=== PATIENT | male | born 1950 | race Asian ===

== ENCOUNTER → 2019-07-29 | Outpatient (CLI) | payer MEDICARE, MEDICAID ==
[~2019-07-29] MED LIST: AMITRIP PO; AML5T PO; DOXA1TAB28; GEMF600T7 PO; INSLANTI SC; INSUINJ37 SC; PANT40TA2 PO
[2019-07-29 09:01] LABS: Potassium 3.7 mmol/L (3.5-5.1)
[2019-07-29 09:09] LABS: BUN/Creatinine Ratio 10.7; Calcium 9.2 mg/dL (8.5-10.1)
== END | disposition home or self-care (01) ==
LOC: LAB 07:34
PROVIDERS: ATTEND Internal Medicine Nephrology
DX: E87.5 Hyperkalemia (principal); N18.1 Chronic kidney disease, stage 1
CPT/HCPCS: 36415; 80048

== ENCOUNTER → 2019-09-19 | Outpatient (CLI) | payer MEDICARE, MEDICAID ==
[2019-09-19 08:57] LABS: Basophils # (auto) 0 uL; Basophils % (auto) 0.3 % (0.0-2.0); Eosinophils # (auto) 0.2 uL; Eosinophils % (auto) 2.2 % (0.0-7.0); Hematocrit 39.1 % (41.0-53.0); Hemoglobin 13.8 g/dL (13.5-17.5); Lymphocytes # (auto) 2.6 uL; Lymphocytes % (auto) 31.7 % (10.0-50.0); Mean Corpuscular Hemoglobin 29.2 pg (28.0-32.0); Mean Corpuscular Hgb Conc. 35.4 g/dL (32.0-36.0); Mean Corpuscular Volume 82.5 fL (80.0-100.0); Monocytes # (auto) 0.5 uL; Monocytes % (auto) 6.5 % (0.0-12.0); Neutrophils # (auto) 4.8 uL; Neutrophils % (auto) 59.3 % (37.0-80.0); Platelet Count (auto) 178 10^3/uL (140-450); Red Blood Cells 4.74 10^6/uL (4.5-5.90); Red Cell Distribution Width 13.2 % (11.8-14.3); White Blood Cell 8.1 10^3/uL (4.4-10.8)
[2019-09-19 09:04] LABS: Urine Bacteria NONE SEEN /hpf (None Seen); Urine Blood Negative /uL (Negative); Urine Specific Gravity 1.023 (1.001-1.035); Urine WBC <1 /hpf (0 - 3)
[2019-09-19 09:41] LABS: Protein, Urine 35.9 mg/dL (0.0-11.9)
[2019-09-19 09:45] LABS: Albumin 4.2 g/dL (3.4-5.0); Calcium 9.3 mg/dL (8.5-10.1); Potassium 3.8 mmol/L (3.5-5.1)
[2019-09-19 09:51] LABS: BUN/Creatinine Ratio 11.8; Bilirubin, Total 0.7 mg/dL (0.2-1.0); Total Protein 8.5 g/dL (6.4-8.2)
== END | disposition home or self-care (01) ==
LOC: LAB 08:31
PROVIDERS: ATTEND Internal Medicine Nephrology
DX: I12.9 Hypertensive chronic kidney disease with stage 1 through stage 4 chronic kidney disease, or unspecified chronic kidney disease (principal); E11.22 Type 2 diabetes mellitus with diabetic chronic kidney disease; N18.3 Chronic kidney disease, stage 3 (moderate)
CPT/HCPCS: 36415; 80053; 80061; 81001; 82570; 84156; 84439; 84443; 85025

== ENCOUNTER 2019-11-15 18:26 | Emergency (ER) | payer MEDICARE, MEDICAID ==
[~2019-11-15] VITALS: Ht 167.6 cm; Wt 74.8 kg
[2019-11-15 18:44] VITALS: BP 124/59
[2019-11-15 19:41] LABS: Albumin 3.5 g/dL (3.4-5.0); Anion Gap 12 (5-15); Blood Urea Nitrogen 50 mg/dL (7-18); Calcium 8.6 mg/dL (8.5-10.1); Carbon Dioxide 20 mmol/L (21-32); Chloride 102 mmol/L (98-107); Potassium 4.3 mmol/L (3.5-5.1); Sodium 134 mmol/L (136-145)
[2019-11-15 19:50] LABS: Alanine Aminotransferase 68 U/L (16-61); Alkaline Phosphatase 84 U/L (45-117); Aspartate Aminotransferase 40 U/L (15-37); BUN/Creatinine Ratio 19.8; Bilirubin, Total 0.8 mg/dL (0.2-1.0); GFR African American 33 mL/min; GFR Non-African American 27 mL/min; Total Protein 7.5 g/dL (6.4-8.2)
[2019-11-15 19:55] LABS: Glucose 576 mg/dL (74-106)
[2019-11-15 20:02] LABS: Basophils # (auto) 0 uL; Basophils % (auto) 0.4 % (0.0-2.0); Eosinophils # (auto) 0.1 uL; Eosinophils % (auto) 1.7 % (0.0-7.0); Hematocrit 35.2 % (41.0-53.0); Hemoglobin 11.7 g/dL (13.5-17.5); Lymphocytes # (auto) 1.1 uL; Lymphocytes % (auto) 16.8 % (10.0-50.0); Mean Corpuscular Hemoglobin 29.8 pg (28.0-32.0); Mean Corpuscular Hgb Conc. 33.3 g/dL (32.0-36.0); Mean Corpuscular Volume 89.4 fL (80.0-100.0); Monocytes # (auto) 0.6 uL; Monocytes % (auto) 9.6 % (0.0-12.0); Neutrophils # (auto) 4.7 uL; Neutrophils % (auto) 71.5 % (37.0-80.0); Nucleated Red Blood Cells % 0.1 %; Platelet Count (auto) 177 10^3/uL (140-450); Red Blood Cells 3.93 10^6/uL (4.5-5.90); Red Cell Distribution Width 14.6 % (11.8-14.3); White Blood Cell 6.5 10^3/uL (4.4-10.8)
== END 2019-11-15 23:47 | disposition left against medical advice (07) ==
LOC: ER 18:29
DX: R53.1 Weakness (principal); Z53.21 Procedure and treatment not carried out due to patient leaving prior to being seen by health care provider
CPT/HCPCS: 36415; 71046; 80053; 84484; 85025

== ENCOUNTER → 2020-03-05 | Outpatient (CLI) | payer MEDICARE, MEDICAID ==
[~2020-03-05] MED LIST changes: +ALLO100T PO; -AML5T PO; -DOXA1TAB28; +FERR-20 PO; -GEMF600T7 PO; -INSUINJ37 SC; +SODI650T PO
[2020-03-05 08:02] LABS: Basophils # (auto) 0 10 ^3/uL (0-0.2); Basophils % (auto) 0.2 % (0.0-2.0); Eosinophils # (auto) 0.1 10 ^3/uL (0-0.8); Eosinophils % (auto) 2.4 % (0.0-7.0); Hematocrit 39.1 % (41.0-53.0); Hemoglobin 13.4 g/dL (13.5-17.5); Lymphocytes % (auto) 35.2 % (10.0-50.0); Mean Corpuscular Hgb Conc. 34.2 g/dL (32.0-36.0); Mean Corpuscular Volume 84.9 fL (80.0-100.0); Monocytes # (auto) 0.5 10 ^3/uL (0-1.3); Monocytes % (auto) 8.1 % (0.0-12.0); Neutrophils # (auto) 3.1 10 ^3/uL (1.6-8.6); Neutrophils % (auto) 54.1 % (37.0-80.0); Platelet Count (auto) 201 10^3/uL (140-450); Red Blood Cells 4.61 10^6/uL (4.5-5.90); Red Cell Distribution Width 13.5 % (11.8-14.3); White Blood Cell 5.8 10^3/uL (4.4-10.8)
[2020-03-05 08:06] LABS: Urine Bacteria NONE SEEN /hpf (None Seen); Urine Blood Negative /uL (Negative); Urine Hyaline Cast MANY /lpf (0 - 2); Urine Mucus FEW (None Seen); Urine Specific Gravity 1.017 (1.001-1.035); Urine WBC 1 /hpf (0 - 3)
[2020-03-05 08:22] LABS: Protein, Urine 111.9 mg/dL (0.0-11.9)
[2020-03-05 08:31] LABS: Calcium 9.3 mg/dL (8.5-10.1)
[2020-03-05 08:35] LABS: BUN/Creatinine Ratio 12.3; Magnesium 2.6 mg/dL (1.6-2.6); Phosphorus 3.8 mg/dL (2.5-4.90)
== END | disposition home or self-care (01) ==
LOC: LAB 07:24
PROVIDERS: ATTEND Internal Medicine Nephrology
DX: E11.22 Type 2 diabetes mellitus with diabetic chronic kidney disease (principal); I13.0 Hypertensive heart and chronic kidney disease with heart failure and stage 1 through stage 4 chronic kidney disease, or unspecified chronic kidney disease; N18.5 Chronic kidney disease, stage 5
CPT/HCPCS: 36415; 80048; 81001; 82570; 83735; 84100; 84156; 85025

== ENCOUNTER → 2020-05-28 | Outpatient (CLI) | payer MEDICARE, MEDICAID ==
[2020-05-28 08:19] LABS: BUN/Creatinine Ratio 10.9; Calcium 9.5 mg/dL (8.5-10.1); Potassium 3.9 mmol/L (3.5-5.1)
== END | disposition home or self-care (01) ==
LOC: LAB 07:30
PROVIDERS: ATTEND Internal Medicine Nephrology
DX: E11.22 Type 2 diabetes mellitus with diabetic chronic kidney disease (principal); I12.9 Hypertensive chronic kidney disease with stage 1 through stage 4 chronic kidney disease, or unspecified chronic kidney disease; N18.3 Chronic kidney disease, stage 3 (moderate)
CPT/HCPCS: 36415; 80048; 83036

== ENCOUNTER → 2020-09-16 | Outpatient (CLI) | payer MEDICARE, MEDICAID ==
[2020-09-16 12:53] LABS: Basophils # (auto) 0 10 ^3/uL (0-0.2); Basophils % (auto) 0.2 % (0.0-2.0); Eosinophils # (auto) 0.2 10 ^3/uL (0-0.8); Eosinophils % (auto) 3.3 % (0.0-7.0); Hematocrit 37.8 % (41.0-53.0); Hemoglobin 12.6 g/dL (13.5-17.5); Lymphocytes # (auto) 1.6 10 ^3/uL (0.4-5.4); Lymphocytes % (auto) 23.9 % (10.0-50.0); Mean Corpuscular Hemoglobin 29.3 pg (28.0-32.0); Mean Corpuscular Hgb Conc. 33.5 g/dL (32.0-36.0); Mean Corpuscular Volume 87.6 fL (80.0-100.0); Monocytes # (auto) 0.5 10 ^3/uL (0-1.3); Monocytes % (auto) 7.6 % (0.0-12.0); Neutrophils # (auto) 4.4 10 ^3/uL (1.6-8.6); Platelet Count (auto) 191 10^3/uL (140-450); Red Blood Cells 4.31 10^6/uL (4.5-5.90); Red Cell Distribution Width 13.6 % (11.8-14.3); White Blood Cell 6.7 10^3/uL (4.4-10.8)
[2020-09-16 13:19] LABS: Calcium 8.6 mg/dL (8.5-10.1)
[2020-09-16 13:23] LABS: Bilirubin, Total 0.4 mg/dL (0.2-1.0); Phosphorus 3.8 mg/dL (2.5-4.90); Total Protein 8.1 g/dL (6.4-8.2)
[2020-09-16 13:30] LABS: Protein, Urine 30.2 mg/dL (0.0-11.9)
== END | disposition home or self-care (01) ==
LOC: LAB 12:37
PROVIDERS: ATTEND Internal Medicine Nephrology
DX: N18.31 Chronic kidney disease, stage 3a (principal); D63.1 Anemia in chronic kidney disease; E21.3 Hyperparathyroidism, unspecified; M10.9 Gout, unspecified
CPT/HCPCS: 36415; 80053; 80069; 82306; 82570; 83970; 84156; 84550; 85025

== ENCOUNTER → 2020-09-23 | Outpatient (CLI) | payer MEDICARE, MEDICAID ==
[2020-09-23 13:45] LABS: BUN/Creatinine Ratio 10.6; Calcium 8.6 mg/dL (8.5-10.1); Potassium 4.1 mmol/L (3.5-5.1)
== END | disposition home or self-care (01) ==
LOC: LAB 10:22
PROVIDERS: ATTEND Internal Medicine Nephrology
DX: N18.30 Chronic kidney disease, stage 3 unspecified (principal)
CPT/HCPCS: 36415; 80048

== ENCOUNTER → 2020-10-21 | Outpatient (CLI) | payer MEDICARE, MEDICAID ==
[2020-10-21 08:31] LABS: Basophils # (auto) 0 10 ^3/uL (0-0.2); Basophils % (auto) 0.3 % (0.0-2.0); Eosinophils # (auto) 0.3 10 ^3/uL (0-0.8); Eosinophils % (auto) 3.7 % (0.0-7.0); Hematocrit 38.4 % (41.0-53.0); Hemoglobin 13.4 g/dL (13.5-17.5); Lymphocytes # (auto) 2.1 10 ^3/uL (0.4-5.4); Lymphocytes % (auto) 28.9 % (10.0-50.0); Mean Corpuscular Hemoglobin 30.2 pg (28.0-32.0); Mean Corpuscular Volume 86.2 fL (80.0-100.0); Monocytes # (auto) 0.6 10 ^3/uL (0-1.3); Monocytes % (auto) 8.5 % (0.0-12.0); Neutrophils # (auto) 4.3 10 ^3/uL (1.6-8.6); Neutrophils % (auto) 58.6 % (37.0-80.0); Nucleated Red Blood Cells % 0.1 %; Platelet Count (auto) 174 10^3/uL (140-450); Red Blood Cells 4.45 10^6/uL (4.5-5.90); Red Cell Distribution Width 14.1 % (11.8-14.3); White Blood Cell 7.3 10^3/uL (4.4-10.8)
[2020-10-21 08:32] LABS: Urine Bacteria NONE SEEN /hpf (None Seen); Urine Blood Negative /uL (Negative); Urine Specific Gravity 1.017 (1.001-1.035); Urine WBC <1 /hpf (0 - 3)
[2020-10-21 09:03] LABS: Anion Gap 7 (5-15); Blood Urea Nitrogen 39 mg/dL (7-18); Calcium 9.1 mg/dL (8.5-10.1); Carbon Dioxide 26 mmol/L (21-32); Chloride 108 mmol/L (98-107); Glucose 157 mg/dL (74-106); Magnesium 2.2 mg/dL (1.6-2.6); Potassium 4.4 mmol/L (3.5-5.1); Sodium 141 mmol/L (136-145)
[2020-10-21 09:04] LABS: Protein, Urine 63.5 mg/dL (0.0-11.9)
[2020-10-21 09:08] LABS: Alanine Aminotransferase 52 U/L (16-61); Alkaline Phosphatase 108 U/L (45-117); Aspartate Aminotransferase 25 U/L (15-37); BUN/Creatinine Ratio 19.5; Bilirubin, Total 0.3 mg/dL (0.2-1.0); Cholesterol 257 mg/dL (< 200); GFR African American 43 mL/min; GFR Non-African American 35 mL/min; HDL Cholesterol 24 mg/dL (40-59); Phosphorus 3.5 mg/dL (2.5-4.90); Total Protein 8.2 g/dL (6.4-8.2); Triglycerides 857 mg/dL (< 150)
== END | disposition home or self-care (01) ==
LOC: LAB 08:05
PROVIDERS: ATTEND Internal Medicine Nephrology
DX: E11.22 Type 2 diabetes mellitus with diabetic chronic kidney disease (principal); I12.9 Hypertensive chronic kidney disease with stage 1 through stage 4 chronic kidney disease, or unspecified chronic kidney disease; N18.30 Chronic kidney disease, stage 3 unspecified
CPT/HCPCS: 36415; 80053; 80061; 81001; 82043; 82306; 82570; 83036; 83735; 83970; 84100; 84156; 85025

== ENCOUNTER → 2021-01-28 | Outpatient (CLI) | payer MEDICARE, MEDICAID ==
[~2021-01-28] MED LIST changes: +AMIT25TA11 PO; -AMITRIP PO
[2021-01-28 09:07] LABS: Basophils # (auto) 0 10 ^3/uL (0-0.2); Basophils % (auto) 0.5 % (0.0-2.0); Eosinophils # (auto) 0.5 10 ^3/uL (0-0.8); Eosinophils % (auto) 7.9 % (0.0-7.0); Hematocrit 38.9 % (41.0-53.0); Hemoglobin 13.6 g/dL (13.5-17.5); Lymphocytes # (auto) 1.9 10 ^3/uL (0.4-5.4); Lymphocytes % (auto) 29.9 % (10.0-50.0); Mean Corpuscular Volume 85.8 fL (80.0-100.0); Monocytes # (auto) 0.4 10 ^3/uL (0-1.3); Neutrophils # (auto) 3.4 10 ^3/uL (1.6-8.6); Neutrophils % (auto) 54.7 % (37.0-80.0); Nucleated Red Blood Cells % 0.2 %; Platelet Count (auto) 135 10^3/uL (140-450); Red Blood Cells 4.53 10^6/uL (4.5-5.90); White Blood Cell 6.2 10^3/uL (4.4-10.8)
[2021-01-28 09:10] LABS: Urine Bacteria NONE SEEN /hpf (None Seen); Urine Blood Negative /uL (Negative); Urine Hyaline Cast FEW /lpf (0 - 2); Urine WBC <1 /hpf (0 - 3)
[2021-01-28 09:27] LABS: Albumin 4.3 g/dL (3.4-5.0); Anion Gap 9 (5-15); Blood Urea Nitrogen 36 mg/dL (7-18); Calcium 9.3 mg/dL (8.5-10.1); Carbon Dioxide 21 mmol/L (21-32); Chloride 108 mmol/L (98-107); Glucose 170 mg/dL (74-106); Potassium 4.5 mmol/L (3.5-5.1); Sodium 138 mmol/L (136-145)
[2021-01-28 09:32] LABS: Protein, Urine 79.5 mg/dL (0.0-11.9)
[2021-01-28 09:34] LABS: Alanine Aminotransferase 37 U/L (16-61); Alkaline Phosphatase 80 U/L (45-117); Aspartate Aminotransferase 33 U/L (15-37); Bilirubin, Total 0.5 mg/dL (0.2-1.0); Cholesterol 177 mg/dL (< 200); GFR African American 37 mL/min; GFR Non-African American 31 mL/min; HDL Cholesterol 36 mg/dL (40-59); Phosphorus 3.3 mg/dL (2.5-4.90); Total Protein 8.4 g/dL (6.4-8.2); Triglycerides 421 mg/dL (< 150); Uric Acid 8.2 mg/dL (3.5-7.2)
== END | disposition home or self-care (01) ==
LOC: LAB 08:43
PROVIDERS: ATTEND Internal Medicine Nephrology
DX: I12.9 Hypertensive chronic kidney disease with stage 1 through stage 4 chronic kidney disease, or unspecified chronic kidney disease (principal); N18.30 Chronic kidney disease, stage 3 unspecified; D63.1 Anemia in chronic kidney disease; D64.9 Anemia, unspecified; N39.0 Urinary tract infection, site not specified; E03.9 Hypothyroidism, unspecified; R19.7 Diarrhea, unspecified; R19.5 Other fecal abnormalities; E56.9 Vitamin deficiency, unspecified; M10.9 Gout, unspecified; E21.3 Hyperparathyroidism, unspecified; R80.9 Proteinuria, unspecified; N40.0 Benign prostatic hyperplasia without lower urinary tract symptoms
CPT/HCPCS: 36415; 80053; 80061; 80069; 81001; 82270; 82306; 82570; 83970; 84153; 84156; 84443; 84550; 85025

== ENCOUNTER → 2021-03-25 | Outpatient (CLI) | payer MEDICARE, MEDICAID ==
[2021-03-25 09:38] LABS: Basophils # (auto) 0 10 ^3/uL (0-0.2); Basophils % (auto) 0.4 % (0.0-2.0); Eosinophils # (auto) 0.4 10 ^3/uL (0-0.8); Eosinophils % (auto) 6.3 % (0.0-7.0); Hematocrit 39.8 % (41.0-53.0); Lymphocytes % (auto) 29.8 % (10.0-50.0); Mean Corpuscular Hemoglobin 30.6 pg (28.0-32.0); Mean Corpuscular Hgb Conc. 35.1 g/dL (32.0-36.0); Mean Corpuscular Volume 87.3 fL (80.0-100.0); Monocytes # (auto) 0.4 10 ^3/uL (0-1.3); Monocytes % (auto) 6.2 % (0.0-12.0); Neutrophils # (auto) 3.7 10 ^3/uL (1.6-8.6); Neutrophils % (auto) 57.3 % (37.0-80.0); Platelet Count (auto) 169 10^3/uL (140-450); Red Blood Cells 4.56 10^6/uL (4.5-5.90); Red Cell Distribution Width 13.5 % (11.8-14.3); White Blood Cell 6.5 10^3/uL (4.4-10.8)
[2021-03-25 09:44] LABS: Urine Bacteria NONE SEEN /hpf (None Seen); Urine Blood Negative /uL (Negative); Urine Specific Gravity 1.012 (1.001-1.035); Urine WBC <1 /hpf (0 - 3)
[2021-03-25 11:06] LABS: Albumin 4.5 g/dL (3.4-5.0); BUN/Creatinine Ratio 14.4; Calcium 9.5 mg/dL (8.5-10.1); Phosphorus 3.8 mg/dL (2.5-4.90); Uric Acid 10.4 mg/dL (3.5-7.2)
[2021-03-25 11:08] LABS: Protein, Urine 68.1 mg/dL (0.0-11.9)
== END | disposition home or self-care (01) ==
LOC: LAB 09:06
PROVIDERS: ATTEND Internal Medicine Nephrology
DX: E11.22 Type 2 diabetes mellitus with diabetic chronic kidney disease (principal); N18.30 Chronic kidney disease, stage 3 unspecified; D63.1 Anemia in chronic kidney disease; E21.3 Hyperparathyroidism, unspecified; R80.9 Proteinuria, unspecified; M10.9 Gout, unspecified; N39.0 Urinary tract infection, site not specified; E56.9 Vitamin deficiency, unspecified
CPT/HCPCS: 36415; 80069; 81001; 82306; 82570; 83036; 83970; 84156; 84550; 85025

== ENCOUNTER → 2021-09-21 | Outpatient (CLI) | payer MEDICARE, MEDICAID ==
[2021-09-21 09:55] LABS: Potassium 4.2 mmol/L (3.5-5.1)
[2021-09-21 09:58] LABS: BUN/Creatinine Ratio 16.9
== END | disposition home or self-care (01) ==
LOC: LAB 08:42
PROVIDERS: ATTEND Internal Medicine Nephrology
DX: N18.4 Chronic kidney disease, stage 4 (severe) (principal); E11.22 Type 2 diabetes mellitus with diabetic chronic kidney disease
CPT/HCPCS: 36415; 80048; 83036

== ENCOUNTER → 2021-10-18 | Outpatient (CLI) | payer MEDICARE, MEDICAID ==
[2021-10-18 09:40] LABS: Calcium 9.1 mg/dL (8.5-10.1); Potassium 4.1 mmol/L (3.5-5.1)
[2021-10-18 09:42] LABS: BUN/Creatinine Ratio 13.9
== END | disposition home or self-care (01) ==
LOC: LAB 08:26
PROVIDERS: ATTEND Internal Medicine Nephrology
DX: I12.9 Hypertensive chronic kidney disease with stage 1 through stage 4 chronic kidney disease, or unspecified chronic kidney disease (principal); E11.22 Type 2 diabetes mellitus with diabetic chronic kidney disease; N18.4 Chronic kidney disease, stage 4 (severe)
CPT/HCPCS: 36415; 80048

== ENCOUNTER → 2021-12-21 | Outpatient (CLI) | payer MEDICARE, MEDICAID ==
[2021-12-21 09:15] LABS: Basophils # (auto) 0 10 ^3/uL (0-0.2); Basophils % (auto) 0.3 % (0.0-2.0); Eosinophils # (auto) 0.5 10 ^3/uL (0-0.8); Eosinophils % (auto) 7.1 % (0.0-7.0); Hematocrit 40.2 % (41.0-53.0); Hemoglobin 13.7 g/dL (13.5-17.5); Lymphocytes # (auto) 1.8 10 ^3/uL (0.4-5.4); Lymphocytes % (auto) 25.9 % (10.0-50.0); Mean Corpuscular Hemoglobin 29.5 pg (28.0-32.0); Mean Corpuscular Hgb Conc. 34.1 g/dL (32.0-36.0); Mean Corpuscular Volume 86.5 fL (80.0-100.0); Monocytes # (auto) 0.5 10 ^3/uL (0-1.3); Monocytes % (auto) 6.7 % (0.0-12.0); Neutrophils # (auto) 4.2 10 ^3/uL (1.6-8.6); Nucleated Red Blood Cells % 0.1 %; Red Blood Cells 4.65 10^6/uL (4.5-5.90); Red Cell Distribution Width 13.9 % (11.8-14.3); White Blood Cell 6.9 10^3/uL (4.4-10.8)
[2021-12-21 09:19] LABS: Urine Bacteria NONE SEEN /hpf (None Seen); Urine Blood Negative /uL (Negative); Urine Specific Gravity 1.013 (1.001-1.035); Urine WBC <1 /hpf (0 - 3)
[2021-12-21 09:31] LABS: Albumin 4.3 g/dL (3.4-5.0); BUN/Creatinine Ratio 12.9; Calcium 9.5 mg/dL (8.5-10.1); Potassium 5.1 mmol/L (3.5-5.1); Uric Acid 8.4 mg/dL (3.5-7.2)
== END | disposition home or self-care (01) ==
LOC: LAB 08:07
PROVIDERS: ATTEND Internal Medicine
DX: D63.1 Anemia in chronic kidney disease (principal); N18.30 Chronic kidney disease, stage 3 unspecified; M10.9 Gout, unspecified; D56.9 Thalassemia, unspecified; E21.3 Hyperparathyroidism, unspecified; R80.9 Proteinuria, unspecified
CPT/HCPCS: 36415; 80069; 81001; 82306; 82570; 83970; 84156; 84550; 85025

== ENCOUNTER → 2022-02-16 | Outpatient (CLI) | payer MEDICARE, MEDICAID ==
[2022-02-16 09:43] LABS: Potassium 5.2 mmol/L (3.5-5.1)
[2022-02-16 09:48] LABS: BUN/Creatinine Ratio 15.3; Calcium 9.3 mg/dL (8.5-10.1)
== END | disposition home or self-care (01) ==
LOC: LAB 08:24
PROVIDERS: ATTEND Internal Medicine Nephrology
DX: N18.4 Chronic kidney disease, stage 4 (severe) (principal)
CPT/HCPCS: 36415; 80048

== ENCOUNTER → 2022-03-01 | Outpatient (CLI) | payer MEDICARE, MEDICAID, OTHER | END | disposition home or self-care (01) | LOC: LAB 08:38 | PROVIDERS: ATTEND Urology | DX: R97.20 Elevated prostate specific antigen [PSA] (principal) | CPT/HCPCS: 84153; 84154 ==

== ENCOUNTER 2022-04-25 12:22 | Emergency (ER) | payer MEDICARE, MEDICAID ==
[~2022-04-25] VITALS: Ht 167.6 cm; Wt 70.8 kg
[2022-04-25 12:39] VITALS: BP 139/63
[2022-04-25 13:37] LABS: Basophils # (auto) 0 10 ^3/uL (0-0.2); Basophils % (auto) 0.4 % (0.0-2.0); Eosinophils # (auto) 0.3 10 ^3/uL (0-0.8); Eosinophils % (auto) 4.4 % (0.0-7.0); Hematocrit 36.9 % (41.0-53.0); Hemoglobin 12.1 g/dL (13.5-17.5); Lymphocytes # (auto) 1.2 10 ^3/uL (0.4-5.4); Lymphocytes % (auto) 18.8 % (10.0-50.0); Mean Corpuscular Hemoglobin 29.1 pg (28.0-32.0); Mean Corpuscular Hgb Conc. 32.9 g/dL (32.0-36.0); Mean Corpuscular Volume 88.5 fL (80.0-100.0); Monocytes # (auto) 0.4 10 ^3/uL (0-1.3); Monocytes % (auto) 6.3 % (0.0-12.0); Neutrophils # (auto) 4.4 10 ^3/uL (1.6-8.6); Neutrophils % (auto) 70.1 % (37.0-80.0); Red Blood Cells 4.17 10^6/uL (4.5-5.90); Red Cell Distribution Width 14.3 % (11.8-14.3); White Blood Cell 6.3 10^3/uL (4.4-10.8)
[2022-04-25 13:55] LABS: Albumin 4.5 g/dL (3.4-5.0); BUN/Creatinine Ratio 13.7; Calcium 9.3 mg/dL (8.5-10.1)
[2022-04-25 14:03] LABS: Bilirubin, Total 0.3 mg/dL (0.2-1.0); Total Protein 8.5 g/dL (6.4-8.2)
[2022-04-25 14:26] LABS: Potassium 6.9 mmol/L (3.5-5.1)
[2022-04-25] MEDS ORDERED: CALCIUM GLUC 1,000mg/50ml-NS 50 ML IV ONE (14:30)
[2022-04-25] MEDS ORDERED: DEXTROSE (50%) 50ML SYRG IV ONE (14:30)
[2022-04-25] MEDS ORDERED: InsuLIN REG 1unit/0.01ml Soln (100units/ml) IV ONE (14:30)
[2022-04-25] MEDS ORDERED: SODIUM BICARBONATE 8.4 % INJ 50ML VIAL IV ONE (14:30)
== END 2022-04-25 17:57 | disposition left against medical advice (07) ==
LOC: ER 12:22
DX: E87.5 Hyperkalemia (principal); R53.1 Weakness; I12.9 Hypertensive chronic kidney disease with stage 1 through stage 4 chronic kidney disease, or unspecified chronic kidney disease; E11.22 Type 2 diabetes mellitus with diabetic chronic kidney disease; N18.30 Chronic kidney disease, stage 3 unspecified; E78.5 Hyperlipidemia, unspecified; M10.9 Gout, unspecified; Z87.891 Personal history of nicotine dependence; Z79.4 Long term (current) use of insulin; Z79.899 Other long term (current) drug therapy
CPT/HCPCS: 36415; 80053; 85025; 93005

== ENCOUNTER → 2022-04-25 | Outpatient (CLI) | payer MEDICARE, MEDICAID ==
[2022-04-25 09:54] LABS: Urine WBC None Seen /hpf (0 - 3)
[2022-04-25 09:58] LABS: Urine Bacteria NONE SEEN /hpf (None Seen); Urine Blood Negative /uL (Negative); Urine Specific Gravity 1.014 (1.001-1.035)
[2022-04-25 10:59] LABS: BUN/Creatinine Ratio 14.1; Calcium 9.4 mg/dL (8.5-10.1); Magnesium 2.6 mg/dL (1.6-2.6); Phosphorus 3.8 mg/dL (2.5-4.90)
[2022-04-25 11:16] LABS: Micro Albumin 80.4 mg/L (0-30.0)
[2022-04-25 11:50] LABS: Potassium 6.6 mmol/L (3.5-5.1)
== END | disposition home or self-care (01) ==
LOC: LAB 09:36
PROVIDERS: ATTEND Internal Medicine Nephrology
DX: N18.4 Chronic kidney disease, stage 4 (severe) (principal)
CPT/HCPCS: 36415; 80048; 81001; 82043; 82306; 82570; 83735; 83970; 84100

== ENCOUNTER → 2022-05-04 | Outpatient (CLI) | payer MEDICARE, MEDICAID ==
[2022-05-04 09:02] LABS: Calcium 9.3 mg/dL (8.5-10.1); Potassium 4.3 mmol/L (3.5-5.1)
== END | disposition home or self-care (01) ==
LOC: LAB 08:10
PROVIDERS: ATTEND Internal Medicine Nephrology
DX: E78.5 Hyperlipidemia, unspecified (principal)
CPT/HCPCS: 36415; 80048

== ENCOUNTER → 2022-05-26 | Outpatient (CLI) | payer MEDICARE, MEDICAID ==
[~2022-05-26] MED LIST changes: +AMLO-496 PO; +CEPH-510 PO; +METO-289 PO; +SODI10PA PO
[2022-05-26 09:25] LABS: Urine Bacteria NONE SEEN /hpf (None Seen); Urine Blood Negative /uL (Negative); Urine Hyaline Cast MANY /lpf (0 - 2); Urine Specific Gravity 1.013 (1.001-1.035); Urine WBC <1 /hpf (0 - 3)
[2022-05-26 09:45] LABS: Magnesium 2.8 mg/dL (1.6-2.6); Potassium 5.5 mmol/L (3.5-5.1)
[2022-05-26 09:47] LABS: BUN/Creatinine Ratio 15.3; Phosphorus 4.6 mg/dL (2.5-4.90)
[2022-05-26 09:48] LABS: Protein, Urine 51.1 mg/dL (0.0-11.9)
== END | disposition home or self-care (01) ==
LOC: LAB 08:50
PROVIDERS: ATTEND Internal Medicine Nephrology
DX: E87.5 Hyperkalemia (principal); E11.9 Type 2 diabetes mellitus without complications; Z79.899 Other long term (current) drug therapy
CPT/HCPCS: 36415; 80048; 81001; 82306; 82570; 83036; 83735; 83970; 84100; 84156

== ENCOUNTER → 2022-06-10 | Outpatient (CLI) | payer MEDICARE, MEDICAID ==
[~2022-06-10] MED LIST changes: -AMLO-496 PO; -CEPH-510 PO; -METO-289 PO; -SODI10PA PO
[2022-06-10 08:23] LABS: Basophils # (auto) 0 10 ^3/uL (0-0.2); Basophils % (auto) 0.3 % (0.0-2.0); Eosinophils # (auto) 0.2 10 ^3/uL (0-0.8); Hematocrit 37.7 % (41.0-53.0); Hemoglobin 12.1 g/dL (13.5-17.5); Lymphocytes # (auto) 1.5 10 ^3/uL (0.4-5.4); Lymphocytes % (auto) 15.7 % (10.0-50.0); Mean Corpuscular Hemoglobin 29.7 pg (28.0-32.0); Mean Corpuscular Hgb Conc. 32.1 g/dL (32.0-36.0); Mean Corpuscular Volume 92.4 fL (80.0-100.0); Monocytes # (auto) 0.6 10 ^3/uL (0-1.3); Monocytes % (auto) 5.7 % (0.0-12.0); Neutrophils # (auto) 7.5 10 ^3/uL (1.6-8.6); Neutrophils % (auto) 76.3 % (37.0-80.0); Nucleated Red Blood Cells % 0.1 %; Red Blood Cells 4.08 10^6/uL (4.5-5.90); White Blood Cell 9.8 10^3/uL (4.4-10.8)
[2022-06-10 08:46] LABS: Potassium 4.8 mmol/L (3.5-5.1)
[2022-06-10 08:49] LABS: BUN/Creatinine Ratio 15.9
== END | disposition home or self-care (01) ==
LOC: LAB 08:07
PROVIDERS: ATTEND Internal Medicine Nephrology
DX: N18.4 Chronic kidney disease, stage 4 (severe) (principal)
CPT/HCPCS: 36415; 80048; 85025

== ENCOUNTER → 2022-06-23 | Outpatient (CLI) | payer MEDICARE, MEDICAID ==
[2022-06-23 09:02] LABS: Basophils # (auto) 0 10 ^3/uL (0-0.2); Basophils % (auto) 0.5 % (0.0-2.0); Eosinophils # (auto) 0.2 10 ^3/uL (0-0.8); Eosinophils % (auto) 3.3 % (0.0-7.0); Hematocrit 38.6 % (41.0-53.0); Hemoglobin 12.8 g/dL (13.5-17.5); Lymphocytes % (auto) 34.5 % (10.0-50.0); Mean Corpuscular Hemoglobin 30.3 pg (28.0-32.0); Mean Corpuscular Hgb Conc. 33.2 g/dL (32.0-36.0); Mean Corpuscular Volume 91.4 fL (80.0-100.0); Monocytes # (auto) 0.4 10 ^3/uL (0-1.3); Monocytes % (auto) 7.2 % (0.0-12.0); Neutrophils # (auto) 3.1 10 ^3/uL (1.6-8.6); Neutrophils % (auto) 54.5 % (37.0-80.0); Nucleated Red Blood Cells % 0.1 %; Red Blood Cells 4.22 10^6/uL (4.5-5.90); Red Cell Distribution Width 14.1 % (11.8-14.3); White Blood Cell 5.8 10^3/uL (4.4-10.8)
[2022-06-23 17:11] LABS: Anion Gap 10 (5-15); BUN/Creatinine Ratio 12.3; Blood Urea Nitrogen 35 mg/dL (7-18); Calcium 8.6 mg/dL (8.5-10.1); Carbon Dioxide 14 mmol/L (21-32); Chloride 112 mmol/L (98-107); GFR African American 28 mL/min; GFR Non-African American 23 mL/min; Glucose 270 mg/dL (74-106); Sodium 136 mmol/L (136-145)
== END | disposition home or self-care (01) ==
LOC: LAB 08:44
PROVIDERS: ATTEND Internal Medicine Nephrology
DX: N18.4 Chronic kidney disease, stage 4 (severe) (principal)
CPT/HCPCS: 36415; 80048; 85025

== ENCOUNTER 2022-06-24 11:29 | Inpatient (IN) | payer MEDICARE, MEDICAID ==
[~2022-06-24] VITALS: Ht 167.6 cm; Wt 80.5 kg
[2022-06-24] MEDS ORDERED: ALBUTEROL SULF 2.5 MG/0.5ML(0.5%) NEB SOLN ONE (11:53)
[2022-06-24] MEDS ORDERED: SODIUM BICARBONATE 50ML VIAL 150 ML in D5W 5% 1,000 ML IV ONE (12:00)
[2022-06-24] MEDS ORDERED: InsuLIN REG 1unit/0.01ml Soln (100units/ml) IV ONE ×3 (12:00→14:30)
[2022-06-24] MEDS ORDERED: SODIUM ZIRCONIUM CYCL 10 GM PAK PO ONE (12:00)
[2022-06-24] MEDS ORDERED: CALCIUM GLUC 1,000mg/50ml-NS 50 ML IV ONE (12:00)
[2022-06-24] MEDS ORDERED: SODIUM BICARBONATE 8.4 % INJ 50ML VIAL IV ONE (12:00)
[2022-06-24] MEDS ORDERED: ALBUTEROL SULF 2.5 MG/0.5ML(0.5%) NEB SOLN NEB ONE (12:00)
[2022-06-24 12:21] LABS: Basophils # (auto) 0 10 ^3/uL (0-0.2); Basophils % (auto) 0.4 % (0.0-2.0); Eosinophils # (auto) 0.1 10 ^3/uL (0-0.8); Hematocrit 35.6 % (41.0-53.0); Hemoglobin 11.9 g/dL (13.5-17.5); Lymphocytes # (auto) 1.5 10 ^3/uL (0.4-5.4); Lymphocytes % (auto) 22.5 % (10.0-50.0); Mean Corpuscular Hemoglobin 30.4 pg (28.0-32.0); Mean Corpuscular Hgb Conc. 33.4 g/dL (32.0-36.0); Mean Corpuscular Volume 90.9 fL (80.0-100.0); Monocytes # (auto) 0.4 10 ^3/uL (0-1.3); Monocytes % (auto) 5.9 % (0.0-12.0); Neutrophils # (auto) 4.5 10 ^3/uL (1.6-8.6); Neutrophils % (auto) 69.2 % (37.0-80.0); Red Blood Cells 3.92 10^6/uL (4.5-5.90); Red Cell Distribution Width 14.1 % (11.8-14.3); White Blood Cell 6.5 10^3/uL (4.4-10.8)
[2022-06-24 12:39] LABS: Albumin 4.3 g/dL (3.4-5.0); Calcium 8.9 mg/dL (8.5-10.1); Magnesium 2.3 mg/dL (1.6-2.6)
[2022-06-24 12:43] LABS: Bilirubin, Total 0.3 mg/dL (0.2-1.0); Total Protein 7.8 g/dL (6.4-8.2)
[2022-06-24 12:58] LABS: Potassium 7.4 mmol/L (3.5-5.1)
[2022-06-24 12:59] LABS: INR 0.97 (0.9-1.15)
[2022-06-24 13:37] LABS: Urine WBC None Seen /hpf (0 - 3)
[2022-06-24 13:53] LABS: Urine Bacteria NONE SEEN /hpf (None Seen); Urine Blood Negative /uL (Negative); Urine Specific Gravity 1.013 (1.001-1.035)
[2022-06-24] MEDS ORDERED: DEXTROSE (25%) 10 ML SYRG IV ONE (14:15)
[2022-06-24] MEDS ORDERED: DEXTROSE (50%) 50ML SYRG IV ONE (14:15)
[2022-06-24 17:59] LABS: BUN/Creatinine Ratio 11.9; Calcium 9.1 mg/dL (8.5-10.1)
[2022-06-24 18:06] LABS: Potassium 6.6 mmol/L (3.5-5.1)
[2022-06-24] MEDS ORDERED: SODIUM ZIRCONIUM CYCL 10 GM PAK PO SCH (22:00)
[2022-06-24] MEDS ORDERED: ONDANSETRON HCL 4 MG/2 ML VIAL IV PRN (22:15)
[2022-06-24] MEDS ORDERED: DOCUSATE SOD 100 MG CAP PO PRN (22:15)
[2022-06-24] MEDS ORDERED: HYDROcodone-ACET 5/325MG TAB PO PRN (22:15)
[2022-06-24] MEDS ORDERED: DEXTROSE (50%) 50ML SYRG IV PRN (22:15)
[2022-06-24] MEDS ORDERED: ACETAMINOPHEN 325 MG TAB PO PRN (22:15)
[2022-06-24] MEDS ORDERED: SODIUM CHLORIDE 0.9% 1,000 ML IV SCH (22:15)
[2022-06-24] MEDS ORDERED: hydrALAZINE HCL 20 MG/ML VL IV PRN (22:15)
[2022-06-24] MEDS ORDERED: NITROGLYCERIN 0.4 MG SL TAB SL PRN (22:45)
[2022-06-24] MEDS ORDERED: MORPHINE SULFATE INJ 2 MG/ml SYRG IV PRN (22:45)
[2022-06-25] VITALS (8 sets, daily range): BP systolic 126–168; BP diastolic 64–81
[2022-06-25] MEDS ORDERED: ACCU-CHEK COMFORT CURVE STRIP VI SCH
[2022-06-25] MEDS ORDERED: InsuLIN REG 1unit/0.01ml Soln (100units/ml) SC SCH
[2022-06-25 05:39] LABS: Basophils # (auto) 0 10 ^3/uL (0-0.2); Basophils % (auto) 0.1 % (0.0-2.0); Eosinophils # (auto) 0.1 10 ^3/uL (0-0.8); Eosinophils % (auto) 0.6 % (0.0-7.0); Hematocrit 33.6 % (41.0-53.0); Hemoglobin 11.6 g/dL (13.5-17.5); Lymphocytes # (auto) 0.8 10 ^3/uL (0.4-5.4); Lymphocytes % (auto) 8.5 % (10.0-50.0); Mean Corpuscular Hemoglobin 30.9 pg (28.0-32.0); Mean Corpuscular Hgb Conc. 34.5 g/dL (32.0-36.0); Mean Corpuscular Volume 89.7 fL (80.0-100.0); Monocytes # (auto) 0.5 10 ^3/uL (0-1.3); Monocytes % (auto) 5.3 % (0.0-12.0); Neutrophils # (auto) 8.1 10 ^3/uL (1.6-8.6); Neutrophils % (auto) 85.5 % (37.0-80.0); Red Blood Cells 3.75 10^6/uL (4.5-5.90); Red Cell Distribution Width 14.3 % (11.8-14.3); White Blood Cell 9.5 10^3/uL (4.4-10.8)
[2022-06-25] MEDS ORDERED: NITROGLYCERIN 0.4 MG SL TAB SL PRN (05:45)
[2022-06-25] MEDS ORDERED: DOCUSATE SOD 100 MG CAP PO PRN (05:45)
[2022-06-25] MEDS ORDERED: ONDANSETRON HCL 4 MG/2 ML VIAL IV PRN (05:45)
[2022-06-25] MEDS ORDERED: MORPHINE SULFATE INJ 2 MG/ml SYRG IV PRN (05:45)
[2022-06-25] MEDS ORDERED: DEXTROSE (50%) 50ML SYRG IV PRN (05:45)
[2022-06-25] MEDS ORDERED: SODIUM CHLORIDE 0.9% 1,000 ML IV SCH (05:45)
[2022-06-25] MEDS ORDERED: HYDROcodone-ACET 5/325MG TAB PO PRN (05:45)
[2022-06-25] MEDS ORDERED: hydrALAZINE HCL 20 MG/ML VL IV PRN (05:45)
[2022-06-25] MEDS ORDERED: ACETAMINOPHEN 325 MG TAB PO PRN (05:45)
[2022-06-25] MEDS: InsuLIN REG 1unit/0.01ml Soln (100units/ml) SC SCH ×3 (05:52→17:22)
[2022-06-25 05:53] LABS: Albumin 4.2 g/dL (3.4-5.0); Calcium 9.5 mg/dL (8.5-10.1)
[2022-06-25 05:58] LABS: BUN/Creatinine Ratio 13.5; Bilirubin, Total 0.4 mg/dL (0.2-1.0)
[2022-06-25] MEDS ORDERED: SODIUM ZIRCONIUM CYCL 10 GM PAK PO SCH (06:00)
[2022-06-25] MEDS: ACCU-CHEK COMFORT CURVE STRIP VI SCH ×3 (06:09→18:02)
[2022-06-25] MEDS ORDERED: SODIUM ZIRCONIUM CYCL 10 GM PAK PO ONE (06:30)
[2022-06-25] MEDS ORDERED: HEPARIN SODIUM (PORCINE) 5000 UNITS/ML 1ML VIAL SC SCH (10:00)
[2022-06-25] MEDS ORDERED: FUROSEMIDE 40 MG/4 ML VIAL IV ONE (10:15)
[2022-06-25] MEDS ORDERED: SODIUM BICARBONATE 8.4% INJ 50ML SYRINGE IV ONE (10:15)
[2022-06-25] MEDS ORDERED: SODIUM BICARBONATE 50ML VIAL 150 ML in D5W 5% 1,000 ML IV SCH (10:15)
[2022-06-25] MEDS: HEPARIN SODIUM (PORCINE) 5000 UNITS/ML 1ML VIAL SC SCH ×2 (10:37→21:37)
[2022-06-25] MEDS: SODIUM ZIRCONIUM CYCL 10 GM PAK PO SCH ×3 (11:47→21:37)
[2022-06-25] MEDS ORDERED: SODI10PA PO (13:59)
[2022-06-25] MEDS ORDERED: SODI650T PO (13:59)
[2022-06-25] MEDS ORDERED: METO-289 PO (14:26)
[2022-06-25] MEDS ORDERED: VANCOMYCIN PER PHARMACY 0 MG IV SCH (18:00)
[2022-06-25] MEDS ORDERED: SODIUM CHLORIDE 0.9% 1,000 ML IV ONE (18:00)
[2022-06-25] MEDS ORDERED: amLODIPine BESYLATE 5 MG TAB PO ONE (18:30)
[2022-06-25] MEDS ORDERED: METOPROLOL SUCCINATE XL 50 MG TAB PO ONE (18:30)
[2022-06-25] MEDS ORDERED: cefTRIAXone 1GM/50ML D5W 50 ML IV ONE ×2 (18:45)
[2022-06-25] MEDS ORDERED: DOXYCYCLINE 100 MG TAB/CAP PO ONE (18:45)
[2022-06-25 20:06] LABS: Basophils # (auto) 0 10 ^3/uL (0-0.2); Basophils % (auto) 0.4 % (0.0-2.0); Eosinophils # (auto) 0.1 10 ^3/uL (0-0.8); Eosinophils % (auto) 1.1 % (0.0-7.0); Hematocrit 34.6 % (41.0-53.0); Hemoglobin 11.3 g/dL (13.5-17.5); Lymphocytes # (auto) 1.3 10 ^3/uL (0.4-5.4); Lymphocytes % (auto) 18.7 % (10.0-50.0); Mean Corpuscular Hemoglobin 29.6 pg (28.0-32.0); Mean Corpuscular Hgb Conc. 32.6 g/dL (32.0-36.0); Mean Corpuscular Volume 90.9 fL (80.0-100.0); Monocytes # (auto) 0.5 10 ^3/uL (0-1.3); Monocytes % (auto) 6.8 % (0.0-12.0); Neutrophils # (auto) 5.2 10 ^3/uL (1.6-8.6); Nucleated Red Blood Cells % 0.1 %; Red Blood Cells 3.81 10^6/uL (4.5-5.90); Red Cell Distribution Width 14.2 % (11.8-14.3); White Blood Cell 7.1 10^3/uL (4.4-10.8)
[2022-06-25 20:29] LABS: Albumin 3.8 g/dL (3.4-5.0); Calcium 8.4 mg/dL (8.5-10.1); Potassium 4.4 mmol/L (3.5-5.1)
[2022-06-25 20:32] LABS: BUN/Creatinine Ratio 13.6; Bilirubin, Total 0.3 mg/dL (0.2-1.0); Total Protein 7.6 g/dL (6.4-8.2)
[2022-06-25 20:33] LABS: Lactic Acid w/Reflex 2.6 mmol/L (0.4-2.0)
[2022-06-25] MEDS: DOXYCYCLINE 100 MG TAB/CAP PO SCH (22:00)
[2022-06-26] MEDS: ACCU-CHEK COMFORT CURVE STRIP VI SCH ×2 (00:10→05:56)
[2022-06-26] MEDS: InsuLIN REG 1unit/0.01ml Soln (100units/ml) SC SCH ×2 (00:15→05:55)
[2022-06-26 05:00] VITALS: BP 136/76
[2022-06-26] MEDS: SODIUM ZIRCONIUM CYCL 10 GM PAK PO SCH (05:54)
[2022-06-26 06:25] LABS: Calcium 8.5 mg/dL (8.5-10.1); Potassium 3.7 mmol/L (3.5-5.1)
[2022-06-26 06:27] LABS: BUN/Creatinine Ratio 12.8
[2022-06-26 09:00] VITALS: BP 114/67
[2022-06-26] MEDS ORDERED: cefTRIAXone 1GM/50ML D5W 50 ML IV SCH (09:00)
[2022-06-26] MEDS: DOXYCYCLINE 100 MG TAB/CAP PO SCH (09:31)
[2022-06-26] MEDS: HEPARIN SODIUM (PORCINE) 5000 UNITS/ML 1ML VIAL SC SCH (09:38)
[2022-06-26] MEDS ORDERED: amLODIPine BESYLATE 5 MG TAB PO SCH (10:00)
[2022-06-26] MEDS ORDERED: METOPROLOL SUCCINATE XL 50 MG TAB PO SCH (10:00)
[2022-06-26] MEDS ORDERED: AMLO-496 PO (10:24)
[2022-06-26] MEDS ORDERED: CEPH-510 PO (10:30)
[2022-06-26 13:00] VITALS: BP 117/66
== END 2022-06-26 12:00 | disposition home health service (06) | DRG 469 ==
LOC: ER 11:29 → TELE 22:45 → TELE-WESTW 23:49
PROVIDERS: ADMIT Nurse Practitioner Family; ATTEND Nurse Practitioner Family
DX: N17.9 Acute kidney failure, unspecified (principal); N13.8 Other obstructive and reflux uropathy; E11.22 Type 2 diabetes mellitus with diabetic chronic kidney disease; E87.8 Other disorders of electrolyte and fluid balance, not elsewhere classified; E87.5 Hyperkalemia; N18.4 Chronic kidney disease, stage 4 (severe); E66.01 Morbid (severe) obesity due to excess calories; E78.5 Hyperlipidemia, unspecified; Z20.822 Contact with and (suspected) exposure to COVID-19; I12.9 Hypertensive chronic kidney disease with stage 1 through stage 4 chronic kidney disease, or unspecified chronic kidney disease; N40.1 Benign prostatic hyperplasia with lower urinary tract symptoms; Z87.891 Personal history of nicotine dependence; Z68.28 Body mass index [BMI] 28.0-28.9, adult; Z79.4 Long term (current) use of insulin
CPT/HCPCS: 36415; 71045; 76775; 80048; 80053; 81001; 82962; 83605; 83735; 84132; 84154; 84439; 84443; 84484; 85025; 85610; 85730; 87040; 87086; 93005; 94640; 96365; 96366; 96367; 96372; 96375; 96376; A4565; G0378; J0696; J1815

== ENCOUNTER → 2022-08-10 | Outpatient (CLI) | payer MEDICARE, MEDICAID ==
[~2022-08-10] MED LIST changes: +AMLO-496 PO; +CEPH-510 PO; +METO-289 PO; +NITR-87 PO; -PANT40TA2 PO; +SODI10PA PO
[2022-08-10 12:42] LABS: Basophils # (auto) 0 10 ^3/uL (0-0.2); Basophils % (auto) 0.4 % (0.0-2.0); Eosinophils # (auto) 0 10 ^3/uL (0-0.8); Eosinophils % (auto) 0.1 % (0.0-7.0); Hematocrit 34.6 % (41.0-53.0); Lymphocytes % (auto) 12.3 % (10.0-50.0); Mean Corpuscular Hemoglobin 29.4 pg (28.0-32.0); Mean Corpuscular Hgb Conc. 34.7 g/dL (32.0-36.0); Monocytes # (auto) 0.5 10 ^3/uL (0-1.3); Monocytes % (auto) 6.2 % (0.0-12.0); Neutrophils # (auto) 6.5 10 ^3/uL (1.6-8.6); Red Blood Cells 4.07 10^6/uL (4.5-5.90); Red Cell Distribution Width 13.8 % (11.8-14.3); White Blood Cell 8.1 10^3/uL (4.4-10.8)
[2022-08-10 13:05] LABS: Albumin 3.5 g/dL (3.4-5.0); Calcium 8.9 mg/dL (8.5-10.1); Potassium 4.8 mmol/L (3.5-5.1)
[2022-08-10 13:08] LABS: BUN/Creatinine Ratio 13.1; Bilirubin, Total 0.6 mg/dL (0.2-1.0); Total Protein 8.3 g/dL (6.4-8.2)
== END | disposition home or self-care (01) ==
LOC: LAB 12:08
PROVIDERS: ATTEND Internal Medicine
DX: E11.9 Type 2 diabetes mellitus without complications (principal); I10 Essential (primary) hypertension; N39.0 Urinary tract infection, site not specified; Z79.899 Other long term (current) drug therapy
CPT/HCPCS: 36415; 80053; 85025; 85652; 87086; 87088; 87186

== ENCOUNTER → 2022-08-12 | Outpatient (CLI) | payer OTHER, MEDICAID ==
[~2022-08-12] MED LIST changes: -NITR-87 PO
[2022-08-12 08:10] LABS: Basophils # (auto) 0 10 ^3/uL (0-0.2); Basophils % (auto) 0.2 % (0.0-2.0); Eosinophils # (auto) 0.1 10 ^3/uL (0-0.8); Eosinophils % (auto) 0.7 % (0.0-7.0); Hematocrit 33.3 % (41.0-53.0); Hemoglobin 11.6 g/dL (13.5-17.5); Lymphocytes # (auto) 1.4 10 ^3/uL (0.4-5.4); Lymphocytes % (auto) 14.7 % (10.0-50.0); Mean Corpuscular Hemoglobin 29.2 pg (28.0-32.0); Mean Corpuscular Hgb Conc. 34.9 g/dL (32.0-36.0); Mean Corpuscular Volume 83.6 fL (80.0-100.0); Monocytes # (auto) 0.9 10 ^3/uL (0-1.3); Monocytes % (auto) 9.6 % (0.0-12.0); Neutrophils % (auto) 74.8 % (37.0-80.0); Red Blood Cells 3.98 10^6/uL (4.5-5.90); Red Cell Distribution Width 13.4 % (11.8-14.3); White Blood Cell 9.3 10^3/uL (4.4-10.8)
[2022-08-12 08:20] LABS: Albumin 3.2 g/dL (3.4-5.0); Calcium 8.8 mg/dL (8.5-10.1); Potassium 4.3 mmol/L (3.5-5.1)
[2022-08-12 08:23] LABS: Bilirubin, Total 0.6 mg/dL (0.2-1.0); Total Protein 8.1 g/dL (6.4-8.2)
== END | disposition home or self-care (01) ==
LOC: LAB 07:47
PROVIDERS: ATTEND Internal Medicine
DX: E11.22 Type 2 diabetes mellitus with diabetic chronic kidney disease (principal); N18.4 Chronic kidney disease, stage 4 (severe)
CPT/HCPCS: 36415; 80053; 85025

== ENCOUNTER 2022-08-13 09:22 | Inpatient (IN) | payer MEDICARE, MEDICAID ==
[~2022-08-13] VITALS: Ht 167.6 cm; Wt 76.6 kg
[2022-08-13 10:19] LABS: Basophils # (auto) 0 10 ^3/uL (0-0.2); Basophils % (auto) 0.4 % (0.0-2.0); Eosinophils # (auto) 0.1 10 ^3/uL (0-0.8); Eosinophils % (auto) 0.9 % (0.0-7.0); Hematocrit 32.1 % (41.0-53.0); Lymphocytes % (auto) 11.4 % (10.0-50.0); Mean Corpuscular Hgb Conc. 34.4 g/dL (32.0-36.0); Mean Corpuscular Volume 84.3 fL (80.0-100.0); Monocytes # (auto) 0.8 10 ^3/uL (0-1.3); Monocytes % (auto) 9.1 % (0.0-12.0); Neutrophils # (auto) 7.1 10 ^3/uL (1.6-8.6); Neutrophils % (auto) 78.2 % (37.0-80.0); Red Blood Cells 3.81 10^6/uL (4.5-5.90); Red Cell Distribution Width 13.7 % (11.8-14.3); White Blood Cell 9.1 10^3/uL (4.4-10.8)
[2022-08-13 10:26] LABS: Albumin 3.2 g/dL (3.4-5.0); Calcium 8.3 mg/dL (8.5-10.1); Potassium 4.2 mmol/L (3.5-5.1)
[2022-08-13 10:29] LABS: BUN/Creatinine Ratio 14.5; Bilirubin, Total 0.6 mg/dL (0.2-1.0); Total Protein 7.2 g/dL (6.4-8.2)
[2022-08-13] MEDS ORDERED: LACTATED RINGER'S 1,000 ML IV ONE ×2 (11:30→14:30)
[2022-08-13 13:14] LABS: Urine Bacteria MANY /hpf (None Seen); Urine Blood 3+ /uL (Negative); Urine Hyaline Cast MOD /lpf (0 - 2); Urine Mucus FEW (None Seen); Urine WBC 477 /hpf (0 - 3); Urine WBC Clumps PRESENT /hpf (None Seen)
[2022-08-13] MEDS ORDERED: FLUCONAZOLE 200MG/100ML 100 ML IV ONE (14:00)
[2022-08-13] MEDS ORDERED: CEFTRIAXONE SODIUM 2 GM in D5W 5% 50 ML IV ONE (14:00)
[2022-08-13] MEDS ORDERED: ONDANSETRON HCL 4 MG/2 ML VIAL IV PRN (14:30)
[2022-08-13] MEDS ORDERED: HYDROmorphone HCL 2 MG/ML VL/or syr IV PRN (14:30)
[2022-08-13] MEDS ORDERED: ACETAMINOPHEN 325 MG TAB PO PRN (14:30)
[2022-08-13] MEDS ORDERED: HYDROcodone-ACET 5/325MG TAB PO PRN (14:30)
[2022-08-13] MEDS ORDERED: DOCUSATE SOD 100 MG CAP PO PRN (14:30)
[2022-08-13] MEDS ORDERED: DEXTROSE (50%) 50ML SYRG IV PRN (14:45)
[2022-08-13 15:13] LABS: % Iron Saturation 7.9 % (20-55)
[2022-08-13 15:58] LABS: Creatinine, Urine 49 mg/dL (30.0-125.0); Sodium Urine 32 mmol/L (40-220)
[2022-08-13] MEDS: HEPARIN SODIUM (PORCINE) 5000 UNITS/ML 1ML VIAL SC SCH ×2 (17:01→22:30)
[2022-08-13] MEDS: ACCU-CHEK COMFORT CURVE STRIP VI SCH ×2 (17:45→22:00)
[2022-08-13] MEDS: InsuLIN REG 1unit/0.01ml Soln (100units/ml) SC SCH ×2 (18:46→22:47)
[2022-08-13] MEDS: FERROUS SULFATE 325mg EC TAB PO SCH (19:07)
[2022-08-13] MEDS: SODIUM BICARBONATE 650 MG TAB PO SCH (19:07)
[2022-08-13] MEDS ORDERED: AMITRIPTYLINE HCL 25 MG TAB PO SCH (22:00)
[2022-08-13] MEDS: SODIUM CHLOR 0.9% PF (SALINE LOCK) 10ML VIAL/SYR IV SCH (22:24)
[2022-08-14] MEDS: SODIUM BICARBONATE 650 MG TAB PO SCH ×5 (01:37→23:37)
[2022-08-14 05:00] VITALS: BP 131/64
[2022-08-14] MEDS: HEPARIN SODIUM (PORCINE) 5000 UNITS/ML 1ML VIAL SC SCH ×3 (06:17→23:17)
[2022-08-14] MEDS: SODIUM CHLOR 0.9% PF (SALINE LOCK) 10ML VIAL/SYR IV SCH ×3 (06:18→21:05)
[2022-08-14] MEDS: ACCU-CHEK COMFORT CURVE STRIP VI SCH ×4 (06:43→21:05)
[2022-08-14] MEDS: InsuLIN REG 1unit/0.01ml Soln (100units/ml) SC SCH ×4 (06:46→21:14)
[2022-08-14] MEDS: INSULIN LANTUS (GLARGINE) 1 /0.01ml (100units/ml) SC SCH (06:54)
[2022-08-14] MEDS: FERROUS SULFATE 325mg EC TAB PO SCH ×2 (08:32→18:08)
[2022-08-14 09:00] VITALS: BP 135/62
[2022-08-14] MEDS: ALLOPURINOL 100 MG TAB PO SCH (09:42)
[2022-08-14] MEDS: METOPROLOL SUCCINATE XL 50 MG TAB PO SCH (09:42)
[2022-08-14] MEDS ORDERED: amLODIPine BESYLATE 5 MG TAB PO SCH (10:00)
[2022-08-14] MEDS: cefTRIAXone 1GM/50ML D5W 50 ML IV SCH (10:32)
[2022-08-14] MEDS: SODIUM CHLORIDE 0.9% 1,000 ML IV SCH ×3 (11:49→23:16)
[2022-08-14 17:19] VITALS: BP 149/73
[2022-08-14 22:00] VITALS: BP 141/63
[2022-08-15 05:00] VITALS: BP 142/74
[2022-08-15] MEDS: SODIUM CHLOR 0.9% PF (SALINE LOCK) 10ML VIAL/SYR IV SCH (06:19)
[2022-08-15] MEDS: SODIUM BICARBONATE 650 MG TAB PO SCH ×2 (06:19→12:39)
[2022-08-15] MEDS: HEPARIN SODIUM (PORCINE) 5000 UNITS/ML 1ML VIAL SC SCH (06:33)
[2022-08-15] MEDS: INSULIN LANTUS (GLARGINE) 1 /0.01ml (100units/ml) SC SCH (06:34)
[2022-08-15] MEDS: InsuLIN REG 1unit/0.01ml Soln (100units/ml) SC SCH ×2 (06:34→12:41)
[2022-08-15] MEDS: ACCU-CHEK COMFORT CURVE STRIP VI SCH ×2 (06:34→11:22)
[2022-08-15] MEDS: FERROUS SULFATE 325mg EC TAB PO SCH (08:36)
[2022-08-15 09:02] LABS: BUN/Creatinine Ratio 14.1; Calcium 8.9 mg/dL (8.5-10.1); Potassium 3.8 mmol/L (3.5-5.1)
[2022-08-15 09:18] VITALS: BP 140/68
[2022-08-15] MEDS: ALLOPURINOL 100 MG TAB PO SCH (11:13)
[2022-08-15] MEDS: cefTRIAXone 1GM/50ML D5W 50 ML IV SCH (11:13)
[2022-08-15] MEDS: METOPROLOL SUCCINATE XL 50 MG TAB PO SCH (11:14)
[2022-08-15] MEDS ORDERED: FLUCONAZOLE 200MG/100ML 100 ML IV ONE (12:00)
[2022-08-15] MEDS ORDERED: NITR-87 PO ×2 (12:12)
[2022-08-15 13:00] VITALS: BP 154/60
[2022-08-16] MEDS ORDERED: FLUCONAZOLE 200MG/100ML 100 ML IV SCH (10:00)
== END 2022-08-15 14:18 | disposition home or self-care (01) | DRG 720 ==
LOC: ER 09:22 → OVERFLOW 14:26 → WEST WING 08-14 01:37
PROVIDERS: ADMIT Internal Medicine; ATTEND Family Medicine
DX: A41.9 Sepsis, unspecified organism (principal); N17.0 Acute kidney failure with tubular necrosis; R65.21 Severe sepsis with septic shock; E44.0 Moderate protein-calorie malnutrition; D63.1 Anemia in chronic kidney disease; E86.0 Dehydration; N39.0 Urinary tract infection, site not specified; E11.22 Type 2 diabetes mellitus with diabetic chronic kidney disease; B96.20 Unspecified Escherichia coli [E. coli] as the cause of diseases classified elsewhere; E78.00 Pure hypercholesterolemia, unspecified; N18.4 Chronic kidney disease, stage 4 (severe); Z20.822 Contact with and (suspected) exposure to COVID-19; M10.9 Gout, unspecified; I12.9 Hypertensive chronic kidney disease with stage 1 through stage 4 chronic kidney disease, or unspecified chronic kidney disease; Z68.27 Body mass index [BMI] 27.0-27.9, adult; Z87.891 Personal history of nicotine dependence; Z79.4 Long term (current) use of insulin
CPT/HCPCS: 36415; 71045; 74176; 80048; 80053; 81001; 82570; 82728; 82962; 83540; 83550; 83605; 84300; 84550; 85025; 87040; 87086; 87088; 87186; 87426; 96361; 96365; 96367; G0378; J0696; J1450; J1815; J7060

== ENCOUNTER → 2022-09-16 | Outpatient (CLI) | payer MEDICARE, MEDICAID ==
[~2022-09-16] MED LIST changes: +NITR-87 PO
[2022-09-16 08:14] LABS: Urine Blood 2+ /uL (Negative)
[2022-09-16 08:18] LABS: Urine Specific Gravity 1.019 (1.001-1.035)
[2022-09-16 08:55] LABS: Urine WBC TNTC /hpf (0 - 3); Urine WBC Clumps MODERATE /hpf (None Seen)
[2022-09-16 08:56] LABS: Urine Bacteria MODERATE /hpf (None Seen)
== END | disposition home or self-care (01) ==
LOC: LAB 07:56
PROVIDERS: ATTEND Urology
DX: N39.0 Urinary tract infection, site not specified (principal)
CPT/HCPCS: 81001; 87086

== ENCOUNTER → 2022-09-21 | Outpatient (CLI) | payer MEDICARE, MEDICAID ==
[2022-09-21 10:45] LABS: Basophils # (auto) 0.1 10 ^3/uL (0-0.2); Basophils % (auto) 0.7 % (0.0-2.0); Eosinophils # (auto) 0.3 10 ^3/uL (0-0.8); Eosinophils % (auto) 3.4 % (0.0-7.0); Hematocrit 36.2 % (41.0-53.0); Lymphocytes % (auto) 21.5 % (10.0-50.0); Mean Corpuscular Hemoglobin 27.3 pg (28.0-32.0); Mean Corpuscular Hgb Conc. 33.1 g/dL (32.0-36.0); Mean Corpuscular Volume 82.5 fL (80.0-100.0); Monocytes # (auto) 0.7 10 ^3/uL (0-1.3); Monocytes % (auto) 6.9 % (0.0-12.0); Neutrophils # (auto) 6.4 10 ^3/uL (1.6-8.6); Neutrophils % (auto) 67.5 % (37.0-80.0); Nucleated Red Blood Cells % 0.1 %; Red Blood Cells 4.38 10^6/uL (4.5-5.90); White Blood Cell 9.5 10^3/uL (4.4-10.8)
[2022-09-21 11:14] LABS: Calcium 9.1 mg/dL (8.5-10.1); Potassium 4.6 mmol/L (3.5-5.1)
[2022-09-21 11:17] LABS: BUN/Creatinine Ratio 8.3
== END | disposition home or self-care (01) ==
LOC: LAB 09:50
PROVIDERS: ATTEND Internal Medicine
DX: N40.0 Benign prostatic hyperplasia without lower urinary tract symptoms (principal); N39.0 Urinary tract infection, site not specified; E11.9 Type 2 diabetes mellitus without complications; Z79.899 Other long term (current) drug therapy
CPT/HCPCS: 36415; 80048; 83036; 85025

== ENCOUNTER → 2022-10-05 | Outpatient (CLI) | payer MEDICARE, MEDICAID ==
[2022-10-05 11:37] LABS: Urine Bacteria None Seen /hpf (None Seen); Urine WBC None Seen /hpf (0 - 3)
[2022-10-05 14:04] LABS: Urine Blood 2+ /uL (Negative)
== END | disposition home or self-care (01) ==
LOC: LAB 10:49
PROVIDERS: ATTEND Urology
DX: N39.0 Urinary tract infection, site not specified (principal)
CPT/HCPCS: 81001; 87086; 87088; 87186

== ENCOUNTER → 2022-11-02 | Outpatient (CLI) | payer MEDICARE, MEDICAID ==
[2022-11-02 09:35] LABS: Basophils # (auto) 0 10 ^3/uL (0-0.2); Basophils % (auto) 0.3 % (0.0-2.0); Eosinophils # (auto) 0.2 10 ^3/uL (0-0.8); Eosinophils % (auto) 2.6 % (0.0-7.0); Hematocrit 38.6 % (41.0-53.0); Hemoglobin 12.6 g/dL (13.5-17.5); Lymphocytes # (auto) 2.1 10 ^3/uL (0.4-5.4); Lymphocytes % (auto) 23.2 % (10.0-50.0); Mean Corpuscular Hemoglobin 27.1 pg (28.0-32.0); Mean Corpuscular Hgb Conc. 32.5 g/dL (32.0-36.0); Mean Corpuscular Volume 83.4 fL (80.0-100.0); Monocytes # (auto) 0.5 10 ^3/uL (0-1.3); Monocytes % (auto) 5.7 % (0.0-12.0); Neutrophils # (auto) 6.1 10 ^3/uL (1.6-8.6); Neutrophils % (auto) 68.2 % (37.0-80.0); Nucleated Red Blood Cells % 0.1 %; Red Blood Cells 4.63 10^6/uL (4.5-5.90); Red Cell Distribution Width 15.9 % (11.8-14.3); White Blood Cell 8.9 10^3/uL (4.4-10.8)
[2022-11-02 10:08] LABS: Urine Bacteria MOD /hpf (None Seen); Urine Blood 1+ /uL (Negative); Urine Specific Gravity 1.016 (1.001-1.035); Urine WBC 636 /hpf (0 - 3); Urine WBC Clumps PRESENT /hpf (None Seen)
[2022-11-02 16:56] LABS: Albumin 3.8 g/dL (3.4-5.0); BUN/Creatinine Ratio 12.6; Calcium 9.3 mg/dL (8.5-10.1); Phosphorus 3.1 mg/dL (2.5-4.90); Potassium 4.1 mmol/L (3.5-5.1)
[2022-11-03 18:22] LABS: Protein, Urine 108.3 mg/dL (0.0-11.9)
== END | disposition home or self-care (01) ==
LOC: LAB 09:10
PROVIDERS: ATTEND Internal Medicine Nephrology
DX: E21.3 Hyperparathyroidism, unspecified (principal); E56.9 Vitamin deficiency, unspecified; R80.9 Proteinuria, unspecified
CPT/HCPCS: 36415; 80069; 81001; 82306; 82570; 83970; 84156; 84550; 85025

== ENCOUNTER → 2022-11-03 | Outpatient (CLI) | payer MEDICARE, MEDICAID ==
[2022-11-03 12:06] LABS: Urine Bacteria FEW /hpf (None Seen); Urine Blood 1+ /uL (Negative); Urine Hyaline Cast FEW /lpf (0 - 2); Urine Specific Gravity 1.011 (1.001-1.035); Urine WBC 269 /hpf (0 - 3); Urine WBC Clumps PRESENT /hpf (None Seen)
== END | disposition home or self-care (01) ==
LOC: LAB 11:24
PROVIDERS: ATTEND Urology
DX: N39.9 Disorder of urinary system, unspecified (principal); R97.20 Elevated prostate specific antigen [PSA]; Z79.899 Other long term (current) drug therapy
CPT/HCPCS: 81001; 84153; 84154; 87086; 87088; 87186

== ENCOUNTER 2022-11-06 05:22 | Inpatient (IN) | payer MEDICARE, MEDICAID ==
[~2022-11-06] VITALS: Ht 167.6 cm; Wt 73.8 kg
[2022-11-06] MEDS ORDERED: ACETAMINOPHEN 650 MG RECT SUPP PR ONE (05:45)
[2022-11-06 06:19] LABS: Basophils # (auto) 0 10 ^3/uL (0-0.2); Basophils % (auto) 0.1 % (0.0-2.0); Eosinophils # (auto) 0 10 ^3/uL (0-0.8); Hematocrit 36.4 % (41.0-53.0); Hemoglobin 11.8 g/dL (13.5-17.5); Lymphocytes # (auto) 0.6 10 ^3/uL (0.4-5.4); Lymphocytes % (auto) 7.1 % (10.0-50.0); Mean Corpuscular Hemoglobin 27.6 pg (28.0-32.0); Mean Corpuscular Hgb Conc. 32.4 g/dL (32.0-36.0); Mean Corpuscular Volume 85.4 fL (80.0-100.0); Monocytes # (auto) 0.1 10 ^3/uL (0-1.3); Monocytes % (auto) 0.9 % (0.0-12.0); Neutrophils % (auto) 91.9 % (37.0-80.0); Nucleated Red Blood Cells % 0.1 %; Red Blood Cells 4.27 10^6/uL (4.5-5.90); Red Cell Distribution Width 15.8 % (11.8-14.3); White Blood Cell 8.7 10^3/uL (4.4-10.8)
[2022-11-06 06:54] LABS: Potassium 4.2 mmol/L (3.5-5.1)
[2022-11-06 07:00] LABS: Albumin 3.8 g/dL (3.4-5.0); BUN/Creatinine Ratio 13.3; Bilirubin, Total 0.6 mg/dL (0.2-1.0); Calcium 8.6 mg/dL (8.5-10.1)
[2022-11-06] MEDS ORDERED: CEFEPIME 1GM/ 50ML 50 ML IV ONE (07:30)
[2022-11-06] MEDS ORDERED: LACTATED RINGER'S 1,000 ML IV ONE (07:30)
[2022-11-06] MEDS ORDERED: VANCOMYCIN 1GM/250ML 250 ML IV ONE (07:30)
[2022-11-06] MEDS ORDERED: ASPirin 325 MG TAB PO ONE ×2 (08:00→10:30)
[2022-11-06] MEDS ORDERED: ACETAMINOPHEN 325 MG TAB PO ONE (09:00)
[2022-11-06] MEDS ORDERED: NITROGLYCERIN 0.4 MG SL TAB SL PRN (10:15)
[2022-11-06] MEDS ORDERED: MORPHINE SULFATE INJ 2 MG/ml SYRG IV PRN (10:15)
[2022-11-06] MEDS ORDERED: DEXTROSE (50%) 50ML SYRG IV PRN (10:15)
[2022-11-06] MEDS ORDERED: SODIUM CHLORIDE 0.9% 1,000 ML IV ONE ×2 (10:15)
[2022-11-06] MEDS ORDERED: NITROGLYCERIN 0.4MG/HR TOPICAL PATCH TD ONE (10:30)
[2022-11-06 10:33] LABS: Cholesterol 145 mg/dL (< 200)
[2022-11-06 10:36] LABS: HDL Cholesterol 36 mg/dL (40-59); LDL Cholesterol 98 mg/dL (< 100); Triglycerides 119 mg/dL (< 150)
[2022-11-06] MEDS ORDERED: hydrALAZINE HCL 20 MG/ML VL IV PRN (10:45)
[2022-11-06 11:00] LABS: Urine Bacteria MANY /hpf (None Seen); Urine Blood 2+ /uL (Negative); Urine Mucus FEW (None Seen); Urine Specific Gravity 1.014 (1.001-1.035); Urine WBC 227 /hpf (0 - 3); Urine WBC Clumps PRESENT /hpf (None Seen)
[2022-11-06] MEDS ORDERED: HEPARIN SODIUM (PORCINE) 5000 UNITS/ML 1ML VIAL IV ONE (11:15)
[2022-11-06] MEDS: ACCU-CHEK COMFORT CURVE STRIP VI SCH ×3 (11:34→21:43)
[2022-11-06] MEDS: InsuLIN REG 1unit/0.01ml Soln (100units/ml) SC SCH ×3 (11:35→21:47)
[2022-11-06] MEDS ORDERED: HEPARIN DRIP/D5W 100UNITS/ML 250 ML IV SCH ×2 (11:45→12:00)
[2022-11-06 11:59] LABS: INR 1.13 (0.9-1.15); Partial Thromboplastin Time 31.3 sec (24.6-33.4)
[2022-11-06 12:18] LABS: Basophils # (auto) 0 10 ^3/uL (0-0.2); Eosinophils # (auto) 0 10 ^3/uL (0-0.8); Lymphocytes # (auto) 0.7 10 ^3/uL (0.4-5.4); Monocytes # (auto) 0.8 10 ^3/uL (0-1.3)
[2022-11-06 12:20] LABS: Hematocrit 29.5 % (41.0-53.0); Hemoglobin 9.7 g/dL (13.5-17.5); Lymphocytes % (auto) 5.8 % (10.0-50.0); Mean Corpuscular Hemoglobin 27.6 pg (28.0-32.0); Mean Corpuscular Hgb Conc. 32.8 g/dL (32.0-36.0); Monocytes % (auto) 6.8 % (0.0-12.0); Neutrophils # (auto) 10.8 10 ^3/uL (1.6-8.6); Neutrophils % (auto) 87.4 % (37.0-80.0); Red Blood Cells 3.51 10^6/uL (4.5-5.90); Red Cell Distribution Width 15.9 % (11.8-14.3); White Blood Cell 12.4 10^3/uL (4.4-10.8)
[2022-11-06] MEDS: SODIUM BICARBONATE 50ML VIAL 50 ML in SOD CHL 0.45% 1,000 ML IV SCH (12:57)
[2022-11-06 13:28] LABS: Protein, Urine 395.8 mg/dL (0.0-11.9)
[2022-11-06] MEDS ORDERED: VANCOMYCIN PER PHARMACY 0 MG IV SCH (13:30)
[2022-11-06] MEDS ORDERED: NOREPINEPHRINE 8 MG/250ML KIT 250 ML IV SCH (13:30)
[2022-11-06] MEDS ORDERED: PATIENTS OWN MEDICATION (Ferrous Sulfate 325 MG) PO SCH (18:00)
[2022-11-06] MEDS: FERROUS SULFATE 325mg EC TAB PO SCH (18:19)
[2022-11-06 19:07] LABS: Hematocrit 30.2 % (41.0-53.0); Hemoglobin 10.1 g/dL (13.5-17.5)
[2022-11-06 19:33] LABS: INR 1.1 (0.9-1.15); Partial Thromboplastin Time 33.9 sec (24.6-33.4)
[2022-11-06] MEDS: ATORVASTATIN 20 MG TAB PO SCH (21:46)
[2022-11-06] MEDS: AMITRIPTYLINE HCL 25 MG TAB PO SCH (21:46)
[2022-11-07] MEDS: SODIUM BICARBONATE 50ML VIAL 50 ML in SOD CHL 0.45% 1,000 ML IV SCH ×2 (01:49→09:32)
[2022-11-07 04:52] LABS: Basophils # (auto) 0 10 ^3/uL (0-0.2); Basophils % (auto) 0.1 % (0.0-2.0); Eosinophils # (auto) 0 10 ^3/uL (0-0.8); Hematocrit 28.9 % (41.0-53.0); Hemoglobin 9.5 g/dL (13.5-17.5); Lymphocytes # (auto) 0.5 10 ^3/uL (0.4-5.4); Lymphocytes % (auto) 8.3 % (10.0-50.0); Mean Corpuscular Hgb Conc. 32.9 g/dL (32.0-36.0); Mean Corpuscular Volume 82.1 fL (80.0-100.0); Monocytes # (auto) 0.5 10 ^3/uL (0-1.3); Neutrophils # (auto) 5.5 10 ^3/uL (1.6-8.6); Neutrophils % (auto) 84.6 % (37.0-80.0); Nucleated Red Blood Cells % 0.1 %; Red Blood Cells 3.52 10^6/uL (4.5-5.90); White Blood Cell 6.5 10^3/uL (4.4-10.8)
[2022-11-07 05:02] LABS: Albumin 2.8 g/dL (3.4-5.0); Calcium 7.6 mg/dL (8.5-10.1); Potassium 3.7 mmol/L (3.5-5.1)
[2022-11-07 05:06] LABS: BUN/Creatinine Ratio 13.8; Bilirubin, Total 0.4 mg/dL (0.2-1.0)
[2022-11-07] MEDS: ACCU-CHEK COMFORT CURVE STRIP VI SCH ×4 (06:42→21:34)
[2022-11-07] MEDS: InsuLIN REG 1unit/0.01ml Soln (100units/ml) SC SCH ×4 (06:48→21:41)
[2022-11-07] MEDS: INSULIN LANTUS (GLARGINE) 1 /0.01ml (100units/ml) SC SCH (06:49)
[2022-11-07] MEDS ORDERED: cefTRIAXone 1GM/50ML D5W 50 ML IV SCH (09:00)
[2022-11-07] MEDS: amLODIPine BESYLATE 5 MG TAB PO SCH (09:25)
[2022-11-07] MEDS: ALLOPURINOL 100 MG TAB PO SCH (09:25)
[2022-11-07] MEDS: ASPirin 81 mg TAB PO SCH (09:26)
[2022-11-07] MEDS: FERROUS SULFATE 325mg EC TAB PO SCH ×2 (09:26→17:42)
[2022-11-07] MEDS: METOPROLOL SUCCINATE XL 50 MG TAB PO SCH (09:26)
[2022-11-07] MEDS ORDERED: AZITHROMYCIN 500MG/ 250ML 250 ML IV SCH (10:00)
[2022-11-07] MEDS ORDERED: CEFEPIME 1GM/ 50ML 50 ML IV SCH (10:00)
[2022-11-07] MEDS ORDERED: PATIENTS OWN MEDICATION (Amlodipine Besylate 1 TAB) PO SCH (10:00)
[2022-11-07] MEDS ORDERED: POTASSIUM PHOSPHATE 44 MEQ in D5W 5% 250 ML IV ONE (11:45)
[2022-11-07 11:46] LABS: Hepatitis C Antibody Negative (Negative)
[2022-11-07 16:15] VITALS: BP 139/66
[2022-11-07 19:02] VITALS: BP 139/66
[2022-11-07 20:00] VITALS: BP 136/69
[2022-11-07] MEDS: AMITRIPTYLINE HCL 25 MG TAB PO SCH (21:33)
[2022-11-07] MEDS: ATORVASTATIN 20 MG TAB PO SCH (21:34)
[2022-11-07 22:00] VITALS: BP 136/69
[2022-11-08] VITALS (7 sets, daily range): BP systolic 125–147; BP diastolic 58–78
[2022-11-08 06:28] LABS: Potassium 3.5 mmol/L (3.5-5.1)
[2022-11-08 06:35] LABS: Albumin 2.7 g/dL (3.4-5.0); BUN/Creatinine Ratio 14.2; Bilirubin, Total 0.5 mg/dL (0.2-1.0); Calcium 7.8 mg/dL (8.5-10.1); Phosphorus 2.5 mg/dL (2.5-4.90); Total Protein 6.8 g/dL (6.4-8.2)
[2022-11-08] MEDS: SODIUM CHLORIDE 0.9% 1,000 ML IV SCH ×2 (06:44→18:04)
[2022-11-08] MEDS: INSULIN LANTUS (GLARGINE) 1 /0.01ml (100units/ml) SC SCH (06:46)
[2022-11-08] MEDS: ACCU-CHEK COMFORT CURVE STRIP VI SCH ×4 (06:48→22:06)
[2022-11-08] MEDS: InsuLIN REG 1unit/0.01ml Soln (100units/ml) SC SCH ×4 (06:49→22:10)
[2022-11-08] MEDS: FERROUS SULFATE 325mg EC TAB PO SCH ×2 (08:38→17:45)
[2022-11-08] MEDS: cefTRIAXone 1GM/50ML D5W 50 ML IV SCH (08:38)
[2022-11-08] MEDS: ASPirin 81 mg TAB PO SCH (10:02)
[2022-11-08] MEDS: METOPROLOL SUCCINATE XL 50 MG TAB PO SCH (10:03)
[2022-11-08] MEDS: ALLOPURINOL 100 MG TAB PO SCH (10:03)
[2022-11-08] MEDS: amLODIPine BESYLATE 5 MG TAB PO SCH (10:03)
[2022-11-08] MEDS ORDERED: ACETAMINOPHEN 325 MG TAB PO PRN (12:15)
[2022-11-08] MEDS: AMITRIPTYLINE HCL 25 MG TAB PO SCH (22:06)
[2022-11-08] MEDS: ATORVASTATIN 20 MG TAB PO SCH (22:06)
[2022-11-09 05:00] VITALS: BP 144/57
[2022-11-09] MEDS: ACCU-CHEK COMFORT CURVE STRIP VI SCH ×4 (06:45→21:11)
[2022-11-09] MEDS: INSULIN LANTUS (GLARGINE) 1 /0.01ml (100units/ml) SC SCH (06:48)
[2022-11-09] MEDS: InsuLIN REG 1unit/0.01ml Soln (100units/ml) SC SCH ×4 (06:52→21:18)
[2022-11-09 06:59] LABS: Albumin 2.8 g/dL (3.4-5.0); Calcium 7.7 mg/dL (8.5-10.1); Potassium 3.7 mmol/L (3.5-5.1)
[2022-11-09 07:03] LABS: BUN/Creatinine Ratio 10.9; Bilirubin, Total 0.4 mg/dL (0.2-1.0); Total Protein 6.3 g/dL (6.4-8.2)
[2022-11-09 08:00] VITALS: BP 139/70
[2022-11-09 10:46] LABS: Basophils # (auto) 0 10 ^3/uL (0-0.2); Basophils % (auto) 0.2 % (0.0-2.0); Eosinophils # (auto) 0.2 10 ^3/uL (0-0.8); Eosinophils % (auto) 2.9 % (0.0-7.0); Hematocrit 29.2 % (41.0-53.0); Hemoglobin 9.7 g/dL (13.5-17.5); Lymphocytes # (auto) 1.1 10 ^3/uL (0.4-5.4); Lymphocytes % (auto) 19.9 % (10.0-50.0); Mean Corpuscular Hemoglobin 27.6 pg (28.0-32.0); Mean Corpuscular Hgb Conc. 33.4 g/dL (32.0-36.0); Mean Corpuscular Volume 82.8 fL (80.0-100.0); Monocytes # (auto) 0.8 10 ^3/uL (0-1.3); Monocytes % (auto) 13.5 % (0.0-12.0); Neutrophils # (auto) 3.6 10 ^3/uL (1.6-8.6); Neutrophils % (auto) 63.5 % (37.0-80.0); Nucleated Red Blood Cells % 0.2 %; Red Blood Cells 3.53 10^6/uL (4.5-5.90); Red Cell Distribution Width 14.9 % (11.8-14.3); White Blood Cell 5.6 10^3/uL (4.4-10.8)
[2022-11-09] MEDS: ASPirin 81 mg TAB PO SCH (11:09)
[2022-11-09] MEDS: cefTRIAXone 1GM/50ML D5W 50 ML IV SCH (11:11)
[2022-11-09] MEDS: FERROUS SULFATE 325mg EC TAB PO SCH ×2 (11:14→18:39)
[2022-11-09] MEDS: amLODIPine BESYLATE 5 MG TAB PO SCH (11:16)
[2022-11-09] MEDS: PANTOPRAZOLE 40 MG TAB PO SCH (11:16)
[2022-11-09] MEDS: METOPROLOL SUCCINATE XL 50 MG TAB PO SCH (11:17)
[2022-11-09] MEDS: ALLOPURINOL 100 MG TAB PO SCH (11:17)
[2022-11-09 11:58] VITALS: BP 143/71
[2022-11-09 16:00] VITALS: BP 160/70
[2022-11-09] MEDS: AMITRIPTYLINE HCL 25 MG TAB PO SCH (21:11)
[2022-11-09] MEDS: ATORVASTATIN 20 MG TAB PO SCH (21:11)
[2022-11-09 22:00] VITALS: BP 160/77
[2022-11-10 05:00] VITALS: BP 151/82
[2022-11-10 06:13] LABS: Basophils # (auto) 0 10 ^3/uL (0-0.2); Basophils % (auto) 0.2 % (0.0-2.0); Eosinophils # (auto) 0.2 10 ^3/uL (0-0.8); Hematocrit 30.3 % (41.0-53.0); Hemoglobin 10.1 g/dL (13.5-17.5); Mean Corpuscular Hemoglobin 26.8 pg (28.0-32.0); Mean Corpuscular Hgb Conc. 33.4 g/dL (32.0-36.0); Monocytes # (auto) 0.6 10 ^3/uL (0-1.3); Neutrophils # (auto) 3.8 10 ^3/uL (1.6-8.6)
[2022-11-10 06:15] LABS: Lymphocytes # (auto) 1.3 10 ^3/uL (0.4-5.4); Lymphocytes % (auto) 21.5 % (10.0-50.0); Mean Corpuscular Volume 80.2 fL (80.0-100.0); Monocytes % (auto) 10.3 % (0.0-12.0); Red Blood Cells 3.77 10^6/uL (4.5-5.90); Red Cell Distribution Width 15.3 % (11.8-14.3); White Blood Cell 5.9 10^3/uL (4.4-10.8)
[2022-11-10] MEDS: ACCU-CHEK COMFORT CURVE STRIP VI SCH ×4 (06:16→20:42)
[2022-11-10] MEDS: INSULIN LANTUS (GLARGINE) 1 /0.01ml (100units/ml) SC SCH (06:17)
[2022-11-10] MEDS: InsuLIN REG 1unit/0.01ml Soln (100units/ml) SC SCH ×4 (06:23→20:50)
[2022-11-10 06:35] LABS: Potassium 3.4 mmol/L (3.5-5.1)
[2022-11-10 06:47] LABS: BUN/Creatinine Ratio 9.9; Bilirubin, Total 0.4 mg/dL (0.2-1.0); Total Protein 6.7 g/dL (6.4-8.2)
[2022-11-10 08:45] VITALS: BP 151/76
[2022-11-10] MEDS: FERROUS SULFATE 325mg EC TAB PO SCH ×2 (09:00→19:36)
[2022-11-10] MEDS: cefTRIAXone 1GM/50ML D5W 50 ML IV SCH (09:01)
[2022-11-10] MEDS: ALLOPURINOL 100 MG TAB PO SCH (09:03)
[2022-11-10] MEDS: ASPirin 81 mg TAB PO SCH (09:03)
[2022-11-10] MEDS: PANTOPRAZOLE 40 MG TAB PO SCH (09:03)
[2022-11-10] MEDS: METOPROLOL SUCCINATE XL 50 MG TAB PO SCH (09:04)
[2022-11-10] MEDS: amLODIPine BESYLATE 5 MG TAB PO SCH (09:04)
[2022-11-10] MEDS ORDERED: ERTAPENEM SOD INJ 1 GM in SODIUM CHL 0.9% 50 ML IV ONE (09:30)
[2022-11-10] MEDS: POTASSIUM EFFERVESENT TAB 25 MEQ PO ONE ×2 (10:45→11:00)
[2022-11-10] MEDS ORDERED: POTASSIUM EFFERVESENT TAB 25 MEQ PO ONE (11:00)
[2022-11-10 13:00] VITALS: BP 131/70
[2022-11-10] MEDS ORDERED: NITROGLYCERIN 0.2MG/HR TOPICAL PATCH TD ONE (13:45)
[2022-11-10 14:14] LABS: INR 1.03 (0.9-1.15)
[2022-11-10 17:00] VITALS: BP_SYST 145; BP_SYST 148; BP_DIAS 66; BP_DIAS 85
[2022-11-10] MEDS: AMITRIPTYLINE HCL 25 MG TAB PO SCH (20:41)
[2022-11-10] MEDS: ATORVASTATIN 20 MG TAB PO SCH (20:42)
[2022-11-10 22:00] VITALS: BP 104/63
[2022-11-11 05:00] VITALS: BP 117/62
[2022-11-11] MEDS: ACCU-CHEK COMFORT CURVE STRIP VI SCH ×3 (06:08→17:34)
[2022-11-11] MEDS: INSULIN LANTUS (GLARGINE) 1 /0.01ml (100units/ml) SC SCH (06:09)
[2022-11-11] MEDS: InsuLIN REG 1unit/0.01ml Soln (100units/ml) SC SCH ×3 (06:10→17:34)
[2022-11-11 06:36] LABS: Basophils # (auto) 0 10 ^3/uL (0-0.2); Basophils % (auto) 0.2 % (0.0-2.0); Eosinophils # (auto) 0.2 10 ^3/uL (0-0.8); Eosinophils % (auto) 2.9 % (0.0-7.0); Hemoglobin 10.1 g/dL (13.5-17.5); Lymphocytes # (auto) 1.5 10 ^3/uL (0.4-5.4); Lymphocytes % (auto) 19.1 % (10.0-50.0); Mean Corpuscular Hemoglobin 27.1 pg (28.0-32.0); Mean Corpuscular Hgb Conc. 33.7 g/dL (32.0-36.0); Mean Corpuscular Volume 80.4 fL (80.0-100.0); Monocytes # (auto) 0.6 10 ^3/uL (0-1.3); Monocytes % (auto) 7.3 % (0.0-12.0); Neutrophils # (auto) 5.4 10 ^3/uL (1.6-8.6); Neutrophils % (auto) 70.5 % (37.0-80.0); Red Blood Cells 3.73 10^6/uL (4.5-5.90); White Blood Cell 7.7 10^3/uL (4.4-10.8)
[2022-11-11] MEDS: FERROUS SULFATE 325mg EC TAB PO SCH ×2 (08:25→18:00)
[2022-11-11] MEDS: ASPirin 81 mg TAB PO SCH (08:27)
[2022-11-11] MEDS: ALLOPURINOL 100 MG TAB PO SCH (08:30)
[2022-11-11] MEDS: PANTOPRAZOLE 40 MG TAB PO SCH (08:30)
[2022-11-11] MEDS: amLODIPine BESYLATE 5 MG TAB PO SCH (08:31)
[2022-11-11] MEDS: METOPROLOL SUCCINATE XL 50 MG TAB PO SCH (08:32)
[2022-11-11 09:00] VITALS: BP 133/66
[2022-11-11] MEDS ORDERED: NITROGLYCERIN 0.2MG/HR TOPICAL PATCH TD SCH (10:00)
[2022-11-11] MEDS ORDERED: ERTAPENEM SOD INJ 1 GM in SODIUM CHL 0.9% 50 ML IV SCH (10:00)
[2022-11-11 13:00] VITALS: BP 132/66
[2022-11-11 17:00] VITALS: BP 129/61
== END 2022-11-11 20:19 | disposition home health service (06) | DRG 720 ==
LOC: ER 05:22 → EDBD 05:22 → EDUNIT# 05:22 → TELE 10:15 → TELE-CENTR 11-07 16:05
PROVIDERS: ADMIT Registered Nurse; ATTEND Student in an Organized Health Care Education/Training Program
PROC: 02HV33Z Insertion of Infusion Device into Superior Vena Cava, Percutaneous Approach (ICD-10-PCS; principal; 2022-11-06)
PROC: B548ZZA Ultrasonography of Superior Vena Cava, Guidance (ICD-10-PCS; 2022-11-06)
PROC: 05HB33Z Insertion of Infusion Device into Right Basilic Vein, Percutaneous Approach (ICD-10-PCS; 2022-11-11)
PROC: B54MZZA Ultrasonography of Right Upper Extremity Veins, Guidance (ICD-10-PCS; 2022-11-11)
DX: A41.51 Sepsis due to Escherichia coli [E. coli] (principal); N17.0 Acute kidney failure with tubular necrosis; G93.41 Metabolic encephalopathy; I21.A1 Myocardial infarction type 2; D69.6 Thrombocytopenia, unspecified; D63.1 Anemia in chronic kidney disease; E83.39 Other disorders of phosphorus metabolism; E11.22 Type 2 diabetes mellitus with diabetic chronic kidney disease; N18.4 Chronic kidney disease, stage 4 (severe); Z20.822 Contact with and (suspected) exposure to COVID-19; E11.65 Type 2 diabetes mellitus with hyperglycemia; I12.9 Hypertensive chronic kidney disease with stage 1 through stage 4 chronic kidney disease, or unspecified chronic kidney disease; J98.11 Atelectasis; N40.0 Benign prostatic hyperplasia without lower urinary tract symptoms; R65.20 Severe sepsis without septic shock; N13.8 Other obstructive and reflux uropathy; N28.1 Cyst of kidney, acquired; N32.0 Bladder-neck obstruction; N40.1 Benign prostatic hyperplasia with lower urinary tract symptoms; Z16.12 Extended spectrum beta lactamase (ESBL) resistance; N12 Tubulo-interstitial nephritis, not specified as acute or chronic; Z16.24 Resistance to multiple antibiotics; E78.5 Hyperlipidemia, unspecified; E87.6 Hypokalemia; Z87.891 Personal history of nicotine dependence; Z79.899 Other long term (current) drug therapy; Z79.4 Long term (current) use of insulin
CPT/HCPCS: 36415; 36600; 70450; 71045; 74176; 76775; 78582; 80053; 80061; 80202; 81001; 82010; 82306; 82570; 82805; 82962; 83036; 83605; 83735; 83880; 83970; 84100; 84156; 84300; 84443; 84484; 85014; 85018; 85025; 85379; 85610; 85730; 86803; 87040; 87077; 87086; 87088; 87186; 87340; 87426; 87804; 93005; 93306; 93886; 93970; 96361; 96365; 96366; 96367; 96372; 96376; 99291; G0378; J0696; J1335; J1815; J7060

== ENCOUNTER → 2022-11-24 | Outpatient (CLI) | payer MEDICARE, MEDICAID ==
[2022-11-24 09:34] LABS: Basophils # (auto) 0.1 10 ^3/uL (0-0.2); Basophils % (auto) 0.7 % (0.0-2.0); Eosinophils # (auto) 0.2 10 ^3/uL (0-0.8); Eosinophils % (auto) 2.5 % (0.0-7.0); Hematocrit 34.5 % (41.0-53.0); Hemoglobin 11.3 g/dL (13.5-17.5); Lymphocytes # (auto) 1.7 10 ^3/uL (0.4-5.4); Lymphocytes % (auto) 23.8 % (10.0-50.0); Mean Corpuscular Hemoglobin 27.1 pg (28.0-32.0); Mean Corpuscular Hgb Conc. 32.7 g/dL (32.0-36.0); Mean Corpuscular Volume 82.9 fL (80.0-100.0); Monocytes # (auto) 0.3 10 ^3/uL (0-1.3); Monocytes % (auto) 4.7 % (0.0-12.0); Neutrophils # (auto) 4.7 10 ^3/uL (1.6-8.6); Neutrophils % (auto) 68.3 % (37.0-80.0); Red Blood Cells 4.16 10^6/uL (4.5-5.90); Red Cell Distribution Width 15.6 % (11.8-14.3)
[2022-11-24 09:47] LABS: Urine Bacteria NONE SEEN /hpf (None Seen); Urine Blood 1+ /uL (Negative); Urine Budding Yeast MANY /hpf (None Seen); Urine Specific Gravity 1.015 (1.001-1.035); Urine WBC 1104 /hpf (0 - 3); Urine WBC Clumps PRESENT /hpf (None Seen)
[2022-11-24 10:36] LABS: Albumin 3.6 g/dL (3.4-5.0); Calcium 8.9 mg/dL (8.5-10.1); Potassium 4.1 mmol/L (3.5-5.1)
[2022-11-24 10:40] LABS: BUN/Creatinine Ratio 9.5; Phosphorus 2.6 mg/dL (2.5-4.90); Uric Acid 7.5 mg/dL (3.5-7.2)
[2022-11-24 11:56] LABS: Protein, Urine 73.6 mg/dL (0.0-11.9)
== END | disposition home or self-care (01) ==
LOC: LAB 09:03
PROVIDERS: ATTEND Internal Medicine Nephrology
DX: N18.30 Chronic kidney disease, stage 3 unspecified (principal); E21.3 Hyperparathyroidism, unspecified; D63.1 Anemia in chronic kidney disease; M10.9 Gout, unspecified; E56.9 Vitamin deficiency, unspecified; R80.9 Proteinuria, unspecified
CPT/HCPCS: 36415; 80069; 81001; 82306; 82570; 83970; 84156; 84550; 85025

== ENCOUNTER 2022-12-23 21:36 | Emergency (ER) | payer MEDICARE, MEDICAID ==
[~2022-12-23] VITALS: Ht 167.6 cm; Wt 74.5 kg
[2022-12-23] MEDS ORDERED: ACETAMINOPHEN 500 MG TAB PO ONE (22:45)
[2022-12-23 22:50] VITALS: BP 143/69
[2022-12-23 23:14] LABS: Hematocrit 32.3 % (41.0-53.0); Hemoglobin 10.9 g/dL (13.5-17.5); Mean Corpuscular Hgb Conc. 33.9 g/dL (32.0-36.0); Mean Corpuscular Volume 82.6 fL (80.0-100.0); Red Blood Cells 3.91 10^6/uL (4.5-5.90); Red Cell Distribution Width 16.2 % (11.8-14.3); White Blood Cell 7.3 10^3/uL (4.4-10.8)
[2022-12-23 23:18] LABS: Basophils % (manual) 0 (0.0-2.0); Blast Cells 0; Metamyelocytes % 0; Myelocytes % 0; Promyelocytes % 0; Reactive Lymphocytes 0
[2022-12-23 23:30] LABS: Albumin 3.6 g/dL (3.4-5.0); BUN/Creatinine Ratio 18.8; Calcium 8.9 mg/dL (8.5-10.1); Potassium 3.9 mmol/L (3.5-5.1)
[2022-12-23 23:32] LABS: Bilirubin, Total 0.4 mg/dL (0.2-1.0); Total Protein 7.5 g/dL (6.4-8.2)
[2022-12-23 23:33] LABS: Band Neutrophils % (manual) 4; Eosinophils % (manual) 2 (0-7); Lymphocytes % (manual) 14 (10.0-50.0); Monocytes % (manual) 6 (0-12)
[2022-12-23 23:39] LABS: Urine Bacteria FEW /hpf (None Seen); Urine Blood Negative /uL (Negative); Urine Specific Gravity 1.011 (1.001-1.035); Urine WBC 22 /hpf (0 - 3)
[2022-12-23 23:52] LABS: CRP High Sensitivity 2.37 mg/dL (< 0.3)
[2022-12-24] MEDS ORDERED: FUROSEMIDE 40 MG/4 ML VIAL IV ONE (01:00)
[2022-12-24] MEDS ORDERED: AZITHROMYCIN 500MG/ 250ML 250 ML IV ONE (04:30)
[2022-12-24] MEDS ORDERED: ALBUTEROL SULF 2.5 MG/0.5ML(0.5%) NEB SOLN NEB PRN (04:30)
[2022-12-24] MEDS ORDERED: DEXTROSE (50%) 50ML SYRG IV PRN (04:30)
[2022-12-24] MEDS ORDERED: DOCUSATE SOD 100 MG CAP PO PRN (04:30)
[2022-12-24] MEDS ORDERED: ACETAMINOPHEN 325 MG TAB PO PRN (04:30)
[2022-12-24] MEDS ORDERED: ONDANSETRON HCL 4 MG/2 ML VIAL IV PRN (04:30)
[2022-12-24] MEDS ORDERED: hydrALAZINE HCL 20 MG/ML VL IV PRN (04:30)
[2022-12-24] MEDS ORDERED: HYDROcodone-ACET 5/325MG TAB PO PRN (04:30)
[2022-12-24] MEDS ORDERED: SODIUM CHLOR 0.9% PF (SALINE LOCK) 10ML VIAL/SYR IV SCH (06:00)
[2022-12-24] MEDS ORDERED: InsuLIN REG 1unit/0.01ml Soln (100units/ml) SC SCH ×2 (07:00→22:00)
[2022-12-24] MEDS ORDERED: ACCU-CHEK COMFORT CURVE STRIP VI SCH (07:00)
[2022-12-24] MEDS ORDERED: AZITHROMYCIN 500MG/ 250ML 250 ML IV SCH (10:00)
[2022-12-24] MEDS ORDERED: ASPirin 81 mg TAB PO SCH (10:00)
[2022-12-24] MEDS ORDERED: FUROSEMIDE 40 MG/4 ML VIAL IV SCH (10:00)
[2022-12-24] MEDS ORDERED: FAMOTIDINE (10MG/ML) 2ML VL IV SCH (10:00)
== END 2022-12-24 04:32 | disposition left against medical advice (07) ==
LOC: ER 21:36
DX: N17.9 Acute kidney failure, unspecified (principal); J81.1 Chronic pulmonary edema; J90 Pleural effusion, not elsewhere classified; N39.0 Urinary tract infection, site not specified; D64.9 Anemia, unspecified; R07.89 Other chest pain; I10 Essential (primary) hypertension; E11.9 Type 2 diabetes mellitus without complications; E78.5 Hyperlipidemia, unspecified; M10.9 Gout, unspecified; Z87.891 Personal history of nicotine dependence; Z20.822 Contact with and (suspected) exposure to COVID-19
CPT/HCPCS: 36415; 71045; 80053; 81001; 82962; 83880; 84484; 85007; 85027; 86141; 87426; 87804; 93005

== ENCOUNTER 2022-12-27 11:58 | Inpatient (IN) | payer MEDICARE, MEDICAID ==
[~2022-12-27] VITALS: Ht 170.2 cm; Wt 82.2 kg
[2022-12-27] MEDS: ACCU-CHEK COMFORT CURVE STRIP VI SCH
[2022-12-27 13:24] LABS: Basophils # (auto) 0 10 ^3/uL (0-0.2); Basophils % (auto) 0.3 % (0.0-2.0); Eosinophils # (auto) 0.2 10 ^3/uL (0-0.8); Eosinophils % (auto) 2.3 % (0.0-7.0); Hematocrit 31.4 % (41.0-53.0); Hemoglobin 10.6 g/dL (13.5-17.5); Lymphocytes # (auto) 1.1 10 ^3/uL (0.4-5.4); Lymphocytes % (auto) 15.9 % (10.0-50.0); Mean Corpuscular Hgb Conc. 33.8 g/dL (32.0-36.0); Mean Corpuscular Volume 82.7 fL (80.0-100.0); Monocytes # (auto) 0.5 10 ^3/uL (0-1.3); Monocytes % (auto) 7.1 % (0.0-12.0); Neutrophils % (auto) 74.4 % (37.0-80.0); Nucleated Red Blood Cells % 0.3 %; Red Blood Cells 3.79 10^6/uL (4.5-5.90); Red Cell Distribution Width 15.5 % (11.8-14.3); White Blood Cell 6.7 10^3/uL (4.4-10.8)
[2022-12-27 13:47] LABS: Albumin 3.4 g/dL (3.4-5.0); BUN/Creatinine Ratio 9.7; Magnesium 2.3 mg/dL (1.6-2.6); Potassium 3.5 mmol/L (3.5-5.1)
[2022-12-27 14:00] LABS: Bilirubin, Total 0.5 mg/dL (0.2-1.0); CRP High Sensitivity 4.18 mg/dL (< 0.3); Total Protein 7.3 g/dL (6.4-8.2)
[2022-12-27 18:27] LABS: Urine Bacteria NONE SEEN /hpf (None Seen); Urine Blood Negative /uL (Negative); Urine WBC 5 /hpf (0 - 3)
[2022-12-27] MEDS ORDERED: FUROSEMIDE 20 MG/2 ML VIAL IV ONE (19:00)
[2022-12-27] MEDS ORDERED: AZITHROMYCIN 500MG/ 250ML 250 ML IV ONE (19:00)
[2022-12-27] MEDS ORDERED: cefTRIAXone 1GM/50ML D5W 50 ML IV ONE (19:00)
[2022-12-27] MEDS ORDERED: MORPHINE SULFATE INJ 2 MG/ml SYRG IV PRN (19:00)
[2022-12-27] MEDS ORDERED: NITROGLYCERIN 0.4 MG SL TAB SL PRN (19:00)
[2022-12-27] MEDS ORDERED: ATOR40TA52 PO (19:10)
[2022-12-27] MEDS ORDERED: ASPI1TAB37 PO (19:10)
[2022-12-27] MEDS ORDERED: DEXTROSE (50%) 50ML SYRG IV PRN (19:15)
[2022-12-27] MEDS ORDERED: POTASSIUM CHL 20 Meq TABLET PO ONE (19:15)
[2022-12-27] MEDS ORDERED: SODIUM CHLORIDE 0.9% 1,000 ML IV SCH (19:30)
[2022-12-27] MEDS ORDERED: IPRATROPIUM BROM 0.5 MG/2.5ML INH SOL NEB PRN (19:30)
[2022-12-27] MEDS ORDERED: ALBUTEROL SULF 2.5 MG/0.5ML(0.5%) NEB SOLN NEB PRN (19:30)
[2022-12-27 20:04] VITALS: BP 140/67
[2022-12-27 20:58] LABS: Cholesterol 183 mg/dL (< 200)
[2022-12-27 21:03] LABS: HDL Cholesterol 37 mg/dL (40-59); Triglycerides 137 mg/dL (< 150)
[2022-12-27 21:04] LABS: LDL Cholesterol 131 mg/dL (< 100)
[2022-12-28] MEDS: InsuLIN REG 1unit/0.01ml Soln (100units/ml) SC SCH ×5 (00:40→21:34)
[2022-12-28 05:00] VITALS: BP 157/70
[2022-12-28 06:23] LABS: Basophils # (auto) 0 10 ^3/uL (0-0.2); Basophils % (auto) 0.2 % (0.0-2.0); Eosinophils # (auto) 0.2 10 ^3/uL (0-0.8); Eosinophils % (auto) 2.4 % (0.0-7.0); Hematocrit 28.6 % (41.0-53.0); Hemoglobin 9.9 g/dL (13.5-17.5); Lymphocytes # (auto) 1.1 10 ^3/uL (0.4-5.4); Lymphocytes % (auto) 16.2 % (10.0-50.0); Mean Corpuscular Hemoglobin 28.4 pg (28.0-32.0); Mean Corpuscular Hgb Conc. 34.7 g/dL (32.0-36.0); Mean Corpuscular Volume 81.9 fL (80.0-100.0); Monocytes # (auto) 0.5 10 ^3/uL (0-1.3); Monocytes % (auto) 7.4 % (0.0-12.0); Neutrophils # (auto) 5.1 10 ^3/uL (1.6-8.6); Neutrophils % (auto) 73.8 % (37.0-80.0); Nucleated Red Blood Cells % 0.1 %; Red Blood Cells 3.49 10^6/uL (4.5-5.90); Red Cell Distribution Width 15.2 % (11.8-14.3); White Blood Cell 6.9 10^3/uL (4.4-10.8)
[2022-12-28 06:25] LABS: BUN/Creatinine Ratio 7.7; Calcium 8.2 mg/dL (8.5-10.1); Potassium 3.2 mmol/L (3.5-5.1)
[2022-12-28] MEDS: ACCU-CHEK COMFORT CURVE STRIP VI SCH ×4 (06:27→21:30)
[2022-12-28 06:28] LABS: Bilirubin, Total 0.5 mg/dL (0.2-1.0); Total Protein 7.2 g/dL (6.4-8.2)
[2022-12-28] MEDS: ALBUTEROL SULF 2.5 MG/0.5ML(0.5%) NEB SOLN NEB SCH ×3 (06:37→19:00)
[2022-12-28] MEDS: IPRATROPIUM BROM 0.5 MG/2.5ML INH SOL NEB SCH ×3 (06:37→19:00)
[2022-12-28 08:00] VITALS: BP 152/60
[2022-12-28] MEDS: FERROUS SULFATE 325mg EC TAB PO SCH ×2 (08:13→17:30)
[2022-12-28] MEDS: METOPROLOL SUCCINATE XL 50 MG TAB PO SCH (08:35)
[2022-12-28] MEDS: ASPirin-EC 81 mg tab PO SCH (08:35)
[2022-12-28] MEDS: ENOXAPARIN SOD 40 MG/0.4 ML SYRINGE SC SCH (08:36)
[2022-12-28] MEDS: amLODIPine BESYLATE 5 MG TAB PO SCH (08:36)
[2022-12-28] MEDS: POTASSIUM CHL 20 Meq TABLET PO SCH (08:37)
[2022-12-28] MEDS: FUROSEMIDE 20 MG/2 ML VIAL IV SCH (08:37)
[2022-12-28] MEDS: cefTRIAXone 1GM/50ML D5W 50 ML IV SCH (08:37)
[2022-12-28 09:00] VITALS: BP 165/69
[2022-12-28] MEDS: AZITHROMYCIN 500MG/ 250ML 250 ML IV SCH (10:12)
[2022-12-28] MEDS: SODIUM BICARBONATE 650 MG TAB PO SCH ×3 (11:53→23:40)
[2022-12-28 13:33] VITALS: BP 130/64
[2022-12-28] MEDS: SODIUM CHLORIDE 0.9% 1,000 ML IV SCH (16:23)
[2022-12-28 16:30] VITALS: BP 155/72
[2022-12-28 19:01] LABS: INR 1.01 (0.9-1.15)
[2022-12-28] MEDS: AMITRIPTYLINE HCL 25 MG TAB PO SCH (21:30)
[2022-12-28] MEDS: ATORVASTATIN 20 MG TAB PO SCH (21:30)
[2022-12-28 22:00] VITALS: BP 158/65
[2022-12-29] MEDS: SODIUM CHLORIDE 0.9% 1,000 ML IV SCH ×2 (01:58→15:46)
[2022-12-29 05:00] VITALS: BP 143/74
[2022-12-29] MEDS: SODIUM BICARBONATE 650 MG TAB PO SCH ×4 (05:35→23:38)
[2022-12-29 05:46] LABS: Basophils # (auto) 0 10 ^3/uL (0-0.2); Basophils % (auto) 0.3 % (0.0-2.0); Eosinophils # (auto) 0.1 10 ^3/uL (0-0.8); Eosinophils % (auto) 1.7 % (0.0-7.0); Hematocrit 28.3 % (41.0-53.0); Hemoglobin 9.7 g/dL (13.5-17.5); Lymphocytes # (auto) 1.1 10 ^3/uL (0.4-5.4); Lymphocytes % (auto) 13.5 % (10.0-50.0); Mean Corpuscular Hemoglobin 28.1 pg (28.0-32.0); Mean Corpuscular Hgb Conc. 34.4 g/dL (32.0-36.0); Mean Corpuscular Volume 81.6 fL (80.0-100.0); Monocytes # (auto) 0.6 10 ^3/uL (0-1.3); Neutrophils % (auto) 76.5 % (37.0-80.0); Nucleated Red Blood Cells % 0.1 %; Red Blood Cells 3.47 10^6/uL (4.5-5.90); Red Cell Distribution Width 15.1 % (11.8-14.3); White Blood Cell 7.9 10^3/uL (4.4-10.8)
[2022-12-29 06:00] LABS: Potassium 3.4 mmol/L (3.5-5.1)
[2022-12-29 06:12] LABS: BUN/Creatinine Ratio 9.1; Calcium 8.4 mg/dL (8.5-10.1); Magnesium 1.9 mg/dL (1.6-2.6); Phosphorus 3.3 mg/dL (2.5-4.90)
[2022-12-29] MEDS: ACCU-CHEK COMFORT CURVE STRIP VI SCH ×4 (06:34→22:29)
[2022-12-29] MEDS: INSULIN LANTUS (GLARGINE) 1 /0.01ml (100units/ml) SC SCH (06:35)
[2022-12-29] MEDS: InsuLIN REG 1unit/0.01ml Soln (100units/ml) SC SCH ×4 (06:35→22:28)
[2022-12-29] MEDS: ALBUTEROL SULF 2.5 MG/0.5ML(0.5%) NEB SOLN NEB SCH ×3 (06:51→18:37)
[2022-12-29] MEDS: IPRATROPIUM BROM 0.5 MG/2.5ML INH SOL NEB SCH ×3 (06:51→18:37)
[2022-12-29 08:00] VITALS: BP 152/60
[2022-12-29] MEDS: FERROUS SULFATE 325mg EC TAB PO SCH ×2 (08:00→17:58)
[2022-12-29 08:20] VITALS: BP 117/75
[2022-12-29] MEDS: cefTRIAXone 1GM/50ML D5W 50 ML IV SCH (08:44)
[2022-12-29] MEDS: ALLOPURINOL 100 MG TAB PO SCH (09:14)
[2022-12-29] MEDS: POTASSIUM CHL 20 Meq TABLET PO SCH (09:14)
[2022-12-29] MEDS: ASPirin-EC 81 mg tab PO SCH (09:14)
[2022-12-29] MEDS: METOPROLOL SUCCINATE XL 50 MG TAB PO SCH (09:18)
[2022-12-29] MEDS: amLODIPine BESYLATE 5 MG TAB PO SCH (09:18)
[2022-12-29] MEDS: FUROSEMIDE 20 MG/2 ML VIAL IV SCH (09:19)
[2022-12-29] MEDS: AZITHROMYCIN 500MG/ 250ML 250 ML IV SCH (10:00)
[2022-12-29] MEDS: ENOXAPARIN SOD 40 MG/0.4 ML SYRINGE SC SCH (10:00)
[2022-12-29 13:00] VITALS: BP_SYST 117; BP_SYST 154; BP_DIAS 75; BP_DIAS 76
[2022-12-29 16:37] VITALS: BP 144/67
[2022-12-29] MEDS: hydrALAZINE HCL 20 MG/ML VL IV PRN (20:20)
[2022-12-29 21:53] VITALS: BP 162/69
[2022-12-29] MEDS: ATORVASTATIN 20 MG TAB PO SCH (22:27)
[2022-12-29] MEDS: AMITRIPTYLINE HCL 25 MG TAB PO SCH (22:27)
[2022-12-29 23:23] LABS: Basophils # (auto) 0 10 ^3/uL (0-0.2); Basophils % (auto) 0.3 % (0.0-2.0); Eosinophils # (auto) 0.1 10 ^3/uL (0-0.8); Eosinophils % (auto) 0.9 % (0.0-7.0); Hematocrit 28.1 % (41.0-53.0); Hemoglobin 9.6 g/dL (13.5-17.5); Lymphocytes # (auto) 0.7 10 ^3/uL (0.4-5.4); Lymphocytes % (auto) 7.5 % (10.0-50.0); Mean Corpuscular Hemoglobin 27.9 pg (28.0-32.0); Mean Corpuscular Hgb Conc. 34.3 g/dL (32.0-36.0); Mean Corpuscular Volume 81.4 fL (80.0-100.0); Monocytes # (auto) 0.6 10 ^3/uL (0-1.3); Monocytes % (auto) 6.4 % (0.0-12.0); Neutrophils # (auto) 8.2 10 ^3/uL (1.6-8.6); Neutrophils % (auto) 84.9 % (37.0-80.0); Red Blood Cells 3.46 10^6/uL (4.5-5.90); Red Cell Distribution Width 15.3 % (11.8-14.3); White Blood Cell 9.6 10^3/uL (4.4-10.8)
[2022-12-29 23:40] LABS: INR 0.97 (0.9-1.15)
[2022-12-30 05:01] VITALS: BP 167/72
[2022-12-30 05:15] LABS: Protein, Urine 222.5 mg/dL (0.0-11.9)
[2022-12-30] MEDS: SODIUM BICARBONATE 650 MG TAB PO SCH ×4 (05:34→23:03)
[2022-12-30 06:48] LABS: INR 0.99 (0.9-1.15); Partial Thromboplastin Time 38.2 sec (24.6-33.4)
[2022-12-30] MEDS: InsuLIN REG 1unit/0.01ml Soln (100units/ml) SC SCH ×4 (06:54→21:58)
[2022-12-30] MEDS: INSULIN LANTUS (GLARGINE) 1 /0.01ml (100units/ml) SC SCH (06:54)
[2022-12-30] MEDS: ACCU-CHEK COMFORT CURVE STRIP VI SCH ×4 (06:55→21:57)
[2022-12-30] MEDS: HEPARIN DRIP/D5W 100UNITS/ML 250 ML IV SCH ×5 (07:15→23:06)
[2022-12-30 07:26] LABS: Potassium 3.6 mmol/L (3.5-5.1)
[2022-12-30] MEDS: ALBUTEROL SULF 2.5 MG/0.5ML(0.5%) NEB SOLN NEB SCH ×3 (07:33→18:46)
[2022-12-30] MEDS: IPRATROPIUM BROM 0.5 MG/2.5ML INH SOL NEB SCH ×3 (07:33→18:46)
[2022-12-30 07:39] LABS: BUN/Creatinine Ratio 9.1; Calcium 8.2 mg/dL (8.5-10.1)
[2022-12-30] MEDS: FERROUS SULFATE 325mg EC TAB PO SCH ×2 (08:00→17:36)
[2022-12-30 08:59] VITALS: BP 150/74
[2022-12-30] MEDS: FUROSEMIDE 20 MG/2 ML VIAL IV SCH (09:43)
[2022-12-30] MEDS: AZITHROMYCIN 500MG/ 250ML 250 ML IV SCH (10:14)
[2022-12-30] MEDS: cefTRIAXone 1GM/50ML D5W 50 ML IV SCH (10:14)
[2022-12-30] MEDS: ASPirin-EC 81 mg tab PO SCH (10:14)
[2022-12-30] MEDS: POTASSIUM CHL 20 Meq TABLET PO SCH (10:14)
[2022-12-30] MEDS: amLODIPine BESYLATE 5 MG TAB PO SCH (10:15)
[2022-12-30] MEDS: ALLOPURINOL 100 MG TAB PO SCH (10:15)
[2022-12-30] MEDS: METOPROLOL SUCCINATE XL 50 MG TAB PO SCH (10:15)
[2022-12-30 13:00] VITALS: BP 144/74
[2022-12-30 13:36] LABS: Partial Thromboplastin Time 42.7 sec (24.6-33.4)
[2022-12-30 16:00] VITALS: BP 157/79
[2022-12-30] MEDS: hydrALAZINE HCL 20 MG/ML VL IV PRN (19:54)
[2022-12-30 20:00] VITALS: BP_SYST 156; BP_SYST 158; BP_DIAS 76; BP_DIAS 77
[2022-12-30] MEDS: AMITRIPTYLINE HCL 25 MG TAB PO SCH (21:57)
[2022-12-30] MEDS: ATORVASTATIN 20 MG TAB PO SCH (21:57)
[2022-12-30 22:00] VITALS: BP 156/76
[2022-12-30 22:25] LABS: INR 0.98 (0.9-1.15); Partial Thromboplastin Time 34.1 sec (24.6-33.4)
[2022-12-30] MEDS ORDERED: HEPARIN SODIUM (PORCINE) 5000 UNITS/ML 1ML VIAL IV ONE (23:00)
[2022-12-31 05:00] VITALS: BP 153/74
[2022-12-31] MEDS: SODIUM BICARBONATE 650 MG TAB PO SCH ×3 (06:13→17:45)
[2022-12-31] MEDS: INSULIN LANTUS (GLARGINE) 1 /0.01ml (100units/ml) SC SCH (06:14)
[2022-12-31] MEDS: ACCU-CHEK COMFORT CURVE STRIP VI SCH ×4 (06:15→22:02)
[2022-12-31] MEDS: InsuLIN REG 1unit/0.01ml Soln (100units/ml) SC SCH ×4 (06:15→22:02)
[2022-12-31] MEDS: hydrALAZINE HCL 20 MG/ML VL IV PRN ×2 (06:18→22:01)
[2022-12-31] MEDS: ALBUTEROL SULF 2.5 MG/0.5ML(0.5%) NEB SOLN NEB SCH ×3 (06:29→19:46)
[2022-12-31] MEDS: IPRATROPIUM BROM 0.5 MG/2.5ML INH SOL NEB SCH ×3 (06:29→19:46)
[2022-12-31 07:19] LABS: INR 1.05 (0.9-1.15)
[2022-12-31 07:25] LABS: Partial Thromboplastin Time 118.1 sec (24.6-33.4)
[2022-12-31] MEDS ORDERED: HEPARIN DRIP/D5W 100UNITS/ML 250 ML IV SCH (08:30)
[2022-12-31 09:00] VITALS: BP 154/67
[2022-12-31] MEDS: AZITHROMYCIN 500MG/ 250ML 250 ML IV SCH (09:50)
[2022-12-31] MEDS: POTASSIUM CHL 20 Meq TABLET PO SCH (09:50)
[2022-12-31] MEDS: cefTRIAXone 1GM/50ML D5W 50 ML IV SCH (09:50)
[2022-12-31] MEDS: ASPirin-EC 81 mg tab PO SCH (09:50)
[2022-12-31] MEDS: FERROUS SULFATE 325mg EC TAB PO SCH ×2 (09:50→17:46)
[2022-12-31] MEDS: amLODIPine BESYLATE 5 MG TAB PO SCH (09:51)
[2022-12-31] MEDS: METOPROLOL SUCCINATE XL 50 MG TAB PO SCH (09:51)
[2022-12-31] MEDS: ALLOPURINOL 100 MG TAB PO SCH (09:51)
[2022-12-31] MEDS: FUROSEMIDE 20 MG/2 ML VIAL IV SCH (09:52)
[2022-12-31 13:00] VITALS: BP 150/71
[2022-12-31 17:00] VITALS: BP 162/71
[2022-12-31 22:00] VITALS: BP 152/67
[2022-12-31] MEDS: ATORVASTATIN 20 MG TAB PO SCH (22:00)
[2022-12-31] MEDS: AMITRIPTYLINE HCL 25 MG TAB PO SCH (22:00)
[2023-01-01] MEDS: SODIUM BICARBONATE 650 MG TAB PO SCH ×4 (00:42→17:33)
[2023-01-01 05:00] VITALS: BP 167/72
[2023-01-01] MEDS: hydrALAZINE HCL 20 MG/ML VL IV PRN ×2 (05:08→17:37)
[2023-01-01] MEDS: ALBUTEROL SULF 2.5 MG/0.5ML(0.5%) NEB SOLN NEB SCH ×3 (06:17→18:25)
[2023-01-01] MEDS: IPRATROPIUM BROM 0.5 MG/2.5ML INH SOL NEB SCH ×3 (06:18→18:25)
[2023-01-01] MEDS: INSULIN LANTUS (GLARGINE) 1 /0.01ml (100units/ml) SC SCH (06:19)
[2023-01-01] MEDS: InsuLIN REG 1unit/0.01ml Soln (100units/ml) SC SCH ×4 (06:20→22:00)
[2023-01-01] MEDS: ACCU-CHEK COMFORT CURVE STRIP VI SCH ×4 (06:21→22:08)
[2023-01-01 08:00] VITALS: BP 153/66
[2023-01-01] MEDS: FERROUS SULFATE 325mg EC TAB PO SCH ×2 (08:07→17:33)
[2023-01-01] MEDS: POTASSIUM CHL 20 Meq TABLET PO SCH (09:30)
[2023-01-01] MEDS: METOPROLOL SUCCINATE XL 50 MG TAB PO SCH (09:30)
[2023-01-01] MEDS: ALLOPURINOL 100 MG TAB PO SCH (09:31)
[2023-01-01] MEDS: ASPirin-EC 81 mg tab PO SCH (09:31)
[2023-01-01] MEDS: amLODIPine BESYLATE 5 MG TAB PO SCH (09:31)
[2023-01-01] MEDS: cefTRIAXone 1GM/50ML D5W 50 ML IV SCH (09:32)
[2023-01-01] MEDS: FUROSEMIDE 20 MG/2 ML VIAL IV SCH (09:32)
[2023-01-01] MEDS: AZITHROMYCIN 500MG/ 250ML 250 ML IV SCH (09:32)
[2023-01-01 12:00] VITALS: BP 143/72
[2023-01-01 14:31] LABS: BUN/Creatinine Ratio 8.7; Calcium 8.9 mg/dL (8.5-10.1); Potassium 3.8 mmol/L (3.5-5.1)
[2023-01-01 16:00] VITALS: BP 151/60
[2023-01-01 20:00] VITALS: BP 150/59
[2023-01-01] MEDS: ATORVASTATIN 20 MG TAB PO SCH (21:59)
[2023-01-01 22:00] VITALS: BP 124/52
[2023-01-01] MEDS: AMITRIPTYLINE HCL 25 MG TAB PO SCH (22:08)
[2023-01-02] MEDS: SODIUM BICARBONATE 650 MG TAB PO SCH ×4 (03:59→18:05)
[2023-01-02 05:00] VITALS: BP 158/77
[2023-01-02] MEDS: ALBUTEROL SULF 2.5 MG/0.5ML(0.5%) NEB SOLN NEB SCH ×3 (06:07→19:07)
[2023-01-02] MEDS: IPRATROPIUM BROM 0.5 MG/2.5ML INH SOL NEB SCH ×3 (06:07→19:07)
[2023-01-02] MEDS: InsuLIN REG 1unit/0.01ml Soln (100units/ml) SC SCH ×4 (06:33→21:57)
[2023-01-02] MEDS: INSULIN LANTUS (GLARGINE) 1 /0.01ml (100units/ml) SC SCH (06:34)
[2023-01-02] MEDS: ACCU-CHEK COMFORT CURVE STRIP VI SCH ×4 (06:34→21:59)
[2023-01-02] MEDS: FERROUS SULFATE 325mg EC TAB PO SCH ×2 (08:00→18:04)
[2023-01-02 08:19] LABS: Potassium 3.5 mmol/L (3.5-5.1)
[2023-01-02 08:23] LABS: Calcium 8.3 mg/dL (8.5-10.1)
[2023-01-02 09:00] VITALS: BP 154/71
[2023-01-02] MEDS: FUROSEMIDE 20 MG/2 ML VIAL IV SCH (09:57)
[2023-01-02] MEDS: AZITHROMYCIN 500MG/ 250ML 250 ML IV SCH (09:57)
[2023-01-02] MEDS: cefTRIAXone 1GM/50ML D5W 50 ML IV SCH (09:57)
[2023-01-02] MEDS: POTASSIUM CHL 20 Meq TABLET PO SCH (09:58)
[2023-01-02] MEDS: METOPROLOL SUCCINATE XL 50 MG TAB PO SCH (09:58)
[2023-01-02] MEDS: ALLOPURINOL 100 MG TAB PO SCH (09:59)
[2023-01-02] MEDS: ASPirin-EC 81 mg tab PO SCH (09:59)
[2023-01-02] MEDS: amLODIPine BESYLATE 5 MG TAB PO SCH (10:00)
[2023-01-02 11:28] LABS: Partial Thromboplastin Time 26.8 sec (24.6-33.4)
[2023-01-02 13:00] VITALS: BP 139/77
[2023-01-02] MEDS ORDERED: VANCOMYCIN 1GM/250ML 250 ML IV ONE ×2 (14:15→22:00)
[2023-01-02] MEDS ORDERED: VANCOMYCIN PER PHARMACY 0 MG IV SCH (14:15)
[2023-01-02 17:00] VITALS: BP 153/74
[2023-01-02 21:36] VITALS: BP 153/74
[2023-01-02] MEDS: AMITRIPTYLINE HCL 25 MG TAB PO SCH (21:58)
[2023-01-02] MEDS: ATORVASTATIN 20 MG TAB PO SCH (21:58)
[2023-01-02] MEDS: hydrALAZINE HCL 20 MG/ML VL IV PRN (21:59)
[2023-01-02 22:00] VITALS: BP 162/77
[2023-01-02] MEDS: MUPIROCIN 2% OINT 15gm or 22gm TOP SCH (22:00)
[2023-01-03] VITALS (9 sets, daily range): BP systolic 127–160; BP diastolic 63–78
[2023-01-03] MEDS: SODIUM BICARBONATE 650 MG TAB PO SCH ×4 (01:05→17:19)
[2023-01-03] MEDS: INSULIN LANTUS (GLARGINE) 1 /0.01ml (100units/ml) SC SCH (06:13)
[2023-01-03] MEDS: ACCU-CHEK COMFORT CURVE STRIP VI SCH ×4 (06:14→21:35)
[2023-01-03] MEDS: InsuLIN REG 1unit/0.01ml Soln (100units/ml) SC SCH ×4 (06:14→21:32)
[2023-01-03] MEDS: IPRATROPIUM BROM 0.5 MG/2.5ML INH SOL NEB SCH ×3 (06:40→19:26)
[2023-01-03] MEDS: ALBUTEROL SULF 2.5 MG/0.5ML(0.5%) NEB SOLN NEB SCH ×3 (06:41→19:26)
[2023-01-03] MEDS ORDERED: LIDOCAINE 2%HCL (LOCAL ANESTH.) INJ 10ml MDV ONE (07:32)
[2023-01-03] MEDS ORDERED: IODIXANOL 320MG/ML 100ML BTL IV ONE (07:33)
[2023-01-03] MEDS ORDERED: HEPARIN SODIUM (PORCINE) 5000 UNITS/ML 1ML VIAL ONE (07:40)
[2023-01-03] MEDS ORDERED: VERAPAMIL 2.5MG/ML INJ 2ML VIAL IV ONE (07:40)
[2023-01-03] MEDS ORDERED: ANGIOMAX 250 MG VIAL IV ONE (07:40)
[2023-01-03] MEDS ORDERED: fentaNYL CITRATE 100 MCG/2 ML VL ONE (07:40)
[2023-01-03] MEDS ORDERED: SODIUM CHL 0.9% 0 ML ONE (07:41)
[2023-01-03] MEDS ORDERED: MIDAZOLAM HCL 2MG/2ML 2ml VIAL (1mg/ml) ONE (07:41)
[2023-01-03] MEDS: FERROUS SULFATE 325mg EC TAB PO SCH ×2 (08:35→17:19)
[2023-01-03] MEDS: ALLOPURINOL 100 MG TAB PO SCH (10:33)
[2023-01-03] MEDS: MUPIROCIN 2% OINT 15gm or 22gm TOP SCH ×2 (10:33→21:34)
[2023-01-03] MEDS: amLODIPine BESYLATE 5 MG TAB PO SCH (10:35)
[2023-01-03] MEDS: METOPROLOL SUCCINATE XL 50 MG TAB PO SCH (10:35)
[2023-01-03] MEDS: ASPirin-EC 81 mg tab PO SCH (10:35)
[2023-01-03 13:41] LABS: Calcium 8.3 mg/dL (8.5-10.1); Potassium 3.5 mmol/L (3.5-5.1)
[2023-01-03 13:43] LABS: BUN/Creatinine Ratio 9.4 (10.0-20.0)
[2023-01-03] MEDS: hydrALAZINE HCL 20 MG/ML VL IV PRN (17:19)
[2023-01-03] MEDS: VANCOMYCIN 1GM/250ML 250 ML IV SCH (18:45)
[2023-01-03] MEDS: AMITRIPTYLINE HCL 25 MG TAB PO SCH (21:35)
[2023-01-03] MEDS: ATORVASTATIN 20 MG TAB PO SCH (21:36)
[2023-01-04] MEDS: SODIUM BICARBONATE 650 MG TAB PO SCH ×5 (00:12→23:37)
[2023-01-04 05:00] VITALS: BP 152/72
[2023-01-04] MEDS: ACCU-CHEK COMFORT CURVE STRIP VI SCH ×4 (06:03→22:36)
[2023-01-04] MEDS: InsuLIN REG 1unit/0.01ml Soln (100units/ml) SC SCH ×4 (06:03→22:35)
[2023-01-04] MEDS: INSULIN LANTUS (GLARGINE) 1 /0.01ml (100units/ml) SC SCH (06:04)
[2023-01-04] MEDS: ALBUTEROL SULF 2.5 MG/0.5ML(0.5%) NEB SOLN NEB SCH ×3 (06:59→19:18)
[2023-01-04] MEDS: IPRATROPIUM BROM 0.5 MG/2.5ML INH SOL NEB SCH ×3 (06:59→19:18)
[2023-01-04] MEDS: ASPirin-EC 81 mg tab PO SCH (08:29)
[2023-01-04] MEDS: FERROUS SULFATE 325mg EC TAB PO SCH ×2 (08:29→17:02)
[2023-01-04] MEDS: MUPIROCIN 2% OINT 15gm or 22gm TOP SCH ×2 (08:30→22:36)
[2023-01-04] MEDS: ALLOPURINOL 100 MG TAB PO SCH (08:30)
[2023-01-04] MEDS: amLODIPine BESYLATE 5 MG TAB PO SCH (08:30)
[2023-01-04] MEDS: METOPROLOL SUCCINATE XL 50 MG TAB PO SCH (08:30)
[2023-01-04 09:20] VITALS: BP 137/73
[2023-01-04 12:56] VITALS: BP 140/73
[2023-01-04 17:00] VITALS: BP 137/65
[2023-01-04] MEDS: VANCOMYCIN 1GM/250ML 250 ML IV SCH (20:38)
[2023-01-04 22:00] VITALS: BP 137/46
[2023-01-04] MEDS: ATORVASTATIN 20 MG TAB PO SCH (22:36)
[2023-01-04] MEDS: AMITRIPTYLINE HCL 25 MG TAB PO SCH (22:36)
[2023-01-04 23:12] VITALS: BP 137/46
[2023-01-05 05:00] VITALS: BP 140/69
[2023-01-05 06:13] LABS: BUN/Creatinine Ratio 8.9 (10.0-20.0); Calcium 8.6 mg/dL (8.5-10.1); Potassium 3.4 mmol/L (3.5-5.1)
[2023-01-05] MEDS: InsuLIN REG 1unit/0.01ml Soln (100units/ml) SC SCH ×3 (06:28→17:03)
[2023-01-05] MEDS: SODIUM BICARBONATE 650 MG TAB PO SCH ×3 (06:28→17:02)
[2023-01-05] MEDS: INSULIN LANTUS (GLARGINE) 1 /0.01ml (100units/ml) SC SCH (06:30)
[2023-01-05] MEDS: ACCU-CHEK COMFORT CURVE STRIP VI SCH ×3 (06:31→17:02)
[2023-01-05 08:00] VITALS: BP 163/75
[2023-01-05] MEDS: ALBUTEROL SULF 2.5 MG/0.5ML(0.5%) NEB SOLN NEB SCH ×3 (09:02→18:05)
[2023-01-05] MEDS: IPRATROPIUM BROM 0.5 MG/2.5ML INH SOL NEB SCH ×3 (09:03→18:05)
[2023-01-05] MEDS: ASPirin-EC 81 mg tab PO SCH (09:14)
[2023-01-05] MEDS: FERROUS SULFATE 325mg EC TAB PO SCH ×2 (09:14→17:02)
[2023-01-05] MEDS: MUPIROCIN 2% OINT 15gm or 22gm TOP SCH (09:15)
[2023-01-05] MEDS: amLODIPine BESYLATE 5 MG TAB PO SCH (09:15)
[2023-01-05] MEDS: ALLOPURINOL 100 MG TAB PO SCH (09:15)
[2023-01-05] MEDS: METOPROLOL SUCCINATE XL 50 MG TAB PO SCH (09:15)
[2023-01-05] MEDS ORDERED: FUROSEMIDE 40 MG/4 ML VIAL IV SCH (10:00)
[2023-01-05 13:00] VITALS: BP 138/75
[2023-01-05 16:03] VITALS: BP 138/75
== END 2023-01-05 19:14 | disposition short-term general hospital (02) | DRG 191 ==
LOC: EDUNIT# 11:58 → EDBD 11:58 → ER 11:58 → TELE 19:10 → TELE-WESTW 12-28 03:40
PROVIDERS: ADMIT Registered Nurse; ATTEND Internal Medicine
PROC: 4A023N7 Measurement of Cardiac Sampling and Pressure, Left Heart, Percutaneous Approach (ICD-10-PCS; principal; 2023-01-03)
PROC: B211YZZ Fluoroscopy of Multiple Coronary Arteries using Other Contrast (ICD-10-PCS; 2023-01-03)
PROC: B215YZZ Fluoroscopy of Left Heart using Other Contrast (ICD-10-PCS; 2023-01-03)
DX: I25.110 Atherosclerotic heart disease of native coronary artery with unstable angina pectoris (principal); N17.0 Acute kidney failure with tubular necrosis; J15.212 Pneumonia due to Methicillin resistant Staphylococcus aureus; E44.1 Mild protein-calorie malnutrition; I24.9 Acute ischemic heart disease, unspecified; J81.1 Chronic pulmonary edema; E11.21 Type 2 diabetes mellitus with diabetic nephropathy; N18.4 Chronic kidney disease, stage 4 (severe); E11.22 Type 2 diabetes mellitus with diabetic chronic kidney disease; D63.1 Anemia in chronic kidney disease; E78.5 Hyperlipidemia, unspecified; E66.01 Morbid (severe) obesity due to excess calories; E87.6 Hypokalemia; M10.9 Gout, unspecified; I12.9 Hypertensive chronic kidney disease with stage 1 through stage 4 chronic kidney disease, or unspecified chronic kidney disease; R09.89 Other specified symptoms and signs involving the circulatory and respiratory systems; Z68.27 Body mass index [BMI] 27.0-27.9, adult; Z87.891 Personal history of nicotine dependence; Z79.4 Long term (current) use of insulin; Z20.822 Contact with and (suspected) exposure to COVID-19
CPT/HCPCS: 36415; 71045; 76775; 80048; 80053; 80061; 80202; 81001; 82306; 82565; 82570; 82962; 83036; 83605; 83735; 83880; 83970; 84100; 84156; 84300; 84443; 84484; 84550; 85025; 85379; 85610; 85730; 86141; 87040; 87070; 87205; 87426; 93005; 93306; 93458; 94640; 96374; 99152; G0378; J0696; J1815; J2001; J2250; Q9967

== ENCOUNTER → 2023-01-25 | Outpatient (CLI) | payer MEDICARE, MEDICAID ==
[~2023-01-25] MED LIST changes: +ASPI1TAB37 PO; +ATOR40TA52 PO
[2023-01-25 08:35] LABS: Basophils # (auto) 0.1 10 ^3/uL (0-0.2); Eosinophils # (auto) 0.4 10 ^3/uL (0-0.8); Eosinophils % (auto) 5.6 % (0.0-7.0); Hematocrit 31.9 % (41.0-53.0); Hemoglobin 10.8 g/dL (13.5-17.5); Mean Corpuscular Hemoglobin 27.7 pg (28.0-32.0); Mean Corpuscular Hgb Conc. 33.9 g/dL (32.0-36.0); Mean Corpuscular Volume 81.8 fL (80.0-100.0); Monocytes # (auto) 0.4 10 ^3/uL (0-1.3); Monocytes % (auto) 4.7 % (0.0-12.0); Neutrophils # (auto) 4.8 10 ^3/uL (1.6-8.6); Neutrophils % (auto) 62.7 % (37.0-80.0); Red Cell Distribution Width 15.4 % (11.8-14.3); White Blood Cell 7.6 10^3/uL (4.4-10.8)
[2023-01-25 08:42] LABS: Urine Bacteria NONE SEEN /hpf (None Seen); Urine Blood 2+ /uL (Negative); Urine Hyaline Cast FEW /lpf (0 - 2); Urine Specific Gravity 1.014 (1.001-1.035); Urine WBC 8 /hpf (0 - 3)
[2023-01-25 09:00] LABS: Albumin 3.6 g/dL (3.4-5.0); BUN/Creatinine Ratio 8.6 (10.0-20.0); Calcium 8.9 mg/dL (8.5-10.1); Phosphorus 3.4 mg/dL (2.5-4.90); Potassium 4.7 mmol/L (3.5-5.1); Uric Acid 5.9 mg/dL (3.5-7.2)
[2023-01-25 09:02] LABS: Protein, Urine 153.1 mg/dL (0.0-11.9)
== END | disposition home or self-care (01) ==
LOC: LAB 08:07
PROVIDERS: ATTEND Internal Medicine Nephrology
DX: E56.9 Vitamin deficiency, unspecified (principal); R80.9 Proteinuria, unspecified; E21.3 Hyperparathyroidism, unspecified
CPT/HCPCS: 36415; 80069; 81001; 82306; 82570; 83970; 84156; 84550; 85025

== ENCOUNTER → 2023-02-02 | Outpatient (CLI) | payer MEDICARE, MEDICAID ==
[2023-02-02 12:34] LABS: Basophils # (auto) 0 10 ^3/uL (0-0.2); Basophils % (auto) 0.5 % (0.0-2.0); Eosinophils # (auto) 0.3 10 ^3/uL (0-0.8); Eosinophils % (auto) 4.1 % (0.0-7.0); Hematocrit 33.4 % (41.0-53.0); Lymphocytes # (auto) 1.4 10 ^3/uL (0.4-5.4); Lymphocytes % (auto) 20.3 % (10.0-50.0); Mean Corpuscular Hemoglobin 27.4 pg (28.0-32.0); Mean Corpuscular Hgb Conc. 32.9 g/dL (32.0-36.0); Mean Corpuscular Volume 83.2 fL (80.0-100.0); Monocytes # (auto) 0.4 10 ^3/uL (0-1.3); Monocytes % (auto) 5.4 % (0.0-12.0); Neutrophils % (auto) 69.7 % (37.0-80.0); Nucleated Red Blood Cells % 0.1 %; Red Blood Cells 4.02 10^6/uL (4.5-5.90); Red Cell Distribution Width 16.7 % (11.8-14.3); White Blood Cell 7.1 10^3/uL (4.4-10.8)
[2023-02-02 12:41] LABS: Urine Bacteria NONE SEEN /hpf (None Seen); Urine Blood Negative /uL (Negative); Urine Specific Gravity 1.018 (1.001-1.035); Urine WBC 11 /hpf (0 - 3)
[2023-02-02 13:16] LABS: Albumin 3.8 g/dL (3.4-5.0); Calcium 9.2 mg/dL (8.5-10.1); Potassium 4.8 mmol/L (3.5-5.1)
[2023-02-02 13:18] LABS: BUN/Creatinine Ratio 12.7 (10.0-20.0); Phosphorus 3.1 mg/dL (2.5-4.90); Uric Acid 6.1 mg/dL (3.5-7.2)
[2023-02-02 15:32] LABS: Protein, Urine 102.4 mg/dL (0.0-11.9)
== END | disposition home or self-care (01) ==
LOC: LAB 12:16
PROVIDERS: ATTEND Internal Medicine Nephrology
DX: E56.9 Vitamin deficiency, unspecified (principal); R80.9 Proteinuria, unspecified; Z79.899 Other long term (current) drug therapy
CPT/HCPCS: 36415; 80069; 81001; 82306; 82570; 83970; 84156; 84550; 85025

== ENCOUNTER → 2023-02-23 | Outpatient (CLI) | payer MEDICARE, MEDICAID ==
[2023-02-23 11:33] LABS: Basophils # (auto) 0 10 ^3/uL (0-0.2); Basophils % (auto) 0.2 % (0.0-2.0); Eosinophils # (auto) 0.1 10 ^3/uL (0-0.8); Eosinophils % (auto) 1.3 % (0.0-7.0); Hemoglobin 11.1 g/dL (13.5-17.5); Lymphocytes # (auto) 1.7 10 ^3/uL (0.4-5.4); Lymphocytes % (auto) 16.2 % (10.0-50.0); Mean Corpuscular Hemoglobin 28.4 pg (28.0-32.0); Mean Corpuscular Hgb Conc. 33.6 g/dL (32.0-36.0); Mean Corpuscular Volume 84.6 fL (80.0-100.0); Monocytes # (auto) 0.6 10 ^3/uL (0-1.3); Monocytes % (auto) 5.4 % (0.0-12.0); Neutrophils # (auto) 8.1 10 ^3/uL (1.6-8.6); Neutrophils % (auto) 76.9 % (37.0-80.0); Red Cell Distribution Width 16.7 % (11.8-14.3); White Blood Cell 10.5 10^3/uL (4.4-10.8)
[2023-02-23 12:02] LABS: Calcium 8.9 mg/dL (8.5-10.1); Potassium 4.4 mmol/L (3.5-5.1)
[2023-02-23 12:03] LABS: Urine Bacteria NONE SEEN /hpf (None Seen); Urine Blood Negative /uL (Negative); Urine Specific Gravity 1.011 (1.001-1.035); Urine WBC 13 /hpf (0 - 3)
[2023-02-23 12:09] LABS: Albumin 3.9 g/dL (3.4-5.0); BUN/Creatinine Ratio 10.3 (10.0-20.0); Bilirubin, Direct 0.1 mg/dL (0-0.2); Bilirubin, Total 0.5 mg/dL (0.2-1.0); Total Protein 7.9 g/dL (6.4-8.2); Uric Acid 6.7 mg/dL (3.5-7.2)
[2023-02-23 12:11] LABS: Free T4 (Free Thyroxine) 0.99 ng/dL (0.89-1.76)
[2023-02-23 12:15] LABS: Protein, Urine 58.9 mg/dL (0.0-11.9)
[2023-02-23 12:58] LABS: Prostate Specific Antigen 6.5 ng/mL (0.0-4.0)
== END | disposition home or self-care (01) ==
LOC: LAB 11:06
DX: I12.9 Hypertensive chronic kidney disease with stage 1 through stage 4 chronic kidney disease, or unspecified chronic kidney disease (principal); E11.22 Type 2 diabetes mellitus with diabetic chronic kidney disease; N18.30 Chronic kidney disease, stage 3 unspecified; D63.1 Anemia in chronic kidney disease; D64.9 Anemia, unspecified; E03.9 Hypothyroidism, unspecified; N39.0 Urinary tract infection, site not specified; R97.20 Elevated prostate specific antigen [PSA]; R80.9 Proteinuria, unspecified; M10.9 Gout, unspecified; E56.9 Vitamin deficiency, unspecified; E21.3 Hyperparathyroidism, unspecified
CPT/HCPCS: 36415; 80053; 80061; 80076; 81001; 82043; 82306; 82570; 82607; 83036; 83540; 83970; 84153; 84154; 84156; 84439; 84443; 84550; 85025

== ENCOUNTER → 2023-04-03 | Outpatient (CLI) | payer MEDICARE, MEDICAID ==
[~2023-04-03] MED LIST changes: -AMIT25TA11 PO; +AMIT25TA19 PO; -AMLO-496 PO; +AMLO1TAB23 PO; +ASPI-628 PO; -ASPI1TAB37 PO; -FERR-20 PO; +FERR325T24 PO
[2023-04-03 09:40] LABS: Basophils # (auto) 0 10 ^3/uL (0-0.2); Basophils % (auto) 0.3 % (0.0-2.0); Eosinophils # (auto) 0.2 10 ^3/uL (0-0.8); Eosinophils % (auto) 2.5 % (0.0-7.0); Hematocrit 35.3 % (41.0-53.0); Hemoglobin 12.1 g/dL (13.5-17.5); Lymphocytes # (auto) 1.8 10 ^3/uL (0.4-5.4); Lymphocytes % (auto) 24.4 % (10.0-50.0); Mean Corpuscular Hemoglobin 28.5 pg (28.0-32.0); Mean Corpuscular Hgb Conc. 34.3 g/dL (32.0-36.0); Mean Corpuscular Volume 83.2 fL (80.0-100.0); Monocytes # (auto) 0.4 10 ^3/uL (0-1.3); Monocytes % (auto) 5.7 % (0.0-12.0); Neutrophils % (auto) 67.1 % (37.0-80.0); Nucleated Red Blood Cells % 0.2 %; Red Blood Cells 4.24 10^6/uL (4.5-5.90); Red Cell Distribution Width 16.1 % (11.8-14.3); White Blood Cell 7.5 10^3/uL (4.4-10.8)
[2023-04-03 09:42] LABS: Urine Bacteria FEW /hpf (None Seen); Urine Blood Negative /uL (Negative); Urine Specific Gravity 1.012 (1.001-1.035); Urine WBC 1 /hpf (0 - 3); Urine WBC Clumps PRESENT /hpf (None Seen)
[2023-04-03 10:36] LABS: Calcium 8.4 mg/dL (8.5-10.1); Potassium 5.2 mmol/L (3.5-5.1); Uric Acid 7.1 mg/dL (3.5-7.2)
[2023-04-03 10:42] LABS: Albumin 4.4 g/dL (3.4-5.0); BUN/Creatinine Ratio 14.3 (10.0-20.0); Bilirubin, Total 0.4 mg/dL (0.2-1.0); Phosphorus 3.7 mg/dL (2.5-4.90); Total Protein 8.7 g/dL (6.4-8.2)
== END | disposition home or self-care (01) ==
LOC: LAB 08:58
DX: I10 Essential (primary) hypertension (principal); E03.9 Hypothyroidism, unspecified; E56.9 Vitamin deficiency, unspecified; E21.3 Hyperparathyroidism, unspecified; D64.9 Anemia, unspecified; N39.0 Urinary tract infection, site not specified; R19.5 Other fecal abnormalities; R60.9 Edema, unspecified
CPT/HCPCS: 36415; 80053; 80061; 80069; 81001; 82306; 82570; 83970; 84153; 84154; 84156; 84443; 84550; 85025

== ENCOUNTER → 2023-07-06 | Outpatient (CLI) | payer MEDICARE, MEDICAID ==
[2023-07-06 10:15] LABS: Basophils # (auto) 0 10 ^3/uL (0-0.2); Basophils % (auto) 0.5 % (0.0-2.0); Eosinophils # (auto) 0.6 10 ^3/uL (0-0.8); Eosinophils % (auto) 7.2 % (0.0-7.0); Hematocrit 33.5 % (41.0-53.0); Hemoglobin 11.5 g/dL (13.5-17.5); Lymphocytes # (auto) 1.4 10 ^3/uL (0.4-5.4); Lymphocytes % (auto) 17.6 % (10.0-50.0); Mean Corpuscular Hemoglobin 30.1 pg (28.0-32.0); Mean Corpuscular Hgb Conc. 34.4 g/dL (32.0-36.0); Mean Corpuscular Volume 87.5 fL (80.0-100.0); Monocytes # (auto) 0.5 10 ^3/uL (0-1.3); Neutrophils # (auto) 5.5 10 ^3/uL (1.6-8.6); Neutrophils % (auto) 68.7 % (37.0-80.0); Red Blood Cells 3.84 10^6/uL (4.5-5.90); Red Cell Distribution Width 13.5 % (11.8-14.3); White Blood Cell 8.1 10^3/uL (4.4-10.8)
[2023-07-06 11:20] LABS: Urine Bacteria FEW /hpf (None Seen); Urine Blood Negative /uL (Negative); Urine Clarity Clear (Clear); Urine Color Yellow (Yellow); Urine Protein, UAD 3+ (Negative); Urine Specific Gravity 1.024 (1.001-1.035); Urine Urobilinogen Normal (Negative); Urine WBC 13 /hpf (0 - 3); Urine pH 5.5 (5.0-8.0)
[2023-07-06 12:56] LABS: Alanine Aminotransferase 34 U/L (7-40); Albumin 4.9 g/dL (3.2-4.8); Alkaline Phosphatase 100 U/L (46-116); Anion Gap 10 (5-15); Aspartate Aminotransferase 24 U/L (13-40); BUN/Creatinine Ratio 9.4 (10.0-20.0); Blood Urea Nitrogen 25 mg/dL (9-23); Calcium 8.9 mg/dL (8.7-10.4); Carbon Dioxide 23 mmol/L (20-30); Chloride 106 mmol/L (98-107); Glucose 336 mg/dL (74-106); Sodium 139 mmol/L (136-145)
[2023-07-06 12:57] LABS: Bilirubin, Total 0.5 mg/dL (0.2-1.0); Total Protein 7.6 g/dL (5.7-8.2)
[2023-07-06 13:42] LABS: Uric Acid 8.2 mg/dL (3.7-9.2)
== END | disposition home or self-care (01) ==
LOC: LAB 09:54
PROVIDERS: ATTEND Internal Medicine
DX: I12.9 Hypertensive chronic kidney disease with stage 1 through stage 4 chronic kidney disease, or unspecified chronic kidney disease (principal); E11.22 Type 2 diabetes mellitus with diabetic chronic kidney disease; N18.4 Chronic kidney disease, stage 4 (severe)
CPT/HCPCS: 36415; 80053; 81001; 82043; 83036; 84550; 85025

== ENCOUNTER → 2023-08-01 | Outpatient (CLI) | payer MEDICARE, MEDICAID ==
[2023-08-02 08:07] LABS: PSA Free 2.4 ng/mL; Prostate Specific Antigen 5.2 ng/mL (0.0-4.0)
== END | disposition home or self-care (01) ==
LOC: LAB 07:48
PROVIDERS: ATTEND Urology
DX: N40.1 Benign prostatic hyperplasia with lower urinary tract symptoms (principal)
CPT/HCPCS: 84153; 84154

== ENCOUNTER → 2024-01-30 | Outpatient (CLI) | payer MEDICARE, MEDICAID | END | disposition home or self-care (01) | LOC: XYW 09:44 | PROVIDERS: ATTEND Student in an Organized Health Care Education/Training Program | DX: Z01.810 Encounter for preprocedural cardiovascular examination (principal); I51.89 Other ill-defined heart diseases | CPT/HCPCS: 93306 ==

== ENCOUNTER → 2024-04-15 | Outpatient (CLI) | payer MEDICARE, MEDICAID ==
[2024-04-15 09:37] LABS: Urine Bacteria None Seen /hpf (None Seen)
[2024-04-15 09:53] LABS: Basophils # (auto) 0 10 ^3/uL (0-0.2); Basophils % (auto) 0.4 % (0.0-2.0); Eosinophils # (auto) 0.3 10 ^3/uL (0-0.8); Eosinophils % (auto) 2.9 % (0.0-7.0); Hematocrit 35.7 % (41.0-53.0); Hemoglobin 12.1 g/dL (13.5-17.5); Lymphocytes # (auto) 1.5 10 ^3/uL (0.4-5.4); Lymphocytes % (auto) 16.8 % (10.0-50.0); Mean Corpuscular Hgb Conc. 33.9 g/dL (32.0-36.0); Mean Corpuscular Volume 91.6 fL (80.0-100.0); Monocytes # (auto) 0.4 10 ^3/uL (0-1.3); Monocytes % (auto) 4.9 % (0.0-12.0); Neutrophils # (auto) 6.9 10 ^3/uL (1.6-8.6); Nucleated Red Blood Cells % 0.1 %; Red Blood Cells 3.89 10^6/uL (4.5-5.90); Red Cell Distribution Width 14.1 % (11.8-14.3); White Blood Cell 9.2 10^3/uL (4.4-10.8)
[2024-04-15 10:21] LABS: Urine Blood 1+ /uL (Negative); Urine Clarity Clear (Clear); Urine Color Light-Yellow (Yellow); Urine Hyaline Cast FEW /lpf (0 - 2); Urine Protein, UAD 2+ (Negative); Urine Urobilinogen Normal (Negative); Urine WBC 3 /hpf (0 - 3)
[2024-04-15 10:48] LABS: Protein, Urine 133.5 mg/dL (0.0-11.9)
[2024-04-15 10:51] LABS: Creatinine, Urine 133.16 mg/dL (30.0-125.0)
[2024-04-15 11:25] LABS: Potassium 4.8 mmol/L (3.5-5.1)
[2024-04-15 11:26] LABS: Calcium 9.8 mg/dL (8.5-10.1)
[2024-04-15 11:31] LABS: BUN/Creatinine Ratio 11.6 (10.0-20.0)
[2024-04-15 11:33] LABS: Albumin 4.9 g/dL (3.2-4.8); Phosphorus 3.3 mg/dL (2.4-5.1)
[2024-04-15 12:10] LABS: Uric Acid 8.1 mg/dL (3.7-9.2)
== END | disposition home or self-care (01) ==
LOC: LAB 09:22
PROVIDERS: ATTEND Internal Medicine Nephrology
DX: E56.9 Vitamin deficiency, unspecified (principal); E21.3 Hyperparathyroidism, unspecified
CPT/HCPCS: 36415; 80069; 81001; 82306; 82570; 83970; 84156; 84550; 85025

== ENCOUNTER → 2024-04-15 | Outpatient (CLI) | payer MEDICARE, MEDICAID ==
[2024-04-15 09:52] LABS: Basophils # (auto) 0 10 ^3/uL (0-0.2); Basophils % (auto) 0.3 % (0.0-2.0); Eosinophils # (auto) 0.3 10 ^3/uL (0-0.8); Eosinophils % (auto) 2.8 % (0.0-7.0); Hematocrit 35.6 % (41.0-53.0); Hemoglobin 12.1 g/dL (13.5-17.5); Lymphocytes # (auto) 1.5 10 ^3/uL (0.4-5.4); Lymphocytes % (auto) 16.2 % (10.0-50.0); Mean Corpuscular Hemoglobin 31.3 pg (28.0-32.0); Mean Corpuscular Volume 92.1 fL (80.0-100.0); Monocytes # (auto) 0.4 10 ^3/uL (0-1.3); Monocytes % (auto) 4.6 % (0.0-12.0); Neutrophils # (auto) 7.1 10 ^3/uL (1.6-8.6); Neutrophils % (auto) 76.1 % (37.0-80.0); Red Blood Cells 3.86 10^6/uL (4.5-5.90); Red Cell Distribution Width 14.4 % (11.8-14.3); White Blood Cell 9.3 10^3/uL (4.4-10.8)
[2024-04-15 10:24] LABS: Alanine Aminotransferase 14 U/L (7-40); Albumin 4.9 g/dL (3.2-4.8); Alkaline Phosphatase 96 U/L (46-116); Anion Gap 10 (5-15); Aspartate Aminotransferase 18 U/L (13-40); BUN/Creatinine Ratio 12.3 (10.0-20.0); Blood Urea Nitrogen 30 mg/dL (9-23); Calcium 9.7 mg/dL (8.5-10.1); Carbon Dioxide 20 mmol/L (20-30); Chloride 110 mmol/L (98-107); Glucose 120 mg/dL (74-106); Potassium 4.9 mmol/L (3.5-5.1); Sodium 140 mmol/L (136-145); Triglycerides 258 mg/dL (< 150)
[2024-04-15 10:25] LABS: Cholesterol 246 mg/dL (< 200); HDL Cholesterol 34 mg/dL (40-59); LDL Cholesterol 158 mg/dL (< 100); Phosphorus 3.2 mg/dL (2.4-5.1)
[2024-04-15 10:26] LABS: Bilirubin, Total 0.4 mg/dL (0.2-1.0); Total Protein 7.9 g/dL (5.7-8.2)
== END | disposition home or self-care (01) ==
LOC: LAB 09:14
PROVIDERS: ATTEND Internal Medicine
DX: E11.9 Type 2 diabetes mellitus without complications (principal); E78.00 Pure hypercholesterolemia, unspecified
CPT/HCPCS: 36415; 80053; 80061; 82043; 83036; 84100; 84550; 85025

== ENCOUNTER 2024-05-24 11:43 | Inpatient (IN) | payer MEDICARE, MEDICAID ==
[~2024-05-24] VITALS: Ht 167.6 cm; Wt 78.3 kg
[2024-05-24] MEDS: SODIUM CHLORIDE 0.9% 1,900 ML IV ONE ×2 (12:18→14:59)
[2024-05-24 12:35] VITALS: PULSE 116; RESP 20; O2SAT 93
[2024-05-24 12:48] LABS: Basophils # (auto) 0 10 ^3/uL (0-0.2); Basophils % (auto) 0.1 % (0.0-2.0); Eosinophils # (auto) 0.1 10 ^3/uL (0-0.8); Eosinophils % (auto) 1.3 % (0.0-7.0); Hematocrit 36.1 % (41.0-53.0); Hemoglobin 12.4 g/dL (13.5-17.5); Lymphocytes # (auto) 0.4 10 ^3/uL (0.4-5.4); Mean Corpuscular Hemoglobin 31.5 pg (28.0-32.0); Mean Corpuscular Hgb Conc. 34.3 g/dL (32.0-36.0); Mean Corpuscular Volume 91.8 fL (80.0-100.0); Monocytes # (auto) 0.1 10 ^3/uL (0-1.3); Monocytes % (auto) 1.2 % (0.0-12.0); Neutrophils # (auto) 7.8 10 ^3/uL (1.6-8.6); Neutrophils % (auto) 92.4 % (37.0-80.0); Nucleated Red Blood Cells % 0.1 %; Platelet Count (auto) 133 10^3/uL (140-450); Red Blood Cells 3.93 10^6/uL (4.5-5.90); Red Cell Distribution Width 13.6 % (11.8-14.3); White Blood Cell 8.5 10^3/uL (4.4-10.8)
[2024-05-24 13:04] LABS: INR 1.08 (0.9-1.15); Partial Thromboplastin Time 25.1 SEC (24.5-34.5); Prothrombin Time 11.4 sec (9.3-11.8)
[2024-05-24 13:05] LABS: Alanine Aminotransferase 12 U/L (7-40); Albumin 4.9 g/dL (3.2-4.8); Alkaline Phosphatase 93 U/L (46-116); Anion Gap 12 (5-15); Aspartate Aminotransferase 14 U/L (13-40); BUN/Creatinine Ratio 13.6 (10.0-20.0); Blood Urea Nitrogen 48 mg/dL (9-23); Calcium 9.4 mg/dL (8.7-10.4); Carbon Dioxide 22 mmol/L (20-30); Chloride 103 mmol/L (98-107); Glucose 232 mg/dL (74-106); Potassium 4.3 mmol/L (3.5-5.1); Sodium 137 mmol/L (136-145)
[2024-05-24 13:06] LABS: Bilirubin, Total 0.6 mg/dL (0.2-1.0); Total Protein 8.4 g/dL (5.7-8.2)
[2024-05-24 13:07] LABS: Lactic Acid w/Reflex 3.5 mmol/L (0.4-2.0)
[2024-05-24 13:27] LABS: Urine Bacteria FEW /hpf (None Seen); Urine Blood 3+ /uL (Negative); Urine Clarity Hazy (Clear); Urine Color Yellow (Yellow); Urine Protein, UAD 1+ (Negative); Urine Specific Gravity 1.015 (1.001-1.035); Urine Urobilinogen Normal (Negative); Urine WBC 181 /hpf (0 - 3); Urine pH 5.5 (5.0-9.0)
[2024-05-24] MEDS ORDERED: NOREPINEPHRINE 8 MG/250ML KIT 250 ML IV SCH (14:45)
[2024-05-24] MEDS: cefTRIAXone 1GM/50ML D5W 50 ML IV ONE (14:59)
[2024-05-24] MEDS ORDERED: ONDANSETRON HCL 4 MG/2 ML VIAL IV PRN (15:30)
[2024-05-24] MEDS ORDERED: NITROGLYCERIN 0.4 MG SL TAB SL PRN (15:30)
[2024-05-24] MEDS ORDERED: DEXTROSE (50%) 50ML SYRG IV PRN (15:30)
[2024-05-24] MEDS ORDERED: MORPHINE SULFATE INJ 2 MG/ml SYRG IV PRN (15:30)
[2024-05-24] MEDS: InsuLIN REG 1unit/0.01ml Soln (100units/ml) SC SCH (17:13)
[2024-05-24] MEDS: ACCU-CHEK COMFORT CURVE STRIP VI SCH (17:16)
[2024-05-24] MEDS: SODIUM BICARBONATE 650 MG TAB PO SCH (22:48)
[2024-05-24] MEDS: ATORVASTATIN 20 MG TAB PO SCH (22:48)
[2024-05-24 23:05] VITALS: PULSE 101; RESP 18; O2SAT 94
[2024-05-24 23:40] VITALS: BP 183/90; PULSE 105; RESP 18; TEMP 98.2; O2SAT 97
[2024-05-24] MEDS: ACETAMINOPHEN 325 MG TAB PO PRN (23:43)
[2024-05-25] VITALS (9 sets, daily range): BP systolic 107–165; BP diastolic 62–78; PULSE 72–114; RESP 16–20; TEMP 97.6–100.9; O2SAT 94–99
[2024-05-25] MEDS: hydrALAZINE HCL 20 MG/ML VL IV PRN (00:40)
[2024-05-25] MEDS: HYDROcodone-ACET 5/325MG TAB PO PRN (04:40)
[2024-05-25 05:14] LABS: Basophils # (auto) 0 10 ^3/uL (0-0.2); Basophils % (auto) 0.2 % (0.0-2.0); Eosinophils # (auto) 0 10 ^3/uL (0-0.8); Eosinophils % (auto) 0.4 % (0.0-7.0); Hematocrit 34.4 % (41.0-53.0); Hemoglobin 11.5 g/dL (13.5-17.5); Lymphocytes # (auto) 0.6 10 ^3/uL (0.4-5.4); Lymphocytes % (auto) 6.5 % (10.0-50.0); Mean Corpuscular Hemoglobin 31.2 pg (28.0-32.0); Mean Corpuscular Hgb Conc. 33.3 g/dL (32.0-36.0); Mean Corpuscular Volume 93.7 fL (80.0-100.0); Monocytes # (auto) 0.6 10 ^3/uL (0-1.3); Neutrophils # (auto) 7.9 10 ^3/uL (1.6-8.6); Neutrophils % (auto) 85.9 % (37.0-80.0); Platelet Count (auto) 131 10^3/uL (140-450); Red Blood Cells 3.67 10^6/uL (4.5-5.90); Red Cell Distribution Width 13.7 % (11.8-14.3); White Blood Cell 9.2 10^3/uL (4.4-10.8)
[2024-05-25 05:34] LABS: Alanine Aminotransferase 11 U/L (7-40); Albumin 4.5 g/dL (3.2-4.8); Alkaline Phosphatase 79 U/L (46-116); Anion Gap 12 (5-15); Aspartate Aminotransferase 17 U/L (13-40); BUN/Creatinine Ratio 11.4 (10.0-20.0); Calcium 8.9 mg/dL (8.7-10.4); Carbon Dioxide 18 mmol/L (20-30); Chloride 105 mmol/L (98-107); Glucose 265 mg/dL (74-106); Potassium 4.2 mmol/L (3.5-5.1); Sodium 135 mmol/L (136-145)
[2024-05-25 05:35] LABS: Bilirubin, Total 0.5 mg/dL (0.2-1.0); Total Protein 7.6 g/dL (5.7-8.2)
[2024-05-25 05:37] LABS: Blood Urea Nitrogen 31 mg/dL (9-23)
[2024-05-25] MEDS: LACTULOSE 20Gm/30ML SOLN PO ONE (10:54)
[2024-05-25] MEDS: DOCUSATE SOD 100 MG CAP PO SCH (10:54)
[2024-05-25] MEDS: METOPROLOL SUCCINATE XL 50 MG TAB PO SCH (10:55)
[2024-05-25] MEDS: ASPirin-EC 81 mg tab PO SCH (10:55)
[2024-05-25] MEDS: cefTRIAXone 1GM/50ML D5W 50 ML IV SCH (11:33)
[2024-05-25] MEDS: INSULIN LANTUS (GLARGINE) 1 /0.01ml (100units/ml) SC ONE (17:19)
[2024-05-25] MEDS: SODIUM CHLORIDE 0.9% 1,000 ML IV ONE (18:45)
[2024-05-25] MEDS: amLODIPine BESYLATE 5 MG TAB PO SCH (21:35)
[2024-05-26 01:00] VITALS: TEMP 98.7
[2024-05-26 05:00] VITALS: BP 115/56; PULSE 92; RESP 19; TEMP 98.9; O2SAT 95
[2024-05-26 05:30] LABS: Basophils # (auto) 0 10 ^3/uL (0-0.2); Basophils % (auto) 0.2 % (0.0-2.0); Eosinophils # (auto) 0.2 10 ^3/uL (0-0.8); Eosinophils % (auto) 2.6 % (0.0-7.0); Hematocrit 31.3 % (41.0-53.0); Hemoglobin 10.9 g/dL (13.5-17.5); Lymphocytes # (auto) 1.5 10 ^3/uL (0.4-5.4); Lymphocytes % (auto) 18.6 % (10.0-50.0); Mean Corpuscular Hemoglobin 31.6 pg (28.0-32.0); Mean Corpuscular Hgb Conc. 34.8 g/dL (32.0-36.0); Mean Corpuscular Volume 90.7 fL (80.0-100.0); Monocytes # (auto) 0.8 10 ^3/uL (0-1.3); Monocytes % (auto) 10.5 % (0.0-12.0); Neutrophils # (auto) 5.4 10 ^3/uL (1.6-8.6); Neutrophils % (auto) 68.1 % (37.0-80.0); Platelet Count (auto) 123 10^3/uL (140-450); Red Blood Cells 3.45 10^6/uL (4.5-5.90); Red Cell Distribution Width 13.6 % (11.8-14.3); White Blood Cell 7.9 10^3/uL (4.4-10.8)
[2024-05-26 05:40] LABS: Anion Gap 10 (5-15); Carbon Dioxide 23 mmol/L (20-30); Chloride 109 mmol/L (98-107); Potassium 3.6 mmol/L (3.5-5.1); Sodium 142 mmol/L (136-145)
[2024-05-26 05:42] LABS: Calcium 9.2 mg/dL (8.7-10.4)
[2024-05-26 05:46] LABS: BUN/Creatinine Ratio 11.3 (10.0-20.0); Blood Urea Nitrogen 26 mg/dL (9-23)
[2024-05-26 05:47] LABS: Glucose 141 mg/dL (74-106)
[2024-05-26 07:25] VITALS: PULSE 93
[2024-05-26 09:12] VITALS: BP 149/71; PULSE 95; RESP 19; TEMP 99.1; O2SAT 98
[2024-05-26] MEDS: INSULIN LANTUS (GLARGINE) 1 /0.01ml (100units/ml) SC SCH (09:38)
[2024-05-26 13:17] VITALS: BP 153/67; PULSE 90; RESP 17; TEMP 99.1; O2SAT 97
[2024-05-26] MEDS ORDERED: CIPR500T4 PO (13:22)
== END 2024-05-26 14:40 | disposition home or self-care (01) | DRG 720 ==
LOC: EDBD 11:43 → ER 11:50 → OVERFLOW 15:22 → TELE-CENTR 15:30 → CENTRAL 23:25 → TELE-CENTR 05-25 00:25
PROVIDERS: ADMIT Nurse Practitioner; ATTEND Nurse Practitioner
DX: A41.9 Sepsis, unspecified organism (principal); N17.0 Acute kidney failure with tubular necrosis; E11.22 Type 2 diabetes mellitus with diabetic chronic kidney disease; N39.0 Urinary tract infection, site not specified; I12.9 Hypertensive chronic kidney disease with stage 1 through stage 4 chronic kidney disease, or unspecified chronic kidney disease; M10.9 Gout, unspecified; I25.10 Atherosclerotic heart disease of native coronary artery without angina pectoris; N18.4 Chronic kidney disease, stage 4 (severe); N28.1 Cyst of kidney, acquired; N40.1 Benign prostatic hyperplasia with lower urinary tract symptoms; R33.8 Other retention of urine; Z87.891 Personal history of nicotine dependence; Z79.4 Long term (current) use of insulin; Z79.899 Other long term (current) drug therapy
CPT/HCPCS: 36415; 71045; 76775; 80048; 80053; 81001; 82962; 83605; 85025; 85610; 85730; 87040; 87086; 96365; 99291; G0378; J1815

== ENCOUNTER → 2024-06-10 | Outpatient (CLI) | payer MEDICARE, MEDICAID ==
[~2024-06-10] MED LIST changes: +CIPR500T4 PO
[2024-06-10 09:41] LABS: Urine Bacteria None Seen /hpf (None Seen)
[2024-06-10 09:47] LABS: Basophils # (auto) 0 10 ^3/uL (0-0.2); Basophils % (auto) 0.5 % (0.0-2.0); Eosinophils # (auto) 0.3 10 ^3/uL (0-0.8); Eosinophils % (auto) 3.4 % (0.0-7.0); Hematocrit 38.9 % (41.0-53.0); Hemoglobin 13.6 g/dL (13.5-17.5); Lymphocytes % (auto) 22.7 % (10.0-50.0); Mean Corpuscular Hemoglobin 31.6 pg (28.0-32.0); Mean Corpuscular Hgb Conc. 34.9 g/dL (32.0-36.0); Mean Corpuscular Volume 90.5 fL (80.0-100.0); Monocytes # (auto) 0.5 10 ^3/uL (0-1.3); Monocytes % (auto) 5.7 % (0.0-12.0); Neutrophils % (auto) 67.7 % (37.0-80.0); Nucleated Red Blood Cells % 0.1 %; Platelet Count (auto) 232 10^3/uL (140-450); Red Cell Distribution Width 13.5 % (11.8-14.3); White Blood Cell 8.9 10^3/uL (4.4-10.8)
[2024-06-10 10:35] LABS: Alanine Aminotransferase 19 U/L (7-40); Albumin 5.1 g/dL (3.2-4.8); Alkaline Phosphatase 101 U/L (46-116); Anion Gap 12 (5-15); Aspartate Aminotransferase 22 U/L (13-40); BUN/Creatinine Ratio 18.1 (10.0-20.0); Blood Urea Nitrogen 51 mg/dL (9-23); Calcium 10.1 mg/dL (8.7-10.4); Carbon Dioxide 21 mmol/L (20-30); Chloride 102 mmol/L (98-107); GFR African American 29 mL/min; GFR Non-African American 24 mL/min; Glucose 205 mg/dL (74-106); Potassium 4.7 mmol/L (3.5-5.1); Sodium 135 mmol/L (136-145); Triglycerides 408 mg/dL (< 150)
[2024-06-10 10:36] LABS: Bilirubin, Total 0.5 mg/dL (0.2-1.0); Cholesterol 233 mg/dL (< 200); HDL Cholesterol 37 mg/dL (40-59); Phosphorus 3.8 mg/dL (2.4-5.1); Total Protein 8.6 g/dL (5.7-8.2)
[2024-06-10 10:53] LABS: Protein, Urine 123.1 mg/dL (0.0-11.9)
[2024-06-10 10:54] LABS: Creatinine, Urine 179.28 mg/dL (30.0-125.0); Urine Protein/Creatinine Ratio 0.69
[2024-06-10 11:01] LABS: Urine Blood 1+ /uL (Negative); Urine Clarity Clear (Clear); Urine Color Yellow (Yellow); Urine Hyaline Cast MOD /lpf (0 - 2); Urine Protein, UAD 1+ (Negative); Urine Specific Gravity 1.018 (1.001-1.035); Urine Urobilinogen Normal (Negative); Urine WBC 10 /hpf (0 - 3); Urine pH 5.5 (5.0-9.0)
[2024-06-10 11:19] LABS: Uric Acid 10.4 mg/dL (3.7-9.2)
[2024-06-11 08:06] LABS: PSA Free 2.55 ng/mL; Prostate Specific Antigen 7.8 ng/mL (0.0-4.0)
== END | disposition home or self-care (01) ==
LOC: LAB 09:18
DX: I10 Essential (primary) hypertension (principal); D64.9 Anemia, unspecified; N39.0 Urinary tract infection, site not specified; E03.9 Hypothyroidism, unspecified; R19.5 Other fecal abnormalities; R80.9 Proteinuria, unspecified; R97.20 Elevated prostate specific antigen [PSA]; Z79.899 Other long term (current) drug therapy
CPT/HCPCS: 36415; 80053; 80061; 80069; 81001; 82043; 82306; 82570; 83036; 83970; 84153; 84154; 84156; 84443; 84550; 85025

== ENCOUNTER → 2024-09-05 | Outpatient (CLI) | payer MEDICARE, MEDICAID ==
[2024-09-05 10:00] LABS: Basophils # (auto) 0 10 ^3/uL (0-0.2); Basophils % (auto) 0.4 % (0.0-2.0); Eosinophils # (auto) 0.3 10 ^3/uL (0-0.8); Eosinophils % (auto) 4.3 % (0.0-7.0); Hematocrit 43.3 % (41.0-53.0); Hemoglobin 15.2 g/dL (13.5-17.5); Lymphocytes # (auto) 2.1 10 ^3/uL (0.4-5.4); Lymphocytes % (auto) 25.9 % (10.0-50.0); Mean Corpuscular Hemoglobin 31.3 pg (28.0-32.0); Mean Corpuscular Hgb Conc. 35.1 g/dL (32.0-36.0); Mean Corpuscular Volume 89.2 fL (80.0-100.0); Monocytes # (auto) 0.4 10 ^3/uL (0-1.3); Monocytes % (auto) 5.2 % (0.0-12.0); Neutrophils # (auto) 5.1 10 ^3/uL (1.6-8.6); Neutrophils % (auto) 64.2 % (37.0-80.0); Nucleated Red Blood Cells % 0.2 %; Platelet Count (auto) 222 10^3/uL (140-450); Red Blood Cells 4.85 10^6/uL (4.5-5.90); Red Cell Distribution Width 13.4 % (11.8-14.3)
[2024-09-05 10:07] LABS: Urine Bacteria FEW /hpf (None Seen); Urine Blood Negative /uL (Negative); Urine Clarity Turbid (Clear); Urine Color Light-Yellow (Yellow); Urine Hyaline Cast FEW /lpf (0 - 2); Urine Protein, UAD 2+ (Negative); Urine Specific Gravity 1.015 (1.001-1.035); Urine Urobilinogen Normal (Negative); Urine WBC 62 /hpf (0 - 3)
[2024-09-05 10:51] LABS: Alanine Aminotransferase 34 U/L (7-40); Alkaline Phosphatase 110 U/L (46-116); Anion Gap 10 (5-15); Aspartate Aminotransferase 35 U/L (13-40); BUN/Creatinine Ratio 12.9 (10.0-20.0); Bilirubin, Total 0.7 mg/dL (0.2-1.0); Blood Urea Nitrogen 33 mg/dL (9-23); Calcium 10.3 mg/dL (8.7-10.4); Carbon Dioxide 20 mmol/L (20-31); Chloride 103 mmol/L (98-107); Cholesterol 262 mg/dL (< 200); Glucose 247 mg/dL (74-106); HDL Cholesterol 39 mg/dL (40-59); LDL Cholesterol 163 mg/dL (< 100); Phosphorus 3.5 mg/dL (2.4-5.1); Potassium 5.2 mmol/L (3.5-5.1); Sodium 133 mmol/L (136-145); Triglycerides 292 mg/dL (< 150)
[2024-09-05 10:52] LABS: Total Protein 8.5 g/dL (5.7-8.2)
[2024-09-05 11:14] LABS: Uric Acid 8.3 mg/dL (3.7-9.2)
[2024-09-05 11:16] LABS: Prostate Specific Antigen 6.84 ng/mL (0.0-4.0)
[2024-09-05 11:20] LABS: Free T3 2.56 pg/mL (2.3-4.2)
[2024-09-05 11:21] LABS: Free T4 (Free Thyroxine) 1.26 ng/dL (0.89-1.76)
== END | disposition home or self-care (01) ==
LOC: LAB 09:21
PROVIDERS: ATTEND Internal Medicine
DX: I10 Essential (primary) hypertension (principal); D64.9 Anemia, unspecified; N39.0 Urinary tract infection, site not specified; E11.9 Type 2 diabetes mellitus without complications; E03.9 Hypothyroidism, unspecified; R19.5 Other fecal abnormalities; R80.9 Proteinuria, unspecified; R97.20 Elevated prostate specific antigen [PSA]
CPT/HCPCS: 36415; 80053; 80061; 81001; 82043; 83036; 83970; 84100; 84153; 84154; 84439; 84443; 84481; 84550; 85025

== ENCOUNTER → 2024-09-25 | Outpatient (CLI) | payer MEDICARE, MEDICAID ==
[2024-09-25 09:54] LABS: Chloride 100 mmol/L (98-107); Sodium 137 mmol/L (136-145)
[2024-09-25 09:55] LABS: Anion Gap 7 (5-15); Calcium 9.5 mg/dL (8.7-10.4); Carbon Dioxide 30 mmol/L (20-31)
[2024-09-25 10:00] LABS: BUN/Creatinine Ratio 10.4 (10.0-20.0); Blood Urea Nitrogen 22 mg/dL (9-23)
[2024-09-25 10:10] LABS: Glucose 146 mg/dL (74-106); Potassium 3.4 mmol/L (3.5-5.1)
[2024-09-25 10:28] LABS: Erythrocyte Sedimentation Rate 45 mm/hr (0-20)
[2024-09-25 10:51] LABS: Uric Acid 7.3 mg/dL (3.7-9.2)
== END | disposition home or self-care (01) ==
LOC: LAB 08:46
PROVIDERS: ATTEND Internal Medicine
DX: I10 Essential (primary) hypertension (principal); E11.9 Type 2 diabetes mellitus without complications
CPT/HCPCS: 36415; 80048; 84550; 85652

== ENCOUNTER → 2024-10-18 | Outpatient (CLI) | payer MEDICARE, MEDICAID | END | disposition home or self-care (01) | LOC: LAB 09:49 | PROVIDERS: ATTEND Urology | DX: R97.20 Elevated prostate specific antigen [PSA] (principal) | CPT/HCPCS: 84154 ==

== ENCOUNTER → 2024-12-10 | Outpatient (CLI) | payer MEDICARE, MEDICAID ==
[2024-12-10 09:45] LABS: Basophils # (auto) 0 10 ^3/uL (0-0.2); Basophils % (auto) 0.2 % (0.0-2.0); Eosinophils # (auto) 0.3 10 ^3/uL (0-0.8); Eosinophils % (auto) 3.1 % (0.0-7.0); Hematocrit 38.2 % (41.0-53.0); Hemoglobin 12.8 g/dL (13.5-17.5); Lymphocytes # (auto) 1.7 10 ^3/uL (0.4-5.4); Lymphocytes % (auto) 19.3 % (10.0-50.0); Mean Corpuscular Hemoglobin 30.2 pg (28.0-32.0); Mean Corpuscular Hgb Conc. 33.5 g/dL (32.0-36.0); Monocytes # (auto) 0.6 10 ^3/uL (0-1.3); Monocytes % (auto) 6.5 % (0.0-12.0); Neutrophils # (auto) 6.4 10 ^3/uL (1.6-8.6); Neutrophils % (auto) 70.9 % (37.0-80.0); Nucleated Red Blood Cells % 0.1 %; Platelet Count (auto) 166 10^3/uL (140-450); Red Blood Cells 4.24 10^6/uL (4.5-5.90); Red Cell Distribution Width 14.5 % (11.8-14.3)
[2024-12-10 10:02] LABS: Anion Gap 12 (5-15); Aspartate Aminotransferase 20 U/L (13-40); Calcium 9.7 mg/dL (8.7-10.4); Chloride 103 mmol/L (98-107); Cholesterol 89 mg/dL (< 200); LDL Cholesterol 31 mg/dL (< 100)
[2024-12-10 10:03] LABS: Alanine Aminotransferase 49 U/L (7-40); Albumin 5.1 g/dL (3.2-4.8); Alkaline Phosphatase 117 U/L (46-116); Bilirubin, Total 0.5 mg/dL (0.2-1.0); Blood Urea Nitrogen 46 mg/dL (9-23); Carbon Dioxide 18 mmol/L (20-31); Glucose 115 mg/dL (74-106); HDL Cholesterol 28 mg/dL (40-59); Potassium 5.4 mmol/L (3.5-5.1); Sodium 133 mmol/L (136-145); Triglycerides 235 mg/dL (< 150)
[2024-12-10 10:22] LABS: Uric Acid 8.4 mg/dL (3.7-9.2)
== END | disposition home or self-care (01) ==
LOC: LAB 09:10
PROVIDERS: ATTEND Internal Medicine
DX: I13.0 Hypertensive heart and chronic kidney disease with heart failure and stage 1 through stage 4 chronic kidney disease, or unspecified chronic kidney disease (principal); E11.22 Type 2 diabetes mellitus with diabetic chronic kidney disease; N18.30 Chronic kidney disease, stage 3 unspecified; I50.9 Heart failure, unspecified
CPT/HCPCS: 36415; 80053; 80061; 83036; 84550; 85025

== ENCOUNTER 2025-01-31 14:31 | Inpatient (IN) | payer MEDICARE, MEDICAID ==
[~2025-01-31] VITALS: Ht 165.1 cm; Wt 76.7 kg
--- NOTE | 2025-01-31 14:42 | ED.PDOC ---
GI ASSESSMENT HPI Comments 74-year-old male brought in by EMS from home complaining of diffuse abdominal pain and decreased p.o. intake for the last 4 days. Of note, the patient does not speak Syriac (could not tell us what language he speaks) and no family is present, so initial history is limited. Son later arrived, and stated the patient reports having had a fever, denies any nausea, vomiting, diarrhea or urinary symptoms. He did report feeling generally weak. Time Seen by MD: 14:40 Primary Care Provider: JIM Reviewed Notes: Nurses Notes, Clinical Assoc Notes, Medications, Allergies Allergies: Coded Allergies: NO KNOWN ALLERGIES (Unverified , 02/29/24) Home Meds Active Scripts Ciprofloxacin Hcl (Ciprofloxacin Hcl) 500 Mg Tab, 1 TAB PO BID for 3 Days, #6 TAB Prov:DOREEN JORDAN RESIDENT 05/26/24 Nitrofurantoin Monohydrate Mac (Macrobid) 100 Mg Cap, 100 MG PO BID, #20 CAP Prov:DANN HAMILTON MD 08/15/22 Cephalexin ( Keflex 500) 500 Mg Cap, 1 CAP PO BID for 5 Days, #10 CAP Prov:MUKESH FRY MD 06/26/22 Amlodipine Besylate (Amlodipine Besylate) 10 Mg Tab, 1 TAB PO DAILY for 30 Days, #30 TAB 5 Refills Prov:MUKESH FRY MD 06/26/22 Metoprolol Succinate (Metoprolol Succinate Er) 50 Mg Tab, 1 TAB PO DAILY for 30 Days, #30 TAB 5 Refills Prov:MUKESH FRY MD 06/25/22 Sodium Zirconium Cyclosilicate (Lokelma) 10 Gm Nasim, 10 GM PO DAILY for 20 Days, #2 PACK Prov:MUKESH FRY MD 06/25/22 Sodium Bicarbonate (Sodium Bicarbonate) 650 Mg Tab, 650 MG PO Q6HR for 30 Days, #120 TAB 3 Refills Prov:MUKESH FRY MD 06/25/22 Insulin Glargine (Lantus) 100 Unit/Ml Inj, 20 UNITS SC QAM for 30 Days, INJ Prov:MUKESH FRY MD 11/29/19 Reported Medications Aspirin (Aspirin Adult Low Dose) 81 Mg Tab, 1 TAB PO DAILY 12/27/22 Atorvastatin Calcium (ATORVASTATIN CALCIUM) 40 Mg Tab, 1 TAB PO DAILY 12/27/22 Allopurinol (Allopurinol) 100 Mg Tab, 100 MG PO DAILY, MG 11/21/19 Ferrous Sulfate (Ferrous Sulfate) 325 Mg Tab, 325 MG PO BIDWM, MG 11/21/19 Amitriptyline Hcl (Elavil) 25 Mg Tb, 25 MG PO HS 01/26/19 Information Source: Relative, Emergency Med Personnel Mode of Arrival: EMS Timing: Days Duration: Since onset, Days Prehospital treatment: None Quality: Aching Vomitus: None Stool: Loose Severity: Moderate Recent: None Recent Hx of: None Pain Location: Diffuse Associated sign and symptoms: Diarrhea, Abdominal Pain Past Medical History PAST MEDICAL HISTORY: CAD, DM, Gout, High Lipids, HTN Past Medical History (Other): Prostate enlargement Surgical History: PTCA Surgical History (Other): Stent x3yrs ago, Prostate Biopsy Family History Family History: Reviewed,noncontributory to illness, Unknown Social History Smoker: Quit Greater Than 1 Year Alcohol: Denies ETOH Use Drugs: Denies Drug Use Lives In: Home Constitutional: reports: weakness; denies: chills, diaphoresis, fatigue, fever, malaise, sweats, others EENTM: denies: blurred vision, double vision, ear bleeding, ear discharge, ear drainage, ear pain, ear ringing, eye pain, eye redness, hearing loss, mouth pain, mouth swelling, nasal discharge, nose bleeding, nose congestion, nose pain, photophobia, tearing, throat pain, throat swelling, voice changes, others Respiratory: denies: cough, hemoptysis, orthopnea, SOB at rest, shortness of breath, SOB with excertion, stridor, wheezing, others Cardiovascular: denies: chest pain, dizzy spells, diaphoresis, Dyspnea on exertion, edema, irregular heart beat, left arm pain, lightheadedness, palpitations, PND, syncope, others Gastrointestinal: reports: abdominal pain, diarrhea; denies: abdomen distended, blood streaked bowels, constipated, dysphagia, difficulty swallowing, hematemesis, melena, nausea, poor appetite, poor fluid intake, rectal bleeding, rectal pain, vomiting, others Genitourinary: denies: burning, dysuria, flank pain, frequency, hematuria, incontinence, penile discharge, penile sore, pain, testicle pain, testicle swelling, urgency, others Neurological: denies: dizziness, fainting, headache, left sided numbness, left sided weakness, numbness, paresthesia, pre-existing deficit, right sided numbness, right sided weakness, seizure, speech problems, tingling, tremors, weakness, others Musculoskeletal: denies: back pain, gout, joint pain, joint swelling, muscle pain, muscle stiffness, neck pain, others Integumetry: denies: bruises, change in color, change in hair/nails, dryness, laceration, lesions, lumps, rash, wounds, others Allergic/Immunocompromised: denies: Difficulty Healing, Frequent Infections, Hives, Itching, others Hematologic/Lymphatic: denies: anemia, blood clots, easy bleeding, easy bruising, swollen glands, others Endocrine: denies: excessive hunger, excessive sweating, excessive thirst, excessive urination, flushing, intolerance to cold, intolerance to heat, unexplained weight gain, unexplained weight loss, others Psychiatric: denies: anxiety, bipolar disorder, depression, hopeless, panic disorder, schizophrenia, sleepless, suicidal, others All Other Systems: Reviewed and Negative Physical Exam General Appearance: No Apparent Distress HEENT: Other (Pupils and face symmetric. Moist mucous membranes.) Neck: Full Range of Motion, Normal Inspection Respiratory: Lungs Clear, No Accessory Muscle Use, No Respiratory Distress, Normal Breath Sounds Cardiovascular: No Edema, No JVD, Regular Rate/Rhythm Breast Exam: Deferred Gastrointestinal: Diffuse, Soft, Tenderness Genitalia: Deferred Pelvic: Deferred Rectal: Deferred Extremities: Normal inspection, Normal range of motion, Non-tender, No pedal edema Neurologic: Alert, Other (Ambulatory. No gross focal deficit.) Cerebellar Function: NOT DONE Reflexes: NOT DONE Skin: Dry, Normal Color, Warm Lymphatic: NOT DONE EKG EKG : Comments Sinus rhythm, rate 94, normal intervals, normal axis, normal QRS, nonspecific T change Was a procedure done? Was a procedure done?: No GI differential Dx Differential Diagnosis: Appendicitis, Cholangitis, Cholecystitis, Diverticular disease, Gastritis/PUD, Gastroenteritis, Inflammatory BD, Ischemic Bowel, Pancreatitis, UTI, Dehydration, Diabetes/ DKA, Electrolyte Imbalance, Food Poisoning, Bacterial, Viral, Hypovolemia, Renal Failure, Stress Ulcer X-Ray, Labs, Meds, VS Vital Signs Date Time Temp Pulse Resp B/P (MAP) Pulse Ox O2 Delivery O2 Flow Rate FiO2 01/31/25 16:00 98.5 113 20 150/43 (78) 99 98.5 01/31/25 16:00 113 18 100 Room Air* 0 21 01/31/25 15:44 16 98 Room Air* 0 21 01/31/25 14:37 98.2 95 18 51/76 (68) 95 98.2 01/31/25 14:36 94 Lab Test 01/31/25 16:07 01/31/25 14:50 Range/Units Troponin I High Sensitivity 12 12 </=54 ng/L White Blood Count 10.9 H 4.4-10.8 10^3/uL Red Blood Count 3.59 L 4.5-5.90 10^6/uL Hemoglobin 11.2 L 13.5-17.5 g/dL Hematocrit 34.9 L 41.0-53.0 % Mean Corpuscular Volume 97.4 80.0-100.0 fL Mean Corpuscular Hemoglobin 31.3 28.0-32.0 pg Mean Corpuscular Hemoglobin Concent 32.1 32.0-36.0 g/dL Red Cell Distribution Width 15.5 H 11.8-14.3 % Platelet Count 195 140-450 10^3/uL Mean Platelet Volume 8.1 6.9-10.8 fL Neutrophils (%) (Auto) 77.0 37.0-80.0 % Lymphocytes (%) (Auto) 11.1 10.0-50.0 % Monocytes (%) (Auto) 8.9 0.0-12.0 % Eosinophils (%) (Auto) 2.9 0.0-7.0 % Basophils (%) (Auto) 0.1 0.0-2.0 % Neutrophils # (Auto) 8.4 1.6-8.6 10 ^3/uL Lymphocytes # (Auto) 1.2 0.4-5.4 10 ^3/uL Monocytes # (Auto) 1.0 0-1.3 10 ^3/uL Eosinophils # (Auto) 0.3 0-0.8 10 ^3/uL Basophils # (Auto) 0 0-0.2 10 ^3/uL Nucleated Red Blood Cells 0.0 % Sodium Level 137 136-145 mmol/L Potassium Level 6.1 *H 3.5-5.1 mmol/L Chloride Level 111 H 98-107 mmol/L Carbon Dioxide Level 14 L 20-31 mmol/L Anion Gap 12 5-15 Blood Urea Nitrogen 87 *H 9-23 mg/dL Creatinine 4.24 H 0.700-1.30 mg/dL Glomerular Filtration Rate Calc 14 >90 mL/min BUN/Creatinine Ratio 20.5 H 10.0-20.0 Serum Glucose 216 H 74-106 mg/dL Lactic Acid Level 1.1 0.4-2.0 mmol/L Calcium Level 9.1 8.7-10.4 mg/dL Total Bilirubin 0.4 0.2-1.0 mg/dL Aspartate Amino Transferase (AST) 140 H 13-40 U/L Alanine Aminotransferase (ALT) 203 H 7-40 U/L Alkaline Phosphatase 422 H 46-116 U/L B-Type Natriuretic Peptide 20.58 0-100 pg/mL Total Protein 7.4 5.7-8.2 g/dL Albumin 4.7 3.2-4.8 g/dL Lipase 39 12-53 U/L Current Medications Medications (Trade) Dose Ordered Sig/Shyam Route Start Time Stop Time Status Last Admin Sodium Chloride 1,000 ml @ 1,000 mls/hr Q1H ONCE IV 01/31/25 14:45 01/31/25 15:44 DC 01/31/25 16:03 Zirconium Oxide (Lokelma) 10 gm ONCE ONCE PO 01/31/25 15:30 01/31/25 15:31 DC 01/31/25 16:03 Insulin Human Regular (InsuLIN R) 10 units ONCE ONCE IV 01/31/25 15:30 01/31/25 15:31 DC 01/31/25 16:04 Dextrose 50 ml ONCE ONCE IV 01/31/25 15:30 01/31/25 15:31 DC 01/31/25 16:02 Sodium Bicarbonate 50 ml ONCE ONCE IV 01/31/25 15:30 01/31/25 15:31 DC 01/31/25 16:02 Calcium Gluconate/ Sodium Chloride 50 ml @ 100 mls/hr ONCE ONCE IV 01/31/25 15:30 01/31/25 15:59 DC 01/31/25 15:49 Albuterol (Ventolin Medneb) 20 mg ONCE ONCE NEB 01/31/25 15:30 01/31/25 15:31 DC 01/31/25 15:44 PROCEDURE(s): ABPL - CT AB PEL WO CON-NO ORAL OR IV REASON: ABD PAIN; DIARRHEA; NO PO INTAKE ORDER NUMBER(s): [id number], ACCESSION NUMBER(s): [id number] Exam: CT CT AB PEL WO CON-NO ORAL OR IV History: ABD PAIN; DIARRHEA; NO PO INTAKE Comparison Study: None available at time of dictation. TECHNIQUE: Multidetector CT of the abdomen and pelvis without IV contrast. Axial, coronal and sagittal multiplanar reformats were obtained from the axial data set by the technologist. Radiation Dose Information: CT Dose: CTDI volume is 6.11 mGy. Dose-length product is 318.28 mGy*cm FINDINGS: Small left-sided pleural effusion with bibasilar opacities. 5.9 x 2.7 x 2.8 cm opacity over the left costophrenic angle with cavitation. Partially visualized heart is unremarkable. 1.6 cm right hepatic lobe cyst. Otherwise, liver, spleen, gallbladder, pancreas and adrenal glands are unremarkable. Echogenic 1.6 cm left renal lower pole lesion which may represent a hemorrhagic / proteinaceous cyst. Bilateral renal vascular calcification. No hydro nephrosis bilaterally. Mild wall thickening of the mildly distended urinary bladder. Enlarged prostate measuring 4.8 x 5.6 x 6.7 cm with Focus of calcification. Mild gastric wall thickening. Small bowel loops unremarkable. Appendix is normal in size with a appendicolith within the appendix. Small to moderate amount of fecal material within the colon. No evidence of intraperitoneal free air or free fluid. No evidence of aortic aneurysm. Moderate atherosclerotic calcification of the aorta and bilateral iliacs. Dilatation of the right common iliac artery up to 1.7 cm. No significant lymphadenopathy. Soft tissues are unremarkable. Sclerotic foci of the left proximal femur which may represent bone islands/blastic lesions. IMPRESSION: Mild gastric wall thickening. Correlate for gastritis. Mild wall thickening of the urinary bladder which may be due to inadequate distention. Correlation with urinalysis is recommended to exclude cystitis. Enlarged prostate. Recommend correlation with PSA. Small right-sided pleural effusion with bibasilar opacities which may represent infectious/ inflammatory process. 5.9 x 2.7 x 2.8 cm opacity over the left costophrenic angle with cavitation which may represent cavitating pneumonia versus mass. X-Ray, Labs, Meds, VS Comment 74-year-old male with a history of hypertension, diabetes, CKD, CAD, dyslipidemia and BPH presenting complaining of abdominal pain and diarrhea, associated with decreased p.o. intake and generalized weakness Vitals remarkable for Exam remarkable for diffuse abdominal tenderness to palpation Rhythm strip independently interpreted by me: Sinus rhythm, rate 94, no ectopy. CT abdomen and pelvis IMPRESSION: Mild gastric wall thickening. Correlate for gastritis. Mild wall thickening of the urinary bladder which may be due to inadequate distention. Correlation with urinalysis is recommended to exclude cystitis. Enlarged prostate. Recommend correlation with PSA. Small right-sided pleural effusion with bibasilar opacities which may represent infectious/ inflammatory process. 5.9 x 2.7 x 2.8 cm opacity over the left costophrenic angle with cavitation which may represent cavitating pneumonia versus mass. CBC remarkable for WBC 10.9, CMP remarkable for potassium 6.1, BUN 87, creatinine 4.24, glucose 216, AST 140, ALT 203, alkaline phos 422, lipase normal, BNP, troponin negative, lactic, UA Patient treated with the following in the ED: 1 L 0.9 normal saline IV bolus, morphine 4 mg IV, Zofran 4 mg IV, Protonix 40 mg IV, Lokelma 10 g p.o., regular insulin 10 units IV, D50 50 mL IV, albuterol 20mg inhaled, calcium gluconate 1 g IV, sodium bicarb 50 mL IV, cefepime 1g IV, vancomycin IV per pharmacy Patient had improvement of abdominal pain with morphine. Vitals were stable on re-evaluation. Plan is to admit the patient for electrolyte correction, nephrology evaluation, IV antibiotics, pulmonology evaluation Time of 1ST Reevaluation: 15:10 Reevaluation 1ST: Unchanged Patient Education/Counseling: Diagnosis, Treatment, Prognosis Family Education/Counseling: No Family Present Departure 1 Departure Time of Disposition: 15:26 Impression: Primary Impression: Acute kidney injury superimposed on CKD Additional Impressions: Hyperkalemia Abdominal pain Qualified Codes: R10.84 - Generalized abdominal pain Pleural effusion Pneumonia Qualified Codes: J18.9 - Pneumonia, unspecified organism Disposition: 09 ADMITTED INPATIENT Admit to: Tele Condition: Guarded Critical Care Note Critical Care Time?: Yes (35 min-critical care time only) Critical care comment: Critical care time including multiple bedside re-evaluations, review of lab and imaging studies, discussion of the case with the admitting and consulting prov iders. Patient is high risk for metabolic decompensation. Stability Stability form required: No Heart Score Heart Score: Heart Score Response (Comments) Value History N/A 0 EKG N/A 0 Age N/A 0 Risk Factors N/A 0 Troponin N/A 0 Total 0 I personally scribed for EVAN CESPEDES MD ([email or web address]) on 01/31/25 at 14:42. Electronically submitted by Rafita Smith ([email or web address]). EVAN CESPEDES MD Jan 31, 2025 14:42
[2025-01-31 15:02] LABS: Basophils # (auto) 0 10 ^3/uL (0-0.2); Basophils % (auto) 0.1 % (0.0-2.0); Eosinophils # (auto) 0.3 10 ^3/uL (0-0.8); Eosinophils % (auto) 2.9 % (0.0-7.0); Hematocrit 34.9 % (41.0-53.0); Hemoglobin 11.2 g/dL (13.5-17.5); Lymphocytes # (auto) 1.2 10 ^3/uL (0.4-5.4); Lymphocytes % (auto) 11.1 % (10.0-50.0); Mean Corpuscular Hemoglobin 31.3 pg (28.0-32.0); Mean Corpuscular Hgb Conc. 32.1 g/dL (32.0-36.0); Mean Corpuscular Volume 97.4 fL (80.0-100.0); Monocytes % (auto) 8.9 % (0.0-12.0); Neutrophils # (auto) 8.4 10 ^3/uL (1.6-8.6); Platelet Count (auto) 195 10^3/uL (140-450); Red Blood Cells 3.59 10^6/uL (4.5-5.90); Red Cell Distribution Width 15.5 % (11.8-14.3); White Blood Cell 10.9 10^3/uL (4.4-10.8)
[2025-01-31 15:20] LABS: Albumin 4.7 g/dL (3.2-4.8); Anion Gap 12 (5-15); BUN/Creatinine Ratio 20.5 (10.0-20.0); Calcium 9.1 mg/dL (8.7-10.4); Lipase 39 U/L (12-53); Sodium 137 mmol/L (136-145); Total Protein 7.4 g/dL (5.7-8.2)
[2025-01-31 15:21] LABS: Alanine Aminotransferase 203 U/L (7-40); Alkaline Phosphatase 422 U/L (46-116); Aspartate Aminotransferase 140 U/L (13-40); Bilirubin, Total 0.4 mg/dL (0.2-1.0); Carbon Dioxide 14 mmol/L (20-31); Chloride 111 mmol/L (98-107); Glucose 216 mg/dL (74-106)
[2025-01-31 15:22] LABS: Blood Urea Nitrogen 87 mg/dL (9-23); Potassium 6.1 mmol/L (3.5-5.1)
[2025-01-31] MEDS: ALBUTEROL SULF 2.5 MG/0.5ML(0.5%) NEB SOLN NEB ONE (15:44)
[2025-01-31] MEDS: CALCIUM GLUC 1,000mg/50ml-NS 50 ML IV ONE (15:49)
[2025-01-31 16:00] VITALS: PULSE 113; RESP 18; O2SAT 100
[2025-01-31] MEDS: SODIUM BICARB 8.4% 50Meq/50ml SYR Vial IV ONE (16:02)
[2025-01-31] MEDS: DEXTROSE (50%) 50ML SYRG IV ONE (16:02)
[2025-01-31] MEDS: SODIUM CHLORIDE 0.9% 1,000 ML IV ONE (16:03)
[2025-01-31] MEDS: SODIUM ZIRCONIUM CYCL 10 GM PAK PO ONE (16:03)
[2025-01-31] MEDS: InsuLIN REG 1unit/0.01ml Soln (100units/ml) IV ONE (16:04)
--- NOTE | 2025-01-31 16:25 | DVH ---
Exam: CT CT AB PEL WO CON-NO ORAL OR IV History: ABD PAIN; DIARRHEA; NO PO INTAKE Comparison Study: None available at time of dictation. TECHNIQUE: Multidetector CT of the abdomen and pelvis without IV contrast. Axial, coronal and sagitta l multiplanar reformats were obtained from the axial data set by the technologist. Radiation Dose Information: CT Dose: CTDI volume is 6.11 mGy. Dose-length product is 318.28 mGy*cm FINDINGS: Small left-sided pleural effusion with bibasilar opacities. 5.9 x 2.7 x 2.8 cm opacity over the left costophrenic angle with cavitation. Partially visualized heart is unremarkable. 1.6 cm right hepatic lobe cyst. Otherwise, liver, spleen, gallbladder, pancreas and adrenal glands a re unremarkable. Echogenic 1.6 cm left renal lower pole lesion which may represent a hemorrhagic / proteinaceous cyst. Bilateral renal vascular calcification. No hydro nephrosis bilaterally. Mild wall thickening of the mildly distended urinary bladder. Enlarged prostate measuring 4.8 x 5.6 x 6.7 cm with Focus of calcif ication. Mild gastric wall thickening. Small bowel loops unremarkable. Appendix is normal in size with a appe ndicolith within the appendix. Small to moderate amount of fecal material within the colon. No evidence of intraperitoneal free air or free fluid. No evidence of aortic aneurysm. Moderate atherosclerotic calcification of the aorta and bilateral il iacs. Dilatation of the right common iliac artery up to 1.7 cm. No significant lymphadenopathy. Soft tissues are unremarkable. Sclerotic foci of the left proximal femur which may represent bone isl ands/blastic lesions. IMPRESSION: Mild gastric wall thickening. Correlate for gastritis. Mild wall thickening of the urinary bladder which may be due to inadequate distention. Correlation w ith urinalysis is recommended to exclude cystitis. Enlarged prostate. Recommend correlation with PSA. Small right-sided pleural effusion with bibasilar opacities which may represent infectious/ inflammat ory process. 5.9 x 2.7 x 2.8 cm opacity over the left costophrenic angle with cavitation which may represent cavit ating pneumonia versus mass.
[2025-01-31] MEDS ORDERED: VANCOMYCIN PER PHARMACY 0 MG IV SCH (17:00)
[2025-01-31] MEDS: CEFEPIME 1GM/ 50ML 50 ML IV ONE (18:14)
--- NOTE | 2025-01-31 18:26 | DVH ---
CHEST RADIOGRAPH Indication: Pneumonia Technique: Single frontal view of the chest was obtained COMPARISON: XY CHEST PORTABLE on DOS: 05/25/24, XY CHEST PORTABLE on DOS: 01/01/23, XY CHEST PORTABLE o n DOS: 12/28/22, XY CHEST PORTABLE on DOS: 12/27/22, XY CHEST PORTABLE on DOS: 12/23/22 FINDINGS: Lines and Tubes: None Lungs: Left lower lobe airspace disease Pleura: No effusion. No pneumothorax. Cardiomediastinal contours: Unremarkable Bones: Unremarkable IMPRESSION: Left lower lobe airspace disease
--- NOTE | 2025-01-31 18:28 | DVHHPRES ---
History of Present Illness Resident Creating Document: DAVID WANG RESIDENT History of Present Illness This is a 74-year-old male with past medical history of hypertension, CAD, type 2 diabetes mellitus, gout, dyslipidemia, BPH with prostatitis presented to the ED with a chief complaint of diffuse abdominal pain and decreased p.o. intake for the last few days prior to this admission. According to the son this patient has been having fever, cough and productive sputum for the same duration. Denied any nausea, vomiting, dizziness, altered bowel habit, hematuria, dysuria or any positive sick contact. Patient does not speak Cook Islander( could not tell us what language he speaks) so history is very limited. Past Medical History Hypertension, dyslipidemia, type 2 diabetes mellitus, BPH with prostatitis, gout, CAD Past Surgical History: None Past Surgical History Prostate biopsy Family History None Past Social History Lives with family Nonsmoker, nonalcoholic and never tried any drugs Review of Systems Constitutional: Yes: Weakness, Malaise; No: Fever, Chills, Sweats, Other Eyes: No: Pain, Vision change, Conjunctivae inflammation, Eyelid inflammation, Other, Redness ENT: No: Ear pain, Ear discharge, Nose pain, Nose discharge, Nose congestion, Mouth pain, Mouth swelling, Throat pain, Throat swelling, Other Respiratory: Cough, Sputum; No: Dry, Shortness of breath, SOB with excertion, Wheezing, Hemoptysis, Pleuritic Pain, Wheezing, Other Cardiovascular: No: Chest Pain, Palpitations, Orthopnea, Paroxysmal Noc. Dyspnea, Edema, Lt Headedness, Other Gastrointestinal: Abdominal Pain; No: Nausea, Vomiting, Diarrhea, Constipation, Melena, Hematochezia, Other Genitourinary: No Dysuria, No Frequency, No Incontinence, No Hematuria, No Retention, No Other Musculoskeletal: No: other, neck pain, shoulder pain, arm pain, back pain, hand pain, leg pain, foot pain Skin: No: Rash, Lesions, Jaundice, Bruising, Other Neurological: No: Weakness, Numbness, Incoordination, Change in speech, Confusion, Seizures, Other Allergies: Coded Allergies: NO KNOWN ALLERGIES (Unverified , 02/29/24) Medications Current Medications Medications Dose Ordered Sig/Shyam Route Start Time Stop Time Status Last Admin Dose Admin Vancomycin HCl 0 ml @ 0 mls/hr UD IV 01/31/25 17:00 Exam Vital Signs Vital Signs Date Time Temp Pulse Resp B/P (MAP) Pulse Ox O2 Delivery O2 Flow Rate FiO2 01/31/25 16:00 98.5 113 20 150/43 (78) 99 98.5 01/31/25 16:00 Room Air* 0 21 Exam Physical examination: General Appearance: Alert, Oriented X3, Cooperative, No acute distress HEENT: Atraumatic, PERRLA, EOMI, Mucous membrane moist/pink Respiratory: Bilateral crackles Cardiovascular: Regular rate, Normal S1, Normal S2, No murmurs, no chest wall tenderness Abdominal: Normal bowel sounds, Soft, mild tenderness in the epigastric region, No hepatospenomegaly, No masses Extremities: No clubbing, No cyanosis, No edema, Normal pulses, No tenderness/swelling Skin: No rashes, No breakdown, No significant lesion Neuro: Normal gait, Normal speech, Strength at 5/5 X4 ext, Normal tone, Sensation intact, grossly intact cranial nerves Psych/Mental Status: Mental status NL, Mood NL Labs/Xrays Labs Test 01/31/25 16:07 01/31/25 14:50 Range/Units Troponin I High Sensitivity 12 </=54 ng/L White Blood Count 10.9 H 4.4-10.8 10^3/uL Red Blood Count 3.59 L 4.5-5.90 10^6/uL Hemoglobin 11.2 L 13.5-17.5 g/dL Hematocrit 34.9 L 41.0-53.0 % Mean Corpuscular Volume 97.4 80.0-100.0 fL Mean Corpuscular Hemoglobin 31.3 28.0-32.0 pg Mean Corpuscular Hemoglobin Concent 32.1 32.0-36.0 g/dL Red Cell Distribution Width 15.5 H 11.8-14.3 % Platelet Count 195 140-450 10^3/uL Mean Platelet Volume 8.1 6.9-10.8 fL Neutrophils (%) (Auto) 77.0 37.0-80.0 % Lymphocytes (%) (Auto) 11.1 10.0-50.0 % Monocytes (%) (Auto) 8.9 0.0-12.0 % Eosinophils (%) (Auto) 2.9 0.0-7.0 % Basophils (%) (Auto) 0.1 0.0-2.0 % Neutrophils # (Auto) 8.4 1.6-8.6 10 ^3/uL Lymphocytes # (Auto) 1.2 0.4-5.4 10 ^3/uL Monocytes # (Auto) 1.0 0-1.3 10 ^3/uL Eosinophils # (Auto) 0.3 0-0.8 10 ^3/uL Basophils # (Auto) 0 0-0.2 10 ^3/uL Nucleated Red Blood Cells 0.0 % Sodium Level 137 136-145 mmol/L Potassium Level 6.1 *H 3.5-5.1 mmol/L Chloride Level 111 H 98-107 mmol/L Carbon Dioxide Level 14 L 20-31 mmol/L Anion Gap 12 5-15 Blood Urea Nitrogen 87 *H 9-23 mg/dL Creatinine 4.24 H 0.700-1.30 mg/dL Glomerular Filtration Rate Calc 14 >90 mL/min BUN/Creatinine Ratio 20.5 H 10.0-20.0 Serum Glucose 216 H 74-106 mg/dL Lactic Acid Level 1.1 0.4-2.0 mmol/L Calcium Level 9.1 8.7-10.4 mg/dL Total Bilirubin 0.4 0.2-1.0 mg/dL Aspartate Amino Transferase (AST) 140 H 13-40 U/L Alanine Aminotransferase (ALT) 203 H 7-40 U/L Alkaline Phosphatase 422 H 46-116 U/L B-Type Natriuretic Peptide 20.58 0-100 pg/mL Total Protein 7.4 5.7-8.2 g/dL Albumin 4.7 3.2-4.8 g/dL Lipase 39 12-53 U/L Assessment/Plan Assessment/Plan Assessment and plan: # Possible Gram-positive vs Gram-negative pneumonia- Need cultures # possible cavitary pneumonia, rule out lung malignancy # Sepsis due to above - CT abdomen pelvis demonstrated small right-sided pleural effusion with bibasilar opacity and 5.9 x 2.7 x 2.8 cm opacity over the left costophrenic angle with cavitation which may represent cavitating pneumonia versus mass. - IV bolus fluid given - Pending CT chest without contrast, COVID, flu, MRSA screen and blood culture - IV vancomycin as per pharmacy and IV cefepime g q.24 hours # Intractable abdominal pain likely due to gastritis # Ruled out acute pancreatitis # Transaminitis without hyperbilirubinemia, rule out Liver pathology - CT abdomen demonstrated mild gastric wall thickening, correlate for gastritis - Lipase 39 - Ordered hepatitis panel, ultrasound of the liver and coagulation studies - IV Protonix 40 mg daily # CLAIRE on CKD likely hemodynamically mediated /VMN # Hyperkalemia secondary to CKD # possible complicated cystitis # BPH - Hyperkalemia protocol management - IV normal saline at 75 mL/hour - Lokelma 10 mg p.o. b.i.d. - Pending UA and urine bacterial culture # Type 2 diabetes mellitus - Moderate sliding scale of insulin # DVT prophylaxis - Heparin 5000 units q.12 hours Goal of care could not be discussed with the patient because of the language barrier Plan discussed with Dr. Garza Plan discussed with: Patient, Other My Orders Orders - DAVID WANG RESIDENT Procedure Category Date Status Time Admit ADMIT 01/31/25 Transmitted 17:37 Chest Xray 1 View XY 01/31/25 Resulted 17:43 Covid19 Antigen [facility] LAB 01/31/25 Logged Rapid Influenza A&B LAB 01/31/25 Logged 17:48 Mrsa Screen JOSEPHINE 01/31/25 Logged 17:48 Abdomen Complete US 01/31/25 Logged Sonogram 17:51 Date of Service: Jan 31, 2025 Billing Provider: KALLI GARZA MD Common Visit Codes: [id number] INP/OBS CARE (HIGH) DAVID WANG RESIDENT Jan 31, 2025 18:28 KALLI GARZA MD Jan 31, 2025 19:16
[2025-01-31 18:44] LABS: Urine Bacteria None Seen /hpf (None Seen)
--- NOTE | 2025-01-31 19:00 | ECG ---
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
[2025-01-31] MEDS ORDERED: DEXTROSE (50%) 50ML SYRG IV PRN (19:15)
[2025-01-31 19:19] LABS: Urine Blood TRACE /uL (Negative); Urine Clarity Clear (Clear); Urine Color Light-Yellow (Yellow); Urine Hyaline Cast FEW /lpf (0 - 2); Urine Protein, UAD 1+ (Negative); Urine Specific Gravity 1.017 (1.001-1.035); Urine Squamous Epithelial Cell None Seen /hpf (<5); Urine Urobilinogen Normal (Negative); Urine WBC 7 /HPF (0-3); Urine pH 5.5 (5.0-9.0)
[2025-01-31 19:45] VITALS: PULSE 118; RESP 22; O2SAT 94
--- NOTE | 2025-01-31 20:02 | DVH ---
EXAM: US Abdomen Complete CLINICAL INDICATION: Abdominal pain TECHNIQUE: Real-time ultrasound of the abdomen with image documentation. COMPARISON: ABPL on DOS: 11/06/22, ABPL on DOS: 08/14/22 FINDINGS: LIVER: Liver measures up to 15.5 cm. 1.4 cm simple cysts in the right hepatic lobe. No intrahepat ic bile duct dilation. GALLBLADDER: Negative Newman's sign was reported by the splitting machine operator helper. No gallstones. COMMON BILE DUCT: Unremarkable as visualized. No stones. No dilation. Common bile duct measures 0.47 cm in diameter. PANCREAS: Unremarkable as visualized. KIDNEYS: Right kidney measures up to 9.3 cm. Left kidney measures up to 9.2 cm. 1.7 cm simple lef t renal cyst. No stones. No hydronephrosis. SPLEEN: Unremarkable. No splenomegaly. AORTA: Unremarkable. No aneurysm. INFERIOR VENA CAVA: Unremarkable. OTHER FINDINGS: . . . IMPRESSION: No acute findings in the abdomen.
[2025-01-31] MEDS: MORPHINE SULFATE 4 MG/ML SYR/VIAL IV ONE (20:17)
[2025-01-31] MEDS: ONDANSETRON HCL 4 MG/2 ML VIAL IV ONE (20:18)
[2025-01-31 20:39] LABS: Sodium 138 mmol/L (136-145)
[2025-01-31 20:39] LABS: COVID19 ANTIGEN SOFIA FIA NEGATIVE (NEGATIVE); Rapid Influenza A Negative (Negative); Rapid Influenza B Negative (Negative)
[2025-01-31 20:40] LABS: Anion Gap 13 (5-15); Calcium 9.7 mg/dL (8.7-10.4)
[2025-01-31 20:45] LABS: BUN/Creatinine Ratio 18.9 (10.0-20.0)
[2025-01-31 20:54] LABS: Carbon Dioxide 15 mmol/L (20-31); Chloride 110 mmol/L (98-107); Glucose 301 mg/dL (74-106); Potassium 5.5 mmol/L (3.5-5.1)
[2025-01-31 20:55] LABS: Blood Urea Nitrogen 72 mg/dL (9-23)
[2025-01-31 21:06] LABS: INR 1.03 (0.9-1.15); Partial Thromboplastin Time 21.7 SEC (24.5-34.5); Prothrombin Time 10.9 sec (9.3-11.8)
--- NOTE | 2025-01-31 21:24 | DVH ---
Procedure: CT CHEST WITHOUT CONTRAST Reason for study/Clinical History: possible Lung mass Comparison Study: None available at time of dictation. Exam Date: 01/31/2025 08:31 PM TECHNIQUE: Multidetector CT of the chest was performed from the lung apices to the upper abdomen with out the use of intravenous contract. Axial, coronal and sagittal multiplanar reformats were performed . Radiation Dose Information: CT Dose: CTDI volume is 16.6 mGy. Dose-length product is 578.84 mGy*cm The dose indicators for CT are the volume Computed Tomography (CT) Dose Index (CTDIvol) and the Dose Length Product (DLP), and are measured in units of mGy and mGy-cm, respectively. These indicators are not patient dose, but values generated from the CT scanner acquisition factors. The report includes radiation exposure data for exposures received during this examination. FINDINGS: Lower neck: Normal thyroid. Lungs: 2 cm area of consolidation of the left costophrenic angle. This was not present on previous c hest x-ray 2022. Patient developed airspace disease in the left lower lobe on a chest x-ray and is does not appear to have cleared at this time recommend follow-up study in 6-12 months accord ing to patient's risk factors. Heart/Vascular Structures: Normal heart size. No pericardial effusion. Lymph Nodes: No adenopathy Pleura: No pleural effusion or significant pneumothorax. Musculoskeletal: No acute osseous abnormality. Soft tissues: Normal. Upper abdomen: Limited portions of the upper abdomen are unremarkable. IMPRESSION: 1. 2 cm consolidation left costophrenic angle has developed since January 31, 2025 not present 2022 con air cargo specialist appropriate follow-up according the patient's risk factors perhaps in 6-12 months. Radiation optimization: All CT scans at this facility use at least one of these dose optimization blanca hniques: automated exposure control mA and/or kV adjustment per patient size (includes targeted exam s where dose is matched to clinical indication) or iterative reconstruction.
[2025-01-31] MEDS: ACCU-CHEK COMFORT CURVE STRIP VI SCH (22:00)
[2025-01-31 23:20] VITALS: BP 160/70; PULSE 124; RESP 16; TEMP 98.3; O2SAT 95; O2SAT 97
[2025-01-31 23:24] VITALS: BP 174/75; PULSE 124; RESP 16; TEMP 98.3; O2SAT 97
[2025-01-31] MEDS: SODIUM CHLORIDE 0.9% 1,000 ML IV SCH (23:32)
[2025-01-31] MEDS: VANCOMYCIN 1GM/200ML PM 200 ML IV ONE (23:33)
[2025-01-31] MEDS: PANTOPRAZOLE 40 MG/10 ML VIAL INJ IV ONE (23:33)
[2025-01-31] MEDS: SODIUM ZIRCONIUM CYCL 10 GM PAK PO SCH (23:34)
[2025-01-31] MEDS: HEPARIN SODIUM (PORCINE) 5000 UNITS/ML 1ML VIAL SC SCH (23:46)
[2025-01-31] MEDS: InsuLIN REG 1unit/0.01ml Soln (100units/ml) SC SCH (23:47)
[2025-02-01] VITALS (11 sets, daily range): BP systolic 103–155; BP diastolic 52–74; PULSE 75–123; RESP 16–22; TEMP 97.8–99.2; O2SAT 94–100
[2025-02-01 05:13] LABS: Basophils # (auto) 0 10 ^3/uL (0-0.2); Basophils % (auto) 0.2 % (0.0-2.0); Eosinophils # (auto) 0.2 10 ^3/uL (0-0.8); Eosinophils % (auto) 1.9 % (0.0-7.0); Hematocrit 30.7 % (41.0-53.0); Hemoglobin 10.3 g/dL (13.5-17.5); Lymphocytes # (auto) 0.5 10 ^3/uL (0.4-5.4); Lymphocytes % (auto) 5.1 % (10.0-50.0); Mean Corpuscular Hemoglobin 31.4 pg (28.0-32.0); Mean Corpuscular Hgb Conc. 33.4 g/dL (32.0-36.0); Monocytes # (auto) 0.7 10 ^3/uL (0-1.3); Monocytes % (auto) 7.1 % (0.0-12.0); Neutrophils # (auto) 8.7 10 ^3/uL (1.6-8.6); Neutrophils % (auto) 85.7 % (37.0-80.0); Platelet Count (auto) 202 10^3/uL (140-450); Red Blood Cells 3.27 10^6/uL (4.5-5.90); Red Cell Distribution Width 15.1 % (11.8-14.3); White Blood Cell 10.2 10^3/uL (4.4-10.8)
[2025-02-01 05:41] LABS: Albumin 4.5 g/dL (3.2-4.8); Anion Gap 12 (5-15); BUN/Creatinine Ratio 20.2 (10.0-20.0); Calcium 9.7 mg/dL (8.7-10.4); Sodium 141 mmol/L (136-145); Total Protein 7.6 g/dL (5.7-8.2)
[2025-02-01 05:42] LABS: Bilirubin, Total 0.4 mg/dL (0.2-1.0)
[2025-02-01 05:47] LABS: Alanine Aminotransferase 136 U/L (7-40); Alkaline Phosphatase 339 U/L (46-116); Aspartate Aminotransferase 61 U/L (13-40); Blood Urea Nitrogen 64 mg/dL (9-23); Carbon Dioxide 16 mmol/L (20-31); Chloride 113 mmol/L (98-107); Glucose 180 mg/dL (74-106)
[2025-02-01] MEDS: InsuLIN REG 1unit/0.01ml Soln (100units/ml) SC SCH (06:18)
[2025-02-01 08:50] LABS: Magnesium 2.2 mg/dL (1.6-2.6)
[2025-02-01] MEDS: ALBUTEROL SULF 2.5 MG/0.5ML(0.5%) NEB SOLN NEB ONE (08:55)
[2025-02-01] MEDS: SODIUM BICARB 8.4% 50Meq/50ml SYR INJ IV ONE (09:15)
[2025-02-01] MEDS: DEXTROSE (50%) 50ML SYRG IV ONE (09:15)
[2025-02-01] MEDS: InsuLIN REG 1unit/0.01ml Soln (100units/ml) IV ONE (09:17)
[2025-02-01] MEDS: PANTOPRAZOLE 40 MG/10 ML VIAL INJ IV SCH (09:40)
[2025-02-01] MEDS: ASPirin 81 mg TAB PO SCH (09:40)
[2025-02-01] MEDS: CEFEPIME 1GM/ 50ML 50 ML IV SCH (09:40)
--- NOTE | 2025-02-01 10:35 | DVHINCON2 ---
Date Seen: Feb 01, 2025 Referring Physician JAYMIE Guzmán Reason for Consultation Elevated trop History of Present Illness This 74-year-old male, [place] mainly speaking, presents in the ED with a chief complaint of abdominal pain. Due to the patient language barrier, patient's son was contacted via phone to translate. The patient states for the past few days has not been able to eat due to loss of appetite associated with abdominal pain, fever, cough, and productive phlegm. In the emergency department, the patient undergone a 12 lead ECG showing sinus rhythm sinus tachycardia low 100s, replanting machine crewman consulted due to trending troponin with the most recent results in . The patient is currently receiving aspirin and heparin 5000 units b.i.d.. The patient denies dizziness, diaphoresis, chest pain, difficulty in breathing, nausea, vomiting, constipation, diarrhea, or other acute symptoms. The patient is under cardiology Dr. Jose Aguilar and he had last seen Dr. Aguilar about a year ago for routine cardiac follow-up. Past medical history of CAD s/p stents three years ago, currently taking Plavix, hypertension, diabetes, hyperlipidemia, gout, CKD 4, and prostate. Past Medical History As stated in HPI Past Surgical History PCI Family History: Patient reports no known family medical history. Family History Reviewed, non-contributory to the management of this case. Social History The patient lives at home, denies smoking, alcohol or illicit drugs abuse. Allergies: Coded Allergies: NO KNOWN ALLERGIES (Unverified , 02/29/24) Home Meds Active Scripts Ciprofloxacin Hcl (Ciprofloxacin Hcl) 500 Mg Tab, 1 TAB PO BID for 3 Days, #6 TAB Prov:DOREEN JORDAN RESIDENT 05/26/24 Nitrofurantoin Monohydrate Mac (Macrobid) 100 Mg Cap, 100 MG PO BID, #20 CAP Prov:DANN HAMILTON MD 08/15/22 Cephalexin ( Keflex 500) 500 Mg Cap, 1 CAP PO BID for 5 Days, #10 CAP Prov:MUKESH FRY MD 06/26/22 Amlodipine Besylate (Amlodipine Besylate) 10 Mg Tab, 1 TAB PO DAILY for 30 Days, #30 TAB 5 Refills Prov:MUKESH FRY MD 06/26/22 Metoprolol Succinate (Metoprolol Succinate Er) 50 Mg Tab, 1 TAB PO DAILY for 30 Days, #30 TAB 5 Refills Prov:MUKESH FRY MD 06/25/22 Sodium Zirconium Cyclosilicate (Lokelma) 10 Gm Nasim, 10 GM PO DAILY for 20 Days, #2 PACK Prov:MUKESH FRY MD 06/25/22 Sodium Bicarbonate (Sodium Bicarbonate) 650 Mg Tab, 650 MG PO Q6HR for 30 Days, #120 TAB 3 Refills Prov:MUKESH FRY MD 06/25/22 Insulin Glargine (Lantus) 100 Unit/Ml Inj, 20 UNITS SC QAM for 30 Days, INJ Prov:MUKESH FRY MD 11/29/19 Reported Medications Clopidogrel Bisulfate (CLOPIDOGREL) 75 Mg Tab, 1 TAB PO DAILY 02/01/25 Aspirin (Aspirin Adult Low Dose) 81 Mg Tab, 1 TAB PO DAILY 12/27/22 Atorvastatin Calcium (ATORVASTATIN CALCIUM) 40 Mg Tab, 1 TAB PO DAILY 12/27/22 Allopurinol (Allopurinol) 100 Mg Tab, 100 MG PO DAILY, MG 11/21/19 Ferrous Sulfate (Ferrous Sulfate) 325 Mg Tab, 325 MG PO BIDWM, MG 11/21/19 Amitriptyline Hcl (Elavil) 25 Mg Tb, 25 MG PO HS 01/26/19 Current Medications Current Medications Medications (Trade) Dose Ordered Sig/Shyam Route PRN Reason Start Time Stop Time Status Last Admin Vancomycin HCl 0 ml @ 0 mls/hr UD IV 01/31/25 17:00 Cefepime HCl 50 ml @ 12.5 mls/hr DAILY IV 02/01/25 10:00 02/01/25 09:40 Pantoprazole Sodium (Protonix) 40 mg DAILY IV 02/01/25 10:00 02/01/25 09:40 Heparin Sodium (Porcine) 5,000 units Q12HR SC 01/31/25 22:00 02/01/25 09:44 Sodium Chloride 1,000 ml @ 75 mls/hr [id number] IV 01/31/25 19:15 02/01/25 08:50 Zirconium Oxide (Lokelma) 10 gm BID PO 01/31/25 22:00 02/01/25 09:39 Diagnostic Test (Pha) (Accu-Chek Comfort Curve T) 1 strip ACHS 01/31/25 22:00 02/01/25 06:17 Insulin Human Regular (InsuLIN R) HS SC 01/31/25 22:00 01/31/25 23:47 Insulin Human Regular (InsuLIN R) AC SC 02/01/25 07:00 Dextrose 50 ml UD PRN IV Blood Sugar LESS THAN 60 01/31/25 19:15 Aspirin 162 mg DAILY PO 02/01/25 10:00 02/01/25 09:40 Atorvastatin Calcium (Lipitor) 10 mg HS PO 02/01/25 22:00 Review of Systems Constitutional: Malaise, fever Ears, Nose, & Throat: No symptom reported Eyes: No symptom reported Neurological: No symptoms reported Pulmonary/Respiratory: Cough, mucus Cardiovascular: No symptom reported Gastrointestinal: Abdominal pain, loss of appetite Genitourinary: No symptom reported Musculoskeletal: No symptom reported Skin: No symptom reported Psychiatric: No symptom reported Endocrine: No symptom reported Hematologic/Lymphatic: No symptom reported Vital Signs Vital Signs Date Time Temp Pulse Resp B/P (MAP) Pulse Ox O2 Delivery O2 Flow Rate FiO2 02/01/25 09:10 98.9 113 22 148/72 (97) 96 98.9 02/01/25 08:58 Room Air* 0 21 Physical Exam INITIAL VITAL SIGNS: Reviewed by me GENERAL: Alert and interactive. No acute distress. HEAD: Head is normocephalic and atraumatic. EYES: EOMI, PERRL. No scleral icterus. No conjunctival injection. ENT: Moist mucous membranes. NECK: Supple, No masses, Full range of motion. RESPIRATORY: Diminished lung sounds CV: Regular rate and rhythm. No edema, no shortness of breath, no dyspnea GI/: Active bowel sounds, soft, nondistended, nontender. No guarding. No rebound. No masses. No CVA tenderness. INTEGUMENTARY: Warm and dry. No obvious rashes. NEUROLOGIC: Alert and oriented. Face is symmetric. Speech is normal. Moves all extremities equally. Labs/Diagnostic Data Labs Test 02/01/25 09:15 02/01/25 08:46 02/01/25 04:45 01/31/25 20:15 Range/Units POC Glucose 164 H 70-106 mg/dl Troponin I High Sensitivity 2308 *H </=54 ng/L White Blood Count 10.2 4.4-10.8 10^3/uL Red Blood Count 3.27 L 4.5-5.90 10^6/uL Hemoglobin 10.3 L 13.5-17.5 g/dL Hematocrit 30.7 #L 41.0-53.0 % Mean Corpuscular Volume 94.0 80.0-100.0 fL Mean Corpuscular Hemoglobin 31.4 28.0-32.0 pg Mean Corpuscular Hemoglobin Concent 33.4 32.0-36.0 g/dL Red Cell Distribution Width 15.1 H 11.8-14.3 % Platelet Count 202 140-450 10^3/uL Mean Platelet Volume 8.0 6.9-10.8 fL Neutrophils (%) (Auto) 85.7 H 37.0-80.0 % Lymphocytes (%) (Auto) 5.1 L 10.0-50.0 % Monocytes (%) (Auto) 7.1 0.0-12.0 % Eosinophils (%) (Auto) 1.9 0.0-7.0 % Basophils (%) (Auto) 0.2 0.0-2.0 % Neutrophils # (Auto) 8.7 H 1.6-8.6 10 ^3/uL Lymphocytes # (Auto) 0.5 0.4-5.4 10 ^3/uL Monocytes # (Auto) 0.7 0-1.3 10 ^3/uL Eosinophils # (Auto) 0.2 0-0.8 10 ^3/uL Basophils # (Auto) 0 0-0.2 10 ^3/uL Nucleated Red Blood Cells 0.0 % Sodium Level 141 136-145 mmol/L Potassium Level 6.0 *H 3.5-5.1 mmol/L Chloride Level 113 H 98-107 mmol/L Carbon Dioxide Level 16 L 20-31 mmol/L Anion Gap 12 5-15 Blood Urea Nitrogen 64 H 9-23 mg/dL Creatinine 3.17 H 0.700-1.30 mg/dL Glomerular Filtration Rate Calc 20 >90 mL/min BUN/Creatinine Ratio 20.2 H 10.0-20.0 Serum Glucose 180 #H 74-106 mg/dL Hemoglobin A1c 7.1 H <5.7 % A1C Calcium Level 9.7 8.7-10.4 mg/dL Magnesium Level 2.2 1.6-2.6 mg/dL Total Bilirubin 0.4 0.2-1.0 mg/dL Aspartate Amino Transferase (AST) 61 H 13-40 U/L Alanine Aminotransferase (ALT) 136 H 7-40 U/L Alkaline Phosphatase 339 H 46-116 U/L Total Protein 7.6 5.7-8.2 g/dL Albumin 4.5 3.2-4.8 g/dL Triglycerides Level 160 H < 150 mg/dL Cholesterol Level 104 < 200 mg/dL LDL Cholesterol 46 < 100 mg/dL HDL Cholesterol 24 L 40-59 mg/dL Thyroid Stimulating Hormone (TSH) 0.66 0.55-4.78 uIU/mL Random Vancomycin Level 16.3 H 5-10 ug/mL Prothrombin Time 10.9 9.3-11.8 sec Prothrombin Time INR 1.03 0.9-1.15 Activated Partial Thromboplast Time 21.7 L 24.5-34.5 SEC Test 01/31/25 19:44 01/31/25 18:33 01/31/25 14:50 Range/Units Influenza Type A Antigen Negative Negative Influenza Type B Antigen Negative Negative SARS-CoV-2 Antigen (Rapid) Negative NEGATIVE Urine Color Light-yellow Yellow Urine Clarity Clear Clear Urine pH 5.5 5.0-9.0 Urine Specific [place] 1.017 1.001-1.035 Urine Protein 1+ H Negative Urine Ketones Negative Negative Urine Blood Trace H Negative /uL Urine Nitrite Negative Negative Urine Bilirubin Negative Negative Urine Urobilinogen Normal Negative mg/dL Urine Leukocyte Esterase Trace Negative /uL Urine RBC <1 0 - 3 /hpf Urine Microscopic WBC 7 H 0-3 /HPF Urine Squamous Epithelial Cells None seen <5 /hpf Urine Bacteria None seen None Seen /hpf Urine Hyaline Casts Few 0 - 2 /lpf Urine Glucose 3+ H Normal mg/dL Lactic Acid Level 1.1 0.4-2.0 mmol/L B-Type Natriuretic Peptide 20.58 0-100 pg/mL Lipase 39 12-53 U/L PROCEDURE(s): CXR1 - CHEST XRAY 1 VIEW REASON: Pneumonia ORDER NUMBER(s): [id number], ACCESSION NUMBER(s): [id number] CHEST RADIOGRAPH Indication: Pneumonia Technique: Single frontal view of the chest was obtained COMPARISON: XY CHEST PORTABLE on DOS: 05/25/24, XY CHEST PORTABLE on DOS: 01/01/23, XY CHEST PORTABLE on DOS: 12/28/22, XY CHEST PORTABLE on DOS: 12/27/22, XY CHEST PORTABLE on DOS: 12/23/22 FINDINGS: Lines and Tubes: None Lungs: Left lower lobe airspace disease Pleura: No effusion. No pneumothorax. Cardiomediastinal contours: Unremarkable Bones: Unremarkable IMPRESSION: Left lower lobe airspace disease Assessment NSTEMI, possible cardiorenal syndrome Rule out progressive CAD Rule out sepsis 2/2 Possible pneumonia Intractable abdominal pain CLAIRE on CKD 4 Hyperkalemia Hypertension Hyperlipidemia Diabetes type 2 with hyperglycemia Plan/Recommendation Plan/recommendations (Dr. Jose Aguilar): Check echocardiogram ACS protocol - continue with heparin, aspirin, Plavix Lipid lowering agent Consider Nephrology consult Trending troponin likely secondary to possible sepsis, cardiorenal syndrome, given patient's denies chest pain or shortness of breath less likely cardiac related in the meantime we will continue cardiac surveillance, trend troponin, monitor for chest pain and EKG changes. We will re-evaluate for possible ischemic workup once kidney function has improved This medical document was created using an electronic medical record system with voice recognition software and computerized dictation system. Although this document has been carefully reviewed, there might still be some phonetic and typographical errors. Occasional wrong-word or ``sound-alike substitutions may have occurred due to the inherent limitations of voice recognition software. These areas are purely typographical due to imperfections of the software programs and do not reflect any compromise in the patient's medical care. Please read the chart carefully and recognize, using context, where these substitutions have occurred. Plan discussed with: Patient Plan discussed with: Patient, Son NYHA Physical activity limitations: Class1(None)absent sob, Date of Service: Feb 01, 2025 Billing Provider: IWLLIAM AGUILAR MD Cardiology Common Codes: CONSULT ONLY Cardiology Consultation Codes: [id number] CONSULT <60MIN PABLO NARANJO ENVIRONMENTAL RESOURCE SPECIALIST Feb 01, 2025 10:35
[2025-02-01] MEDS ORDERED: CLOP75TA70 PO (11:00)
--- NOTE | 2025-02-01 11:18 | DVHPN2 ---
Reviewed: Care Plan, H&P, Labs, Medications, Previous Orders, Radiology Changes from previous H/P or p: No Changes General: Per HPI Eyes: No Pain, No Vision change, No Conjunctivae inflammation, No Eyelid inflammation, No Other, No Redness ENT: No Ear pain, No Ear discharge, No Nose pain, No Nose discharge, No Nose congestion, No Mouth pain, No Mouth swelling, No Throat pain, No Throat swelling, No Other Cardiovascular: No Chest Pain, No Palpitations, No Orthopnea, No Paroxysmal Noc. Dyspnea, No Edema, No Lt Headedness, No Other Respiratory: Cough; No Dry, No Shortness of breath, No SOB with excertion, No Wheezing, No Hemoptysis, No Pleuritic Pain; Sputum; No Other Gastrointestinal: No Nausea, No Vomiting; Abdominal Pain; No Diarrhea, No Constipation, No Melena, No Hematochezia, No Other Genitourinary: No Dysuria, No Frequency, No Incontinence, No Hematuria, No Retention, No Other Musculoskeletal: No other, No neck pain, No shoulder pain, No arm pain, No back pain, No hand pain, No leg pain, No foot pain Skin: No Rash, No Lesions, No Jaundice, No Bruising, No Other Objective Vitals Vital Signs Date Time Temp Pulse Resp B/P (MAP) Pulse Ox O2 Delivery O2 Flow Rate FiO2 02/01/25 09:10 98.9 113 22 148/72 (97) 96 98.9 02/01/25 08:58 Room Air* 0 21 Intake/Output Intake and Output 02/01/25 07:00 Intake Total 50.0 ml Output Total 800 ml Balance -750.0 ml Intake Oral 0 ml IV Total 50.0 ml Output Urine Total 800 ml Medications Current Medications Medications Dose Ordered Sig/Shyam Route Start Time Stop Time Status Last Admin Dose Admin Vancomycin HCl 0 ml @ 0 mls/hr UD IV 01/31/25 17:00 Cefepime HCl 50 ml @ 12.5 mls/hr DAILY IV 02/01/25 10:00 02/01/25 09:40 12.5 MLS/HR Pantoprazole Sodium 40 mg DAILY IV 02/01/25 10:00 02/01/25 09:40 40 MG Heparin Sodium (Porcine) 5,000 units Q12HR SC 01/31/25 22:00 02/01/25 09:44 5,000 UNITS Sodium Chloride 1,000 ml @ 75 mls/hr [id number] IV 01/31/25 19:15 02/01/25 08:50 75 MLS/HR Zirconium Oxide 10 gm BID PO 01/31/25 22:00 02/01/25 09:39 10 GM Diagnostic Test (Pha) 1 strip ACHS 01/31/25 22:00 02/01/25 06:17 1 STRIP Insulin Human Regular HS SC 01/31/25 22:00 01/31/25 23:47 6 UNITS Insulin Human Regular AC SC 02/01/25 07:00 Dextrose 50 ml UD PRN IV 01/31/25 19:15 Aspirin 162 mg DAILY PO 02/01/25 10:00 02/01/25 09:40 162 MG Atorvastatin Calcium 10 mg HS PO 02/01/25 22:00 Laboratory Results Laboratory Tests 02/01/25 04:45 Chemistry Test 01/31/25 14:50 01/31/25 20:15 02/01/25 04:45 Albumin 4.7 g/dL (3.2-4.8) 4.5 g/dL (3.2-4.8) Calcium Level 9.1 mg/dL (8.7-10.4) 9.7 mg/dL (8.7-10.4) 9.7 mg/dL (8.7-10.4) Total Protein 7.4 g/dL (5.7-8.2) 7.6 g/dL (5.7-8.2) Magnesium Level 2.2 mg/dL (1.6-2.6) Coagulation Test 01/31/25 20:15 Prothrombin Time 10.9 sec (9.3-11.8) Prothrombin Time INR 1.03 (0.9-1.15) Activated Partial Thromboplast Time 21.7 SEC (24.5-34.5) L Lipid panel Test 01/31/25 14:50 02/01/25 04:45 Lipase 39 U/L (12-53) Cholesterol Level 104 mg/dL (< 200) HDL Cholesterol 24 mg/dL (40-59) L Triglycerides Level 160 mg/dL (< 150) H Cardiac Markers Test 01/31/25 14:50 B-Type Natriuretic Peptide 20.58 pg/mL (0-100) LFT Test 01/31/25 14:50 02/01/25 04:45 Alanine Aminotransferase (ALT) 203 U/L (7-40) H 136 U/L (7-40) H Alkaline Phosphatase 422 U/L (46-116) H 339 U/L (46-116) H Aspartate Amino Transferase (AST) 140 U/L (13-40) H 61 U/L (13-40) H Total Bilirubin 0.4 mg/dL (0.2-1.0) 0.4 mg/dL (0.2-1.0) HgA1c, TSH Test 02/01/25 04:45 Hemoglobin A1c 7.1 % A1C (<5.7) H Thyroid Stimulating Hormone (TSH) 0.66 uIU/mL (0.55-4.78) Urinalysis Test 01/31/25 18:33 Urine Color Light-yellow (Yellow) Urine Clarity Clear (Clear) Urine pH 5.5 (5.0-9.0) Urine Specific [place] 1.017 (1.001-1.035) Urine Protein 1+ (Negative) H Urine Ketones Negative (Negative) Urine Blood Trace /uL (Negative) H Urine Nitrite Negative (Negative) Urine Bilirubin Negative (Negative) Urine Urobilinogen Normal mg/dL (Negative) Urine Leukocyte Esterase Trace /uL (Negative) Urine RBC <1 /hpf (0 - 3) Urine Microscopic WBC 7 /HPF (0-3) H Urine Squamous Epithelial Cells None seen /hpf (<5) Urine Bacteria None seen /hpf (None Seen) Urine Hyaline Casts Few /lpf (0 - 2) Urine Glucose 3+ mg/dL (Normal) H Microbiology Microbiology Date/Time Source Procedure Growth Status 01/31/25 14:50 Blood Blood Culture - Preliminary Resulted Assessment/Plan Assessment/Plan # Possible Gram-positive vs Gram-negative pneumonia- Need cultures # possible cavitary pneumonia, rule out lung malignancy # Sepsis due to above # Intractable abdominal pain likely due to gastritis # Ruled out acute pancreatitis # Transaminitis without hyperbilirubinemia, rule out Liver pathology # CLAIRE on CKD likely hemodynamically mediated # Hyperkalemia secondary to CKD # possible complicated cystitis # BPH # Type 2 diabetes mellitus # DVT prophylaxis Plan discussed with: Patient Date of Service: Feb 01, 2025 Billing Provider: COTY WALSH DO Common Visit Codes: [id number] INP/OBS CARE(HIGH) COTY WALSH DO Feb 01, 2025 11:18
[2025-02-01] MEDS ORDERED: EZET10TA22 PO (15:04)
[2025-02-01] MEDS ORDERED: SODI10PA PO (15:04)
[2025-02-01] MEDS ORDERED: HYDR50TA47 PO (15:04)
[2025-02-01] MEDS ORDERED: NETA0.02 OP (15:04)
[2025-02-01] MEDS ORDERED: TAMS0.4C39 PO (15:04)
[2025-02-01] MEDS ORDERED: FINA5TAB4 PO (15:04)
[2025-02-01] MEDS ORDERED: BRIM0.159 OP (15:04)
[2025-02-01] MEDS ORDERED: LATA0.008 OP (15:04)
[2025-02-01] MEDS ORDERED: MEMA1TAB5 PO (15:04)
[2025-02-01] MEDS ORDERED: LISI10TA34 PO (15:04)
--- NOTE | 2025-02-01 18:29 | DVHINCON2 ---
Date Seen: Feb 01, 2025 Referring Physician JAYMIE Guzmán Reason for Consultation Elevated trop History of Present Illness This 74-year-old male, Iranian mainly speaking male with a past medical history of CAD s/p stents three years ago, currently taking Plavix, hypertension, diabetes, hyperlipidemia, gout, CKD 4, and prostate cancer who presents to the the ED with a complaint of abdominal pain. Due to the patient language barrier, patient's son was contacted via phone to translate. The patient states for the past few days has not been able to eat due to loss of appetite associated with abdominal pain, fever, cough, and productive phlegm. In the emergency department, the patient undergone a 12 lead ECG showing sinus rhythm sinus tachycardia low 100s, construction administrative assistant consulted due to trending troponin with the most recent results in . The patient is currently receiving aspirin and heparin 5000 units b.i.d.. The patient follow-up with me in my office in the outpatient setting however the last time the patient followed up with me was 1 year ago. Family History: Patient reports no known family medical history. Allergies: Coded Allergies: NO KNOWN ALLERGIES (Unverified , 02/29/24) Home Meds Active Scripts Ciprofloxacin Hcl (Ciprofloxacin Hcl) 500 Mg Tab, 1 TAB PO BID for 3 Days, #6 TAB Prov:DOREEN JORDAN RESIDENT 05/26/24 Nitrofurantoin Monohydrate Mac (Macrobid) 100 Mg Cap, 100 MG PO BID, #20 CAP Prov:DANN HAMILTON MD 08/15/22 Cephalexin ( Keflex 500) 500 Mg Cap, 1 CAP PO BID for 5 Days, #10 CAP Prov:MUKESH FRY MD 06/26/22 Amlodipine Besylate (Amlodipine Besylate) 10 Mg Tab, 1 TAB PO DAILY for 30 Days, #30 TAB 5 Refills Prov:MUKESH FRY MD 06/26/22 Metoprolol Succinate (Metoprolol Succinate Er) 50 Mg Tab, 1 TAB PO DAILY for 30 Days, #30 TAB 5 Refills Prov:MUKESH FRY MD 06/25/22 Sodium Zirconium Cyclosilicate (Lokelma) 10 Gm Nasim, 10 GM PO DAILY for 20 Days, #2 PACK Prov:MUKESH FRY MD 9/10/22 Sodium Bicarbonate (Sodium Bicarbonate) 650 Mg Tab, 650 MG PO Q6HR for 30 Days, #120 TAB 3 Refills Prov:MUKESH FRY MD 06/25/22 Insulin Glargine (Lantus) 100 Unit/Ml Inj, 20 UNITS SC QAM for 30 Days, INJ Prov:MUKESH FRY MD 11/29/19 Reported Medications Netarsudil Dimesylate (Rhopressa) 0.02 % [place], 0.02 % OP, ML 02/01/25 Latanoprost (LATANOPROST) 0.005 % [place], 0.005 % OP DAILY, ML 02/01/25 Brimonidine Tartrate (Brimonidine Tartrate) 0.15 % [place], 1 DROP OP TID, DROP 02/01/25 Finasteride (Finasteride) 5 Mg Tab, 5 MG PO DAILY for 30 Days, MG 02/01/25 Ezetimibe (Zetia) 10 Mg Tab, 10 MG PO DAILY, TAB 02/01/25 Sodium Zirconium Cyclosilicate (Lokelma) 10 Gm Nasim, 10 GM PO, PACK 02/01/25 Lisinopril (Lisinopril) 10 Mg Tab, 10 MG PO DAILY for 30 Days, MG 02/01/25 Hydralazine Hcl (Hydralazine Hcl) 50 Mg Tab, 50 MG PO DAILY for 30 Days, MG 02/01/25 Tamsulosin Hcl (Tamsulosin Hcl) 0.4 Mg Cap, 0.4 MG PO QPM for 30 Days, MG 02/01/25 Memantine Hydrochloride (Memantine HCl) 10 Mg Tab, 10 MG PO DAILY, TAB 02/01/25 Clopidogrel Bisulfate (CLOPIDOGREL) 75 Mg Tab, 1 TAB PO DAILY 02/01/25 Aspirin (Aspirin Adult Low Dose) 81 Mg Tab, 1 TAB PO DAILY 12/27/22 Atorvastatin Calcium (ATORVASTATIN CALCIUM) 40 Mg Tab, 1 TAB PO DAILY 12/27/22 Allopurinol (Allopurinol) 100 Mg Tab, 100 MG PO DAILY, MG 11/21/19 Ferrous Sulfate (Ferrous Sulfate) 325 Mg Tab, 325 MG PO BIDWM, MG 11/21/19 Amitriptyline Hcl (Elavil) 25 Mg Tb, 25 MG PO HS 01/26/19 Current Medications Current Medications Medications (Trade) Dose Ordered Sig/Shyam Route PRN Reason Start Time Stop Time Status Last Admin Vancomycin HCl 0 ml @ 0 mls/hr UD IV 01/31/25 17:00 Cefepime HCl 50 ml @ 12.5 mls/hr DAILY IV 02/01/25 10:00 02/01/25 09:40 Pantoprazole Sodium (Protonix) 40 mg DAILY IV 02/01/25 10:00 02/01/25 09:40 Heparin Sodium (Porcine) 5,000 units Q12HR SC 01/31/25 22:00 02/01/25 09:44 Sodium Chloride 1,000 ml @ 75 mls/hr [id number] IV 01/31/25 19:15 02/01/25 08:50 Zirconium Oxide (Lokelma) 10 gm BID PO 01/31/25 22:00 02/01/25 09:39 Diagnostic Test (Pha) (Accu-Chek Comfort Curve T) 1 strip ACHS 01/31/25 22:00 02/01/25 11:30 Insulin Human Regular (InsuLIN R) HS SC 01/31/25 22:00 01/31/25 23:47 Insulin Human Regular (InsuLIN R) AC SC 02/01/25 07:00 02/01/25 12:05 Dextrose 50 ml UD PRN IV Blood Sugar LESS THAN 60 01/31/25 19:15 Aspirin 162 mg DAILY PO 02/01/25 10:00 02/01/25 09:40 Atorvastatin Calcium (Lipitor) 10 mg HS PO 02/01/25 22:00 Review of Systems Constitutional: Malaise, fever Ears, Nose, & Throat: No symptom reported Eyes: No symptom reported Neurological: No symptoms reported Pulmonary/Respiratory: Cough, mucus Cardiovascular: No symptom reported Gastrointestinal: Abdominal pain, loss of appetite Genitourinary: No symptom reported Musculoskeletal: No symptom reported Skin: No symptom reported Psychiatric: No symptom reported Endocrine: No symptom reported Hematologic/Lymphatic: No symptom reported Vital Signs Vital Signs Date Time Temp Pulse Resp B/P (MAP) Pulse Ox O2 Delivery O2 Flow Rate FiO2 02/01/25 13:00 99.1 116 18 103/52 (69) 96 99.1 02/01/25 10:00 Room Air* 0 21 Physical Exam GENERAL: Alert and oriented x 3. No acute distress. EYES: PERRL, EOMI. Anicteric. HENT: Moist mucous membranes. LUNGS: Diminished breath sounds. CARDIOVASCULAR: Regular rate and rhythm. ABDOMEN: Soft, nontender and nondistended. EXTREMITIES: No edema. NEUROLOGIC: No focal neurological deficits. SKIN: Warm, dry. Labs/Diagnostic Data Labs Test 02/01/25 13:00 02/01/25 11:56 02/01/25 08:46 02/01/25 04:45 Range/Units Potassium Level 4.7 3.5-5.1 mmol/L POC Glucose 268 H 70-106 mg/dl Troponin I High Sensitivity 2308 *H </=54 ng/L White Blood Count 10.2 4.4-10.8 10^3/uL Red Blood Count 3.27 L 4.5-5.90 10^6/uL Hemoglobin 10.3 L 13.5-17.5 g/dL Hematocrit 30.7 #L 41.0-53.0 % Mean Corpuscular Volume 94.0 80.0-100.0 fL Mean Corpuscular Hemoglobin 31.4 28.0-32.0 pg Mean Corpuscular Hemoglobin Concent 33.4 32.0-36.0 g/dL Red Cell Distribution Width 15.1 H 11.8-14.3 % Platelet Count 202 140-450 10^3/uL Mean Platelet Volume 8.0 6.9-10.8 fL Neutrophils (%) (Auto) 85.7 H 37.0-80.0 % Lymphocytes (%) (Auto) 5.1 L 10.0-50.0 % Monocytes (%) (Auto) 7.1 0.0-12.0 % Eosinophils (%) (Auto) 1.9 0.0-7.0 % Basophils (%) (Auto) 0.2 0.0-2.0 % Neutrophils # (Auto) 8.7 H 1.6-8.6 10 ^3/uL Lymphocytes # (Auto) 0.5 0.4-5.4 10 ^3/uL Monocytes # (Auto) 0.7 0-1.3 10 ^3/uL Eosinophils # (Auto) 0.2 0-0.8 10 ^3/uL Basophils # (Auto) 0 0-0.2 10 ^3/uL Nucleated Red Blood Cells 0.0 % Sodium Level 141 136-145 mmol/L Chloride Level 113 H 98-107 mmol/L Carbon Dioxide Level 16 L 20-31 mmol/L Anion Gap 12 5-15 Blood Urea Nitrogen 64 H 9-23 mg/dL Creatinine 3.17 H 0.700-1.30 mg/dL Glomerular Filtration Rate Calc 20 >90 mL/min BUN/Creatinine Ratio 20.2 H 10.0-20.0 Serum Glucose 180 #H 74-106 mg/dL Hemoglobin A1c 7.1 H <5.7 % A1C Calcium Level 9.7 8.7-10.4 mg/dL Magnesium Level 2.2 1.6-2.6 mg/dL Total Bilirubin 0.4 0.2-1.0 mg/dL Aspartate Amino Transferase (AST) 61 H 13-40 U/L Alanine Aminotransferase (ALT) 136 H 7-40 U/L Alkaline Phosphatase 339 H 46-116 U/L Total Protein 7.6 5.7-8.2 g/dL Albumin 4.5 3.2-4.8 g/dL Triglycerides Level 160 H < 150 mg/dL Cholesterol Level 104 < 200 mg/dL LDL Cholesterol 46 < 100 mg/dL HDL Cholesterol 24 L 40-59 mg/dL Thyroid Stimulating Hormone (TSH) 0.66 0.55-4.78 uIU/mL Random Vancomycin Level 16.3 H 5-10 ug/mL Test 01/31/25 20:15 01/31/25 19:44 01/31/25 18:33 01/31/25 14:50 Range/Units Prothrombin Time 10.9 9.3-11.8 sec Prothrombin Time INR 1.03 0.9-1.15 Activated Partial Thromboplast Time 21.7 L 24.5-34.5 SEC Influenza Type A Antigen Negative Negative Influenza Type B Antigen Negative Negative SARS-CoV-2 Antigen (Rapid) Negative NEGATIVE Urine Color Light-yellow Yellow Urine Clarity Clear Clear Urine pH 5.5 5.0-9.0 Urine Specific [place] 1.017 1.001-1.035 Urine Protein 1+ H Negative Urine Ketones Negative Negative Urine Blood Trace H Negative /uL Urine Nitrite Negative Negative Urine Bilirubin Negative Negative Urine Urobilinogen Normal Negative mg/dL Urine Leukocyte Esterase Trace Negative /uL Urine RBC <1 0 - 3 /hpf Urine Microscopic WBC 7 H 0-3 /HPF Urine Squamous Epithelial Cells None seen <5 /hpf Urine Bacteria None seen None Seen /hpf Urine Hyaline Casts Few 0 - 2 /lpf Urine Glucose 3+ H Normal mg/dL Lactic Acid Level 1.1 0.4-2.0 mmol/L B-Type Natriuretic Peptide 20.58 0-100 pg/mL Lipase 39 12-53 U/L Microbiology Date/Time Source Procedure Growth Status 01/31/25 14:50 Blood Blood Culture - Preliminary Resulted Assessment NSTEMI, possible cardiorenal syndrome. Rule out progressive CAD. Rule out sepsis 2/2 Possible pneumonia. Intractable abdominal pain. CLAIRE on CKD 4. Hyperkalemia. Hypertension. Hyperlipidemia. Diabetes type 2 with hyperglycemia. Plan/Recommendation I agree with your ongoing assessment and care of plan. Patient has been seen by Elizabeth Powell NP on my behalf, her and I discussed the plan with the patient. Check echocardiogram. ACS protocol - continue with heparin, aspirin, Plavix. Lipid lowering agent. Consider Nephrology consult. Trending troponin likely secondary to possible sepsis, cardiorenal syndrome, given patient's denies chest pain or shortness of breath less likely cardiac related in the meantime we will continue cardiac surveillance, trend troponin, monitor for chest pain and EKG changes. We will re-evaluate for possible ischemic workup once kidney function has improved . Additional plan as per the hospital course. Plan discussed with: Patient NYHA Physical activity limitations: Class1(None)absent sob, Date of Service: Feb 01, 2025 Billing Provider: WILLIAM FIGUEROA MD Cardiology Common Codes: [id number] INP/OBS CARE (High) Cardiology Consultation Codes: [id number] CONSULT <60MIN WILLIAM FIGUEROA MD Feb 01, 2025 13:53
[2025-02-01] MEDS: ATORVASTATIN 20 MG TAB PO SCH (22:08)
[2025-02-01] MEDS: VANCOMYCIN 500mg/100mL 100 ML IV ONE (22:14)
--- NOTE | 2025-02-01 23:41 | DVHSR ---
APPROVED REPORT EXAM: LIMITED Two-dimensional and M-mode echocardiogram with Doppler and color Doppler. Blood Pressure: 135/57 mmHg INDICATION R/O ACS RISK FACTORS Height: 5' 5", Weight: 163 DIMENSIONS LVDd4.3 (3.8-5.7cm)LA (2D)3.9 (1.9-4.0cm)Aortic Root3.6 (2.0-3.7cm) LVDs3.3 (2.5-4.0cm)LA (MM) (1.9-4.0cm)Aortic Cusp Exc1.7 (1.5-2.0cm) EF (%) 55.0 (55-70%)Rt. Atrium3.9 (1.9-4.0cm)Asc. Aorta cm IVSd1.0 (0.7-1.1cm)RV (D) (1.8-2.4cm) PWd1.0 (0.7-1.1cm) Mitral Valve MitralMitral Stenosis E wave1.30m/sMV Mean GR.mmHg E/A ratio0.02D MVAcm2 Aortic Valve Aortic ValveAortic Stenosis V11.20m/Vanessa Mean GR.5mmHg V21.30m/Vanessa Peak GR.8mmHg LVOT Diameter2.2 (1.8-2.4cm)Doppler AVA3.51cm2 Pulmonic Valve V21.40m/s Other Information Quality : Technically LimitedRhythm : Atrial Fibrillation Technically limited study due to body habitus. Conclusion MODERATE DEGREE LVH AND MODERATE DEGREE LV DIASTOLIC DYSFUNCTION LV EF IS 65% AND IS NORMAL CALCIFIED AORTIC LEAFLETS AORTIC SCLEROSIS BUT NO STENOSIS NORMAL MV,TV AND PV NO EFFUSION
[2025-02-02] VITALS (10 sets, daily range): BP systolic 140–161; BP diastolic 56–73; PULSE 92–107; RESP 17–18; TEMP 97.9–99.9; O2SAT 95–98
--- NOTE | 2025-02-02 08:00 | DVHPN2 ---
Subjective Cardiac event reported Denies chest pain or shortness of breath Reviewed: Care Plan, H&P, Labs, Medications, Previous Orders, Radiology Changes from previous H/P or p: No Changes General: Per HPI Eyes: No Pain, No Vision change, No Conjunctivae inflammation, No Eyelid inflammation, No Other, No Redness ENT: No Ear pain, No Ear discharge, No Nose pain, No Nose discharge, No Nose congestion, No Mouth pain, No Mouth swelling, No Throat pain, No Throat swelling, No Other Cardiovascular: No Chest Pain, No Palpitations, No Orthopnea, No Paroxysmal Noc. Dyspnea, No Edema, No Lt Headedness, No Other Respiratory: Cough; No Dry, No Shortness of breath, No SOB with excertion, No Wheezing, No Hemoptysis, No Pleuritic Pain; Sputum; No Other Gastrointestinal: No Nausea, No Vomiting; Abdominal Pain; No Diarrhea, No Constipation, No Melena, No Hematochezia, No Other Genitourinary: No Dysuria, No Frequency, No Incontinence, No Hematuria, No Retention, No Other Musculoskeletal: No other, No neck pain, No shoulder pain, No arm pain, No back pain, No hand pain, No leg pain, No foot pain Skin: No Rash, No Lesions, No Jaundice, No Bruising, No Other Objective Vitals Vital Signs Date Time Temp Pulse Resp B/P (MAP) Pulse Ox O2 Delivery O2 Flow Rate FiO2 02/02/25 05:00 99.9 103 18 143/73 (96) 95 99.9 02/01/25 20:00 Room Air* 0 21 Intake/Output Intake and Output 02/02/25 07:00 Intake Total 1800 ml Output Total 600 ml Balance 1200 ml Intake Oral 650 ml IV Total 1150 ml Output Urine Total 600 ml # Voids 2 General Appearance: Alert, Oriented X3, Cooperative Cardiovascular: Regular rate, Normal S1, Normal S2 Medications Current Medications Medications Dose Ordered Sig/Shyam Route Start Time Stop Time Status Last Admin Dose Admin Vancomycin HCl 0 ml @ 0 mls/hr UD IV 01/31/25 17:00 Cefepime HCl 50 ml @ 12.5 mls/hr DAILY IV 02/01/25 10:00 02/01/25 09:40 12.5 MLS/HR Pantoprazole Sodium 40 mg DAILY IV 02/01/25 10:00 02/01/25 09:40 40 MG Heparin Sodium (Porcine) 5,000 units Q12HR SC 01/31/25 22:00 02/01/25 22:25 5,000 UNITS Sodium Chloride 1,000 ml @ 75 mls/hr [id number] IV 01/31/25 19:15 02/01/25 21:55 75 MLS/HR Zirconium Oxide 10 gm BID PO 01/31/25 22:00 02/01/25 22:06 10 GM Diagnostic Test (Pha) 1 strip ACHS 01/31/25 22:00 02/02/25 06:39 1 STRIP Insulin Human Regular HS SC 01/31/25 22:00 02/01/25 22:28 4 UNITS Insulin Human Regular AC SC 02/01/25 07:00 02/02/25 06:43 2 UNITS Dextrose 50 ml UD PRN IV 01/31/25 19:15 Aspirin 162 mg DAILY PO 02/01/25 10:00 02/01/25 09:40 162 MG Atorvastatin Calcium 10 mg HS PO 02/01/25 22:00 02/01/25 22:08 10 MG Laboratory Results Laboratory Tests 02/01/25 04:45 02/01/25 13:00 02/02/25 04:57 Urinalysis Test 01/31/25 18:33 Urine Color Light-yellow (Yellow) Urine Clarity Clear (Clear) Urine pH 5.5 (5.0-9.0) Urine Specific [place] 1.017 (1.001-1.035) Urine Protein 1+ (Negative) H Urine Ketones Negative (Negative) Urine Blood Trace /uL (Negative) H Urine Nitrite Negative (Negative) Urine Bilirubin Negative (Negative) Urine Urobilinogen Normal mg/dL (Negative) Urine Leukocyte Esterase Trace /uL (Negative) Urine RBC <1 /hpf (0 - 3) Urine Microscopic WBC 7 /HPF (0-3) H Urine Squamous Epithelial Cells None seen /hpf (<5) Urine Bacteria None seen /hpf (None Seen) Urine Hyaline Casts Few /lpf (0 - 2) Urine Glucose 3+ mg/dL (Normal) H Microbiology Microbiology Date/Time Source Procedure Growth Status 01/31/25 20:35 Nose MRSA Screen - Final Complete 01/31/25 14:55 Blood Blood Culture - Preliminary NO GROWTH AFTER 24 HOURS OF INCUBATION. Resulted Assessment/Plan Assessment/Plan NSTEMI, possible cardiorenal syndrome Rule out progressive CAD Rule out sepsis 2/2 Possible pneumonia Intractable abdominal pain CLAIRE on CKD 4 Hyperkalemia Hypertension Hyperlipidemia Diabetes type 2 with hyperglycemia Plan/Recommendation (Dr. Jose Figueroa): Echocardiogram reveals EF 65% ACS protocol - continue with heparin, aspirin, Plavix Lipid lowering agent IVF Given up trending troponin, the patient may benefit from a coronary angiogram with left heart catheterization.The procedure was discussed with the patient in full detail including risks and benefits. Risks include but are not limited to bleeding, contrast-induced nephropathy, stroke, and even . We will schedule for left heart catheterization once kidney function has improved. Plan discussed with: Patient My Orders Orders - PABLO NARANJO Procedure Category Date Status Time Electrocardigram EKG 02/01/25 Logged 08:17 Echo 2d Mode Cardiac US 02/01/25 Resulted DOP 08:17 Communication Order ORDERS 02/01/25 Transmitted 19:00 Comprehensive LAB 02/02/25 Transmitted Metabolic Panel 07:54 Complete Blood Count LAB 02/02/25 Transmitted 07:54 B-Type Natriuretic LAB 02/02/25 Transmitted Peptide 07:54 NS PHA 02/02/25 Transmitted 08:00 Date of Service: Feb 02, 2025 Billing Provider: WILLIAM FIGUEROA MD Common Visit Codes: CONSULT ONLY Consultation Codes: [id number] CONSULT <45MIN PABLO NARANJO Feb 02, 2025 08:00
[2025-02-02 08:12] LABS: Albumin 4.2 g/dL (3.2-4.8); Anion Gap 12 (5-15); BUN/Creatinine Ratio 18.1 (10.0-20.0); Calcium 9.3 mg/dL (8.7-10.4); Potassium 4.5 mmol/L (3.5-5.1); Sodium 143 mmol/L (136-145)
[2025-02-02 08:13] LABS: Alanine Aminotransferase 160 U/L (7-40); Alkaline Phosphatase 378 U/L (46-116); Aspartate Aminotransferase 126 U/L (13-40); Bilirubin, Total 0.5 mg/dL (0.2-1.0); Blood Urea Nitrogen 44 mg/dL (9-23); Carbon Dioxide 17 mmol/L (20-31); Chloride 114 mmol/L (98-107); Glucose 152 mg/dL (74-106)
[2025-02-02 08:19] LABS: Basophils # (auto) 0 10 ^3/uL (0-0.2); Basophils % (auto) 0.3 % (0.0-2.0); Eosinophils # (auto) 0.3 10 ^3/uL (0-0.8); Eosinophils % (auto) 2.9 % (0.0-7.0); Hematocrit 28.9 % (41.0-53.0); Hemoglobin 9.2 g/dL (13.5-17.5); Lymphocytes # (auto) 0.9 10 ^3/uL (0.4-5.4); Lymphocytes % (auto) 8.2 % (10.0-50.0); Mean Corpuscular Hemoglobin 30.4 pg (28.0-32.0); Mean Corpuscular Volume 94.9 fL (80.0-100.0); Monocytes # (auto) 0.8 10 ^3/uL (0-1.3); Monocytes % (auto) 7.1 % (0.0-12.0); Neutrophils # (auto) 9.1 10 ^3/uL (1.6-8.6); Neutrophils % (auto) 81.5 % (37.0-80.0); Platelet Count (auto) 197 10^3/uL (140-450); Red Blood Cells 3.04 10^6/uL (4.5-5.90); Red Cell Distribution Width 14.8 % (11.8-14.3); White Blood Cell 11.2 10^3/uL (4.4-10.8)
[2025-02-02] MEDS: SODIUM CHLORIDE 0.9% 1,000 ML IV SCH (10:02)
[2025-02-02 12:04] LABS: Urine Bacteria None Seen /hpf (None Seen)
[2025-02-02 12:17] LABS: Urine Blood 1+ /uL (Negative); Urine Clarity Clear (Clear); Urine Color Light-Yellow (Yellow); Urine Mucus FEW (None Seen); Urine Protein, UAD 1+ (Negative); Urine Specific Gravity 1.016 (1.001-1.035); Urine Squamous Epithelial Cell FEW /hpf (<5); Urine Urobilinogen Normal (Negative); Urine WBC 10 /HPF (0-3); Urine pH 5.5 (5.0-9.0)
[2025-02-02] MEDS: DOXYCYCLINE 100MG/100ML 100 ML IV SCH (12:29)
[2025-02-02] MEDS ORDERED: METOPROLOL SUCCINATE XL 50 MG TAB PO ONE (13:15)
[2025-02-02] MEDS: METOPROLOL SUCCINATE XL 50 MG TAB PO ONE (13:45)
[2025-02-02] MEDS: amLODIPine BESYLATE 5 MG TAB PO ONE (13:45)
[2025-02-02] MEDS: VANCOMYCIN 750MG KIT 100 ML IV ONE (14:37)
--- NOTE | 2025-02-02 14:41 | DVHINCON2 ---
Date of service: Feb 02, 2025 Referring Physician Elder Reason for Consultation CLIARE on CKD History of Present Illness 74 y/o male with PMH of CKD IV, DM type 2, HTN, BPH, gout, and hyperkalemia. Pt follows up, outpt with Dr Durbin. Last GFR 27. Most of hx was obtained from the son d/t language barrier. Reports had been experiencing decreased appetite, abd pain, fevers, and productive cough. Pt was admitted for PNA. Upon admission BUN 87, creat 4.24, GFR 16, K+ 6.1. Labs on 02/02 BUN 44, creat 2.43, GFR 27, K+ 4.5. HTN and DM well controlled. Denies NSAID use. Nephrology consult received for CLAIRE on CKD. Past Medical History CKD stage IV, DM type 2, HTN, BPH, gout, and hyperkalemia Allergies: Coded Allergies: NO KNOWN ALLERGIES (Unverified , 02/29/24) Home Meds Active Scripts Ciprofloxacin Hcl (Ciprofloxacin Hcl) 500 Mg Tab, 1 TAB PO BID for 3 Days, #6 TAB Prov:DOREEN JORDAN 05/26/24 Nitrofurantoin Monohydrate Mac (Macrobid) 100 Mg Cap, 100 MG PO BID, #20 CAP Prov:DANN HAMILTON MD 08/15/22 Cephalexin ( Keflex 500) 500 Mg Cap, 1 CAP PO BID for 5 Days, #10 CAP Prov:MUKESH FRY MD 06/26/22 Amlodipine Besylate (Amlodipine Besylate) 10 Mg Tab, 1 TAB PO DAILY for 30 Days, #30 TAB 5 Refills Prov:MUKESH FRY MD 06/26/22 Metoprolol Succinate (Metoprolol Succinate Er) 50 Mg Tab, 1 TAB PO DAILY for 30 Days, #30 TAB 5 Refills Prov:MUKESH FRY MD 06/25/22 Sodium Zirconium Cyclosilicate (Lokelma) 10 Gm Nasim, 10 GM PO DAILY for 20 Days, #2 PACK Prov:MUKESH FRY MD 06/25/22 Sodium Bicarbonate (Sodium Bicarbonate) 650 Mg Tab, 650 MG PO Q6HR for 30 Days, #120 TAB 3 Refills Prov:MUKESH FRY MD 06/25/22 Insulin Glargine (Lantus) 100 Unit/Ml Inj, 20 UNITS SC QAM for 30 Days, INJ Prov:MUKESH FRY MD 11/29/19 Reported Medications Netarsudil Dimesylate (Rhopressa) 0.02 % [place], 0.02 % OP, ML 02/01/25 Latanoprost (LATANOPROST) 0.005 % [place], 0.005 % OP DAILY, ML 02/01/25 Brimonidine Tartrate (Brimonidine Tartrate) 0.15 % [place], 1 DROP OP TID, DROP 02/01/25 Finasteride (Finasteride) 5 Mg Tab, 5 MG PO DAILY for 30 Days, MG 02/01/25 Ezetimibe (Zetia) 10 Mg Tab, 10 MG PO DAILY, TAB 02/01/25 Sodium Zirconium Cyclosilicate (Lokelma) 10 Gm Nasim, 10 GM PO, PACK 02/01/25 Lisinopril (Lisinopril) 10 Mg Tab, 10 MG PO DAILY for 30 Days, MG 02/01/25 Hydralazine Hcl (Hydralazine Hcl) 50 Mg Tab, 50 MG PO DAILY for 30 Days, MG 02/01/25 Tamsulosin Hcl (Tamsulosin Hcl) 0.4 Mg Cap, 0.4 MG PO QPM for 30 Days, MG 02/01/25 Memantine Hydrochloride (Memantine HCl) 10 Mg Tab, 10 MG PO DAILY, TAB 02/01/25 Clopidogrel Bisulfate (CLOPIDOGREL) 75 Mg Tab, 1 TAB PO DAILY 02/01/25 Aspirin (Aspirin Adult Low Dose) 81 Mg Tab, 1 TAB PO DAILY 12/27/22 Atorvastatin Calcium (ATORVASTATIN CALCIUM) 40 Mg Tab, 1 TAB PO DAILY 12/27/22 Allopurinol (Allopurinol) 100 Mg Tab, 100 MG PO DAILY, MG 11/21/19 Ferrous Sulfate (Ferrous Sulfate) 325 Mg Tab, 325 MG PO BIDWM, MG 11/21/19 Amitriptyline Hcl (Elavil) 25 Mg Tb, 25 MG PO HS 01/26/19 Current Medications Current Medications Medications (Trade) Dose Ordered Sig/Shyam Route PRN Reason Start Time Stop Time Status Last Admin Sodium Chloride 1,000 ml @ 75 mls/hr [id number] IV 02/02/25 08:00 02/02/25 10:02 Doxycycline Hyclate 100 ml @ 50 mls/hr Q12H IV 02/02/25 11:45 02/02/25 12:29 Amlodipine Besylate (Norvasc Tablet) 5 mg DAILY PO 02/03/25 10:00 Metoprolol Succinate (Toprol Xl) 50 mg DAILY PO 02/03/25 10:00 Family History: Patient reports no known family medical history. Review of Systems 10 systems reviewed and negative except as per HPI H&P Exam Vital Signs/I&O Vital Sign Date Time Temp Pulse Resp B/P (MAP) Pulse Ox O2 Delivery O2 Flow Rate FiO2 02/02/25 21:00 98.4 102 18 156/69 (98) 96 98.4 02/02/25 10:00 Room Air 0.0 02/02/25 10:00 21 Intake and Output 02/01/25 02/02/25 19:00 07:00 Intake Total 400 ml 1400 ml Output Total 600 ml Balance -200 ml 1400 ml Intake Oral 350 ml 300 ml IV Total 50 ml 1100 ml Output Urine Total 600 ml # Voids 1 1 Physical Exam Gen: Appears stated age, no acute distress HEENT: Pupils equal and reactive to light and accommodation Lungs: Bilateral air entry, no rales CVS: RRR, normal S1 and S2 Abd: normoactive bowel sounds, soft, nondistended Ext: No edema Neuro: Alert and oriented Labs/Diagnostic Data Labs/Diagnostic Data Laboratory Tests Test 02/02/25 21:29 02/02/25 16:44 02/02/25 12:03 02/02/25 11:50 Range/Units POC Glucose 185 H 153 H 160 H 70-106 mg/dl Urine Color Light-yellow Yellow Urine Clarity Clear Clear Urine pH 5.5 5.0-9.0 Urine Specific [place] 1.016 1.001-1.035 Urine Protein 1+ H Negative Urine Ketones Negative Negative Urine Blood 1+ H Negative /uL Urine Nitrite Negative Negative Urine Bilirubin Negative Negative Urine Urobilinogen Normal Negative mg/dL Urine Leukocyte Esterase 1+ Negative /uL Urine RBC <1 0 - 3 /hpf Urine Microscopic WBC 10 H 0-3 /HPF Urine Squamous Epithelial Cells Few <5 /hpf Urine Bacteria None seen None Seen /hpf Urine Mucus Few None Seen Urine Sodium 55 40-220 mmol/L Urine Glucose Trace Normal mg/dL Test 02/02/25 05:56 02/02/25 04:57 02/01/25 17:17 02/01/25 13:00 Range/Units POC Glucose 140 H 126 H 70-106 mg/dl White Blood Count 11.2 H 4.4-10.8 10^3/uL Red Blood Count 3.04 L 4.5-5.90 10^6/uL Hemoglobin 9.2 L 13.5-17.5 g/dL Hematocrit 28.9 L 41.0-53.0 % Mean Corpuscular Volume 94.9 80.0-100.0 fL Mean Corpuscular Hemoglobin 30.4 28.0-32.0 pg Mean Corpuscular Hemoglobin Concent 32.0 32.0-36.0 g/dL Red Cell Distribution Width 14.8 H 11.8-14.3 % Platelet Count 197 140-450 10^3/uL Mean Platelet Volume 8.3 6.9-10.8 fL Neutrophils (%) (Auto) 81.5 H 37.0-80.0 % Lymphocytes (%) (Auto) 8.2 L 10.0-50.0 % Monocytes (%) (Auto) 7.1 0.0-12.0 % Eosinophils (%) (Auto) 2.9 0.0-7.0 % Basophils (%) (Auto) 0.3 0.0-2.0 % Neutrophils # (Auto) 9.1 H 1.6-8.6 10 ^3/uL Lymphocytes # (Auto) 0.9 0.4-5.4 10 ^3/uL Monocytes # (Auto) 0.8 0-1.3 10 ^3/uL Eosinophils # (Auto) 0.3 0-0.8 10 ^3/uL Basophils # (Auto) 0 0-0.2 10 ^3/uL Nucleated Red Blood Cells 0.0 % Sodium Level 143 136-145 mmol/L Potassium Level 4.5 4.7 3.5-5.1 mmol/L Chloride Level 114 H 98-107 mmol/L Carbon Dioxide Level 17 L 20-31 mmol/L Anion Gap 12 5-15 Blood Urea Nitrogen 44 #H 9-23 mg/dL Creatinine 2.43 H 0.700-1.30 mg/dL Glomerular Filtration Rate Calc 27 >90 mL/min BUN/Creatinine Ratio 18.1 10.0-20.0 Serum Glucose 152 H 74-106 mg/dL Calcium Level 9.3 8.7-10.4 mg/dL Total Bilirubin 0.5 0.2-1.0 mg/dL Aspartate Amino Transferase (AST) 126 H 13-40 U/L Alanine Aminotransferase (ALT) 160 H 7-40 U/L Alkaline Phosphatase 378 H 46-116 U/L B-Type Natriuretic Peptide 114.31 0-100 pg/mL Total Protein 7.0 5.7-8.2 g/dL Albumin 4.2 3.2-4.8 g/dL Random Vancomycin Level 7.3 5-10 ug/mL Test 02/01/25 11:56 02/01/25 09:15 02/01/25 08:46 02/01/25 04:45 Range/Units POC Glucose 268 H 164 H 70-106 mg/dl Troponin I High Sensitivity 2308 *H 2119 *H </=54 ng/L White Blood Count 10.2 4.4-10.8 10^3/uL Red Blood Count 3.27 L 4.5-5.90 10^6/uL Hemoglobin 10.3 L 13.5-17.5 g/dL Hematocrit 30.7 #L 41.0-53.0 % Mean Corpuscular Volume 94.0 80.0-100.0 fL Mean Corpuscular Hemoglobin 31.4 28.0-32.0 pg Mean Corpuscular Hemoglobin Concent 33.4 32.0-36.0 g/dL Red Cell Distribution Width 15.1 H 11.8-14.3 % Platelet Count 202 140-450 10^3/uL Mean Platelet Volume 8.0 6.9-10.8 fL Neutrophils (%) (Auto) 85.7 H 37.0-80.0 % Lymphocytes (%) (Auto) 5.1 L 10.0-50.0 % Monocytes (%) (Auto) 7.1 0.0-12.0 % Eosinophils (%) (Auto) 1.9 0.0-7.0 % Basophils (%) (Auto) 0.2 0.0-2.0 % Neutrophils # (Auto) 8.7 H 1.6-8.6 10 ^3/uL Lymphocytes # (Auto) 0.5 0.4-5.4 10 ^3/uL Monocytes # (Auto) 0.7 0-1.3 10 ^3/uL Eosinophils # (Auto) 0.2 0-0.8 10 ^3/uL Basophils # (Auto) 0 0-0.2 10 ^3/uL Nucleated Red Blood Cells 0.0 % Sodium Level 141 136-145 mmol/L Potassium Level 6.0 *H 3.5-5.1 mmol/L Chloride Level 113 H 98-107 mmol/L Carbon Dioxide Level 16 L 20-31 mmol/L Anion Gap 12 5-15 Blood Urea Nitrogen 64 H 9-23 mg/dL Creatinine 3.17 H 0.700-1.30 mg/dL Glomerular Filtration Rate Calc 20 >90 mL/min BUN/Creatinine Ratio 20.2 H 10.0-20.0 Serum Glucose 180 #H 74-106 mg/dL Hemoglobin A1c 7.1 H <5.7 % A1C Calcium Level 9.7 8.7-10.4 mg/dL Magnesium Level 2.2 1.6-2.6 mg/dL Total Bilirubin 0.4 0.2-1.0 mg/dL Aspartate Amino Transferase (AST) 61 H 13-40 U/L Alanine Aminotransferase (ALT) 136 H 7-40 U/L Alkaline Phosphatase 339 H 46-116 U/L Total Protein 7.6 5.7-8.2 g/dL Albumin 4.5 3.2-4.8 g/dL Triglycerides Level 160 H < 150 mg/dL Cholesterol Level 104 < 200 mg/dL LDL Cholesterol 46 < 100 mg/dL HDL Cholesterol 24 L 40-59 mg/dL Thyroid Stimulating Hormone (TSH) 0.66 0.55-4.78 uIU/mL Random Vancomycin Level 16.3 H 5-10 ug/mL Test 02/01/25 00:13 01/31/25 23:43 01/31/25 20:15 01/31/25 19:44 Range/Units Troponin I High Sensitivity 1176 *H </=54 ng/L POC Glucose 268 H 70-106 mg/dl Prothrombin Time 10.9 9.3-11.8 sec Prothrombin Time INR 1.03 0.9-1.15 Activated Partial Thromboplast Time 21.7 L 24.5-34.5 SEC Sodium Level 138 136-145 mmol/L Potassium Level 5.5 H 3.5-5.1 mmol/L Chloride Level 110 H 98-107 mmol/L Carbon Dioxide Level 15 L 20-31 mmol/L Anion Gap 13 5-15 Blood Urea Nitrogen 72 #H 9-23 mg/dL Creatinine 3.80 H 0.700-1.30 mg/dL Glomerular Filtration Rate Calc 16 >90 mL/min BUN/Creatinine Ratio 18.9 10.0-20.0 Serum Glucose 301 H 74-106 mg/dL Calcium Level 9.7 8.7-10.4 mg/dL Influenza Type A Antigen Negative Negative Influenza Type B Antigen Negative Negative SARS-CoV-2 Antigen (Rapid) Negative NEGATIVE Test 01/31/25 18:33 01/31/25 16:07 01/31/25 14:50 Range/Units Urine Color Light-yellow Yellow Urine Clarity Clear Clear Urine pH 5.5 5.0-9.0 Urine Specific [place] 1.017 1.001-1.035 Urine Protein 1+ H Negative Urine Ketones Negative Negative Urine Blood Trace H Negative /uL Urine Nitrite Negative Negative Urine Bilirubin Negative Negative Urine Urobilinogen Normal Negative mg/dL Urine Leukocyte Esterase Trace Negative /uL Urine RBC <1 0 - 3 /hpf Urine Microscopic WBC 7 H 0-3 /HPF Urine Squamous Epithelial Cells None seen <5 /hpf Urine Bacteria None seen None Seen /hpf Urine Hyaline Casts Few 0 - 2 /lpf Urine Glucose 3+ H Normal mg/dL Troponin I High Sensitivity 12 12 </=54 ng/L White Blood Count 10.9 H 4.4-10.8 10^3/uL Red Blood Count 3.59 L 4.5-5.90 10^6/uL Hemoglobin 11.2 L 13.5-17.5 g/dL Hematocrit 34.9 L 41.0-53.0 % Mean Corpuscular Volume 97.4 80.0-100.0 fL Mean Corpuscular Hemoglobin 31.3 28.0-32.0 pg Mean Corpuscular Hemoglobin Concent 32.1 32.0-36.0 g/dL Red Cell Distribution Width 15.5 H 11.8-14.3 % Platelet Count 195 140-450 10^3/uL Mean Platelet Volume 8.1 6.9-10.8 fL Neutrophils (%) (Auto) 77.0 37.0-80.0 % Lymphocytes (%) (Auto) 11.1 10.0-50.0 % Monocytes (%) (Auto) 8.9 0.0-12.0 % Eosinophils (%) (Auto) 2.9 0.0-7.0 % Basophils (%) (Auto) 0.1 0.0-2.0 % Neutrophils # (Auto) 8.4 1.6-8.6 10 ^3/uL Lymphocytes # (Auto) 1.2 0.4-5.4 10 ^3/uL Monocytes # (Auto) 1.0 0-1.3 10 ^3/uL Eosinophils # (Auto) 0.3 0-0.8 10 ^3/uL Basophils # (Auto) 0 0-0.2 10 ^3/uL Nucleated Red Blood Cells 0.0 % Sodium Level 137 136-145 mmol/L Potassium Level 6.1 *H 3.5-5.1 mmol/L Chloride Level 111 H 98-107 mmol/L Carbon Dioxide Level 14 L 20-31 mmol/L Anion Gap 12 5-15 Blood Urea Nitrogen 87 *H 9-23 mg/dL Creatinine 4.24 H 0.700-1.30 mg/dL Glomerular Filtration Rate Calc 14 >90 mL/min BUN/Creatinine Ratio 20.5 H 10.0-20.0 Serum Glucose 216 H 74-106 mg/dL Lactic Acid Level 1.1 0.4-2.0 mmol/L Calcium Level 9.1 8.7-10.4 mg/dL Total Bilirubin 0.4 0.2-1.0 mg/dL Aspartate Amino Transferase (AST) 140 H 13-40 U/L Alanine Aminotransferase (ALT) 203 H 7-40 U/L Alkaline Phosphatase 422 H 46-116 U/L B-Type Natriuretic Peptide 20.58 0-100 pg/mL Total Protein 7.4 5.7-8.2 g/dL Albumin 4.7 3.2-4.8 g/dL Lipase 39 12-53 U/L Microbiology Date/Time Source Procedure Growth Status 01/31/25 20:35 Nose MRSA Screen - Final Complete Plan/Recommendation IMP CLAIRE on CKD stage IV hemodynamically mediated- downtrending serum creat 2.43. GFR 27 Hyperkalemia- on Lokelma bid HTN DM type 2-Well controlled last hgbA1c 7.1 PNA- on IV abx NSTEMI- cardiology following REC Agree to continue IVF Continue Lokelma bid Renal U/S BMP, CBC, phos, TSH, uric acid, urine studies Strict I&O's Avoidance of nephrotoxins Pt is at higher risk for more significant contrast induced nephropathy. Severity of risk for JONEL to correlate to volume of iodinated contrast that may be required for diagnostic or therapeutic purposes. We will continue to follow Case was discussed with Dr. Romie Durbin Plan discussed with: Patient, Son VINAY MAR [facility] Feb 02, 2025 14:41
--- NOTE | 2025-02-02 15:31 | DVHPNRES ---
Progress Note Date Seen: Feb 02, 2025 Resident Creating Document: DAVID WANG RESIDENT Medical Necessity Reason Pt with a Central, PICC or Fol: No Subjective Review of Systems The patient was seen and examined at the bedside. He is alert, oriented x3 and on room air. Mentioned feeling better and no active complaint at this time. Objective vital signs Vital Sign Date Time Temp Pulse Resp B/P (MAP) Pulse Ox O2 Delivery O2 Flow Rate FiO2 02/02/25 13:45 100 130/68 02/02/25 13:00 98.5 18 96 98.5 02/02/25 10:00 Room Air 0.0 02/02/25 10:00 21 Total Intake and Output 02/01/25 02/01/25 02/02/25 15:00 23:00 07:00 Intake Total 50 ml 1450 ml 300 ml Output Total 600 ml Balance 50 ml 850 ml 300 ml medications Current Medications Medications Dose Ordered Sig/Shyam Route Start Time Stop Time Status Last Admin Dose Admin Vancomycin HCl 0 ml @ 0 mls/hr UD IV 01/31/25 17:00 Cefepime HCl 50 ml @ 12.5 mls/hr DAILY IV 02/01/25 10:00 02/02/25 10:02 12.5 MLS/HR Pantoprazole Sodium 40 mg DAILY IV 02/01/25 10:00 02/02/25 10:03 40 MG Heparin Sodium (Porcine) 5,000 units Q12HR SC 01/31/25 22:00 02/02/25 10:04 5,000 UNITS Zirconium Oxide 10 gm BID PO 01/31/25 22:00 02/02/25 10:04 10 GM Diagnostic Test (Pha) 1 strip ACHS 01/31/25 22:00 02/02/25 11:30 1 STRIP Insulin Human Regular HS SC 01/31/25 22:00 02/01/25 22:28 4 UNITS Insulin Human Regular AC SC 02/01/25 07:00 02/02/25 12:30 2 UNITS Dextrose 50 ml UD PRN IV 01/31/25 19:15 Aspirin 162 mg DAILY PO 02/01/25 10:00 02/02/25 10:03 162 MG Atorvastatin Calcium 10 mg HS PO 02/01/25 22:00 02/01/25 22:08 10 MG Sodium Chloride 1,000 ml @ 75 mls/hr [id number] IV 02/02/25 08:00 02/02/25 10:02 75 MLS/HR Doxycycline Hyclate 100 ml @ 50 mls/hr Q12H IV 02/02/25 11:45 02/02/25 12:29 50 MLS/HR Amlodipine Besylate 5 mg DAILY PO 02/03/25 10:00 Metoprolol Succinate 50 mg DAILY PO 02/03/25 10:00 Examination Physical examination: General Appearance: Alert, Oriented X3, Cooperative, No acute distress HEENT: Atraumatic, PERRLA, EOMI, Mucous membrane moist/pink Respiratory: Vesicular breath sounds with mild crackles bilaterally Cardiovascular: Regular rate, Normal S1, Normal S2, No murmurs, no chest wall tenderness Abdominal: Normal bowel sounds, Soft, mild tenderness in the epigastric region, No hepatospenomegaly, No masses Extremities: No clubbing, No cyanosis, No edema, Normal pulses, No tenderness/swelling Skin: No rashes, No breakdown, No significant lesion Neuro: Normal gait, Normal speech, Strength at 5/5 X4 ext, Normal tone, Sensation intact, grossly intact cranial nerves Psych/Mental Status: Mental status NL, Mood NL laboratory and microbiology Laboratory Tests 02/02/25 04:57 Test 02/02/25 04:57 Range/Units Serum Glucose 152 H 74-106 mg/dL Microbiology Date/Time Source Procedure Growth Status 01/31/25 20:35 Nose MRSA Screen - Final Complete 01/31/25 14:55 Blood Blood Culture - Preliminary NO GROWTH AFTER 48 HOURS OF INCUBATION. Resulted Labs and/or images reviewed: Labs reviewed by me, Image(s) reviewed by me Problem List/Assessment/Plan Problem List/Assessment/Plan Assessment and plan: # Possible Gram-positive vs Gram-negative pneumonia- Need cultures # possible cavitary pneumonia, rule out lung malignancy # Sepsis due to above # Possible NSTEMI type 2 secondary to above - CT abdomen pelvis demonstrated small right-sided pleural effusion with bibasilar opacity and 5.9 x 2.7 x 2.8 cm opacity over the left costophrenic angle with cavitation which may represent cavitating pneumonia versus mass. - IV bolus fluid given - CT chest demonstrated 2 cm consolidation left costophrenic angle - COVID, flu and MRSA are negative - IV cefepime g q.24 hours and IV doxycycline 100 mg b.i.d. - Echo demonstrated EF 65% and moderate degree LVH and LV diastolic dysfunction - Cardiology on board and demonstrated possible ischemia workup once kidney function has improved # Intractable abdominal pain likely due to gastritis # Ruled out acute pancreatitis # Transaminitis without hyperbilirubinemia, rule out Liver pathology - CT abdomen demonstrated mild gastric wall thickening, correlate for gastritis - Lipase 39 - Ultrasound of the abdomen and coagulation studies are normal - Pending hepatitis panel - IV Protonix 40 mg daily # CLAIRE on CKD likely hemodynamically mediated /VMN # Hyperkalemia secondary to CKD # possible complicated cystitis # BPH - IV normal saline at 75 mL/hour - Lokelma 10 mg p.o. b.i.d. - UA demonstrated UTI - Pending urine bacterial culture - IV cefepime 1 g daily # Type 2 diabetes mellitus - Moderate sliding scale of insulin # DVT prophylaxis - Heparin 5000 units q.12 hours Goal of care could not be discussed with the patient because of the language barrier Plan discussed with Dr. Abbasi Plan discussed with: Patient, Other My Orders My Orders Orders - DAVID WANG Procedure Category Date Status Time *Dr. Durbin Group CONS 02/02/25 Transmitted -[place] 11:33 Doxycycline PHA 02/02/25 In Process 100mg/100ml 11:45 Amlodipine Tablet PHA 02/03/25 In Process (Norvasc Tablet) 10:00 Metoprolol Xl PHA 02/03/25 In Process Succinate (Toprol Xl) 10:00 Date of Service: Feb 02, 2025 Billing Provider: ROSEMARIE ABBASI MD Common Visit Codes: [id number] INP/OBS CARE(HIGH) DAVID WANG RESIDENT Feb 02, 2025 15:31 ROSEMARIE ABBASI MD Feb 03, 2025 11:32
--- NOTE | 2025-02-02 23:04 | DVHPN2 ---
Consult Progress Note Subjective Other Systems: Patient was seen and evaluated in follow up. Denies chest pain or shortness of breath. HGB 9.2, HCT 28.9, BUN 44, TUBE MILL OPERATOR 2.43, AST 126, ALT 160. Telemetry reviewed. Objective vital signs Vital Sign Date Time Temp Pulse Resp B/P (MAP) Pulse Ox O2 Delivery O2 Flow Rate FiO2 02/02/25 13:45 100 130/68 02/02/25 13:00 98.5 18 96 98.5 02/02/25 10:00 Room Air 0.0 02/02/25 10:00 21 Total Intake and Output 02/01/25 02/01/25 02/02/25 15:00 23:00 07:00 Intake Total 50 ml 1450 ml 300 ml Output Total 600 ml Balance 50 ml 850 ml 300 ml medications Current Medications Medications Dose Ordered Sig/Shyam Route Start Time Stop Time Status Last Admin Dose Admin Vancomycin HCl 0 ml @ 0 mls/hr UD IV 01/31/25 17:00 Cefepime HCl 50 ml @ 12.5 mls/hr DAILY IV 02/01/25 10:00 02/02/25 10:02 12.5 MLS/HR Pantoprazole Sodium 40 mg DAILY IV 02/01/25 10:00 02/02/25 10:03 40 MG Heparin Sodium (Porcine) 5,000 units Q12HR SC 01/31/25 22:00 02/02/25 10:04 5,000 UNITS Zirconium Oxide 10 gm BID PO 01/31/25 22:00 02/02/25 10:04 10 GM Diagnostic Test (Pha) 1 strip ACHS 01/31/25 22:00 02/02/25 11:30 1 STRIP Insulin Human Regular HS SC 01/31/25 22:00 02/01/25 22:28 4 UNITS Insulin Human Regular AC SC 02/01/25 07:00 02/02/25 12:30 2 UNITS Dextrose 50 ml UD PRN IV 01/31/25 19:15 Aspirin 162 mg DAILY PO 02/01/25 10:00 02/02/25 10:03 162 MG Atorvastatin Calcium 10 mg HS PO 02/01/25 22:00 02/01/25 22:08 10 MG Sodium Chloride 1,000 ml @ 75 mls/hr [id number] IV 02/02/25 08:00 02/02/25 10:02 75 MLS/HR Doxycycline Hyclate 100 ml @ 50 mls/hr Q12H IV 02/02/25 11:45 02/02/25 12:29 50 MLS/HR Amlodipine Besylate 5 mg DAILY PO 02/03/25 10:00 Metoprolol Succinate 50 mg DAILY PO 02/03/25 10:00 Examination: GENERAL:Normal, HEENT:Normal, NECK:Normal, LUNGS:Normal, CVS:Normal, ABDOMEN:Normal laboratory and microbiology Laboratory Tests 02/02/25 04:57 Test 02/02/25 04:57 Range/Units Serum Glucose 152 H 74-106 mg/dL Problem List/Assessment/Plan Problem List/Assessment/Plan Assessment NSTEMI, possible cardiorenal syndrome. Rule out progressive CAD. Rule out sepsis 2/2 Possible pneumonia. Intractable abdominal pain. CLAIRE on CKD 4. Hyperkalemia. Hypertension. Hyperlipidemia. Diabetes type 2 with hyperglycemia. Plan/Recommendation Continued all current supportive medical care. Patient has been seen by Elizabeth Powell NP on my behalf, her and I discussed the plan with the patient. Echocardiogram reveals EF 65% ACS protocol - continue with heparin, aspirin, Plavix Lipid lowering agent IVF Given up trending troponin, the patient may benefit from a coronary angiogram with left heart catheterization. The procedure was discussed with the patient in full detail including risks and benefits. Risks include but are not limited to bleeding, contrast-induced nephropathy, stroke, and even . We will schedule for left heart catheterization once kidney function has improved.. Additional plan as per the hospital course. Plan discussed with: Patient Date of Service: Feb 02, 2025 Billing Provider: WILLIAM FIGUEROA MD Cardiology Common Codes: [id number] INP/OBS CARE(Mod) Cardiology Consultation Codes: [id number] CONSULT <45MIN WILLIAM FIGUEROA MD Feb 02, 2025 16:18
[2025-02-03] VITALS (12 sets, daily range): BP systolic 109–172; BP diastolic 55–71; PULSE 86–110; RESP 17–21; TEMP 98.1–100.9; O2SAT 93–97
[2025-02-03] MEDS ORDERED: ALBUTEROL SULF 2.5 MG/0.5ML(0.5%) NEB SOLN NEB PRN (01:30)
[2025-02-03] MEDS: ACETAMINOPHEN 325 MG TAB PO PRN (02:09)
[2025-02-03 07:21] LABS: Basophils # (auto) 0 10 ^3/uL (0-0.2); Basophils % (auto) 0.3 % (0.0-2.0); Eosinophils # (auto) 0.2 10 ^3/uL (0-0.8); Eosinophils % (auto) 2.4 % (0.0-7.0); Hematocrit 27.9 % (41.0-53.0); Hemoglobin 9.5 g/dL (13.5-17.5); Lymphocytes # (auto) 0.6 10 ^3/uL (0.4-5.4); Lymphocytes % (auto) 5.7 % (10.0-50.0); Mean Corpuscular Hemoglobin 31.6 pg (28.0-32.0); Mean Corpuscular Hgb Conc. 33.9 g/dL (32.0-36.0); Mean Corpuscular Volume 93.3 fL (80.0-100.0); Monocytes # (auto) 0.8 10 ^3/uL (0-1.3); Monocytes % (auto) 7.6 % (0.0-12.0); Neutrophils # (auto) 8.5 10 ^3/uL (1.6-8.6); Nucleated Red Blood Cells % 0.1 %; Platelet Count (auto) 187 10^3/uL (140-450); Red Cell Distribution Width 14.5 % (11.8-14.3); White Blood Cell 10.1 10^3/uL (4.4-10.8)
[2025-02-03 07:31] LABS: Potassium 4.2 mmol/L (3.5-5.1); Sodium 142 mmol/L (136-145)
[2025-02-03 07:32] LABS: Anion Gap 13 (5-15)
[2025-02-03 07:33] LABS: Calcium 9.3 mg/dL (8.7-10.4)
[2025-02-03 07:37] LABS: BUN/Creatinine Ratio 16.6 (10.0-20.0); Uric Acid 7.1 mg/dL (3.7-9.2)
[2025-02-03 07:40] LABS: Phosphorus 3.6 mg/dL (2.4-5.1)
[2025-02-03 07:46] LABS: Blood Urea Nitrogen 35 mg/dL (9-23); Carbon Dioxide 17 mmol/L (20-31); Chloride 112 mmol/L (98-107); Glucose 131 mg/dL (74-106)
--- NOTE | 2025-02-03 07:52 | ECG ---
[facility] Test Date: 2025-02-01 Test Time: 01:54:47 Pat Name: ILYA COX Department: Respiratoy Room: 0245T Gender: M Order Checker: ANITA : 1950 Requested By: AIDA ESPINOZA Order Number: [id number] Reading MD: Joe Knox Measurements Intervals [place] Rate: 122 P: 75 MI: 181 QRS: 56 QRSD: 72 T: 42 QT: 276 QTc: 393 Interpretive Statements Sinus tachycardia Electronically Signed On 02-05-2025 12:13:18 PDT by Joe Knox Please click the below link to view image of tracing.
--- NOTE | 2025-02-03 08:12 | ECG ---
[facility] Test Date: 2025-02-01 Test Time: 10:53:21 Pat Name: ILYA COX Department: Respiratoy Room: 0245T Gender: M Machine Gunner: AMY : 1950 Requested By: PABLO NARANJO Order Number: [id number] Reading MD: Joe Knox Measurements Intervals [place] Rate: 126 P: 70 MN: 164 QRS: 47 QRSD: 69 T: 25 QT: 298 QTc: 432 Interpretive Statements Sinus tachycardia Electronically Signed On 02-05-2025 12:15:03 PDT by Joe Knox Please click the below link to view image of tracing.
[2025-02-03] MEDS: METOPROLOL SUCCINATE XL 50 MG TAB PO SCH (09:52)
[2025-02-03] MEDS: amLODIPine BESYLATE 5 MG TAB PO SCH (10:00)
[2025-02-03 10:54] LABS: Hepatitis A Total Antibody Positive (Negative); Hepatitis B Surface Antibody Negative (Negative); Hepatitis B Surface Antigen Negative (Negative); Hepatitis C Antibody Negative (Negative)
[2025-02-03 10:59] LABS: Hepatitis B Core Total AB Positive (Negative)
--- NOTE | 2025-02-03 11:01 | DVHPN2 ---
Progress Note Date Seen: Feb 03, 2025 Medical Necessity Reason Pt with a Central, PICC or Fol: No Subjective Patient reports: Other Objective vital signs Vital Sign Date Time Temp Pulse Resp B/P (MAP) Pulse Ox O2 Delivery O2 Flow Rate FiO2 02/03/25 09:52 90 146/66 02/03/25 08:00 20 95 Room Air* 0 21 02/03/25 05:11 99.2 99.2 Total Intake and Output 02/02/25 02/02/25 02/03/25 15:00 23:00 07:00 Intake Total 590 ml 1020 ml 400 ml Output Total 150 ml Balance 590 ml 1020 ml 250 ml medications Current Medications Medications Dose Ordered Sig/Shyam Route Start Time Stop Time Status Last Admin Dose Admin Vancomycin HCl 0 ml @ 0 mls/hr UD IV 01/31/25 17:00 Cefepime HCl 50 ml @ 12.5 mls/hr DAILY IV 02/01/25 10:00 02/03/25 09:51 12.5 MLS/HR Pantoprazole Sodium 40 mg DAILY IV 02/01/25 10:00 02/03/25 10:07 40 MG Heparin Sodium (Porcine) 5,000 units Q12HR SC 01/31/25 22:00 02/03/25 09:56 5,000 UNITS Zirconium Oxide 10 gm BID PO 01/31/25 22:00 02/03/25 09:51 10 GM Diagnostic Test (Pha) 1 strip ACHS 01/31/25 22:00 02/03/25 06:28 1 STRIP Insulin Human Regular HS SC 01/31/25 22:00 02/02/25 22:17 3 UNITS Insulin Human Regular AC SC 02/01/25 07:00 02/02/25 16:59 2 UNITS Dextrose 50 ml UD PRN IV 01/31/25 19:15 Aspirin 162 mg DAILY PO 02/01/25 10:00 02/03/25 09:52 162 MG Atorvastatin Calcium 10 mg HS PO 02/01/25 22:00 02/02/25 22:16 10 MG Doxycycline Hyclate 100 ml @ 50 mls/hr Q12H IV 02/02/25 11:45 02/03/25 00:17 50 MLS/HR Amlodipine Besylate 5 mg DAILY PO 02/03/25 10:00 Metoprolol Succinate 50 mg DAILY PO 02/03/25 10:00 02/03/25 09:52 50 MG Acetaminophen 650 mg Q8HPRN PRN PO 02/03/25 01:30 02/03/25 02:09 650 MG Albuterol 2.5 mg Q4HPRN PRN NEB 02/03/25 01:30 Sodium Chloride 1,000 ml @ 60 mls/hr [id number] IV 02/03/25 11:00 UNV Examination: GENERAL:Normal, CVS:Normal laboratory and microbiology Laboratory Tests 02/03/25 06:05 Test 02/03/25 06:05 Range/Units Serum Glucose 131 H 74-106 mg/dL Microbiology Date/Time Source Procedure Growth Status 01/31/25 20:35 Nose MRSA Screen - Final Complete 01/31/25 14:55 Blood Blood Culture - Preliminary NO GROWTH AFTER 48 HOURS OF INCUBATION. Resulted Problem List/Assessment/Plan Problem List/Assessment/Plan CLAIRE Ckd IV sees Dr. Durbin in renal clinic Hyperkalemia- on Lokelma bid HTN DM type 2-Well controlled last hgbA1c 7.1 PNA- on IV abx NSTEMI- cardiology following slow improvement in renal function ACS w/u ongoing patient is high risk for contrast induced nephropathy. Explained this to patient , cardiology to determine if heart cath warranted Continue IVF for next several days and if patient does recieve contrast IVF must remain pre post and 24hrs after exposure w/ lasix to increase excretion will continue to monitor electrolytes Plan discussed with: Patient My Orders My Orders Orders - DOMINIC LOMAS MD Procedure Category Date Status Time Sodium Chloride 0.9% PHA 02/03/25 Logged 11:00 Dietary Evaluation Review Comments: 1. Continue Cardiac diet order as tolerated 2. Encourage continued good oral intakes >75% of meals 3. Appreciate daily wt's to trend while inpatient Expected Outcomes/Goals: Maintain weight, adequate nutritiional intake. DOMINIC LOMAS MD Feb 03, 2025 11:01
[2025-02-03 11:49] LABS: Protein, Urine 116.5 mg/dL (1-14)
[2025-02-03 11:52] LABS: Creatinine, Urine 90.27 mg/dL (30.0-125.0)
[2025-02-03] MEDS: SODIUM CHLORIDE 0.9% 1,000 ML IV SCH (12:27)
[2025-02-03] MEDS: VANCOMYCIN 1GM/200ML PM 200 ML IV ONE (15:22)
[2025-02-03] MEDS: ERGOCALCIFEROL 50,000 UNIT(1.25MG) CAP PO SCH (15:22)
--- NOTE | 2025-02-03 15:40 | DVHPNRES ---
Progress Note Date Seen: Feb 03, 2025 Resident Creating Document: DAVID WANG RESIDENT Medical Necessity Reason Pt with a Central, PICC or Fol: No Subjective Review of Systems The patient was seen and examined at the bedside. He is alert, oriented x3 and on room air. Mentioned feeling better and no active complaint at this time. Objective vital signs Vital Sign Date Time Temp Pulse Resp B/P (MAP) Pulse Ox O2 Delivery O2 Flow Rate FiO2 02/03/25 13:00 99.7 110 21 172/57 (95) 97 99.7 02/03/25 10:00 Room Air* 0 21 Total Intake and Output 02/02/25 02/02/25 02/03/25 15:00 23:00 07:00 Intake Total 590 ml 1020 ml 400 ml Output Total 150 ml Balance 590 ml 1020 ml 250 ml medications Current Medications Medications Dose Ordered Sig/Shyam Route Start Time Stop Time Status Last Admin Dose Admin Vancomycin HCl 0 ml @ 0 mls/hr UD IV 01/31/25 17:00 Cefepime HCl 50 ml @ 12.5 mls/hr DAILY IV 02/01/25 10:00 02/03/25 09:51 12.5 MLS/HR Pantoprazole Sodium 40 mg DAILY IV 02/01/25 10:00 02/03/25 10:07 40 MG Heparin Sodium (Porcine) 5,000 units Q12HR SC 01/31/25 22:00 02/03/25 09:56 5,000 UNITS Diagnostic Test (Pha) 1 strip ACHS 01/31/25 22:00 02/03/25 12:08 1 STRIP Insulin Human Regular HS SC 01/31/25 22:00 02/02/25 22:17 3 UNITS Insulin Human Regular AC SC 02/01/25 07:00 02/03/25 12:38 6 UNITS Dextrose 50 ml UD PRN IV 01/31/25 19:15 Aspirin 162 mg DAILY PO 02/01/25 10:00 02/03/25 09:52 162 MG Atorvastatin Calcium 10 mg HS PO 02/01/25 22:00 02/02/25 22:16 10 MG Amlodipine Besylate 5 mg DAILY PO 02/03/25 10:00 Metoprolol Succinate 50 mg DAILY PO 02/03/25 10:00 02/03/25 09:52 50 MG Acetaminophen 650 mg Q8HPRN PRN PO 02/03/25 01:30 02/03/25 02:09 650 MG Albuterol 2.5 mg Q4HPRN PRN NEB 02/03/25 01:30 Sodium Chloride 1,000 ml @ 60 mls/hr [id number] IV 02/03/25 11:00 02/03/25 12:27 60 MLS/HR Ergocalciferol 50,000 unit Q7D PO 02/03/25 14:00 02/03/25 15:22 50,000 UNIT Insulin Glargine 10 units HS SC 02/03/25 22:00 Linezolid 300 ml @ 150 mls/hr Q12HR IV 02/03/25 22:00 Future Hold Examination Physical examination: General Appearance: Alert, Oriented X3, Cooperative, No acute distress HEENT: Atraumatic, PERRLA, EOMI, Mucous membrane moist/pink Respiratory: Vesicular breath sounds with mild crackles bilaterally Cardiovascular: Regular rate, Normal S1, Normal S2, No murmurs, no chest wall tenderness Abdominal: Normal bowel sounds, Soft, mild tenderness in the epigastric region, No hepatospenomegaly, No masses Extremities: No clubbing, No cyanosis, No edema, Normal pulses, No tenderness/swelling Skin: No rashes, No breakdown, No significant lesion Neuro: Normal gait, Normal speech, Strength at 5/5 X4 ext, Normal tone, Sensation intact, grossly intact cranial nerves Psych/Mental Status: Mental status NL, Mood NL laboratory and microbiology Laboratory Tests 02/03/25 06:05 Test 02/03/25 06:05 Range/Units Serum Glucose 131 H 74-106 mg/dL Microbiology Date/Time Source Procedure Growth Status 01/31/25 20:35 Nose MRSA Screen - Final Complete 01/31/25 14:55 Blood Blood Culture - Preliminary NO GROWTH AFTER 72 HOURS OF INCUBATION. Resulted Labs and/or images reviewed: Labs reviewed by me, Image(s) reviewed by me Problem List/Assessment/Plan Problem List/Assessment/Plan Assessment and plan: # Possible Gram-positive vs Gram-negative pneumonia- Need cultures # possible cavitary pneumonia, rule out lung malignancy # Sepsis due to above # Possible NSTEMI type 2 secondary to above - CT abdomen pelvis demonstrated small right-sided pleural effusion with bibasilar opacity and 5.9 x 2.7 x 2.8 cm opacity over the left costophrenic angle with cavitation which may represent cavitating pneumonia versus mass. - IV bolus fluid given - CT chest demonstrated 2 cm consolidation left costophrenic angle - Blood culture revealed Gram-positive cocci in cluster - COVID, flu and MRSA are negative - IV cefepime 1 g q.24 hours and IV Linezolid 600 mg bid - Echo demonstrated EF 65% and moderate degree LVH and LV diastolic dysfunction - Cardiology on board and demonstrated possible ischemia workup once kidney function has improved - Ordered another blood culture today # Intractable abdominal pain likely due to gastritis # Ruled out acute pancreatitis # Transaminitis without hyperbilirubinemia, rule out Liver pathology - CT abdomen demonstrated mild gastric wall thickening, correlate for gastritis - Lipase 39 - Ultrasound of the abdomen and coagulation studies are normal - hepatitis panel showed hepatitis-A antibody and hepatitis-B core antibody positive - IV Protonix 40 mg daily # CLAIRE on CKD likely hemodynamically mediated /VMN # Hyperkalemia secondary to CKD resolved # possible complicated cystitis # BPH - IV normal saline at 75 mL/hour - UA demonstrated UTI - Pending urine bacterial culture - IV cefepime 1 g daily # Vitamin D deficiency - Vitamin D 26230 units Q 7D # Type 2 diabetes mellitus - Moderate sliding scale of insulin # DVT prophylaxis - Heparin 5000 units q.12 hours Goal of care could not be discussed with the patient because of the language barrier Plan discussed with Dr. Garza Plan discussed with: Patient, Other My Orders My Orders Orders - DAVID WANG RESIDENT Procedure Category Date Status Time Blood Culture JOSEPHINE 02/03/25 In Process 07:22 Ergocalciferol PHA 02/03/25 In Process (Vitamin D 50,000 14:00 Insulin Lantus PHA 02/03/25 In Process (Glargine) (Lantus) 22:00 Linezolid 600mg/300ml PHA 02/03/25 In Process (Zyvox) 22:00 Dietary Evaluation Review Comments: 1. Continue Cardiac diet order as tolerated 2. Encourage continued good oral intakes >75% of meals 3. Appreciate daily wt's to trend while inpatient Expected Outcomes/Goals: Maintain weight, adequate nutritiional intake. Date of Service: Feb 03, 2025 Billing Provider: KALLI GARZA MD Common Visit Codes: [id number] INP/OBS CARE(HIGH) DAVID WANG RESIDENT Feb 03, 2025 15:40 KALLI GARZA MD Feb 04, 2025 20:53
--- NOTE | 2025-02-03 21:29 | DVHPN2 ---
Progress Note - Dictate Date Seen: Feb 03, 2025 Medical Necessity Reason Pt with a Central, PICC or Fol: No Subjective Patient was seen and evaluated in follow up. Patient reports feeling well today. HGB 9.5, HCT 27.9, BUN 35, [employer] 2.11. Will schedule for left heart catheterization once kidney function has improved. Telemetry reviewed. vital signs Vital Sign Date Time Temp Pulse Resp B/P (MAP) Pulse Ox O2 Delivery O2 Flow Rate FiO2 02/03/25 20:54 95 Room Air* 0 21 02/03/25 17:54 161/65 02/03/25 17:00 99.8 92 17 99.8 Total Intake and Output 02/02/25 02/02/25 02/03/25 15:00 23:00 07:00 Intake Total 590 ml 1020 ml 400 ml Output Total 150 ml Balance 590 ml 1020 ml 250 ml medications Current Medications Medications Dose Ordered Sig/Shyam Route Start Time Stop Time Status Last Admin Dose Admin Cefepime HCl 50 ml @ 12.5 mls/hr DAILY IV 02/01/25 10:00 02/03/25 09:51 12.5 MLS/HR Pantoprazole Sodium 40 mg DAILY IV 02/01/25 10:00 02/03/25 10:07 40 MG Heparin Sodium (Porcine) 5,000 units Q12HR SC 01/31/25 22:00 02/03/25 09:56 5,000 UNITS Diagnostic Test (Pha) 1 strip ACHS 01/31/25 22:00 02/03/25 16:55 1 STRIP Insulin Human Regular HS SC 01/31/25 22:00 02/02/25 22:17 3 UNITS Insulin Human Regular AC SC 02/01/25 07:00 02/03/25 16:53 2 UNITS Dextrose 50 ml UD PRN IV 01/31/25 19:15 Aspirin 162 mg DAILY PO 02/01/25 10:00 02/03/25 09:52 162 MG Atorvastatin Calcium 10 mg HS PO 02/01/25 22:00 02/02/25 22:16 10 MG Amlodipine Besylate 5 mg DAILY PO 02/03/25 10:00 02/03/25 17:54 5 MG Metoprolol Succinate 50 mg DAILY PO 02/03/25 10:00 02/03/25 09:52 50 MG Acetaminophen 650 mg Q8HPRN PRN PO 02/03/25 01:30 02/03/25 02:09 650 MG Albuterol 2.5 mg Q4HPRN PRN NEB 02/03/25 01:30 Sodium Chloride 1,000 ml @ 60 mls/hr [id number] IV 02/03/25 11:00 02/03/25 12:27 60 MLS/HR Ergocalciferol 50,000 unit Q7D PO 02/03/25 14:00 02/03/25 15:22 50,000 UNIT Insulin Glargine 10 units HS SC 02/03/25 22:00 Linezolid 300 ml @ 150 mls/hr Q12HR IV 02/03/25 22:00 Future Hold objective GENERAL: Alert and oriented x 3. No acute distress. EYES: PERRL, EOMI. Anicteric. HENT: Moist mucous membranes. LUNGS: Clear to auscultation bilaterally. CARDIOVASCULAR: Regular rate and rhythm. ABDOMEN: Soft, non-tender and non-distended. EXTREMITIES: No edema. NEUROLOGIC: No focal neurological deficits. SKIN: Warm, dry. laboratory and microbiology Laboratory Tests 02/03/25 06:05 Test 02/03/25 06:05 Range/Units Serum Glucose 131 H 74-106 mg/dL Problem List NSTEMI, possible cardiorenal syndrome. Rule out progressive CAD. Rule out sepsis 2/2 Possible pneumonia. Intractable abdominal pain. CLAIRE on CKD 4. Hyperkalemia. Hypertension. Hyperlipidemia. Diabetes type 2 with hyperglycemia. Assessment/Plan Continued all current supportive medical care. Left heart catheterization once kidney function has improved. Amlodipine. Aspirin, Lipitor, Metoprolol. IV antibiotics as ordered. Additional plan as per the hospital course. Dietary Evaluation Review Comments: 1. Continue Cardiac diet order as tolerated 2. Encourage continued good oral intakes >75% of meals 3. Appreciate daily wt's to trend while inpatient Expected Outcomes/Goals: Maintain weight, adequate nutritiional intake. Plan discussed with: Patient WILLIAM FIGUEROA MD Feb 03, 2025 21:29
[2025-02-03] MEDS: INSULIN LANTUS (GLARGINE) 1 /0.01ml (100units/ml) SC SCH (22:18)
[2025-02-04] VITALS (11 sets, daily range): BP systolic 120–136; BP diastolic 55–72; PULSE 73–92; RESP 18–20; TEMP 97.8–100.1; O2SAT 93–99
[2025-02-04 07:17] LABS: Potassium 3.9 mmol/L (3.5-5.1); Sodium 140 mmol/L (136-145)
[2025-02-04 07:18] LABS: Anion Gap 11 (5-15); Calcium 8.9 mg/dL (8.7-10.4)
[2025-02-04 07:24] LABS: Blood Urea Nitrogen 32 mg/dL (9-23); Carbon Dioxide 18 mmol/L (20-31); Chloride 111 mmol/L (98-107); Glucose 111 mg/dL (74-106)
[2025-02-04 07:31] LABS: Hematocrit 28.4 % (41.0-53.0); Hemoglobin 9.6 g/dL (13.5-17.5); Mean Corpuscular Hgb Conc. 33.6 g/dL (32.0-36.0); Mean Corpuscular Volume 95.2 fL (80.0-100.0); Platelet Count (auto) 191 10^3/uL (140-450); Red Blood Cells 2.99 10^6/uL (4.5-5.90); Red Cell Distribution Width 14.7 % (11.8-14.3); White Blood Cell 7.1 10^3/uL (4.4-10.8)
[2025-02-04 07:41] LABS: Band Neutrophils % (manual) 0; Basophils % (manual) 0 (0.0-2.0); Blast Cells 0; Eosinophils % (manual) 0 (0-7); Metamyelocytes % 0; Myelocytes % 0; Promyelocytes % 0; Reactive Lymphocytes 0
[2025-02-04 07:56] LABS: Lymphocytes % (manual) 10 (10.0-50.0); Monocytes % (manual) 9 (0-12); Platelet Estimate Adequate; RBC Morphology Normal
[2025-02-04 08:07] LABS: Complement C3 182 mg/dL (82-167)
--- NOTE | 2025-02-04 10:32 | DVHPNRES ---
Progress Note Date Seen: Feb 04, 2025 Resident Creating Document: DAVID WANG RESIDENT Medical Necessity Reason Pt with a Central, PICC or Fol: No Subjective Review of Systems Patient was seen and examined on the bedside. He is alert oriented x3. No overnight events and complaint of right knee pain. The patient is scheduled for left heart catheterization on 02/06/2025. Objective vital signs Vital Sign Date Time Temp Pulse Resp B/P (MAP) Pulse Ox O2 Delivery O2 Flow Rate FiO2 02/04/25 06:41 99.0 02/04/25 06:08 97 Room Air* 0 21 02/04/25 05:00 79 18 128/56 (80) Total Intake and Output 02/03/25 02/03/25 02/04/25 15:00 23:00 07:00 Intake Total 250 ml 980 ml 0 ml Output Total 150 ml 450 ml Balance 100 ml 530 ml 0 ml medications Current Medications Medications Dose Ordered Sig/Shyam Route Start Time Stop Time Status Last Admin Dose Admin Cefepime HCl 50 ml @ 12.5 mls/hr DAILY IV 02/01/25 10:00 02/03/25 09:51 12.5 MLS/HR Pantoprazole Sodium 40 mg DAILY IV 02/01/25 10:00 02/03/25 10:07 40 MG Heparin Sodium (Porcine) 5,000 units Q12HR SC 01/31/25 22:00 02/03/25 22:18 5,000 UNITS Diagnostic Test (Pha) 1 strip ACHS 01/31/25 22:00 02/04/25 07:57 1 STRIP Insulin Human Regular HS SC 01/31/25 22:00 02/03/25 22:19 3 UNITS Insulin Human Regular AC SC 02/01/25 07:00 02/03/25 16:53 2 UNITS Dextrose 50 ml UD PRN IV 01/31/25 19:15 Aspirin 162 mg DAILY PO 02/01/25 10:00 02/03/25 09:52 162 MG Atorvastatin Calcium 10 mg HS PO 02/01/25 22:00 02/03/25 22:19 10 MG Amlodipine Besylate 5 mg DAILY PO 02/03/25 10:00 02/03/25 17:54 5 MG Metoprolol Succinate 50 mg DAILY PO 02/03/25 10:00 02/03/25 09:52 50 MG Acetaminophen 650 mg Q8HPRN PRN PO 02/03/25 01:30 02/04/25 05:41 650 MG Albuterol 2.5 mg Q4HPRN PRN NEB 02/03/25 01:30 Sodium Chloride 1,000 ml @ 60 mls/hr [id number] IV 02/03/25 11:00 02/04/25 04:19 60 MLS/HR Ergocalciferol 50,000 unit Q7D PO 02/03/25 14:00 02/03/25 15:22 50,000 UNIT Insulin Glargine 10 units HS SC 02/03/25 22:00 02/03/25 22:18 10 UNITS Linezolid 300 ml @ 150 mls/hr Q12HR IV 02/03/25 22:00 Examination Physical examination: General Appearance: Alert, Oriented X3, Cooperative, No acute distress HEENT: Atraumatic, PERRLA, EOMI, Mucous membrane moist/pink Respiratory: Vesicular breath sounds with mild crackles bilaterally Cardiovascular: Regular rate, Normal S1, Normal S2, No murmurs, no chest wall tenderness Abdominal: Normal bowel sounds, Soft, mild tenderness in the epigastric region, No hepatospenomegaly, No masses Extremities: No clubbing, No cyanosis, No edema, Normal pulses, No tenderness/swelling Skin: No rashes, No breakdown, No significant lesion Neuro: Normal gait, Normal speech, Strength at 5/5 X4 ext, Normal tone, Sensation intact, grossly intact cranial nerves Psych/Mental Status: Mental status NL, Mood NL laboratory and microbiology Laboratory Tests 02/04/25 06:25 Test 02/04/25 06:25 Range/Units Serum Glucose 111 H 74-106 mg/dL Microbiology Date/Time Source Procedure Growth Status 02/03/25 10:05 Blood Blood Culture - Preliminary NO GROWTH AFTER 24 HOURS OF INCUBATION. Resulted 01/31/25 20:35 Nose MRSA Screen - Final Complete Labs and/or images reviewed: Labs reviewed by me, Image(s) reviewed by me Problem List/Assessment/Plan Problem List/Assessment/Plan Assessment and plan: # Possible Gram-positive vs Gram-negative pneumonia- Need cultures # possible cavitary pneumonia, rule out lung malignancy # Sepsis due to above # Possible NSTEMI type 2 secondary to above - CT abdomen pelvis demonstrated small right-sided pleural effusion with bibasilar opacity and 5.9 x 2.7 x 2.8 cm opacity over the left costophrenic angle with cavitation which may represent cavitating pneumonia versus mass. - IV bolus fluid given - CT chest demonstrated 2 cm consolidation left costophrenic angle - Blood culture revealed Gram-positive cocci in cluster - COVID, flu and MRSA are negative - IV cefepime 1 g q.24 hours and IV Linezolid 600 mg bid - Echo demonstrated EF 65% and moderate degree LVH and LV diastolic dysfunction - Cardiology on board and C on 02/06/25 - New blood culture no growth in 24 hours of incubation # Intractable abdominal pain likely due to gastritis # Ruled out acute pancreatitis # Transaminitis without hyperbilirubinemia, rule out Liver pathology - CT abdomen demonstrated mild gastric wall thickening, correlate for gastritis - Lipase 39 - Ultrasound of the abdomen and coagulation studies are normal - hepatitis panel showed hepatitis-A antibody and hepatitis-B core antibody positive - IV Protonix 40 mg daily # CLAIRE on CKD likely hemodynamically mediated /VMN # Hyperkalemia secondary to CKD resolved # possible complicated cystitis # BPH - IV normal saline at 75 mL/hour - UA demonstrated UTI - Pending urine bacterial culture - IV cefepime 1 g daily - Ordered ABG # Vitamin D deficiency - Vitamin D 82914 units Q 7D # Type 2 diabetes mellitus - Moderate sliding scale of insulin # DVT prophylaxis - Heparin 5000 units q.12 hours Goal of care could not be discussed with the patient because of the language barrier Plan discussed with Dr. Garza Plan discussed with: Patient, Other My Orders My Orders Orders - DAVID WANG RESIDENT Procedure Category Date Status Time Ergocalciferol PHA 02/03/25 In Process (Vitamin D 50,000 14:00 Insulin Lantus PHA 02/03/25 In Process (Glargine) (Lantus) 22:00 Linezolid 600mg/300ml PHA 02/03/25 In Process (Zyvox) 22:00 Dietary Evaluation Review Comments: 1. Continue Cardiac diet order as tolerated 2. Encourage continued good oral intakes >75% of meals 3. Appreciate daily wt's to trend while inpatient Expected Outcomes/Goals: Maintain weight, adequate nutritiional intake. Date of Service: Feb 04, 2025 Billing Provider: KALLI GARZA MD Common Visit Codes: [id number] INP/OBS CARE(HIGH) DAVID WANG RESIDENT Feb 04, 2025 10:32 KALLI GARZA MD Feb 04, 2025 21:51
--- NOTE | 2025-02-04 10:43 | DVHPN2 ---
Progress Note Date Seen: Feb 04, 2025 Medical Necessity Reason Pt with a Central, PICC or Fol: No Objective vital signs Vital Sign Date Time Temp Pulse Resp B/P (MAP) Pulse Ox O2 Delivery O2 Flow Rate FiO2 02/04/25 06:41 99.0 02/04/25 06:08 97 Room Air* 0 21 02/04/25 05:00 79 18 128/56 (80) Total Intake and Output 02/03/25 02/03/25 02/04/25 15:00 23:00 07:00 Intake Total 250 ml 980 ml 0 ml Output Total 150 ml 450 ml Balance 100 ml 530 ml 0 ml medications Current Medications Medications Dose Ordered Sig/Shyam Route Start Time Stop Time Status Last Admin Dose Admin Cefepime HCl 50 ml @ 12.5 mls/hr DAILY IV 02/01/25 10:00 02/03/25 09:51 12.5 MLS/HR Pantoprazole Sodium 40 mg DAILY IV 02/01/25 10:00 02/03/25 10:07 40 MG Heparin Sodium (Porcine) 5,000 units Q12HR SC 01/31/25 22:00 02/03/25 22:18 5,000 UNITS Diagnostic Test (Pha) 1 strip ACHS 01/31/25 22:00 02/04/25 07:57 1 STRIP Insulin Human Regular HS SC 01/31/25 22:00 02/03/25 22:19 3 UNITS Insulin Human Regular AC SC 02/01/25 07:00 02/03/25 16:53 2 UNITS Dextrose 50 ml UD PRN IV 01/31/25 19:15 Aspirin 162 mg DAILY PO 02/01/25 10:00 02/03/25 09:52 162 MG Atorvastatin Calcium 10 mg HS PO 02/01/25 22:00 02/03/25 22:19 10 MG Amlodipine Besylate 5 mg DAILY PO 02/03/25 10:00 02/03/25 17:54 5 MG Metoprolol Succinate 50 mg DAILY PO 02/03/25 10:00 02/03/25 09:52 50 MG Acetaminophen 650 mg Q8HPRN PRN PO 02/03/25 01:30 02/04/25 05:41 650 MG Albuterol 2.5 mg Q4HPRN PRN NEB 02/03/25 01:30 Sodium Chloride 1,000 ml @ 60 mls/hr [id number] IV 02/03/25 11:00 02/04/25 04:19 60 MLS/HR Ergocalciferol 50,000 unit Q7D PO 02/03/25 14:00 02/03/25 15:22 50,000 UNIT Insulin Glargine 10 units HS SC 02/03/25 22:00 02/03/25 22:18 10 UNITS Linezolid 300 ml @ 150 mls/hr Q12HR IV 02/03/25 22:00 Examination: GENERAL:Normal laboratory and microbiology Laboratory Tests 02/04/25 06:25 Test 02/04/25 06:25 Range/Units Serum Glucose 111 H 74-106 mg/dL Microbiology Date/Time Source Procedure Growth Status 02/03/25 10:05 Blood Blood Culture - Preliminary NO GROWTH AFTER 24 HOURS OF INCUBATION. Resulted 01/31/25 20:35 Nose MRSA Screen - Final Complete Problem List/Assessment/Plan Problem List/Assessment/Plan CLAIRE Ckd IV sees Dr. Durbin in renal clinic Hyperkalemia- on Lokelma bid HTN DM type 2-Well controlled last hgbA1c 7.1 PNA- on IV abx NSTEMI- cardiology following slow improvement in renal function ACS w/u ongoing patient is high risk for contrast induced nephropathy. Explained this to patient , cardiology to determine if heart cath warranted Continue IVF for next several days and if patient does receive contrast IVF must remain pre post and 24hrs after exposure w/ lasix to increase excretion will continue to monitor electrolytes Plan discussed with: Patient My Orders My Orders Orders - DOMINIC LOMAS MD Procedure Category Date Status Time Sodium Chloride 0.9% PHA 02/03/25 In Process 11:00 Dietary Evaluation Review Comments: 1. Continue Cardiac diet order as tolerated 2. Encourage continued good oral intakes >75% of meals 3. Appreciate daily wt's to trend while inpatient Expected Outcomes/Goals: Maintain weight, adequate nutritiional intake. DOMINIC LOMAS MD Feb 04, 2025 10:43
[2025-02-04] MEDS: LINEZOLID 600MG/300ML 300 ML IV SCH (11:14)
[2025-02-04 17:43] LABS: Base Excess -5.6 mmol/L (-2.0-3.0)
--- NOTE | 2025-02-04 22:47 | DVHPN2 ---
Progress Note - Dictate Date Seen: Feb 04, 2025 Medical Necessity Reason Pt with a Central, PICC or Fol: No Subjective Patient was seen and evaluated in follow up. Patient is complaining of right knee pain. The patient is scheduled for left heart catheterization on 02/06/2025. HGB 9.6, HCT 28.4, BUN 32, [employer] 2.13. Telemetry reviewed. vital signs Vital Sign Date Time Temp Pulse Resp B/P (MAP) Pulse Ox O2 Delivery O2 Flow Rate FiO2 02/04/25 21:00 98.2 73 18 126/69 (88) 96 98.2 02/04/25 10:00 Room Air* 0 21 Total Intake and Output 02/03/25 02/03/25 02/04/25 15:00 23:00 07:00 Intake Total 250 ml 980 ml 0 ml Output Total 150 ml 450 ml Balance 100 ml 530 ml 0 ml medications Current Medications Medications Dose Ordered Sig/Shyam Route Start Time Stop Time Status Last Admin Dose Admin Cefepime HCl 50 ml @ 12.5 mls/hr DAILY IV 02/01/25 10:00 02/04/25 13:51 12.5 MLS/HR Pantoprazole Sodium 40 mg DAILY IV 02/01/25 10:00 02/04/25 11:12 40 MG Heparin Sodium (Porcine) 5,000 units Q12HR SC 01/31/25 22:00 02/03/25 22:18 5,000 UNITS Diagnostic Test (Pha) 1 strip ACHS 01/31/25 22:00 02/04/25 17:10 1 STRIP Insulin Human Regular HS SC 01/31/25 22:00 02/03/25 22:19 3 UNITS Insulin Human Regular AC SC 02/01/25 07:00 02/04/25 17:10 3 UNITS Dextrose 50 ml UD PRN IV 01/31/25 19:15 Aspirin 162 mg DAILY PO 02/01/25 10:00 02/03/25 09:52 162 MG Atorvastatin Calcium 10 mg HS PO 02/01/25 22:00 02/03/25 22:19 10 MG Amlodipine Besylate 5 mg DAILY PO 02/03/25 10:00 02/04/25 11:13 5 MG Metoprolol Succinate 50 mg DAILY PO 02/03/25 10:00 02/04/25 11:13 50 MG Acetaminophen 650 mg Q8HPRN PRN PO 02/03/25 01:30 02/04/25 05:41 650 MG Albuterol 2.5 mg Q4HPRN PRN NEB 02/03/25 01:30 Sodium Chloride 1,000 ml @ 60 mls/hr [id number] IV 02/03/25 11:00 02/04/25 04:19 60 MLS/HR Ergocalciferol 50,000 unit Q7D PO 02/03/25 14:00 02/03/25 15:22 50,000 UNIT Insulin Glargine 10 units HS SC 02/03/25 22:00 02/03/25 22:18 10 UNITS Linezolid 300 ml @ 150 mls/hr Q12HR IV 02/03/25 22:00 02/04/25 11:14 150 MLS/HR objective GENERAL: Alert and oriented x 3. No acute distress. EYES: PERRL, EOMI. Anicteric. HENT: Moist mucous membranes. LUNGS: Clear to auscultation bilaterally. CARDIOVASCULAR: Regular rate and rhythm. ABDOMEN: Soft, non-tender and non-distended. EXTREMITIES: No edema. NEUROLOGIC: No focal neurological deficits. SKIN: Warm, dry. laboratory and microbiology Laboratory Tests 02/04/25 06:25 Test 02/04/25 06:25 Range/Units Serum Glucose 111 H 74-106 mg/dL Problem List NSTEMI, possible cardiorenal syndrome. Rule out progressive CAD. Rule out sepsis 2/2 Possible pneumonia. Intractable abdominal pain. CLAIRE on CKD 4. Hyperkalemia. Hypertension. Hyperlipidemia. Diabetes type 2 with hyperglycemia. Assessment/Plan Continued all current supportive medical care. Left heart catheterization scheduled for 02/06. Amlodipine. Aspirin, Lipitor, Metoprolol. IV antibiotics as ordered. GI prophylactics. Additional plan as per the hospital course. Dietary Evaluation Review Comments: 1. Continue Cardiac diet order as tolerated 2. Encourage continued good oral intakes >75% of meals 3. Appreciate daily wt's to trend while inpatient Expected Outcomes/Goals: Maintain weight, adequate nutritiional intake. Plan discussed with: Patient WILLIAM FIGUEROA MD Feb 04, 2025 21:17
[2025-02-05] VITALS (9 sets, daily range): BP systolic 132–161; BP diastolic 45–72; PULSE 66–88; RESP 16–20; TEMP 97.3–98.2; O2SAT 92–97
[2025-02-05 06:41] LABS: Potassium 3.8 mmol/L (3.5-5.1); Sodium 138 mmol/L (136-145)
[2025-02-05 06:42] LABS: Anion Gap 13 (5-15); Calcium 9.2 mg/dL (8.7-10.4)
[2025-02-05 06:45] LABS: Chloride 109 mmol/L (98-107)
[2025-02-05 06:47] LABS: BUN/Creatinine Ratio 11.9 (10.0-20.0); Blood Urea Nitrogen 23 mg/dL (9-23)
[2025-02-05 06:55] LABS: Carbon Dioxide 16 mmol/L (20-31); Glucose 127 mg/dL (74-106)
[2025-02-05] MEDS: amLODIPine BESYLATE 5 MG TAB PO SCH (08:30)
[2025-02-05] MEDS: SODIUM BICARBONATE 650 MG TAB PO ONE (12:05)
--- NOTE | 2025-02-05 16:11 | DVHPNRES ---
Progress Note Date Seen: Feb 05, 2025 Resident Creating Document: DAVID WANG RESIDENT Medical Necessity Reason Pt with a Central, PICC or Fol: No Subjective Review of Systems Patient was seen examined on the bedside. He is alert, oriented x3. Complaint of left knee pain and patient is able to walk with walker. He is scheduled for left heart catheterization tomorrow on 02/06/2025. Objective vital signs Vital Sign Date Time Temp Pulse Resp B/P (MAP) Pulse Ox O2 Delivery O2 Flow Rate FiO2 02/05/25 13:00 97.3 75 18 143/45 (77) 94 97.3 02/05/25 10:00 Room Air* 0 21 Total Intake and Output 02/04/25 02/04/25 02/05/25 15:00 23:00 07:00 Intake Total 150 ml 1690 ml 940 ml Output Total 500 ml Balance 150 ml 1190 ml 940 ml medications Current Medications Medications Dose Ordered Sig/Shyam Route Start Time Stop Time Status Last Admin Dose Admin Cefepime HCl 50 ml @ 12.5 mls/hr DAILY IV 02/01/25 10:00 02/05/25 12:20 12.5 MLS/HR Pantoprazole Sodium 40 mg DAILY IV 02/01/25 10:00 02/05/25 09:35 40 MG Heparin Sodium (Porcine) 5,000 units Q12HR SC 01/31/25 22:00 02/05/25 09:50 5,000 UNITS Diagnostic Test (Pha) 1 strip ACHS 01/31/25 22:00 02/05/25 12:32 1 STRIP Insulin Human Regular HS SC 01/31/25 22:00 02/03/25 22:19 3 UNITS Insulin Human Regular AC SC 02/01/25 07:00 02/05/25 12:31 9 UNITS Dextrose 50 ml UD PRN IV 01/31/25 19:15 Aspirin 162 mg DAILY PO 02/01/25 10:00 02/05/25 09:40 162 MG Atorvastatin Calcium 10 mg HS PO 02/01/25 22:00 02/04/25 22:29 10 MG Metoprolol Succinate 50 mg DAILY PO 02/03/25 10:00 02/05/25 09:41 50 MG Acetaminophen 650 mg Q8HPRN PRN PO 02/03/25 01:30 02/04/25 22:29 650 MG Albuterol 2.5 mg Q4HPRN PRN NEB 02/03/25 01:30 Sodium Chloride 1,000 ml @ 60 mls/hr [id number] IV 02/03/25 11:00 02/04/25 22:28 60 MLS/HR Ergocalciferol 50,000 unit Q7D PO 02/03/25 14:00 02/03/25 15:22 50,000 UNIT Insulin Glargine 10 units HS SC 02/03/25 22:00 02/03/25 22:18 10 UNITS Linezolid 300 ml @ 150 mls/hr Q12HR IV 02/03/25 22:00 02/05/25 09:33 150 MLS/HR Amlodipine Besylate 10 mg DAILY PO 02/05/25 08:30 02/05/25 09:42 10 MG Sodium Bicarbonate 650 mg BID PO 02/05/25 22:00 Examination Physical examination: General Appearance: Alert, Oriented X3, Cooperative, No acute distress HEENT: Atraumatic, PERRLA, EOMI, Mucous membrane moist/pink Respiratory: Clear to auscultation, Normal air movement Cardiovascular: Regular rate, Normal S1, Normal S2, No murmurs, no chest wall tenderness Abdominal: Normal bowel sounds, Soft, No tenderness, No hepatospenomegaly, No masses Extremities: No clubbing, No cyanosis, No edema, Normal pulses, No tenderness/swelling Skin: No rashes, No breakdown, No significant lesion Neuro: Normal gait, Normal speech, Strength at 5/5 X4 ext, Normal tone, Sensation intact, Cranial nerves 3-12 NL, Reflexes 2+ Psych/Mental Status: Mental status NL, Mood NL laboratory and microbiology Laboratory Tests 02/05/25 05:52 02/04/25 06:25 Test 02/05/25 05:52 Range/Units Serum Glucose 127 H 74-106 mg/dL Microbiology Date/Time Source Procedure Growth Status 02/03/25 10:05 Blood Blood Culture - Preliminary NO GROWTH AFTER 48 HOURS OF INCUBATION. Resulted 01/31/25 20:35 Nose MRSA Screen - Final Complete Labs and/or images reviewed: Labs reviewed by me, Image(s) reviewed by me Problem List/Assessment/Plan Problem List/Assessment/Plan Assessment and plan: # Possible Gram-positive vs Gram-negative pneumonia- Need cultures # possible cavitary pneumonia, rule out lung malignancy # Sepsis due to above # Possible NSTEMI type 2 secondary to above - CT abdomen pelvis demonstrated small right-sided pleural effusion with bibasilar opacity and 5.9 x 2.7 x 2.8 cm opacity over the left costophrenic angle with cavitation which may represent cavitating pneumonia versus mass. - IV bolus fluid given - CT chest demonstrated 2 cm consolidation left costophrenic angle - Blood culture revealed Gram-positive cocci in cluster - COVID, flu and MRSA are negative - IV cefepime 1 g q.24 hours and IV Linezolid 600 mg bid - Echo demonstrated EF 65% and moderate degree LVH and LV diastolic dysfunction - Cardiology on and C on 02/06/25 - New blood culture showed no growth in 24 hours of incubation # Intractable abdominal pain likely due to gastritis # Ruled out acute pancreatitis # Transaminitis without hyperbilirubinemia, rule out Liver pathology - CT abdomen demonstrated mild gastric wall thickening, correlate for gastritis - Lipase 39 - Ultrasound of the abdomen and coagulation studies are normal - hepatitis panel showed hepatitis-A antibody and hepatitis-B core antibody positive - IV Protonix 40 mg daily # CLAIRE on CKD likely hemodynamically mediated /VMN # Hyperkalemia secondary to CKD resolved # possible complicated cystitis # BPH - IV normal saline at 75 mL/hour - UA demonstrated UTI - Pending urine bacterial culture - IV cefepime 1 g daily - ABG demonstrated metabolic acidosis with compensated respiratory alkalosis. # Vitamin D deficiency - Vitamin D 99861 units Q 7D # Type 2 diabetes mellitus - Moderate sliding scale of insulin # DVT prophylaxis - Heparin 5000 units q.12 hours Goal of care could not be discussed with the patient because of the language barrier Plan discussed with Dr. Garza Plan discussed with: Patient, Other My Orders My Orders Orders - DAVID WANG RESIDENT Procedure Category Date Status Time Abg W/ Co-Ox RT 02/04/25 Logged 17:26 Consult For Nutrition NOURISH 02/04/25 Transmitted 20:08 Amlodipine Tablet PHA 02/05/25 In Process (Norvasc Tablet) 08:30 Sodium Bicarb Tab PHA 02/05/25 In Process 22:00 Dietary Evaluation Review Comments: 1. Continue Cardiac diet order as tolerated 2. Encourage continued good oral intakes >75% of meals 3. Appreciate daily wt's to trend while inpatient Expected Outcomes/Goals: Maintain weight, adequate nutritiional intake. Date of Service: Feb 05, 2025 Billing Provider: KALLI GARZA MD Common Visit Codes: [id number] INP/OBS CARE(MOD) RADHA WANGRA RESIDENT Feb 05, 2025 16:11 KALLI GARZA MD Feb 05, 2025 21:17
--- NOTE | 2025-02-05 16:12 | DVHPN2 ---
Progress Note Date Seen: Feb 05, 2025 Medical Necessity Reason Pt with a Central, PICC or Fol: No Subjective Patient reports: Feels better Review of Systems: Deferred Objective vital signs Vital Sign Date Time Temp Pulse Resp B/P (MAP) Pulse Ox O2 Delivery O2 Flow Rate FiO2 02/05/25 13:00 97.3 75 18 143/45 (77) 94 97.3 02/05/25 10:00 Room Air* 0 21 Total Intake and Output 02/04/25 02/04/25 02/05/25 15:00 23:00 07:00 Intake Total 150 ml 1690 ml 940 ml Output Total 500 ml Balance 150 ml 1190 ml 940 ml medications Current Medications Medications Dose Ordered Sig/Shyam Route Start Time Stop Time Status Last Admin Dose Admin Cefepime HCl 50 ml @ 12.5 mls/hr DAILY IV 02/01/25 10:00 02/05/25 12:20 12.5 MLS/HR Pantoprazole Sodium 40 mg DAILY IV 02/01/25 10:00 02/05/25 09:35 40 MG Heparin Sodium (Porcine) 5,000 units Q12HR SC 01/31/25 22:00 02/05/25 09:50 5,000 UNITS Diagnostic Test (Pha) 1 strip ACHS 01/31/25 22:00 02/05/25 12:32 1 STRIP Insulin Human Regular HS SC 01/31/25 22:00 02/03/25 22:19 3 UNITS Insulin Human Regular AC SC 02/01/25 07:00 02/05/25 12:31 9 UNITS Dextrose 50 ml UD PRN IV 01/31/25 19:15 Aspirin 162 mg DAILY PO 02/01/25 10:00 02/05/25 09:40 162 MG Atorvastatin Calcium 10 mg HS PO 02/01/25 22:00 02/04/25 22:29 10 MG Metoprolol Succinate 50 mg DAILY PO 02/03/25 10:00 02/05/25 09:41 50 MG Acetaminophen 650 mg Q8HPRN PRN PO 02/03/25 01:30 02/04/25 22:29 650 MG Albuterol 2.5 mg Q4HPRN PRN NEB 02/03/25 01:30 Sodium Chloride 1,000 ml @ 60 mls/hr [id number] IV 02/03/25 11:00 02/04/25 22:28 60 MLS/HR Ergocalciferol 50,000 unit Q7D PO 02/03/25 14:00 02/03/25 15:22 50,000 UNIT Insulin Glargine 10 units HS SC 02/03/25 22:00 02/03/25 22:18 10 UNITS Linezolid 300 ml @ 150 mls/hr Q12HR IV 02/03/25 22:00 02/05/25 09:33 150 MLS/HR Amlodipine Besylate 10 mg DAILY PO 02/05/25 08:30 02/05/25 09:42 10 MG Sodium Bicarbonate 650 mg BID PO 02/05/25 22:00 Examination: GENERAL:Normal, CVS:Normal laboratory and microbiology Laboratory Tests 02/05/25 05:52 02/04/25 06:25 Test 02/05/25 05:52 Range/Units Serum Glucose 127 H 74-106 mg/dL Microbiology Date/Time Source Procedure Growth Status 02/03/25 10:05 Blood Blood Culture - Preliminary NO GROWTH AFTER 48 HOURS OF INCUBATION. Resulted 01/31/25 20:35 Nose MRSA Screen - Final Complete Problem List/Assessment/Plan Problem List/Assessment/Plan CLAIRE Ckd IV sees Dr. Durbin in renal clinic Hyperkalemia- on Lokelma bid HTN DM type 2-Well controlled last hgbA1c 7.1 PNA- on IV abx NSTEMI- cardiology following slow improvement in renal function ACS w/u ongoing patient is high risk for contrast induced nephropathy. Explained this to patient , cardiology to determine if heart cath warranted Continue IVF for next several days and if patient does receive contrast IVF must remain pre post and 24hrs after exposure w/ lasix to increase excretion will continue to monitor electrolytes planned for cath tomorrow per cardiology Plan discussed with: Patient Dietary Evaluation Review Comments: 1. Continue Cardiac diet order as tolerated 2. Encourage continued good oral intakes >75% of meals 3. Appreciate daily wt's to trend while inpatient Expected Outcomes/Goals: Maintain weight, adequate nutritiional intake. DOMINIC LOMAS MD Feb 05, 2025 16:12
[2025-02-05] MEDS: SODIUM BICARBONATE 650 MG TAB PO SCH (22:18)
--- NOTE | 2025-02-05 22:40 | DVHPN2 ---
Progress Note - Dictate Date Seen: Feb 05, 2025 Medical Necessity Reason Pt with a Central, PICC or Fol: No Subjective Patient was seen and evaluated in follow up. Patient is complaining of left knee pain. He is scheduled for left heart catheterization tomorrow on 02/06/2025. Patient will be made NPO at midnight. Telemetry reviewed. vital signs Vital Sign Date Time Temp Pulse Resp B/P (MAP) Pulse Ox O2 Delivery O2 Flow Rate FiO2 02/05/25 13:00 97.3 75 18 143/45 (77) 94 97.3 02/05/25 10:00 Room Air* 0 21 Total Intake and Output 02/04/25 02/04/25 02/05/25 15:00 23:00 07:00 Intake Total 150 ml 1690 ml 940 ml Output Total 500 ml Balance 150 ml 1190 ml 940 ml medications Current Medications Medications Dose Ordered Sig/Shyam Route Start Time Stop Time Status Last Admin Dose Admin Cefepime HCl 50 ml @ 12.5 mls/hr DAILY IV 02/01/25 10:00 02/05/25 12:20 12.5 MLS/HR Pantoprazole Sodium 40 mg DAILY IV 02/01/25 10:00 02/05/25 09:35 40 MG Heparin Sodium (Porcine) 5,000 units Q12HR SC 01/31/25 22:00 02/05/25 09:50 5,000 UNITS Diagnostic Test (Pha) 1 strip ACHS 01/31/25 22:00 02/05/25 12:32 1 STRIP Insulin Human Regular HS SC 01/31/25 22:00 02/03/25 22:19 3 UNITS Insulin Human Regular AC SC 02/01/25 07:00 02/05/25 12:31 9 UNITS Dextrose 50 ml UD PRN IV 01/31/25 19:15 Aspirin 162 mg DAILY PO 02/01/25 10:00 02/05/25 09:40 162 MG Atorvastatin Calcium 10 mg HS PO 02/01/25 22:00 02/04/25 22:29 10 MG Metoprolol Succinate 50 mg DAILY PO 02/03/25 10:00 02/05/25 09:41 50 MG Acetaminophen 650 mg Q8HPRN PRN PO 02/03/25 01:30 02/04/25 22:29 650 MG Albuterol 2.5 mg Q4HPRN PRN NEB 02/03/25 01:30 Sodium Chloride 1,000 ml @ 60 mls/hr [id number] IV 02/03/25 11:00 02/04/25 22:28 60 MLS/HR Ergocalciferol 50,000 unit Q7D PO 02/03/25 14:00 02/03/25 15:22 50,000 UNIT Insulin Glargine 10 units HS SC 02/03/25 22:00 02/03/25 22:18 10 UNITS Linezolid 300 ml @ 150 mls/hr Q12HR IV 02/03/25 22:00 02/05/25 09:33 150 MLS/HR Amlodipine Besylate 10 mg DAILY PO 02/05/25 08:30 02/05/25 09:42 10 MG Sodium Bicarbonate 650 mg BID PO 02/05/25 22:00 objective GENERAL: Alert and oriented x 3. No acute distress. EYES: PERRL, EOMI. Anicteric. HENT: Moist mucous membranes. LUNGS: Clear to auscultation bilaterally. CARDIOVASCULAR: Regular rate and rhythm. ABDOMEN: Soft, non-tender and non-distended. EXTREMITIES: No edema. NEUROLOGIC: No focal neurological deficits. SKIN: Warm, dry. laboratory and microbiology Laboratory Tests 02/05/25 05:52 02/04/25 06:25 Test 02/05/25 05:52 Range/Units Serum Glucose 127 H 74-106 mg/dL Problem List NSTEMI, possible cardiorenal syndrome. Rule out progressive CAD. Rule out sepsis 2/2 Possible pneumonia. Intractable abdominal pain. CLAIRE on CKD 4. Hyperkalemia. Hypertension. Hyperlipidemia. Diabetes type 2 with hyperglycemia. Assessment/Plan Continued all current supportive medical care. Left heart catheterization scheduled for 02/06. Amlodipine. Aspirin, Lipitor, Metoprolol. IV antibiotics as ordered. GI prophylactics. Additional plan as per the hospital course. Dietary Evaluation Review Comments: 1. Continue Cardiac diet order as tolerated 2. Encourage continued good oral intakes >75% of meals 3. Appreciate daily wt's to trend while inpatient Expected Outcomes/Goals: Maintain weight, adequate nutritiional intake. Plan discussed with: Patient WILLIAM FIGUEROA MD Feb 05, 2025 14:08
[2025-02-05 23:07] LABS: Complement Total (CH50) >60 U/mL (>41)
[2025-02-06] VITALS (9 sets, daily range): BP systolic 125–148; BP diastolic 55–67; PULSE 69–91; RESP 16–20; TEMP 97.2–98.6; O2SAT 95–99
[2025-02-06 06:06] LABS: Chloride 107 mmol/L (98-107); Potassium 4.1 mmol/L (3.5-5.1); Sodium 139 mmol/L (136-145)
[2025-02-06 06:07] LABS: Anion Gap 11 (5-15); Carbon Dioxide 21 mmol/L (20-31)
[2025-02-06 06:12] LABS: BUN/Creatinine Ratio 13.6 (10.0-20.0)
[2025-02-06 06:26] LABS: Blood Urea Nitrogen 26 mg/dL (9-23); Glucose 130 mg/dL (74-106)
--- NOTE | 2025-02-06 13:44 | DVHPN2 ---
Progress Note Date Seen: Feb 06, 2025 Medical Necessity Reason Pt with a Central, PICC or Fol: No Subjective Patient reports: No new complaints Objective vital signs Vital Sign Date Time Temp Pulse Resp B/P (MAP) Pulse Ox O2 Delivery O2 Flow Rate FiO2 02/06/25 13:00 78 20 141/65 97 0.0 21 02/06/25 10:00 Room Air* 02/06/25 09:00 97.9 97.9 Total Intake and Output 02/05/25 02/05/25 02/06/25 15:00 23:00 07:00 Intake Total 418 ml 947 ml 930 ml Output Total 380 ml 250 ml Balance 418 ml 567 ml 680 ml medications Current Medications Medications Dose Ordered Sig/Shyam Route Start Time Stop Time Status Last Admin Dose Admin Cefepime HCl 50 ml @ 12.5 mls/hr DAILY IV 02/01/25 10:00 02/06/25 09:27 12.5 MLS/HR Pantoprazole Sodium 40 mg DAILY IV 02/01/25 10:00 02/06/25 09:15 40 MG Heparin Sodium (Porcine) 5,000 units Q12HR SC 01/31/25 22:00 02/05/25 22:14 5,000 UNITS Diagnostic Test (Pha) 1 strip ACHS 01/31/25 22:00 02/06/25 11:27 1 STRIP Insulin Human Regular HS SC 01/31/25 22:00 02/05/25 22:16 4 UNITS Insulin Human Regular AC SC 02/01/25 07:00 02/06/25 11:28 3 UNITS Dextrose 50 ml UD PRN IV 01/31/25 19:15 Aspirin 162 mg DAILY PO 02/01/25 10:00 02/06/25 09:15 162 MG Atorvastatin Calcium 10 mg HS PO 02/01/25 22:00 02/05/25 22:17 10 MG Metoprolol Succinate 50 mg DAILY PO 02/03/25 10:00 02/06/25 09:15 50 MG Acetaminophen 650 mg Q8HPRN PRN PO 02/03/25 01:30 02/04/25 22:29 650 MG Albuterol 2.5 mg Q4HPRN PRN NEB 02/03/25 01:30 Cancel Sodium Chloride 1,000 ml @ 60 mls/hr [id number] IV 02/03/25 11:00 02/04/25 22:28 60 MLS/HR Ergocalciferol 50,000 unit Q7D PO 02/03/25 14:00 02/03/25 15:22 50,000 UNIT Insulin Glargine 10 units HS SC 02/03/25 22:00 02/05/25 22:15 10 UNITS Linezolid 300 ml @ 150 mls/hr Q12HR IV 02/03/25 22:00 02/06/25 09:21 150 MLS/HR Amlodipine Besylate 10 mg DAILY PO 02/05/25 08:30 02/06/25 09:14 10 MG Sodium Bicarbonate 650 mg BID PO 02/05/25 22:00 02/06/25 09:09 650 MG Examination: GENERAL:Normal, CVS:Normal laboratory and microbiology Laboratory Tests 02/06/25 05:26 02/04/25 06:25 Test 02/06/25 05:26 Range/Units Serum Glucose 130 H 74-106 mg/dL Microbiology Date/Time Source Procedure Growth Status 02/03/25 10:05 Blood Blood Culture - Preliminary NO GROWTH AFTER 72 HOURS OF INCUBATION. Resulted 01/31/25 20:35 Nose MRSA Screen - Final Complete Problem List/Assessment/Plan Problem List/Assessment/Plan CLAIRE Ckd IV sees Dr. Durbin in renal clinic Hyperkalemia- on Lokelma bid HTN DM type 2-Well controlled last hgbA1c 7.1 PNA- on IV abx NSTEMI- cardiology following slow improvement in renal function ACS w/u ongoing patient is high risk for contrast induced nephropathy. Explained this to patient , cardiology to determine if heart cath warranted Continue IVF for next several days and if patient does receive contrast IVF must remain pre post and 24hrs after exposure w/ lasix to increase excretion will continue to monitor electrolytes planned for cath per cardiology Plan discussed with: Patient Dietary Evaluation Review Comments: 1. Continue Cardiac diet order as tolerated 2. Encourage continued good oral intakes >75% of meals 3. Appreciate daily wt's to trend while inpatient Expected Outcomes/Goals: Maintain weight, adequate nutritiional intake. DOMINIC LOMAS MD Feb 06, 2025 13:44
--- NOTE | 2025-02-06 17:29 | DVHPNRES ---
Progress Note Date Seen: Feb 06, 2025 Resident Creating Document: DAVID WANG RESIDENT Medical Necessity Reason Pt with a Central, PICC or Fol: No Subjective Review of Systems Patient was seen examined on the bedside. He is alert, oriented x3. Complaint of left knee pain and patient is able to walk with walker. He is rescheduled for left heart catheterization tomorrow on 02/07/2025. Objective vital signs Vital Sign Date Time Temp Pulse Resp B/P (MAP) Pulse Ox O2 Delivery O2 Flow Rate FiO2 02/06/25 13:00 98.0 71 20 145/55 (85) 98 98.0 02/06/25 13:00 0.0 21 02/06/25 10:00 Room Air* Total Intake and Output 02/05/25 02/05/25 02/06/25 15:00 23:00 07:00 Intake Total 418 ml 947 ml 930 ml Output Total 380 ml 250 ml Balance 418 ml 567 ml 680 ml medications Current Medications Medications Dose Ordered Sig/Shyam Route Start Time Stop Time Status Last Admin Dose Admin Cefepime HCl 50 ml @ 12.5 mls/hr DAILY IV 02/01/25 10:00 02/06/25 09:27 12.5 MLS/HR Pantoprazole Sodium 40 mg DAILY IV 02/01/25 10:00 02/06/25 09:15 40 MG Heparin Sodium (Porcine) 5,000 units Q12HR SC 01/31/25 22:00 02/05/25 22:14 5,000 UNITS Diagnostic Test (Pha) 1 strip ACHS 01/31/25 22:00 02/06/25 11:27 1 STRIP Insulin Human Regular HS SC 01/31/25 22:00 02/05/25 22:16 4 UNITS Insulin Human Regular AC SC 02/01/25 07:00 02/06/25 11:28 3 UNITS Dextrose 50 ml UD PRN IV 01/31/25 19:15 Aspirin 162 mg DAILY PO 02/01/25 10:00 02/06/25 09:15 162 MG Atorvastatin Calcium 10 mg HS PO 02/01/25 22:00 02/05/25 22:17 10 MG Metoprolol Succinate 50 mg DAILY PO 02/03/25 10:00 02/06/25 09:15 50 MG Acetaminophen 650 mg Q8HPRN PRN PO 02/03/25 01:30 02/04/25 22:29 650 MG Albuterol 2.5 mg Q4HPRN PRN NEB 02/03/25 01:30 Cancel Sodium Chloride 1,000 ml @ 60 mls/hr [id number] IV 02/03/25 11:00 02/04/25 22:28 60 MLS/HR Ergocalciferol 50,000 unit Q7D PO 02/03/25 14:00 02/03/25 15:22 50,000 UNIT Insulin Glargine 10 units HS SC 02/03/25 22:00 02/05/25 22:15 10 UNITS Linezolid 300 ml @ 150 mls/hr Q12HR IV 02/03/25 22:00 02/06/25 09:21 150 MLS/HR Amlodipine Besylate 10 mg DAILY PO 02/05/25 08:30 02/06/25 09:14 10 MG Sodium Bicarbonate 650 mg BID PO 02/05/25 22:00 02/06/25 09:09 650 MG Examination Physical examination: General Appearance: Alert, Oriented X3, Cooperative, No acute distress HEENT: Atraumatic, PERRLA, EOMI, Mucous membrane moist/pink Respiratory: Clear to auscultation, Normal air movement Cardiovascular: Regular rate, Normal S1, Normal S2, No murmurs, no chest wall tenderness Abdominal: Normal bowel sounds, Soft, No tenderness, No hepatospenomegaly, No masses Extremities: No clubbing, No cyanosis, No edema, Normal pulses, No tenderness/swelling Skin: No rashes, No breakdown, No significant lesion Neuro: Normal gait, Normal speech, Strength at 5/5 X4 ext, Normal tone, Sensation intact, Cranial nerves 3-12 NL, Reflexes 2+ Psych/Mental Status: Mental status NL, Mood NL laboratory and microbiology Laboratory Tests 02/06/25 05:26 02/04/25 06:25 Test 02/06/25 05:26 Range/Units Serum Glucose 130 H 74-106 mg/dL Microbiology Date/Time Source Procedure Growth Status 02/03/25 10:05 Blood Blood Culture - Preliminary NO GROWTH AFTER 72 HOURS OF INCUBATION. Resulted 01/31/25 20:35 Nose MRSA Screen - Final Complete Labs and/or images reviewed: Labs reviewed by me, Image(s) reviewed by me Problem List/Assessment/Plan Problem List/Assessment/Plan Assessment and plan: # Possible Gram-positive vs Gram-negative pneumonia- Need cultures # possible cavitary pneumonia, rule out lung malignancy # Sepsis due to above # Possible NSTEMI type 2 secondary to above - CT abdomen pelvis demonstrated small right-sided pleural effusion with bibasilar opacity and 5.9 x 2.7 x 2.8 cm opacity over the left costophrenic angle with cavitation which may represent cavitating pneumonia versus mass. - IV bolus fluid given - CT chest demonstrated 2 cm consolidation left costophrenic angle - Blood culture revealed Gram-positive cocci in cluster - COVID, flu and MRSA are negative - IV cefepime 1 g q.24 hours and IV Linezolid 600 mg bid - Echo demonstrated EF 65% and moderate degree LVH and LV diastolic dysfunction - Cardiology on board and rescheduled LHC on Monday02/07/25 - New blood culture showed no growth in 24 hours of incubation # Intractable abdominal pain likely due to gastritis # Ruled out acute pancreatitis # Transaminitis without hyperbilirubinemia, rule out Liver pathology - CT abdomen demonstrated mild gastric wall thickening, correlate for gastritis - Lipase 39 - Ultrasound of the abdomen and coagulation studies are normal - hepatitis panel showed hepatitis-A antibody and hepatitis-B core antibody positive - IV Protonix 40 mg daily # CLAIRE on CKD likely hemodynamically mediated /VMN # Hyperkalemia secondary to CKD resolved # possible complicated cystitis # BPH - IV normal saline at 75 mL/hour - UA demonstrated UTI - Pending urine bacterial culture - IV cefepime 1 g daily - ABG demonstrated metabolic acidosis with compensated respiratory alkalosis. # Vitamin D deficiency - Vitamin D 82536 units Q 7D # Type 2 diabetes mellitus - Moderate sliding scale of insulin # DVT prophylaxis - Heparin 5000 units q.12 hours Goal of care could not be discussed with the patient because of the language barrier Plan discussed with Dr. Walsh Plan discussed with: Patient, Other Dietary Evaluation Review Comments: 1. Continue Cardiac diet order as tolerated 2. Encourage continued good oral intakes >75% of meals 3. Appreciate daily wt's to trend while inpatient Expected Outcomes/Goals: Maintain weight, adequate nutritiional intake. Date of Service: Feb 06, 2025 Billing Provider: COTY WALSH DO Common Visit Codes: [id number] INP/OBS CARE(HIGH) DAVID WANG RESIDENT Feb 06, 2025 17:29 COTY WALSH DO Feb 06, 2025 20:45
--- NOTE | 2025-02-06 23:02 | DVHPN2 ---
Progress Note - Dictate Date Seen: Feb 06, 2025 Medical Necessity Reason Pt with a Central, PICC or Fol: No Subjective Patient was seen and evaluated in follow up. BNo overnight events. Patient is complaining of left knee pain. BUN 26, RAIL WASHER 1.91. Patient is rescheduled for left heart catheterization tomorrow on 02/07/2025. Telemetry reviewed. vital signs Vital Sign Date Time Temp Pulse Resp B/P (MAP) Pulse Ox O2 Delivery O2 Flow Rate FiO2 02/06/25 10:00 97 Room Air* 0 21 02/06/25 09:15 78 141/65 02/06/25 09:00 97.9 20 97.9 Total Intake and Output 02/05/25 02/05/25 02/06/25 15:00 23:00 07:00 Intake Total 418 ml 947 ml 930 ml Output Total 380 ml 250 ml Balance 418 ml 567 ml 680 ml medications Current Medications Medications Dose Ordered Sig/Shyam Route Start Time Stop Time Status Last Admin Dose Admin Cefepime HCl 50 ml @ 12.5 mls/hr DAILY IV 02/01/25 10:00 02/06/25 09:27 12.5 MLS/HR Pantoprazole Sodium 40 mg DAILY IV 02/01/25 10:00 02/06/25 09:15 40 MG Heparin Sodium (Porcine) 5,000 units Q12HR SC 01/31/25 22:00 02/05/25 22:14 5,000 UNITS Diagnostic Test (Pha) 1 strip ACHS 01/31/25 22:00 02/06/25 11:27 1 STRIP Insulin Human Regular HS SC 01/31/25 22:00 02/05/25 22:16 4 UNITS Insulin Human Regular AC SC 02/01/25 07:00 02/06/25 11:28 3 UNITS Dextrose 50 ml UD PRN IV 01/31/25 19:15 Aspirin 162 mg DAILY PO 02/01/25 10:00 02/06/25 09:15 162 MG Atorvastatin Calcium 10 mg HS PO 02/01/25 22:00 02/05/25 22:17 10 MG Metoprolol Succinate 50 mg DAILY PO 02/03/25 10:00 02/06/25 09:15 50 MG Acetaminophen 650 mg Q8HPRN PRN PO 02/03/25 01:30 02/04/25 22:29 650 MG Albuterol 2.5 mg Q4HPRN PRN NEB 02/03/25 01:30 Sodium Chloride 1,000 ml @ 60 mls/hr [id number] IV 02/03/25 11:00 02/04/25 22:28 60 MLS/HR Ergocalciferol 50,000 unit Q7D PO 02/03/25 14:00 02/03/25 15:22 50,000 UNIT Insulin Glargine 10 units HS SC 02/03/25 22:00 02/05/25 22:15 10 UNITS Linezolid 300 ml @ 150 mls/hr Q12HR IV 02/03/25 22:00 02/06/25 09:21 150 MLS/HR Amlodipine Besylate 10 mg DAILY PO 02/05/25 08:30 02/06/25 09:14 10 MG Sodium Bicarbonate 650 mg BID PO 02/05/25 22:00 02/06/25 09:09 650 MG objective GENERAL: Alert and oriented x 3. No acute distress. EYES: PERRL, EOMI. Anicteric. HENT: Moist mucous membranes. LUNGS: Clear to auscultation bilaterally. CARDIOVASCULAR: Regular rate and rhythm. ABDOMEN: Soft, non-tender and non-distended. EXTREMITIES: No edema. NEUROLOGIC: No focal neurological deficits. SKIN: Warm, dry. laboratory and microbiology Laboratory Tests 02/06/25 05:26 02/04/25 06:25 Test 02/06/25 05:26 Range/Units Serum Glucose 130 H 74-106 mg/dL Problem List NSTEMI, possible cardiorenal syndrome. Rule out progressive CAD. Rule out sepsis 2/2 Possible pneumonia. Intractable abdominal pain. CLAIRE on CKD 4. Hyperkalemia. Hypertension. Hyperlipidemia. Diabetes type 2 with hyperglycemia. Assessment/Plan Continued all current supportive medical care. Left heart catheterization scheduled for 02/06. Amlodipine. Aspirin, Lipitor, Metoprolol. IV antibiotics as ordered. GI prophylactics. Additional plan as per the hospital course. Dietary Evaluation Review Comments: 1. Continue Cardiac diet order as tolerated 2. Encourage continued good oral intakes >75% of meals 3. Appreciate daily wt's to trend while inpatient Expected Outcomes/Goals: Maintain weight, adequate nutritiional intake. Plan discussed with: Patient WILLIAM FIGUEROA MD Feb 06, 2025 12:26
[2025-02-07] VITALS (13 sets, daily range): BP systolic 105–156; BP diastolic 56–72; PULSE 67–101; RESP 12–20; TEMP 97.5–98.5; O2SAT 95–99
--- NOTE | 2025-02-07 10:05 | DVHPN2 ---
Progress Note Date Seen: Feb 07, 2025 Medical Necessity Reason Pt with a Central, PICC or Fol: No Subjective Patient reports: No new complaints Review of Systems: Deferred Objective vital signs Vital Sign Date Time Temp Pulse Resp B/P (MAP) Pulse Ox O2 Delivery O2 Flow Rate FiO2 02/07/25 08:40 97.6 78 16 155/72 (99) 98 97.6 02/06/25 20:00 Room Air* 0 21 Total Intake and Output 02/06/25 02/06/25 02/07/25 15:00 23:00 07:00 Intake Total 350 ml 0 ml 500 ml Output Total 460 ml Balance 350 ml -460 ml 500 ml medications Current Medications Medications Dose Ordered Sig/Shyam Route Start Time Stop Time Status Last Admin Dose Admin Cefepime HCl 50 ml @ 12.5 mls/hr DAILY IV 02/01/25 10:00 02/06/25 09:27 12.5 MLS/HR Pantoprazole Sodium 40 mg DAILY IV 02/01/25 10:00 02/06/25 09:15 40 MG Heparin Sodium (Porcine) 5,000 units Q12HR SC 01/31/25 22:00 02/06/25 22:07 5,000 UNITS Diagnostic Test (Pha) 1 strip ACHS 01/31/25 22:00 02/07/25 05:50 1 STRIP Insulin Human Regular HS SC 01/31/25 22:00 02/06/25 22:06 3 UNITS Insulin Human Regular AC SC 02/01/25 07:00 02/07/25 05:50 2 UNITS Dextrose 50 ml UD PRN IV 01/31/25 19:15 Aspirin 162 mg DAILY PO 02/01/25 10:00 02/06/25 09:15 162 MG Atorvastatin Calcium 10 mg HS PO 02/01/25 22:00 02/06/25 22:07 10 MG Metoprolol Succinate 50 mg DAILY PO 02/03/25 10:00 02/06/25 09:15 50 MG Acetaminophen 650 mg Q8HPRN PRN PO 02/03/25 01:30 02/04/25 22:29 650 MG Albuterol 2.5 mg Q4HPRN PRN NEB 02/03/25 01:30 Cancel Sodium Chloride 1,000 ml @ 60 mls/hr [id number] IV 02/03/25 11:00 02/04/25 22:28 60 MLS/HR Ergocalciferol 50,000 unit Q7D PO 02/03/25 14:00 02/03/25 15:22 50,000 UNIT Insulin Glargine 10 units HS SC 02/03/25 22:00 02/06/25 22:05 10 UNITS Linezolid 300 ml @ 150 mls/hr Q12HR IV 02/03/25 22:00 02/06/25 22:07 150 MLS/HR Amlodipine Besylate 10 mg DAILY PO 02/05/25 08:30 02/06/25 09:14 10 MG Sodium Bicarbonate 650 mg BID PO 02/05/25 22:00 02/06/25 22:07 650 MG Examination: GENERAL:Normal, CVS:Normal, SKIN:Normal laboratory and microbiology Laboratory Tests 02/06/25 05:26 02/04/25 06:25 Test 02/06/25 05:26 Range/Units Serum Glucose 130 H 74-106 mg/dL Microbiology Date/Time Source Procedure Growth Status 02/03/25 10:05 Blood Blood Culture - Preliminary NO GROWTH AFTER 72 HOURS OF INCUBATION. Resulted 01/31/25 20:35 Nose MRSA Screen - Final Complete Problem List/Assessment/Plan Problem List/Assessment/Plan CLAIRE Ckd IV sees Dr. Durbin in renal clinic Hyperkalemia- on Lokelma bid HTN DM type 2-Well controlled last hgbA1c 7.1 PNA- on IV abx NSTEMI- cardiology following slow improvement in renal function ACS w/u ongoing patient is high risk for contrast induced nephropathy. Explained this to patient , cardiology to determine if heart cath warranted Continue IVF for next several days and if patient does receive contrast IVF must remain pre post and 24hrs after exposure w/ lasix to increase excretion will continue to monitor electrolytes planned for cath per cardiology Plan discussed with: Patient Dietary Evaluation Review Comments: 1. Continue Cardiac diet order as tolerated 2. Encourage continued good oral intakes >75% of meals 3. Appreciate daily wt's to trend while inpatient Expected Outcomes/Goals: Maintain weight, adequate nutritiional intake. DOMINIC LOMAS MD Feb 07, 2025 10:05
[2025-02-07 10:25] LABS: Anion Gap 11 (5-15); Carbon Dioxide 21 mmol/L (20-31); Chloride 105 mmol/L (98-107); Potassium 4.3 mmol/L (3.5-5.1); Sodium 137 mmol/L (136-145)
[2025-02-07 10:26] LABS: Calcium 8.9 mg/dL (8.7-10.4)
[2025-02-07 10:31] LABS: Blood Urea Nitrogen 17 mg/dL (9-23)
[2025-02-07 10:34] LABS: Glucose 216 mg/dL (74-106)
[2025-02-07] MEDS: IODIXANOL 320MG/ML 100ML BTL IV ONE (15:18)
[2025-02-07] MEDS: ANGIOMAX 250 MG VIAL IV ONE (15:23)
[2025-02-07] MEDS: MIDAZOLAM HCL 2MG/2ML 2ml VIAL (1mg/ml) ONE (15:24)
[2025-02-07] MEDS: VERAPAMIL 2.5MG/ML INJ 2ML VIAL IV ONE (15:24)
[2025-02-07] MEDS: HEPARIN SODIUM (PORCINE) 5000 UNITS/ML 1ML VIAL ONE (15:24)
[2025-02-07] MEDS: fentaNYL CITRATE 100 MCG/2 ML VL ONE (15:24)
[2025-02-07] MEDS: LIDOCAINE 2%HCL (LOCAL ANESTH.) INJ 20ML MDV ONE (15:25)
[2025-02-07] MEDS: SODIUM CHL 0.9% 50 ML ONE (15:25)
--- NOTE | 2025-02-07 17:08 | DVHPNRES ---
Progress Note Date Seen: Feb 07, 2025 Resident Creating Document: DAVID WANG RESIDENT Medical Necessity Reason Pt with a Central, PICC or Fol: No Subjective Review of Systems Patient was seen examined on the bedside. He is alert, oriented x3. Complaint of left knee pain and patient is able to walk with walker. He is rescheduled for left heart catheterization tomorrow on 02/07/2025. Objective vital signs Vital Sign Date Time Temp Pulse Resp B/P (MAP) Pulse Ox O2 Delivery O2 Flow Rate FiO2 02/07/25 13:00 98.0 71 16 147/61 (89) 98 98.0 02/07/25 10:00 Room Air* 0 21 Total Intake and Output 02/06/25 02/06/25 02/07/25 15:00 23:00 07:00 Intake Total 350 ml 0 ml 500 ml Output Total 460 ml Balance 350 ml -460 ml 500 ml medications Current Medications Medications Dose Ordered Sig/Shyam Route Start Time Stop Time Status Last Admin Dose Admin Cefepime HCl 50 ml @ 12.5 mls/hr DAILY IV 02/01/25 10:00 02/07/25 10:21 12.5 MLS/HR Pantoprazole Sodium 40 mg DAILY IV 02/01/25 10:00 02/07/25 10:20 40 MG Heparin Sodium (Porcine) 5,000 units Q12HR SC 01/31/25 22:00 02/07/25 10:20 5,000 UNITS Diagnostic Test (Pha) 1 strip ACHS 01/31/25 22:00 02/07/25 11:41 1 STRIP Insulin Human Regular HS SC 01/31/25 22:00 02/06/25 22:06 3 UNITS Insulin Human Regular AC SC 02/01/25 07:00 02/07/25 11:46 6 UNITS Dextrose 50 ml UD PRN IV 01/31/25 19:15 Aspirin 162 mg DAILY PO 02/01/25 10:00 02/07/25 10:00 162 MG Atorvastatin Calcium 10 mg HS PO 02/01/25 22:00 02/06/25 22:07 10 MG Metoprolol Succinate 50 mg DAILY PO 02/03/25 10:00 02/07/25 10:19 50 MG Acetaminophen 650 mg Q8HPRN PRN PO 02/03/25 01:30 02/04/25 22:29 650 MG Albuterol 2.5 mg Q4HPRN PRN NEB 02/03/25 01:30 Cancel Sodium Chloride 1,000 ml @ 60 mls/hr [id number] IV 02/03/25 11:00 02/04/25 22:28 60 MLS/HR Ergocalciferol 50,000 unit Q7D PO 02/03/25 14:00 02/03/25 15:22 50,000 UNIT Insulin Glargine 10 units HS SC 02/03/25 22:00 02/06/25 22:05 10 UNITS Linezolid 300 ml @ 150 mls/hr Q12HR IV 02/03/25 22:00 02/07/25 10:21 150 MLS/HR Amlodipine Besylate 10 mg DAILY PO 02/05/25 08:30 02/07/25 10:19 10 MG Sodium Bicarbonate 650 mg BID PO 02/05/25 22:00 02/07/25 10:18 650 MG Examination Physical examination: General Appearance: Alert, Oriented X3, Cooperative, No acute distress HEENT: Atraumatic, PERRLA, EOMI, Mucous membrane moist/pink Respiratory: Clear to auscultation, Normal air movement Cardiovascular: Regular rate, Normal S1, Normal S2, No murmurs, no chest wall tenderness Abdominal: Normal bowel sounds, Soft, No tenderness, No hepatospenomegaly, No masses Extremities: No clubbing, No cyanosis, No edema, Normal pulses, No tenderness/swelling Skin: No rashes, No breakdown, No significant lesion Neuro: Normal gait, Normal speech, Strength at 5/5 X4 ext, Normal tone, Sensation intact, Cranial nerves 3-12 NL, Reflexes 2+ Psych/Mental Status: Mental status NL, Mood NL laboratory and microbiology Laboratory Tests 02/07/25 10:06 02/04/25 06:25 Test 02/07/25 10:06 Range/Units Serum Glucose 216 H 74-106 mg/dL Microbiology Date/Time Source Procedure Growth Status 02/03/25 10:05 Blood Blood Culture - Preliminary NO GROWTH AFTER 72 HOURS OF INCUBATION. Resulted 01/31/25 20:35 Nose MRSA Screen - Final Complete Labs and/or images reviewed: Labs reviewed by me, Image(s) reviewed by me Problem List/Assessment/Plan Problem List/Assessment/Plan Assessment and plan: # Possible Gram-positive vs Gram-negative pneumonia # possible cavitary pneumonia, rule out lung malignancy # Sepsis due to above # Possible NSTEMI type 2 secondary to above - CT abdomen pelvis demonstrated small right-sided pleural effusion with bibasilar opacity and 5.9 x 2.7 x 2.8 cm opacity over the left costophrenic angle with cavitation which may represent cavitating pneumonia versus mass. - IV bolus fluid given - CT chest demonstrated 2 cm consolidation left costophrenic angle - Blood culture revealed Gram-positive cocci in cluster - COVID, flu and MRSA are negative - IV cefepime 1 g q.24 hours and IV Linezolid 600 mg bid - Echo demonstrated EF 65% and moderate degree LVH and LV diastolic dysfunction - Cardiology on board and rescheduled LHC on Monday02/07/25 - New blood culture showed no growth in 24 hours of incubation # Intractable abdominal pain likely due to gastritis # Ruled out acute pancreatitis # Transaminitis without hyperbilirubinemia, rule out Liver pathology - CT abdomen demonstrated mild gastric wall thickening, correlate for gastritis - Lipase 39 - Ultrasound of the abdomen and coagulation studies are normal - hepatitis panel showed hepatitis-A antibody and hepatitis-B core antibody positive - IV Protonix 40 mg daily # CLAIRE on CKD likely hemodynamically mediated /VMN # Hyperkalemia secondary to CKD resolved # possible complicated cystitis # BPH - IV normal saline at 75 mL/hour - UA demonstrated UTI - Pending urine bacterial culture - IV cefepime 1 g daily - ABG demonstrated metabolic acidosis with compensated respiratory alkalosis. # Vitamin D deficiency - Vitamin D 65156 units Q 7D # Type 2 diabetes mellitus - Moderate sliding scale of insulin # DVT prophylaxis - Heparin 5000 units q.12 hours Goal of care could not be discussed with the patient because of the language barrier Plan discussed with Dr. Walsh Plan discussed with: Patient, Other My Orders My Orders Orders - DAVID WANG RESIDENT Procedure Category Date Status Time Cardiac DIET 02/06/25 Transmitted Diet-2gna,Lofat,Lochol Dinner Dietary Evaluation Review Comments: 1. Continue Cardiac diet order as tolerated 2. Encourage continued good oral intakes >75% of meals 3. Appreciate daily wt's to trend while inpatient Expected Outcomes/Goals: Maintain weight, adequate nutritiional intake. Date of Service: Feb 07, 2025 Billing Provider: WALSH,COTY T DO Common Visit Codes: [id number] INP/OBS CARE(HIGH) RADHA WANGRA RESIDENT Feb 07, 2025 17:08 COTY WALSH DO Feb 08, 2025 21:05
[2025-02-07] MEDS: EPTIFIBATIDE INJ (2MG/ML) 10ML VIAL IV ONE (17:38)
[2025-02-07] MEDS: CLOPIDOGREL BISULFATE 75 MG TAB ONE ×2 (17:39)
--- NOTE | 2025-02-07 20:56 | DVHOP ---
DATE OF SURGERY: 02/07/2025 TECHNIQUE PERFORMED: * Emergency case. * Ultrasound of the right radial artery. * Management of conscious sedation. * Insertion of a 6-[place] arterial line in the right radial artery. * Left heart catheterization. * Left ventriculogram. * [place] selective left and right coronary artery angiography. ASSISTANTS: Assisted by Adiel Velasquez, and Keyla. COMPLICATIONS: None. INDICATIONS: The patient has a non-ST elevation myocardial infarction, total of previously two stents in the left anterior descending artery, which was done at [facility]. DESCRIPTION OF PROCEDURE: The risks and benefits discussed. Counseling done, questions answered, information given. The patient has been brought to biology laboratory assistant. The right radial area thoroughly cleaned with soap and Betadine. A 6-[place] arterial line was placed in a standard manner. With the help of TIG catheter, 5-[place] 4-0 was passed and left coronary angio was done. With the help of a similar catheter, we were also able to do the right coronary artery angiography. Subsequently, at the end of the procedure, we also put a pigtail catheter and a complete left heart catheterization had been done. The left ventriculogram was done in the right anterior oblique view, total of 10 mL dye. Post-LV gram, left ventricular angiography had been performed. Procedure went well. IMPRESSION: * Normal left main. * The left anterior descending artery in its mid region immediately post in between the two stents, there is a lesion which is in the range of 99%. * There is also another lesion in the mid region of the left anterior descending artery, which is immediately post second stent. * The left radial artery is 3.0 mm in caliber and PAMELLA grade 3 flow had been noted. * The diagonal artery is coming off the left anterior descending artery, a small segment circumflex artery and obtuse marginal artery are small arteries and does not have any significant disease. * The right coronary artery is a large luminal artery and have a mild disease noted in the mid region. * Ejection fraction of the left ventricle is 70% plus. PLAN OF ACTION: Advised to undergo the angioplasty and stenting of the left anterior descending artery. Sincere Aguilar MD MP/LYN/NICOLASA TID: [id number] RECEIPT: [id number] [facility]ITAL[facility]resa
--- NOTE | 2025-02-07 21:03 | DVHPN2 ---
Progress Note - Dictate Date Seen: Feb 07, 2025 Medical Necessity Reason Pt with a Central, PICC or Fol: No Subjective Patient was seen and evaluated in follow up. Patient underwent emergency left heart catheterization, nez perce selective left and right coronary artery angiography. The left anterior descending artery in its mid region immediately post in between the two stents, there is a lesion which is in the range of 99%.There is also another lesion in the mid region of the left anterior descending artery, which is immediately post second stent. The left radial artery is 3.0 mm in caliber and PAMELLA grade 3 flow had been noted. The diagonal artery is coming off the left anterior descending artery, a small segment circumflex artery and obtuse marginal artery are small arteries and does not have any significant disease. The right coronary artery is a large luminal artery and have a mild disease noted in the mid region. Ejection fraction of the left ventricle is 70% plus. Patient is advised to undergo the angioplasty and stenting of the left anterior descending artery. Telemetry reviewed. vital signs Vital Sign Date Time Temp Pulse Resp B/P (MAP) Pulse Ox O2 Delivery O2 Flow Rate FiO2 02/07/25 10:19 155/72 02/07/25 10:19 78 02/07/25 08:40 97.6 16 98 97.6 02/06/25 20:00 Room Air* 0 21 Total Intake and Output 02/06/25 02/06/25 02/07/25 15:00 23:00 07:00 Intake Total 350 ml 0 ml 500 ml Output Total 460 ml Balance 350 ml -460 ml 500 ml medications Current Medications Medications Dose Ordered Sig/Shyam Route Start Time Stop Time Status Last Admin Dose Admin Cefepime HCl 50 ml @ 12.5 mls/hr DAILY IV 02/01/25 10:00 02/07/25 10:21 12.5 MLS/HR Pantoprazole Sodium 40 mg DAILY IV 02/01/25 10:00 02/07/25 10:20 40 MG Heparin Sodium (Porcine) 5,000 units Q12HR SC 01/31/25 22:00 02/07/25 10:20 5,000 UNITS Diagnostic Test (Pha) 1 strip ACHS 01/31/25 22:00 02/07/25 11:41 1 STRIP Insulin Human Regular HS SC 01/31/25 22:00 02/06/25 22:06 3 UNITS Insulin Human Regular AC SC 02/01/25 07:00 02/07/25 11:46 6 UNITS Dextrose 50 ml UD PRN IV 01/31/25 19:15 Aspirin 162 mg DAILY PO 02/01/25 10:00 02/07/25 10:00 162 MG Atorvastatin Calcium 10 mg HS PO 02/01/25 22:00 02/06/25 22:07 10 MG Metoprolol Succinate 50 mg DAILY PO 02/03/25 10:00 02/07/25 10:19 50 MG Acetaminophen 650 mg Q8HPRN PRN PO 02/03/25 01:30 02/04/25 22:29 650 MG Albuterol 2.5 mg Q4HPRN PRN NEB 02/03/25 01:30 Cancel Sodium Chloride 1,000 ml @ 60 mls/hr [id number] IV 02/03/25 11:00 02/04/25 22:28 60 MLS/HR Ergocalciferol 50,000 unit Q7D PO 02/03/25 14:00 02/03/25 15:22 50,000 UNIT Insulin Glargine 10 units HS SC 02/03/25 22:00 02/06/25 22:05 10 UNITS Linezolid 300 ml @ 150 mls/hr Q12HR IV 02/03/25 22:00 02/07/25 10:21 150 MLS/HR Amlodipine Besylate 10 mg DAILY PO 02/05/25 08:30 02/07/25 10:19 10 MG Sodium Bicarbonate 650 mg BID PO 02/05/25 22:00 02/07/25 10:18 650 MG objective GENERAL: Alert and oriented x 3. No acute distress. EYES: PERRL, EOMI. Anicteric. HENT: Moist mucous membranes. LUNGS: Clear to auscultation bilaterally. CARDIOVASCULAR: Regular rate and rhythm. ABDOMEN: Soft, non-tender and non-distended. EXTREMITIES: No edema. NEUROLOGIC: No focal neurological deficits. SKIN: Warm, dry. laboratory and microbiology Laboratory Tests 02/07/25 10:06 02/04/25 06:25 Test 02/07/25 10:06 Range/Units Serum Glucose 216 H 74-106 mg/dL Problem List NSTEMI, possible cardiorenal syndrome. Rule out progressive CAD. Rule out sepsis 2/2 Possible pneumonia. Intractable abdominal pain. CLAIRE on CKD 4. Hyperkalemia. Hypertension. Hyperlipidemia. Diabetes type 2 with hyperglycemia. Assessment/Plan Continued all current supportive medical care. Amlodipine. Aspirin, Lipitor, Plavix, Metoprolol. IV antibiotics as ordered. Heparin drip per pharmacy. GI prophylactics. Additional plan as per the hospital course. Dietary Evaluation Review Comments: 1. Continue Cardiac diet order as tolerated 2. Encourage continued good oral intakes >75% of meals 3. Appreciate daily wt's to trend while inpatient Expected Outcomes/Goals: Maintain weight, adequate nutritiional intake. Plan discussed with: Patient WILLIAM FIGUEROA MD Feb 07, 2025 13:01
[2025-02-08] VITALS (8 sets, daily range): BP systolic 138–149; BP diastolic 59–75; PULSE 77–115; RESP 16–18; TEMP 97.6–98.2; O2SAT 95–98
--- NOTE | 2025-02-08 02:51 | DVHOP ---
DATE OF SURGERY: 02/07/2025 TECHNIQUE PERFORMED: * Emergency case. * Ultrasound of the radial artery. * Management of conscious sedation. * Insertion of a 6-[place] arterial line from the right radial artery. * Left coronary artery angiography. * Balloon angioplasty of the lesion in the left anterior descending artery with help of 2.25 x 12 mm length semi-compliant balloon. * Stenting and angioplasty of the left anterior descending artery with total of 2 stents, the first stent deployed in mid distal region, which is 2.75 x 15 mm in length, which is [place] stent. Second stent has been deployed proximal and the mid region of the left anterior descending artery, which is 3.0 x 18 mm in length [place] stent of [place] (total two stents are deployed in left anterior descending artery). * Intravascular ultrasound of the left main and also of the left stented region. * Intracoronary administration of Integrilin 20 mg. COMPLICATIONS: None. ASSISTANTS: Assisted by our staff here is Adiel Velasquez Janice. DESCRIPTION OF PROCEDURE: Procedure, risks and benefits of the procedure explained to the patient and understands very well, brought to chemical laboratory technician. IV Angiomax was given. We put JL3.5, 6-[place] guiding catheter and left coronary angiography done. Subsequently, we also put a Runthrough wire, which went smoothly. We put balloon 2.25 x 12 balloon. Angioplasty was done in the mid region of the left anterior descending artery. Subsequently, we put a stent 2.75 x 15 mm [place] stent of [employer] [facility] deployed at the junction of the mid and distal region of pulled proximally and taken to 17 atmosphere and procedure went well. Subsequently, now we put a stent 2.7 x 15 into the distal lesion and having deployed for 31 seconds and subsequently for 21 seconds and it was taken up to 17 atmosphere. Stent size was increased to 3.0 mm. Subsequently, we put out the same balloon and balloon angioplasty of the proximal lesion was done with help of the similar balloon. Subsequently, now we put a stent which is a 3.0 x 18 mm [place] stent deployed at the mid region of the left ventricular artery and covering the distal region of the previously deployed proximal stent and was taken up to the 15 atmosphere inflated were deployed. Subsequently, we also did intravascular ultrasound, apposition of the stent looked good. CONCLUSION: * Prior to performing the procedure, the left anterior descending artery lesion #1 was 99% blocked, PAMELLA grade 3 flow and postprocedure PAMELLA grade 3 flow, residual stenosis to 0%. * Second lesions was 99% PAMELLA grade 3 flow, postprocedure PAMELLA grade 3 flow, residual stenosis is 0%. * Procedure went well. Plavix 600 mg loading dose aspirin, Integrilin bolus, beta-tammy, cholesterol reducing medicine, outpatient followup. Sincere Aguilar MD MP/FABIOLA/LEISA TID: [id number] RECEIPT: [id number] MTDD
--- NOTE | 2025-02-08 09:10 | DVHPN2 ---
Progress Note Date Seen: Feb 08, 2025 Medical Necessity Reason Pt with a Central, PICC or Fol: No Subjective Patient reports: Feels better Objective vital signs Vital Sign Date Time Temp Pulse Resp B/P (MAP) Pulse Ox O2 Delivery O2 Flow Rate FiO2 02/08/25 05:00 98.2 86 17 138/60 (86) 97 98.2 02/07/25 20:00 Room Air* 0 21 Total Intake and Output 02/07/25 02/07/25 02/08/25 15:00 23:00 07:00 Intake Total 350 ml 500 ml 500 ml Output Total 500 ml 600 ml Balance 350 ml 0 ml -100 ml medications Current Medications Medications Dose Ordered Sig/Shyam Route Start Time Stop Time Status Last Admin Dose Admin Cefepime HCl 50 ml @ 12.5 mls/hr DAILY IV 02/01/25 10:00 02/07/25 10:21 12.5 MLS/HR Pantoprazole Sodium 40 mg DAILY IV 02/01/25 10:00 02/07/25 10:20 40 MG Heparin Sodium (Porcine) 5,000 units Q12HR SC 01/31/25 22:00 02/07/25 22:14 5,000 UNITS Diagnostic Test (Pha) 1 strip ACHS 01/31/25 22:00 02/07/25 22:14 1 STRIP Insulin Human Regular HS SC 01/31/25 22:00 02/07/25 22:13 2 UNITS Insulin Human Regular AC SC 02/01/25 07:00 02/07/25 11:46 6 UNITS Dextrose 50 ml UD PRN IV 01/31/25 19:15 Aspirin 162 mg DAILY PO 02/01/25 10:00 02/07/25 10:00 162 MG Atorvastatin Calcium 10 mg HS PO 02/01/25 22:00 02/07/25 22:11 10 MG Metoprolol Succinate 50 mg DAILY PO 02/03/25 10:00 02/07/25 10:19 50 MG Acetaminophen 650 mg Q8HPRN PRN PO 02/03/25 01:30 02/04/25 22:29 650 MG Albuterol 2.5 mg Q4HPRN PRN NEB 02/03/25 01:30 Cancel Sodium Chloride 1,000 ml @ 60 mls/hr [id number] IV 02/03/25 11:00 02/04/25 22:28 60 MLS/HR Ergocalciferol 50,000 unit Q7D PO 02/03/25 14:00 02/03/25 15:22 50,000 UNIT Insulin Glargine 10 units HS SC 02/03/25 22:00 02/07/25 22:12 10 UNITS Linezolid 300 ml @ 150 mls/hr Q12HR IV 02/03/25 22:00 02/07/25 22:11 150 MLS/HR Amlodipine Besylate 10 mg DAILY PO 02/05/25 08:30 02/07/25 10:19 10 MG Sodium Bicarbonate 650 mg BID PO 02/05/25 22:00 02/07/25 22:11 650 MG Clopidogrel Bisulfate 75 mg DAILY PO 02/08/25 10:00 Examination: GENERAL:Normal, CVS:Normal laboratory and microbiology Laboratory Tests 02/07/25 10:06 02/04/25 06:25 Test 02/07/25 10:06 Range/Units Serum Glucose 216 H 74-106 mg/dL Microbiology Date/Time Source Procedure Growth Status 02/03/25 10:05 Blood Blood Culture - Preliminary NO GROWTH AFTER 72 HOURS OF INCUBATION. Resulted 01/31/25 20:35 Nose MRSA Screen - Final Complete Problem List/Assessment/Plan Problem List/Assessment/Plan CLAIRE Ckd IV sees Dr. Durbin in renal clinic Hyperkalemia- on Lokelma bid HTN DM type 2-Well controlled last hgbA1c 7.1 PNA- on IV abx NSTEMI- cardiology following s/p PCI to LAD and stent placement continue IVF for next 24hrs lasix IVP to excrete dye will continue to monitor electrolytes monitor uop and record Plan discussed with: Patient Dietary Evaluation Review Comments: 1. Continue Cardiac diet order as tolerated 2. Encourage continued good oral intakes >75% of meals 3. Appreciate daily wt's to trend while inpatient Expected Outcomes/Goals: Maintain weight, adequate nutritiional intake. DOMINIC LOMAS MD Feb 08, 2025 09:10
[2025-02-08 09:30] LABS: Basophils # (auto) 0 10 ^3/uL (0-0.2); Basophils % (auto) 0.5 % (0.0-2.0); Eosinophils # (auto) 0.1 10 ^3/uL (0-0.8); Eosinophils % (auto) 2.1 % (0.0-7.0); Hematocrit 32.6 % (41.0-53.0); Hemoglobin 10.9 g/dL (13.5-17.5); Lymphocytes # (auto) 0.8 10 ^3/uL (0.4-5.4); Lymphocytes % (auto) 11.2 % (10.0-50.0); Mean Corpuscular Hemoglobin 30.3 pg (28.0-32.0); Mean Corpuscular Hgb Conc. 33.3 g/dL (32.0-36.0); Mean Corpuscular Volume 90.9 fL (80.0-100.0); Monocytes # (auto) 0.4 10 ^3/uL (0-1.3); Monocytes % (auto) 5.7 % (0.0-12.0); Neutrophils # (auto) 5.6 10 ^3/uL (1.6-8.6); Neutrophils % (auto) 80.5 % (37.0-80.0); Platelet Count (auto) 171 10^3/uL (140-450); Red Blood Cells 3.59 10^6/uL (4.5-5.90); Red Cell Distribution Width 14.2 % (11.8-14.3); White Blood Cell 6.9 10^3/uL (4.4-10.8)
[2025-02-08 09:44] LABS: Anion Gap 13 (5-15); Carbon Dioxide 20 mmol/L (20-31); Chloride 105 mmol/L (98-107); Potassium 4.3 mmol/L (3.5-5.1); Sodium 138 mmol/L (136-145)
[2025-02-08 09:50] LABS: BUN/Creatinine Ratio 10.8 (10.0-20.0); Blood Urea Nitrogen 18 mg/dL (9-23)
[2025-02-08 09:51] LABS: Calcium 8.6 mg/dL (8.7-10.4); Glucose 141 mg/dL (74-106)
[2025-02-08] MEDS: CLOPIDOGREL BISULFATE 75 MG TAB PO SCH (10:28)
[2025-02-08] MEDS: FUROSEMIDE 40 MG/4 ML VIAL IV ONE (10:37)
[2025-02-08] MEDS ORDERED: ERGO1CAP23 PO (11:13)
[2025-02-08] MEDS ORDERED: LINE1TAB6 PO (11:15)
--- NOTE | 2025-02-08 13:13 | DVHDSRES ---
Discharge Summary Date of Admission Resident Creating Document: DAVID WANG RESIDENT Jan 31, 2025 at 17:37 Date of Discharge: Feb 08, 2025 Admitting Diagnosis Diffuse abdominal pain and decreased p.o. intake Wounds: No wound was present Labs/Diagnostic Data: Laboratory Results Test 02/08/25 12:05 02/08/25 09:14 02/04/25 17:35 02/04/25 06:25 POC Glucose 302 mg/dl (70-106) White Blood Count 6.9 10^3/uL (4.4-10.8) Red Blood Count 3.59 10^6/uL (4.5-5.90) Hemoglobin 10.9 g/dL (13.5-17.5) Hematocrit 32.6 % (41.0-53.0) Mean Corpuscular Volume 90.9 fL (80.0-100.0) Mean Corpuscular Hemoglobin 30.3 pg (28.0-32.0) Mean Corpuscular Hemoglobin Concent 33.3 g/dL (32.0-36.0) Red Cell Distribution Width 14.2 % (11.8-14.3) Platelet Count 171 10^3/uL (140-450) Mean Platelet Volume 7.3 fL (6.9-10.8) Neutrophils (%) (Auto) 80.5 % (37.0-80.0) Lymphocytes (%) (Auto) 11.2 % (10.0-50.0) Monocytes (%) (Auto) 5.7 % (0.0-12.0) Eosinophils (%) (Auto) 2.1 % (0.0-7.0) Basophils (%) (Auto) 0.5 % (0.0-2.0) Neutrophils # (Auto) 5.6 10 ^3/uL (1.6-8.6) Lymphocytes # (Auto) 0.8 10 ^3/uL (0.4-5.4) Monocytes # (Auto) 0.4 10 ^3/uL (0-1.3) Eosinophils # (Auto) 0.1 10 ^3/uL (0-0.8) Basophils # (Auto) 0 10 ^3/uL (0-0.2) Nucleated Red Blood Cells 0.0 % Sodium Level 138 mmol/L (136-145) Potassium Level 4.3 mmol/L (3.5-5.1) Chloride Level 105 mmol/L (98-107) Carbon Dioxide Level 20 mmol/L (20-31) Anion Gap 13 (5-15) Blood Urea Nitrogen 18 mg/dL (9-23) Creatinine 1.67 mg/dL (0.700-1.30) Glomerular Filtration Rate Calc 43 mL/min (>90) BUN/Creatinine Ratio 10.8 (10.0-20.0) Serum Glucose 141 mg/dL (74-106) Calcium Level 8.6 mg/dL (8.7-10.4) Blood Gas Specimen Type Arterial Blood Gas Sample Site Right radial Blood Gas Patient Temperature 37.0 Arterial Blood Date Drawn [id number] Arterial Blood pH 7.400 (7.350-7.450) Arterial Blood Partial Pressure CO2 30.1 mmHg (35.0-48.0) Arterial Blood Partial Pressure O2 75.6 mmHg (83.0-108.0) Arterial Blood HCO3 18.2 mmol/L (21.0-28.0) Arterial Blood Oxygen Saturation 94.4 % (94.0-98.0) Arterial Blood Base Excess -5.6 mmol/L (-2.0-3.0) Arterial Blood Oxyhemoglobin 94.0 % (94.0-98.0) Arterial Blood Carboxyhemoglobin 0.0 % (0.5-1.5) Arterial Blood Methemoglobin 0.4 % (0.0-1.5) Edgar Test Modified Blood Gas Total Hemoglobin 10.60 g/dL (13.5-17.5) Blood Gas Modality Room air FiO2 % 21.0 Differential Total Cells Counted 100.0 (100) Neutrophils % (Manual) 81 (37.0-80.0) Band Neutrophils % (Manual) 0 Lymphocytes % (Manual) 10 (10.0-50.0) Monocytes % (Manual) 9 (0-12) Eosinophils % (Manual) 0 (0-7) Basophils % (Manual) 0 (0.0-2.0) Metamyelocytes % (manual) 0 Myelocytes % (Manual) 0 Promyelocytes % (Manual) 0 Blast Cells % (Manual) 0 Reactive Lymphocytes 0 Platelet Estimate Adequate Red Blood Cell Morphology Normal Random Vancomycin Level 15.8 ug/mL (5-10) Test 02/03/25 11:00 02/03/25 06:05 02/02/25 12:03 02/02/25 11:50 Urine Creatinine 90.27 mg/dL (30.0-125.0) Urine Sodium 77 mmol/L (40-220) Urine Total Protein 116.5 mg/dL (1-14) Uric Acid 7.1 mg/dL (3.7-9.2) Phosphorus Level 3.6 mg/dL (2.4-5.1) Vitamin D 25-Hydroxy 28.4 ng/mL (30.0-100) Thyroid Stimulating Hormone (TSH) 0.40 uIU/mL (0.55-4.78) Urine Color Light-yellow (Yellow) Urine Clarity Clear (Clear) Urine pH 5.5 (5.0-9.0) Urine Specific Mcnabb 1.016 (1.001-1.035) Urine Protein 1+ (Negative) Urine Ketones Negative (Negative) Urine Blood 1+ /uL (Negative) Urine Nitrite Negative (Negative) Urine Bilirubin Negative (Negative) Urine Urobilinogen Normal mg/dL (Negative) Urine Leukocyte Esterase 1+ /uL (Negative) Urine RBC <1 /hpf (0 - 3) Urine Microscopic WBC 10 /HPF (0-3) Urine Squamous Epithelial Cells Few /hpf (<5) Urine Bacteria None seen /hpf (None Seen) Urine Mucus Few (None Seen) Urine Glucose Trace mg/dL (Normal) Complement C3 182 mg/dL (82-167) Complement C4 38 mg/dL (12-38) Total Complement (CH50) >60 U/mL (>41) Test 02/02/25 04:57 02/01/25 08:46 02/01/25 04:45 01/31/25 20:15 Total Bilirubin 0.5 mg/dL (0.2-1.0) Aspartate Amino Transferase (AST) 126 U/L (13-40) Alanine Aminotransferase (ALT) 160 U/L (7-40) Alkaline Phosphatase 378 U/L (46-116) B-Type Natriuretic Peptide 114.31 pg/mL (0-100) Total Protein 7.0 g/dL (5.7-8.2) Albumin 4.2 g/dL (3.2-4.8) Troponin I High Sensitivity 2308 ng/L (</=54) Hemoglobin A1c 7.1 % A1C (<5.7) Magnesium Level 2.2 mg/dL (1.6-2.6) Triglycerides Level 160 mg/dL (< 150) Cholesterol Level 104 mg/dL (< 200) LDL Cholesterol 46 mg/dL (< 100) HDL Cholesterol 24 mg/dL (40-59) Prothrombin Time 10.9 sec (9.3-11.8) Prothrombin Time INR 1.03 (0.9-1.15) Activated Partial Thromboplast Time 21.7 SEC (24.5-34.5) Test 01/31/25 19:44 01/31/25 18:33 01/31/25 14:50 Influenza Type A Antigen Negative (Negative) Influenza Type B Antigen Negative (Negative) SARS-CoV-2 Antigen (Rapid) Negative (NEGATIVE) Urine Hyaline Casts Few /lpf (0 - 2) Lactic Acid Level 1.1 mmol/L (0.4-2.0) Lipase 39 U/L (12-53) Hepatitis A Antibody Total Positive (Negative) Hepatitis B Surface Antigen Negative (Negative) Hepatitis B Surface Antibody Negative (Negative) Hepatitis B Core Total Antibody Positive (Negative) Hepatitis C Antibody Negative (Negative) Other Laboratory Tests 02/08/25 09:14 Brief Hx & Hospital Course: This is a 74-year-old male with past medical history of hypertension, CAD, type 2 diabetes mellitus, gout, dyslipidemia, BPH with prostatitis presented to the ED with a chief complaint of diffuse abdominal pain and decreased p.o. intake for the last few days prior to this admission. According to the son this patient has been having fever, cough and productive sputum for the same duration. Denied any nausea, vomiting, dizziness, altered bowel habit, hematuria, dysuria or any positive sick contact. Patient does not speak Indian( could not tell us what language he speaks) so history is very limited. Hospital course: Patient was initially presented with hyperkalemia and sepsis likely due to possible pneumonia. CT abdomen pelvis demonstrated small right- sided pleural effusion with bibasilar opacity and 5.9 x 2.7 x 2.8 cm opacity over the left costophrenic angle with cavitation which may represent cavitating pneumonia versus mass. CT chest showed 2 cm consolidation left costophrenic angle has developed since January 31, 2025 not present 2022 consider appropriate follow-up according the patient's risk factors perhaps in 6-12 months. For possible pneumonia patient was treated with IV linezolid 600 mg q.12 hours or and IV cefepime 1 g daily. CLAIRE on CKD likely hemodynamically mediated and patient was treated with IV fluid. Nephrology was on board.On the 2nd day of admission troponin was up trending and cadiology was consulted. Patient underwent left heart catheterization on with PTCA x2 in LAD and the procedure was uneventful. Patient was hemodynamically stable after the procedure. cardiology cleared the patient for discharge. To avoid post contrast nephropathy the patient was treated with IV fluid before and after the procedure and today creatinine showed 1.67 which was markedly reduced since the admission from 4.24. Due to language barrier discharge plan was discussed with the sonover phone and all questions were answered. Son was counseled regarding continuation of DAPT aspirin 81 mg daily and Plavix 75 mg daily for next 1 year to prevent stent thrombosis. Patient is being discharged with aspirin 81 mg daily, Plavix 75 mg daily for 1 year, Zyvox 600 mg b.i.d. for 4 days, and resumed home medications. He was also advised to follow up with PCP in 1 week and Cardiology in 1-2 weeks. Physical examination on the day of discharge: General Appearance: Alert, Oriented X3, Cooperative, No acute distress HEENT: Atraumatic, PERRLA, EOMI, Mucous membrane moist/pink Respiratory: Clear to auscultation, Normal air movement Cardiovascular: Regular rate, Normal S1, Normal S2, No murmurs, no chest wall tenderness Abdominal: Normal bowel sounds, Soft, No tenderness, No hepatosplenomegaly, No masses Extremities: No clubbing, No cyanosis, No edema, Normal pulses, No tenderness/swelling Skin: No rashes, No breakdown, No significant lesion Neuro: Normal gait, Normal speech, Strength at 5/5 X4 ext, Normal tone, Sensation intact, Cranial nerves 3-12 NL, Reflexes 2+ Psych/Mental Status: Mental status NL, Mood NL Discussed with Dr. Abrams Consults/Reason for consult Nephrology and cardiology were consulted. Operations or Procedures Exam: CT CT AB PEL WO CON-NO ORAL OR IV History: ABD PAIN; DIARRHEA; NO PO INTAKE FINDINGS: Small left-sided pleural effusion with bibasilar opacities. 5.9 x 2.7 x 2.8 cm opacity over the left costophrenic angle with cavitation. Partially visualized heart is unremarkable. 1.6 cm right hepatic lobe cyst. Otherwise, liver, spleen, gallbladder, pancreas and adrenal glands are unremarkable. Echogenic 1.6 cm left renal lower pole lesion which may represent a hemorrhagic / proteinaceous cyst. Bilateral renal vascular calcification. No hydro nephrosis bilaterally. Mild wall thickening of the mildly distended urinary bladder. Enlarged prostate measuring 4.8 x 5.6 x 6.7 cm with Focus of calcification. Mild gastric wall thickening. Small bowel loops unremarkable. Appendix is normal in size with a appendicolith within the appendix. Small to moderate amount of fecal material within the colon. No evidence of intraperitoneal free air or free fluid. No evidence of aortic aneurysm. Moderate atherosclerotic calcification of the aorta and bilateral iliacs. Dilatation of the right common iliac artery up to 1.7 cm. No significant lymphadenopathy. Soft tissues are unremarkable. Sclerotic foci of the left proximal femur which may represent bone islands/blastic lesions. IMPRESSION: Mild gastric wall thickening. Correlate for gastritis. Mild wall thickening of the urinary bladder which may be due to inadequate distention. Correlation with urinalysis is recommended to exclude cystitis. Enlarged prostate. Recommend correlation with PSA. Small right-sided pleural effusion with bibasilar opacities which may represent infectious/ inflammatory process. 5.9 x 2.7 x 2.8 cm opacity over the left costophrenic angle with cavitation which may represent cavitating pneumonia versus mass. Procedure: CT CHEST WITHOUT CONTRAST Reason for study/Clinical History: possible Lung mass Comparison Study: None available at time of dictation. Exam Date: 01/31/2025 08:31 PM FINDINGS: Lower neck: Normal thyroid. Lungs: 2 cm area of consolidation of the left costophrenic angle. This was not present on previous chest x-ray 2022. Patient developed airspace disease in the left lower lobe on a chest x-ray 01/31/2025 and is does not appear to have cleared at this time recommend follow-up study in 6-12 months according to patient's risk factors. Heart/Vascular Structures: Normal heart size. No pericardial effusion. Lymph Nodes: No adenopathy Pleura: No pleural effusion or significant pneumothorax. Musculoskeletal: No acute osseous abnormality. Soft tissues: Normal. Upper abdomen: Limited portions of the upper abdomen are unremarkable. IMPRESSION: 1. 2 cm consolidation left costophrenic angle has developed since January 31, 2025 not present 2022 consider appropriate follow-up according the patient's risk factors perhaps in 6-12 months. DATE OF SURGERY: 02/07/2025 TECHNIQUE PERFORMED: * Emergency case. * Ultrasound of the radial artery. * Management of conscious sedation. * Insertion of a 6-Danish arterial line from the right radial artery. * Left coronary artery angiography. * Balloon angioplasty of the lesion in the left anterior descending artery with help of 2.25 x 12 mm length semi-compliant balloon. * Stenting and angioplasty of the left anterior descending artery with total of 2 stents, the first stent deployed in mid distal region, which is 2.75 x 15 mm in length, which is [place] stent. Second stent has been deployed proximal and the mid region of the left anterior descending artery, which is 3.0 x 18 mm in length [place] stent of [employer] Via (total two stents are deployed in left anterior descending artery). * Intravascular ultrasound of the left main and also of the left stented region. * Intracoronary administration of Integrilin 20 mg. COMPLICATIONS: None. ASSISTANTS: Assisted by our staff here is Adiel Velasquez Janice. DESCRIPTION OF PROCEDURE: Procedure, risks and benefits of the procedure explained to the patient and understands very well, brought to recyclable materials sorter. IV Angiomax was given. We put JL3.5, 6-Danish guiding catheter and left coronary angiography done. Subsequently, we also put a Runthrough wire, which went smoothly. We put balloon 2.25 x 12 balloon. Angioplasty was done in the mid region of the left anterior descending artery. Subsequently, we put a stent 2.75 x 15 mm [place] stent of [employer] Via deployed at the junction of the mid and distal region of pulled proximally and taken to 17 atmosphere and procedure went well. Subsequently, now we put a stent 2.7 x 15 into the distal lesion and having deployed for 31 seconds and subsequently for 21 seconds and it was taken up to 17 atmosphere. Stent size was increased to 3.0 mm. Subsequently, we put out the same balloon and balloon angioplasty of the proximal lesion was done with help of the similar balloon. Subsequently, now we put a stent which is a 3.0 x 18 mm [place] stent deployed at the mid region of the left ventricular artery and covering the distal region of the previously deployed proximal stent and was taken up to the 15 atmosphere inflated were deployed. Subsequently, we also did intravascular ultrasound, apposition of the stent looked good. CONCLUSION: * Prior to performing the procedure, the left anterior descending artery lesion #1 was 99% blocked, PAMELLA grade 3 flow and postprocedure PAMELLA grade 3 flow, residual stenosis to 0%. * Second lesions was 99% PAMELLA grade 3 flow, postprocedure PAMELLA grade 3 flow, residual stenosis is 0%. * Procedure went well. Condition at Discharge: Stable Final Diagnosis/Problems List # NSTEMI type 1, s/p PTCA X2 stents in LAD # Possible Gram-positive vs Gram-negative pneumonia # possible cavitary pneumonia, rule out lung malignancy # Sepsis due to above # Intractable abdominal pain likely due to gastritis # Ruled out acute pancreatitis # Transaminitis without hyperbilirubinemia, ruled out Liver pathology # CLAIRE on CKD likely hemodynamically mediated /VMN # Hyperkalemia secondary to CKD resolved # possible acute complicated cystitis # BPH # Vitamin D deficiency # Type 2 diabetes mellitus, HbA1C 7.1% Discharge Disposition: Home Discharge Instruct/Medications Diet: Consistent carbohydrate Activity: No Restrictions, As Tolerated Follow Up/Referral: Follow up with PCP in 1week Follow up with Cardiology in 1 to 2 weeks. Medications: Aspirin 81 p.o. daily, Plavix 75 mg daily for 1 year Zyvox 600 mg p.o. b.i.d. for 4 days Continue home medications. Discharge Statement: "Patient was advised to return to the ER or call 911 if any headaches, dizziness, shortness of breath, chest pain, abdominal pain, bleeding, fevers, or worsening of medical condition. Patient was counseled about treatment plan, medications, possible side effects, patientverbalized understanding. All questions were answered to the best of my ability. This discharge took greater then 30 minutes in planning, reviewing documentation, counseling the patient, and discussing with other team members." ASSESSMENT ASSESSMENT Assessment # NSTEMI type 1, s/p PTCA X2 stents in LAD # Possible Gram-positive vs Gram-negative pneumonia- Need cultures # possible cavitary pneumonia, rule out lung malignancy # Sepsis due to above # Intractable abdominal pain likely due to gastritis # Ruled out acute pancreatitis # Transaminitis without hyperbilirubinemia, ruled out Liver pathology # CLAIRE on CKD likely hemodynamically mediated /VMN # Hyperkalemia secondary to CKD resolved # possible acute complicated cystitis # BPH # Vitamin D deficiency # Type 2 diabetes mellitus, HbA1C 7.1% Addendum Addendum Addendum I was physically present for the saunders portions of the service provided to patient by THE RESIDENT. I have reviewed the documentation, discussed the case with resident and agree with the resident's documentation except as noted. Also the patient's clinical case was discussed with the patient's nurse. This medical document was created using an electronic medical record system with computerized dictation system. Although this document has been carefully reviewed, there might still be some phonetic and typographical errors. These areas are purely typographical due to imperfections of the software programs, and do not reflect any compromise in the patient's medical care. Late signature. Date of Service: Feb 08, 2025 Billing Provider: MILANA ABRAMS MD Common Visit Codes: 05899-LGU/OBS DISCH DAY >30min DAVID WANG RESIDENT Feb 08, 2025 13:13 MILANA ABRAMS MD Feb 10, 2025 00:08
--- NOTE | 2025-02-08 19:19 | DVHPN2 ---
Progress Note - Dictate Date Seen: Feb 08, 2025 Medical Necessity Reason Pt with a Central, PICC or Fol: No Subjective Patient was seen and evaluated in follow up. Patient complains of generalized pain. Patient is s/p emergency lLeft coronary artery angiography, balloon angioplasty of the lesion in the left anterior descending artery, stenting and angioplasty of the left anterior descending artery with total of 2 stents, the first stent deployed in mid distal region, second stent has been deployed proximal and the mid region of the left anterior descending artery. Intracoronary administration of Integrilin 20 mg. Patient is cardiac stable for discharge. Telemetry reviewed. vital signs Vital Sign Date Time Temp Pulse Resp B/P (MAP) Pulse Ox O2 Delivery O2 Flow Rate FiO2 02/08/25 12:58 98.2 82 17 147/70 (95) 97 98.2 02/07/25 20:00 Room Air* 0 21 Total Intake and Output 02/07/25 02/07/25 02/08/25 15:00 23:00 07:00 Intake Total 350 ml 500 ml 500 ml Output Total 500 ml 600 ml Balance 350 ml 0 ml -100 ml medications Current Medications Medications Dose Ordered Sig/Shyam Route Start Time Stop Time Status Last Admin Dose Admin Cefepime HCl 50 ml @ 12.5 mls/hr DAILY IV 02/01/25 10:00 02/08/25 10:00 12.5 MLS/HR Pantoprazole Sodium 40 mg DAILY IV 02/01/25 10:00 02/08/25 10:25 40 MG Heparin Sodium (Porcine) 5,000 units Q12HR SC 01/31/25 22:00 02/08/25 10:33 5,000 UNITS Diagnostic Test (Pha) 1 strip ACHS 01/31/25 22:00 02/07/25 22:14 1 STRIP Insulin Human Regular HS SC 01/31/25 22:00 02/07/25 22:13 2 UNITS Insulin Human Regular AC SC 02/01/25 07:00 02/07/25 11:46 6 UNITS Dextrose 50 ml UD PRN IV 01/31/25 19:15 Aspirin 162 mg DAILY PO 02/01/25 10:00 02/08/25 10:26 162 MG Atorvastatin Calcium 10 mg HS PO 02/01/25 22:00 02/07/25 22:11 10 MG Metoprolol Succinate 50 mg DAILY PO 02/03/25 10:00 02/08/25 10:35 50 MG Acetaminophen 650 mg Q8HPRN PRN PO 02/03/25 01:30 02/04/25 22:29 650 MG Albuterol 2.5 mg Q4HPRN PRN NEB 02/03/25 01:30 Cancel Sodium Chloride 1,000 ml @ 60 mls/hr [id number] IV 02/03/25 11:00 02/08/25 07:40 60 MLS/HR Ergocalciferol 50,000 unit Q7D PO 02/03/25 14:00 02/03/25 15:22 50,000 UNIT Insulin Glargine 10 units HS SC 02/03/25 22:00 02/07/25 22:12 10 UNITS Linezolid 300 ml @ 150 mls/hr Q12HR IV 02/03/25 22:00 02/08/25 10:25 150 MLS/HR Amlodipine Besylate 10 mg DAILY PO 02/05/25 08:30 02/08/25 10:34 10 MG Sodium Bicarbonate 650 mg BID PO 02/05/25 22:00 02/08/25 10:26 650 MG Clopidogrel Bisulfate 75 mg DAILY PO 02/08/25 10:00 02/08/25 10:28 75 MG objective GENERAL: Alert and oriented x 3. No acute distress. EYES: PERRL, EOMI. Anicteric. HENT: Moist mucous membranes. LUNGS: Clear to auscultation bilaterally. CARDIOVASCULAR: Regular rate and rhythm. ABDOMEN: Soft, non-tender and non-distended. EXTREMITIES: No edema. NEUROLOGIC: No focal neurological deficits. SKIN: Warm, dry. laboratory and microbiology Laboratory Tests 02/08/25 09:14 Test 02/08/25 09:14 Range/Units Serum Glucose 141 H 74-106 mg/dL Problem List NSTEMI, possible cardiorenal syndrome. Rule out progressive CAD. Rule out sepsis 2/2 Possible pneumonia. Intractable abdominal pain. CLAIRE on CKD 4. Hyperkalemia. Hypertension. Hyperlipidemia. Diabetes type 2 with hyperglycemia. Assessment/Plan Continued all current supportive medical care. Amlodipine. Aspirin, Lipitor, Plavix, Metoprolol. IV antibiotics as ordered. GI prophylactics. Additional plan as per the hospital course. Dietary Evaluation Review Comments: 1. Continue Cardiac diet order as tolerated 2. Encourage continued good oral intakes >75% of meals 3. Appreciate daily wt's to trend while inpatient Expected Outcomes/Goals: Maintain weight, adequate nutritiional intake. Plan discussed with: Patient WILLIAM FIGUEROA MD Feb 08, 2025 13:11
== END 2025-02-08 18:20 | disposition home or self-care (01) | DRG 853 ==
LOC: EDUNIT# 14:31 → ER 14:31 → EDBD 14:31 → OVERFLOW 17:37 → TELE-EAST 22:22
PROVIDERS: ADMIT Internal Medicine; ATTEND Emergency Medicine
PROC: 027035Z Dilation of Coronary Artery, One Artery with Two Drug-eluting Intraluminal Devices, Percutaneous Approach (ICD-10-PCS; principal; 2025-02-07)
PROC: B211YZZ Fluoroscopy of Multiple Coronary Arteries using Other Contrast (ICD-10-PCS; 2025-02-07)
PROC: B215YZZ Fluoroscopy of Left Heart using Other Contrast (ICD-10-PCS; 2025-02-07)
PROC: 4A023N7 Measurement of Cardiac Sampling and Pressure, Left Heart, Percutaneous Approach (ICD-10-PCS; 2025-02-07)
PROC: B34HZZZ Ultrasonography of Right Upper Extremity Arteries (ICD-10-PCS; 2025-02-07)
PROC: 03HY32Z Insertion of Monitoring Device into Upper Artery, Percutaneous Approach (ICD-10-PCS; 2025-02-07)
DX: A41.50 Gram-negative sepsis, unspecified (principal); I21.4 Non-ST elevation (NSTEMI) myocardial infarction; J15.69 Pneumonia due to other Gram-negative bacteria; N17.0 Acute kidney failure with tubular necrosis; J15.9 Unspecified bacterial pneumonia; N18.4 Chronic kidney disease, stage 4 (severe); J90 Pleural effusion, not elsewhere classified; N30.00 Acute cystitis without hematuria; C34.90 Malignant neoplasm of unspecified part of unspecified bronchus or lung; E87.5 Hyperkalemia; I25.10 Atherosclerotic heart disease of native coronary artery without angina pectoris; E11.65 Type 2 diabetes mellitus with hyperglycemia; Z20.822 Contact with and (suspected) exposure to COVID-19; E55.9 Vitamin D deficiency, unspecified; C61 Malignant neoplasm of prostate; R00.0 Tachycardia, unspecified; I12.9 Hypertensive chronic kidney disease with stage 1 through stage 4 chronic kidney disease, or unspecified chronic kidney disease; E11.22 Type 2 diabetes mellitus with diabetic chronic kidney disease; E78.5 Hyperlipidemia, unspecified; K29.70 Gastritis, unspecified, without bleeding; R74.01 Elevation of levels of liver transaminase levels; N40.0 Benign prostatic hyperplasia without lower urinary tract symptoms; N41.9 Inflammatory disease of prostate, unspecified; M10.9 Gout, unspecified; Z79.2 Long term (current) use of antibiotics; Z79.899 Other long term (current) drug therapy; Z79.4 Long term (current) use of insulin; Z79.82 Long term (current) use of aspirin; Z87.891 Personal history of nicotine dependence; I25.2 Old myocardial infarction; Z95.5 Presence of coronary angioplasty implant and graft
CPT/HCPCS: 36415; 36600; 71045; 71250; 74176; 76700; 80048; 80053; 80061; 80202; 81001; 82306; 82565; 82570; 82805; 82962; 83036; 83605; 83690; 83735; 83880; 84100; 84132; 84156; 84300; 84443; 84484; 84550; 85007; 85025; 85027; 85610; 85730; 86160; 86162; 86704; 86706; 86708; 86803; 87040; 87077; 87081; 87186; 87340; 87426; 87804; 92941; 93005; 93306; 93458; 94640; 96365; 96375; 99152; 99291; G0378; J1815; J2250; J2405; J2470; Q9967

== ENCOUNTER 2025-04-21 08:00 | Outpatient (CLI) | payer MEDICARE, MEDICAID ==
[~2025-04-21 08:00] MED LIST changes: +BRIM0.159 OP; -CEPH-510 PO; -CIPR500T4 PO; +CLOP75TA70 PO; +ERGO1CAP23 PO; +EZET10TA22 PO; +FINA5TAB4 PO; +HYDR50TA47 PO; +LATA0.008 OP; +LINE1TAB6 PO; +LISI10TA34 PO; +MEMA1TAB5 PO; +NETA0.02 OP; -NITR-87 PO; -SODI10PA PO; -SODI650T PO; +TAMS0.4C39 PO
[2025-04-21 08:28] LABS: Hematocrit 34.6 % (41.0-53.0); Hemoglobin 11.6 g/dL (13.5-17.5); Mean Corpuscular Hemoglobin 31.6 pg (28.0-32.0); Mean Corpuscular Volume 94.6 fL (80.0-100.0); Nucleated Red Blood Cells % 0.0 %
[2025-04-21 08:52] LABS: Chloride 105.0 mmol/L (98-107); Sodium 138.0 mmol/L (136-145)
[2025-04-21 08:53] LABS: Anion Gap 13.0 (5-15); Calcium 9.5 mg/dL (8.7-10.4); Carbon Dioxide 20.0 mmol/L (20-31)
[2025-04-21 08:58] LABS: BUN/Creatinine Ratio 18.0 (10.0-20.0); Blood Urea Nitrogen 67.0 mg/dL (9-23); Glucose 141.0 mg/dL (74-106); Potassium 5.2 mmol/L (3.5-5.1)
[2025-04-21 08:59] LABS: Albumin 4.8 g/dL (3.2-4.8)
[2025-04-21 09:01] LABS: Urine Protein, UAD Negative (Negative)
[2025-04-21 09:11] LABS: Uric Acid 9.0 mg/dL (3.7-9.2)
[2025-04-21 10:18] LABS: Protein, Urine 17.4 mg/dL (1-14)
== END 2025-04-21 17:00 | disposition home or self-care (01) ==
LOC: LAB 08:00
PROVIDERS: ATTEND Internal Medicine
DX: E11.22 Type 2 diabetes mellitus with diabetic chronic kidney disease (principal); E11.21 Type 2 diabetes mellitus with diabetic nephropathy; N18.30 Chronic kidney disease, stage 3 unspecified; E21.3 Hyperparathyroidism, unspecified; E55.9 Vitamin D deficiency, unspecified; D63.1 Anemia in chronic kidney disease; N39.0 Urinary tract infection, site not specified; M10.9 Gout, unspecified; R80.9 Proteinuria, unspecified
CPT/HCPCS: 36415; 80069; 81001; 82570; 83970; 84156; 84550; 85025

== ENCOUNTER 2025-05-05 08:52 | Outpatient (CLI) | payer MEDICARE, MEDICAID ==
[2025-05-05 10:27] LABS: Hematocrit 37.8 % (41.0-53.0); Hemoglobin 12.5 g/dL (13.5-17.5); Mean Corpuscular Hemoglobin 32.0 pg (28.0-32.0); Mean Corpuscular Volume 96.5 fL (80.0-100.0); Nucleated Red Blood Cells % 0.1 %
[2025-05-05 10:38] LABS: Sodium 142.0 mmol/L (136-145)
[2025-05-05 10:39] LABS: Anion Gap 12.0 (5-15); Calcium 10.3 mg/dL (8.7-10.4); Carbon Dioxide 21.0 mmol/L (20-31)
[2025-05-05 10:46] LABS: Albumin 5.1 g/dL (3.2-4.8); Blood Urea Nitrogen 51.0 mg/dL (9-23)
[2025-05-05 10:56] LABS: BUN/Creatinine Ratio 15.2 (10.0-20.0); Chloride 109.0 mmol/L (98-107); Glucose 122.0 mg/dL (74-106)
[2025-05-05 10:59] LABS: Potassium 5.7 mmol/L (3.5-5.1)
[2025-05-05 11:21] LABS: Uric Acid 8.1 mg/dL (3.7-9.2)
[2025-05-05 11:50] LABS: Urine Protein, UAD TRACE (Negative)
[2025-05-05 12:58] LABS: Microalb/Creat Ratio, Urine 46.0
== END 2025-05-05 17:00 | disposition home or self-care (01) ==
LOC: LAB 08:52
PROVIDERS: ATTEND Internal Medicine
DX: E11.22 Type 2 diabetes mellitus with diabetic chronic kidney disease (principal); N18.30 Chronic kidney disease, stage 3 unspecified; N39.0 Urinary tract infection, site not specified; E21.3 Hyperparathyroidism, unspecified; M10.9 Gout, unspecified; E55.9 Vitamin D deficiency, unspecified; R80.9 Proteinuria, unspecified; D63.1 Anemia in chronic kidney disease
CPT/HCPCS: 36415; 80069; 81001; 82043; 82570; 83970; 84550; 85025

== ENCOUNTER 2025-06-30 08:51 | Outpatient (CLI) | payer MEDICARE, MEDICAID ==
[2025-06-30 11:15] LABS: Hematocrit 38.5 % (41.0-53.0); Hemoglobin 12.7 g/dL (13.5-17.5); Mean Corpuscular Hemoglobin 31.0 pg (28.0-32.0); Mean Corpuscular Volume 93.5 fL (80.0-100.0); Nucleated Red Blood Cells % 0.1 %
[2025-06-30 11:21] LABS: Sodium 142.0 mmol/L (136-145)
[2025-06-30 11:22] LABS: Anion Gap 14.0 (5-15); Carbon Dioxide 20.0 mmol/L (20-31)
[2025-06-30 11:23] LABS: Calcium 9.2 mg/dL (8.7-10.4)
[2025-06-30 11:27] LABS: Glucose 106.0 mg/dL (74-106)
[2025-06-30 11:28] LABS: BUN/Creatinine Ratio 13.2 (10.0-20.0)
[2025-06-30 11:29] LABS: Albumin 4.7 g/dL (3.2-4.8)
[2025-06-30 11:37] LABS: Microalb/Creat Ratio, Urine 60.0
[2025-06-30 11:41] LABS: Urine Protein, UAD Negative (Negative)
[2025-06-30 11:48] LABS: Blood Urea Nitrogen 31.0 mg/dL (9-23); Chloride 108.0 mmol/L (98-107)
[2025-06-30 11:49] LABS: Potassium 5.6 mmol/L (3.5-5.1)
[2025-06-30 12:03] LABS: Uric Acid 9.3 mg/dL (3.7-9.2)
== END 2025-06-30 17:00 | disposition home or self-care (01) ==
LOC: LAB 08:51
PROVIDERS: ATTEND Internal Medicine
DX: E11.22 Type 2 diabetes mellitus with diabetic chronic kidney disease (principal); N18.30 Chronic kidney disease, stage 3 unspecified; E11.21 Type 2 diabetes mellitus with diabetic nephropathy; E21.3 Hyperparathyroidism, unspecified; E55.9 Vitamin D deficiency, unspecified; N39.0 Urinary tract infection, site not specified; D63.1 Anemia in chronic kidney disease; R80.9 Proteinuria, unspecified; M10.9 Gout, unspecified
CPT/HCPCS: 36415; 80069; 81001; 82043; 82570; 83970; 84550; 85025

== ENCOUNTER 2025-08-05 10:24 | Outpatient (CLI) | payer MEDICARE, MEDICAID ==
[2025-08-05 11:28] LABS: Chloride 106 mmol/L (98-107); Potassium 5.0 mmol/L (3.5-5.1); Sodium 141 mmol/L (136-145)
[2025-08-05 11:29] LABS: Anion Gap 12 (5-15); Carbon Dioxide 23 mmol/L (20-31)
[2025-08-05 11:30] LABS: Calcium 9.2 mg/dL (8.7-10.4)
[2025-08-05 11:35] LABS: BUN/Creatinine Ratio 16.4 (10.0-20.0); Blood Urea Nitrogen 45 mg/dL (9-23); Glucose 125 mg/dL (74-106)
== END 2025-08-05 17:00 | disposition home or self-care (01) ==
LOC: LAB 10:24
PROVIDERS: ATTEND Internal Medicine
DX: N18.4 Chronic kidney disease, stage 4 (severe) (principal); I12.9 Hypertensive chronic kidney disease with stage 1 through stage 4 chronic kidney disease, or unspecified chronic kidney disease; Z79.899 Other long term (current) drug therapy
CPT/HCPCS: 36415; 80048; 83036